=== PATIENT | female | born 1950 | race Caucasian/White ===

== ENCOUNTER → 2017-01-20 | Outpatient (CLI) | payer MEDICARE ==
--- NOTE | 2017-01-21 11:22 | ECHOF ---
Referral Reason:R06.02 SOB MEASUREMENTS -------- HEIGHT: 127.0 cm WEIGHT: 72.6 kg BP: IVSd: 1.3 cm (0.6 - 1.1) LVIDd: 4.4 cm (3.9 - 5.3) LVPWd: 1.0 cm (0.6 - 1.1) IVSs: 1.3 cm LVIDs: 3.0 cm LVPWs: 1.3 cm LA Diam: 4.0 cm (2.7 - 3.8) LAESV Index (A-L): 42.42 ml/m Ao Diam: 3.2 cm (2.0 - 3.7) AV Cusp: 1.9 cm (1.5 - 2.6) LA Diam: 4.8 cm (2.7 - 3.8) MV EXCURSION: 14.577 mm (> 18.000) MV EF SLOPE: 87 mm/s (70 - 150) EPSS: 0.6 cm MV E Kerwin: 0.89 m/s MV DecT: 269 ms MV A Kerwin: 1.05 m/s MV E/A Ratio: 0.85 RAP: 5.00 mmHg RVSP: 23.88 mmHg FINDINGS -------- Sinus rhythm. This was a technically adequate study. The left ventricular size is normal. There is mild concentric left ventricular hypertrophy. Overall left ventricular systolic function is normal with, an EF between 55 - 60 %. The right ventricle is normal in size. LA is severely dilated >40 ml/m2 The right atrial size is normal. There is mild aortic valve sclerosis. There is no evidence of aortic regurgitation. Mild mitral annular calcification present. Mild mitral regurgitation is present. Mild tricuspid regurgitation present. There is no evidence of pulmonary hypertension. The right ventricular systolic pressure, as measured by Doppler, is 23.88mmHg. There is no pulmonic regurgitation present. The aortic root size is normal. There is no pericardial effusion. CONCLUSIONS -------- 1. Sinus rhythm. 2. There is no evidence of pulmonary hypertension. 3. There is no pulmonic regurgitation present. 4. The aortic root size is normal. 5. There is no pericardial effusion. 6. This was a technically adequate study. 7. There is mild concentric left ventricular hypertrophy. 8. Overall left ventricular systolic function is normal with, an EF between 55 - 60 %. 9. LA is severely dilated >40 ml/m2 10. There is mild aortic valve sclerosis. 11. Mild mitral annular calcification present. 12. Mild mitral regurgitation is present. 13. Mild tricuspid regurgitation present. CAREER DEVELOPMENT COORDINATOR: Celine Cornejo RDCS
== END | disposition home or self-care (01) ==
LOC: RADECHMAIN 13:08
PROVIDERS: ATTEND Nurse Practitioner Family
DX: I08.3 Combined rheumatic disorders of mitral, aortic and tricuspid valves (principal); I10 Essential (primary) hypertension
CPT/HCPCS: 93306

== ENCOUNTER → 2017-04-10 | Outpatient (CLI) | payer MEDICARE ==
--- NOTE | 2017-04-10 18:20 | CT ---
EXAMINATION TYPE: CT sinus wo con DATE OF EXAM: 04/10/2017 COMPARISON: NONE HISTORY: Sinus infections and headaches x years. CT DLP: 592.00 mGycm. Automated Exposure Control for Dose Reduction was Utilized. TECHNIQUE: CT scan of the sinuses is performed without contrast, axial images are obtained, coronal r eformatted images are also reviewed. FINDINGS: Polypoid mucosal thickening versus true mucosal polyps are seen within the inferior maxilla ry sinuses measuring 0.7 cm along the right inferior medial wall and 0.5 cm along the lateral right w all as well as 0.8 cm along the inferior lateral left maxillary sinus wall. Remaining portions of the paranasal sinuses and mastoid air cells are well aerated. No fluid is seen within the middle ear cav ities. No mucoperiosteal thickening to suggest chronic sinusitis. No high densities to suggest hemorr jeremias or fungal disease. The ostiomeatal complexes and frontal recesses are patent bilaterally. No muc osal hypertrophy of the nasal terminates. No Colt cells or arnoldo bullosa are seen. Slight leftward nasal septal deviation with a small 3 mm nasal spur is identified. The nasal bone and maxillary spine are intact. Orbital de luna are also intact. Extraocular muscles xenia ear symmetric. Orbits are also intact and unremarkable. Exam is not optimized for evaluation of the i ntracranial structures. IMPRESSION: 1. Bilateral maxillary polypoid mucosal thickening versus mucosal polyps. Remaining paranasal sinuses and mastoid air cells are well aerated. 2. Ostiomeatal complexes and frontal recesses are patent bilaterally. 3. No Colt cells or arnoldo bullosa. No mucosal thickening of the nasal turbinates. 4. Mild leftward nasal septal deviation.
== END | disposition home or self-care (01) ==
LOC: RADCTMAIN 15:52
PROVIDERS: ATTEND Otolaryngology
DX: J34.2 Deviated nasal septum (principal)
CPT/HCPCS: 70486

== ENCOUNTER 2017-09-09 18:10 | Inpatient (IN) | payer MEDICARE ==
[2017-09-09] MEDS ORDERED: ACETAMINOPHEN TAB 325 MG TAB PO STA (19:10)
[2017-09-09] MEDS ORDERED: LORazepam 2 MG/ML INJ IV STA (19:12)
[2017-09-09 19:48] LABS: HCT 33.5 % (34.0-46.0); HGB 11.1 gm/dL (11.4-16.0); MCHC 33.2 g/dL (31.0-37.0); MCV 84.5 fL (80.0-100.0); Mean Platelet Volume 6.8; Platelet Count 294 k/uL (150-450); RBC 3.96 m/uL (3.80-5.40); RDW 13.6 % (11.5-15.5)
--- NOTE | 2017-09-09 19:48 | ED ---
General Adult HPI - General Chief complaint: Altered Mental Status Stated complaint: weakness Time Seen by Provider: 09/09/17 19:00 Source: patient, RN notes reviewed, old records reviewed Mode of arrival: wheelchair Limitations: altered mental status - History of Present Illness Initial comments: 67 yo female presenting with chief complaint of headache and dyspnea. Patient has history of fibromyalgia, shows was chronic history of migraine headache. She states that over the past 24 hours she has had gradual onset of worsening headache. She is also had some shortness of breath with mild cough. Cough is nonproductive. Patient complains of nausea without vomiting. No change in her bowels. No dysuria. No abdominal pain. Patient denies chest pain. She has had fever and chills as well. Not slept in the past 20 hours secondary to these symptoms. She is taking trazodone and Klonopin for sleep. - Related Data Home Medications Medication Instructions Recorded Confirmed Cetirizine HCl [Zyrtec] 10 mg PO DAILY 05/20/14 09/09/17 Cholecalciferol [Vitamin D3] 2,000 unit PO DAILY 05/20/14 09/09/17 Gabapentin [Gabapentin] 300 mg PO QAM 05/20/14 09/09/17 Hydrocodone/Acetaminophen 1 tab PO QID PRN 05/20/14 09/09/17 [Hydrocodone/Acetaminophen 10-325] Losartan Potassium [Losartan 100 mg PO QAM 05/20/14 09/09/17 Potassium] Ondansetron [Ondansetron Odt] 8 mg PO TID PRN 05/20/14 09/09/17 clonazePAM [Clonazepam] 0.5 mg PO BID PRN 05/20/14 09/09/17 clonazePAM [Clonazepam] 1 mg PO HS 05/20/14 09/09/17 metFORMIN HCL [Metformin HCl ER] 500 mg PO QAM 05/20/14 09/09/17 Morphine Sulfate ER [Ms Contin 15 mg PO Q8H 11/08/15 09/09/17 15Mg] Morphine Sulfate ER [Ms Contin 30 mg PO Q8H 11/08/15 09/09/17 30Mg] Albuterol Inhaler [Ventolin Hfa 2 puff INHALATION RT-Q4H PRN 11/14/15 09/09/17 Inhaler] Multivitamins, Thera [Multivitamin] 1 tab PO DAILY 11/14/15 09/09/17 Rizatriptan Benzoate [Maxalt] 10 mg PO BID PRN 07/04/16 09/09/17 Topiramate [Topamax] 50 mg PO QID 07/04/16 09/09/17 traZODone HCL 450 mg PO HS 07/04/16 09/09/17 Brimonidine Tartrate [Alphagan P 1 drops BOTH EYES TID 09/09/17 09/09/17 0.2% Ophth Soln] Dorzolamide 2% [Trusopt 2%] 1 drops BOTH EYES BID 09/09/17 09/09/17 Lansoprazole [Prevacid] 30 mg PO BID 09/09/17 09/09/17 Latanoprost [Xalatan 0.005%] 1 drop BOTH EYES HS 09/09/17 09/09/17 Mometasone/Formoterol [Dulera 200 2 puff INHALATION RT-BID 09/09/17 09/09/17 Mcg/5 Mcg Inhaler] Pioglitazone [Actos] 15 mg PO DAILY 09/09/17 09/09/17 Propylene Glycol/Peg 400/Pf 1 drop BOTH EYES DAILY PRN 09/09/17 09/09/17 [Systane 0.3-0.4% Eye Drops] Timolol 0.5% Ophth Soln [Timoptic 1 drop BOTH EYES BID 09/09/17 09/09/17 0.5% Ophth Soln] Allergies Allergy/AdvReac Type Severity Reaction Status Date / Time adhesive Allergy Severe Rash/Hives, Verified 09/09/17 19:48 BLISTERS levofloxacin [From Levaquin] Allergy Severe Anaphylaxis Verified 09/09/17 19:48 metoclopramide HCl Allergy Severe Anaphylaxis Verified 09/09/17 19:48 [From Reglan] Phenothiazines Allergy Severe Anaphylaxis Verified 09/09/17 19:48 thiethylperazine maleate Allergy Severe Anaphylaxis Verified 09/09/17 19:48 [From Torecan] venom-honey bee Allergy Severe Anaphylaxis Verified 09/09/17 19:48 [bee venom (honey bee)] iodine Allergy Intermediate Rash/Hives Verified 09/09/17 19:48 aspirin Allergy Mild TOLD TO Verified 09/09/17 19:48 AVOID D/T ALLERGIES, INDIGESTION cigarette smoke Allergy Cough Verified 09/09/17 19:48 duloxetine [From Cymbalta] Allergy Unknown Verified 09/09/17 19:48 egg Allergy Abdominal Verified 09/09/17 19:48 Pain fentanyl Allergy OVER Verified 09/09/17 19:48 SEDATED, WEAKNESS milk Allergy Abdominal Verified 09/09/17 19:48 Pain pregabalin [From Lyrica] Allergy Unknown Verified 09/09/17 19:48 Bkfwtig-Jib-Glk Reductase Allergy Unknown Verified 09/09/17 19:48 Inhibitor vortioxetine Allergy Unknown Verified 09/09/17 19:48 [From Brintellix] Review of Systems ROS Statement: Those systems with pertinent positive or pertinent negative responses have been documented in the HPI. ROS Other: All systems not noted in ROS Statement are negative. Past Medical History Past Medical History: Asthma, Diabetes Mellitus, Fibromyalgia, GERD/Reflux, Hyperlipidemia, Hypertension, Osteoarthritis (OA), Skin Disorder Additional Past Medical History / Comment(s): ROSACEA. DDD. HAS LAP BAND. HX VIRAL HEPATITIS 1977. History of Any Multi-Drug Resistant Organisms: None Reported Past Surgical History: Back Surgery, Bariatric Surgery, Bladder Surgery, Cholecystectomy, Hysterectomy, Orthopedic Surgery, Tonsillectomy, Tubal Ligation Additional Past Surgical History / Comment(s): spinal fusion, lap band 2009, 05/20/[address] GARIBAY., open reduction of right ankle fx 2009 Past Anesthesia/Blood Transfusion Reactions: No Reported Reaction Past Psychological History: Depression Smoking Status: Never smoker Past Alcohol Use History: Rare Past Drug Use History: None Reported - Past Family History Father Additional Family Medical History / Comment(s): FATHER AT AGE 91YRS. Mother Family Medical History: CVA/TIA Additional Family Medical History / Comment(s): MOTHER AT AGE 67 YRS OF CVA General Exam Limitations: altered mental status General appearance: alert, in no apparent distress Head exam: Present: atraumatic Eye exam: Present: normal appearance, PERRL, EOMI ENT exam: Present: normal exam, mucous membranes dry Neck exam: Present: normal inspection, full ROM. Absent: tenderness, meningismus Respiratory exam: Present: normal lung sounds bilaterally. Absent: respiratory distress, wheezes Cardiovascular Exam: Present: regular rate, normal rhythm GI/Abdominal exam: Present: soft. Absent: distended, tenderness Extremities exam: Present: normal inspection, normal capillary refill. Absent: pedal edema Back exam: Present: normal inspection Neurological exam: Present: alert, oriented X3, CN II-XII intact, other (No clonus). Absent: motor sensory deficit Psychiatric exam: Present: normal affect, normal mood Skin exam: Present: warm, dry, intact. Absent: cyanosis, diaphoretic Course Vital Signs 09/09/17 09/09/17 09/09/17 18:46 19:48 20:28 Temperature 101.1 F H Pulse Rate 85 78 82 Respiratory 20 18 18 Rate Blood Pressure 134/63 122/67 122/96 O2 Sat by Pulse 96 94 L 96 Oximetry 09/09/17 20:33 Temperature 101.1 F H Pulse Rate Respiratory Rate Blood Pressure O2 Sat by Pulse Oximetry EKG Findings - EKG Comments: EKG Findings:: Normal sinus rhythm, ventricular rate 80, TX interval 154, QRS duration 88, QTC 470, no signs of acute ischemia Medical Decision Making - Medical Decision Making 67 yo female presenting with fever, cough, and headache. Patient does have migraine history, headache typical of her normal migraines. Laboratory studies reveal significantly elevated white blood cell count at 20,000 which is predominantly neutrophils. Hemoglobin 11.1, mild hyponatremia 133, urinalysis is clear no signs of infection. Influenza is negative. Chest x-ray shows bilateral pneumonia worse in the right middle lobe. This is consistent with patient's cough and fever. She has not been hospitalized in the past 90 days. She will be started on antibiotics for community acquired [place] Paris[place] she will be admitted for further evaluation and treatment. - Lab Data Result diagrams: 09/09/17 19:35 09/09/17 19:35 Lab Results 09/09/17 09/09/17 09/09/17 Range/Units 19:35 19:35 19:35 WBC 28.8 H* (3.8-10.6) k/uL RBC 3.96 (3.80-5.40) m/uL Hgb 11.1 L (11.4-16.0) gm/dL Hct 33.5 L (34.0-46.0) % MCV 84.5 (80.0-100.0) fL MCH 28.0 (25.0-35.0) pg MCHC 33.2 (31.0-37.0) g/dL RDW 13.6 (11.5-15.5) % Plt Count 294 (150-450) k/uL Neutrophils % (Manual) 85 % Band Neutrophils % 1 % Lymphocytes % (Manual) 8 % Monocytes % (Manual) 6 % Neutrophils # (Manual) 24.70 H (1.3-7.7) k/uL Lymphocytes # (Manual) 2.30 (1.0-4.8) k/uL Monocytes # (Manual) 1.73 H (0-1.0) k/uL Nucleated RBCs 0 (0-0) /100 WBC Polychromasia Present PT (9.0-12.0) sec INR (<1.2) APTT (22.0-30.0) sec Sodium 133 L (137-145) mmol/L Potassium 4.0 (3.5-5.1) mmol/L Chloride 97 L (98-107) mmol/L Carbon Dioxide 25 (22-30) mmol/L Anion Gap 11 mmol/L BUN 18 H (7-17) mg/dL Creatinine 0.90 (0.52-1.04) mg/dL Est GFR (MDRD) Af Amer >60 (>60 ml/min/1.73 sqM) Est GFR (MDRD) Non-Af >60 (>60 ml/min/1.73 sqM) Glucose 161 H (74-99) mg/dL POC Glucose (mg/dL) (75-99) mg/dL POC Glu Travel Insurance Agent ID Plasma Lactic Acid [place] 1.6 (0.7-2.0) mmol/L Calcium 8.9 (8.4-10.2) mg/dL Total Bilirubin 0.7 (0.2-1.3) mg/dL AST 51 H (14-36) U/L ALT 42 (9-52) U/L Alkaline Phosphatase 91 (38-126) U/L Total Protein 7.2 (6.3-8.2) g/dL Albumin 4.0 (3.5-5.0) g/dL Urine Color Urine Appearance (Clear) Urine pH (5.0-8.0) Ur Specific Circle (1.001-1.035) Urine Protein (Negative) Urine Glucose (UA) (Negative) Urine Ketones (Negative) Urine Blood (Negative) Urine Nitrite (Negative) Urine Bilirubin (Negative) Urine Urobilinogen (<2.0) mg/dL Ur Leukocyte Esterase (Negative) Urine WBC (0-5) /hpf Ur Squamous Epith Cells (0-4) /hpf Urine Bacteria (None) /hpf Hyaline Casts (0-2) /lpf Urine Mucus (None) /hpf Influenza Type A RNA (Not Detectd) Influenza Type B (PCR) (Not Detectd) 09/09/17 09/09/17 09/09/17 Range/Units 19:35 19:35 19:41 WBC (3.8-10.6) k/uL RBC (3.80-5.40) m/uL Hgb (11.4-16.0) gm/dL Hct (34.0-46.0) % MCV (80.0-100.0) fL MCH (25.0-35.0) pg MCHC (31.0-37.0) g/dL RDW (11.5-15.5) % Plt Count (150-450) k/uL Neutrophils % (Manual) % Band Neutrophils % % Lymphocytes % (Manual) % Monocytes % (Manual) % Neutrophils # (Manual) (1.3-7.7) k/uL Lymphocytes # (Manual) (1.0-4.8) k/uL Monocytes # (Manual) (0-1.0) k/uL Nucleated RBCs (0-0) /100 WBC Polychromasia PT 10.3 (9.0-12.0) sec INR 1.1 (<1.2) APTT 26.8 (22.0-30.0) sec Sodium (137-145) mmol/L Potassium (3.5-5.1) mmol/L Chloride (98-107) mmol/L Carbon Dioxide (22-30) mmol/L Anion Gap mmol/L BUN (7-17) mg/dL Creatinine (0.52-1.04) mg/dL Est GFR (MDRD) Af Amer (>60 ml/min/1.73 sqM) Est GFR (MDRD) Non-Af (>60 ml/min/1.73 sqM) Glucose (74-99) mg/dL POC Glucose (mg/dL) (75-99) mg/dL POC Glu Travel Insurance Agent ID Plasma Lactic Acid [place] (0.7-2.0) mmol/L Calcium (8.4-10.2) mg/dL Total Bilirubin (0.2-1.3) mg/dL AST (14-36) U/L ALT (9-52) U/L Alkaline Phosphatase (38-126) U/L Total Protein (6.3-8.2) g/dL Albumin (3.5-5.0) g/dL Urine Color Yellow Urine Appearance Turbid H (Clear) Urine pH 5.5 (5.0-8.0) Ur Specific Circle 1.012 (1.001-1.035) Urine Protein Trace H (Negative) Urine Glucose (UA) Negative (Negative) Urine Ketones Negative (Negative) Urine Blood Negative (Negative) Urine Nitrite Negative (Negative) Urine Bilirubin Negative (Negative) Urine Urobilinogen <2.0 (<2.0) mg/dL Ur Leukocyte Esterase Trace H (Negative) Urine WBC 1 (0-5) /hpf Ur Squamous Epith Cells 3 (0-4) /hpf Urine Bacteria Rare H (None) /hpf Hyaline Casts 18 H (0-2) /lpf Urine Mucus Rare H (None) /hpf Influenza Type A RNA Not Detected (Not Detectd) Influenza Type B (PCR) Not Detected (Not Detectd) 09/09/17 Range/Units 19:52 WBC (3.8-10.6) k/uL RBC (3.80-5.40) m/uL Hgb (11.4-16.0) gm/dL Hct (34.0-46.0) % MCV (80.0-100.0) fL MCH (25.0-35.0) pg MCHC (31.0-37.0) g/dL RDW (11.5-15.5) % Plt Count (150-450) k/uL Neutrophils % (Manual) % Band Neutrophils % % Lymphocytes % (Manual) % Monocytes % (Manual) % Neutrophils # (Manual) (1.3-7.7) k/uL Lymphocytes # (Manual) (1.0-4.8) k/uL Monocytes # (Manual) (0-1.0) k/uL Nucleated RBCs (0-0) /100 WBC Polychromasia PT (9.0-12.0) sec INR (<1.2) APTT (22.0-30.0) sec Sodium (137-145) mmol/L Potassium (3.5-5.1) mmol/L Chloride (98-107) mmol/L Carbon Dioxide (22-30) mmol/L Anion Gap mmol/L BUN (7-17) mg/dL Creatinine (0.52-1.04) mg/dL Est GFR (MDRD) Af Amer (>60 ml/min/1.73 sqM) Est GFR (MDRD) Non-Af (>60 ml/min/1.73 sqM) Glucose (74-99) mg/dL POC Glucose (mg/dL) 181 H (75-99) mg/dL POC Glu Travel Insurance Agent ID [place] Bui Plasma Lactic Acid [place] (0.7-2.0) mmol/L Calcium (8.4-10.2) mg/dL Total Bilirubin (0.2-1.3) mg/dL AST (14-36) U/L ALT (9-52) U/L Alkaline Phosphatase (38-126) U/L Total Protein (6.3-8.2) g/dL Albumin (3.5-5.0) g/dL Urine Color Urine Appearance (Clear) Urine pH (5.0-8.0) Ur Specific Circle (1.001-1.035) Urine Protein (Negative) Urine Glucose (UA) (Negative) Urine Ketones (Negative) Urine Blood (Negative) Urine Nitrite (Negative) Urine Bilirubin (Negative) Urine Urobilinogen (<2.0) mg/dL Ur Leukocyte Esterase (Negative) Urine WBC (0-5) /hpf Ur Squamous Epith Cells (0-4) /hpf Urine Bacteria (None) /hpf Hyaline Casts (0-2) /lpf Urine Mucus (None) /hpf Influenza Type A RNA (Not Detectd) Influenza Type B (PCR) (Not Detectd) Disposition Clinical Impression: Community acquired pneumonia Disposition: ADMITTED IP TO THIS [facility] Condition: Stable Referrals: Radha Jovel III, MD [Primary Care Provider] - 1-2 days Decision to Admit Reason: Admit from EC Decision Date: 09/09/17 Decision Time: 21:04
[2017-09-09 19:50] LABS: WBC 28.8 k/uL (3.8-10.6)
[2017-09-09 19:54] LABS: Glucose,Whole Blood 181 mg/dL (75-99)
[2017-09-09 20:00] LABS: INR 1.1 (<1.2); Partial Thromboplastin Time 26.8 sec (22.0-30.0); Prothrombin Time 10.3 sec (9.0-12.0)
[2017-09-09 20:01] LABS: ALT 42 U/L (9-52); AST 51 U/L (14-36); Alkaline Phosphatase 91 U/L (38-126); Anion Gap 11 mmol/L; Blood Urea Nitrogen 18 mg/dL (7-17); Calcium 8.9 mg/dL (8.4-10.2); Carbon Dioxide 25 mmol/L (22-30); Chloride 97 mmol/L (98-107); Glucose 161 mg/dL (74-99); Sodium 133 mmol/L (137-145); Total Bilirubin 0.7 mg/dL (0.2-1.3); Total Protein 7.2 g/dL (6.3-8.2)
[2017-09-09 20:02] LABS: Band Neutrophils % 1 %; Monocytes # (M) 1.73 k/uL (0-1.0); Neutrophils % (M) 85 %; Nucleated Red Blood Cells 0 /100 WBC (0-0); Polychromasia Present; Total Cells Counted 100
[2017-09-09] MEDS ORDERED: MORPHINE SULFATE 4 MG/ML SYRINGE IVP STA (20:05)
[2017-09-09 20:09] LABS: Appearance,Urine Turbid (Clear); Bacteria,Urine Rare /hpf; Bilirubin,Urine Negative (Negative); Blood,Urine Negative (Negative); Color,Urine Yellow; Glucose,Urine (UA) Negative (Negative); Hyaline Casts,Urine 18 /lpf (0-2); Ketones,Urine Negative (Negative); Leukocyte Esterase,Urine Trace (Negative); Mucus,Urine Rare /hpf; PH, Urine 5.5 (5.0-8.0); Protein,Urine Trace (Negative); Specific Gravity,Urine 1.012 (1.001-1.035); Squamous Epithelial Cell,Urine 3 /hpf (0-4); Urobilinogen,Urine <2.0 mg/dL (<2.0); WBC,Urine 1 /hpf (0-5)
[2017-09-09] MEDS ORDERED: HYDROcodone/APAP 10-325MG 1 EACH TAB PO STA (20:14)
--- NOTE | 2017-09-09 20:28 | CT ---
EXAMINATION TYPE: CT brain wo con DATE OF EXAM: 09/09/2017 COMPARISON: 07/04/2016 HISTORY: Weakness. CT DLP: 831.1 mGycm Automated exposure control for dose reduction was used. FINDINGS: Ventricles have normal size. There is no mass effect nor midline shift. There is no sign of intracran ial hemorrhage. There is mucosal thickening in the right maxillary sinus. The calvarium is intact. IMPRESSION: NEGATIVE CT SCAN OF THE BRAIN. RIGHT MAXILLARY SINUSITIS COMPARED TO OLD EXAM.
--- NOTE | 2017-09-09 20:50 | XR ---
EXAMINATION TYPE: XR chest 2V DATE OF EXAM: 09/09/2017 COMPARISON: 07/04/2016 HISTORY: Fever TECHNIQUE: Frontal and lateral views of the chest are obtained. FINDINGS: There is a diffuse patchy airspace infiltrate in the right lung. Left lung is fairly clear . There is no heart failure. There is a small infiltrate behind the heart in the left lower lobe. The re are chest leads. There is no pleural effusion. There is thoracolumbar kyphotic deformity with ante rior wedging of T12 vertebra and 25% loss of height. There is vertebroplasty of T12. IMPRESSION: There is new bilateral pneumonia compared to old exam. This is much worse on the right s lorenzo. No heart failure.
[2017-09-09] MEDS ORDERED: AZITHROMYCIN 500 MG in SODIUM CHLORIDE 0.9% 250 ML IVPB STA (20:54)
[2017-09-09] MEDS ORDERED: cefTRIAXone IN SWFI 1,000 MG/10 ML SYRINGE IVP STA (20:54)
[2017-09-09] MEDS ORDERED: NALOXONE 0.4 MG/ML 1 ML VIAL IV PRN (21:05)
[2017-09-09] MEDS ORDERED: ACETAMINOPHEN TAB 325 MG TAB PO PRN (21:05)
[2017-09-09] MEDS ORDERED: MORPHINE SULFATE 4 MG/ML SYRINGE IVP PRN (21:05)
[2017-09-09] MEDS ORDERED: ALBUTEROL NEBULIZED 2.5 MG/3 ML INHALATION PRN (21:07)
[2017-09-09] MEDS: SODIUM CHLORIDE 0.9% 1,000 ML IV SCH (21:12)
[2017-09-09] MEDS ORDERED: ARTIFICIAL TEARS-HYPROMELLOSE DROPS 15 ML BTL BOTH EYES PRN (22:29)
[2017-09-09] MEDS ORDERED: SUMAtriptan SUCCINATE 50 MG TAB PO PRN (22:29)
[2017-09-09] MEDS: clonazePAM 1 MG TAB PO SCH (23:30)
[2017-09-09] MEDS: MORPHINE SULFATE ER 30 MG TABLET PO SCH (23:30)
[2017-09-09] MEDS: MORPHINE SULFATE ER 15 MG TABLET PO SCH (23:30)
--- NOTE | 2017-09-09 23:56 | HP ---
HISTORY AND PHYSICAL DATE OF SERVICE: 09/09/2017 CHIEF COMPLAINT: Weakness, headache, shortness of breath, cough, purulent sputum. HISTORY OF PRESENT ILLNESS: This 67-year-old woman with a past medical history of multiple medical problems, asthma, diabetes, fibromyalgia, GERD, hyperlipidemia, hypertension, DJD, history of back surgery, being followed by Dr. Jovel, has not been feeling well over the past several days. The patient also sees for pain management. The patient had recent evaluation for the right foot for a possible osteomyelitis. MRI has been done. Evaluation by Dr. Massey is pending at this time. Currently because of increasing cough, shortness of breath and headache, the patient came to [facility] and was admitted for further evaluation. Chest x-ray showed significant pneumonia bilateral, right more than left, and the patient was started on broad-spectrum IV antibiotics. There is no history of fever, rigors. Influenza negative. PAST MEDICAL: Asthma, diabetes, fibromyalgia, GERD, hypertension, hyperlipidemia, DJD, history of back surgery, bariatric surgery. HOME MEDICATIONS: 1. Trazodone 450 mg at bedtime. 2. Metformin 500 mg every a.m. 3. Clonazepam 1 mg at bedtime and 0.5 mg b.i.d. p.r.n. 4. Topamax 50 mg p.o. at bedtime. 5. Timoptic 0.5 drops both eyes b.i.d. 6. Maxalt 10 mg b.i.d. p.r.n. 7. Systane 1 drop both eyes daily p.r.n. 8. Actos 50 mg p.o. daily. 9. Ondansetron 8 mg t.i.d. 10.Multivitamins 1 p.o. daily. 11.MS Contin 30 mg every 8, and 15 mg every 8. 12.Dulera 2 puffs b.i.d. 13.Losartan 100 mg a.m. 14.Xalatan 1 drop both eyes at bedtime. 15.30 mg p.o. b.i.d. 16.Hydrocodone 1 tablet q.i.d. p.r.n. 17.Gabapentin 300 mg at bedtime. 18.Trusopt 2% 1 drop both eyes b.i.d. 19.Vitamin D3, 2000 daily. 20.Zyrtec 10 mg. 21.Alphagan 0.2 one drop both eyes t.i.d. 22.Ventolin HFA 2 puffs every 4 hours p.r.n. ALLERGIES: LEVAQUIN, METOCLOPRAMIDE, PHENOTHIAZINES, HONEY BEEN VENOM, IODINE, ASPIRIN, CIGARETTE SMOKING, DULOXETINE, EGGS, VENTOLIN, MILK, LYRICA, STATINS, BRINTELLIX. FAMILY HISTORY: History of CVA and TIA. SOCIAL HISTORY: No history of smoking. Occasional alcohol intake. REVIEW OF SYSTEMS: ENT: No diminished vision. CARDIOVASCULAR: No angina. GI: As mentioned. : None. NERVOUS SYSTEM: As mentioned. ALLERGY: None. MUSCULOSKELETAL: As mentioned. HEMATOLOGY: None. ENDOCRINE: As mentioned. CONSTITUTIONAL: None. DERMATOLOGIC: None. PSYCHIATRY: As mentioned earlier. PHYSICAL EXAMINATION: Alert, oriented x3. Pulse is 85, blood pressure 140/56, respiration 20, temperature 100.1, pulse ox 96% 2 L systems. HEENT: Conjunctivae normal. Oral mucosa moist. NECK: No jugular venous distention. No lymph node enlargement. CARDIOVASCULAR: S1 and S2. LUNGS: Breath sounds diminished at the bases. Few scattered rhonchi and crackles. No bronchial breath sounds. ABDOMEN: Soft, nontender. No mass palpable. No hepatosplenomegaly. LEGS: No edema. No cyanosis. NERVOUS SYSTEM: Higher functions as mentioned. Moves all 4 limbs. No focal motor or sensory deficits. SKIN: No rashes. LABS: WBC 28.8, hemoglobin 11.1, sodium 138, potassium 4. UA noted. The chest x-ray personally reviewed and shows some bilateral pneumonia, right greater than left. ASSESSMENT: 1. Bilateral pneumonia, right more than left, possible community-acquired, with possible sepsis. 2. Change in mental status possible acute metabolic acidosis secondary to sepsis. 3. Chronic pain syndrome from severe degenerative joint disease. 4. Possible right foot osteomyelitis, right small toe. 5. Increased WBC. 6. Anemia of chronic disease. 7. Hyponatremia. 8. History of asthma. 9. History of diabetes type 2. 10.History of fibromyalgia. 11.Gastroesophageal reflux disease. 12.History of hypertension. 13.History of hyperlipidemia. 14.History of degenerative joint disease. 15.History of back pain. 16.History of bariatric surgery. 17.History of hysterectomy. 18.History of spinal fusion. 19.History of lap band surgery. 20.History of lumbar laminectomy. 21.History of depression. 22.FULL CODE. RECOMMENDATIONS: This 67-year-old woman presented with multiple complex medical issues. We will monitor the patient closely, continue the current management and symptomatic treatment. We will initiate broad-spectrum IV antibiotics, Rocephin and Zithromax and bronchodilators. Resume the home medications. Monitor blood sugars closely. Otherwise I would also recommend a CT scan for further elucidation of the lesions, possibly culture and labs have been sought. Guarded prognosis because of multiple complex medical issues. Discussed with the patient. Further recommendations to follow. MMODL / IJN: [id number] / ANJANA
[2017-09-10] MEDS: HEPARIN SODIUM,PORCINE 5,000 UNIT/ML 1 ML VIAL SQ SCH ×3 (00:01→21:04)
[2017-09-10] MEDS: MORPHINE SULFATE ER 30 MG TABLET PO SCH ×3 (05:47→21:14)
[2017-09-10] MEDS: MORPHINE SULFATE ER 15 MG TABLET PO SCH ×3 (05:48→21:13)
[2017-09-10] MEDS: SODIUM CHLORIDE 0.9% 1,000 ML IV SCH ×2 (05:50→16:13)
[2017-09-10 07:50] LABS: Basophils # (A) 0.1 k/uL (0-0.2); Basophils % (A) 0 %; Eosinophils # (A) 0.1 k/uL (0-0.7); Eosinophils % (A) 1 %; HCT 32.6 % (34.0-46.0); HGB 10.6 gm/dL (11.4-16.0); Lymphocytes # (A) 1.5 k/uL (1.0-4.8); Lymphocytes % (A) 6 %; MCH 27.9 pg (25.0-35.0); MCHC 32.4 g/dL (31.0-37.0); MCV 86.1 fL (80.0-100.0); Mean Platelet Volume 7.1; Monocytes # (A) 0.5 k/uL (0-1.0); Monocytes % (A) 2 %; Neutrophils % (A) 90 %; Platelet Count 284 k/uL (150-450); RBC 3.79 m/uL (3.80-5.40); RDW 13.4 % (11.5-15.5); WBC 23.3 k/uL (3.8-10.6)
[2017-09-10] MEDS ORDERED: SYMBICORT 160-4.5 MCG INHALER INHALATION SCH (08:00)
[2017-09-10 08:18] LABS: ALT 42 U/L (9-52); AST 44 U/L (14-36); Albumin 3.5 g/dL (3.5-5.0); Alkaline Phosphatase 105 U/L (38-126); Anion Gap 10 mmol/L; Blood Urea Nitrogen 16 mg/dL (7-17); Calcium 8.6 mg/dL (8.4-10.2); Carbon Dioxide 26 mmol/L (22-30); Chloride 100 mmol/L (98-107); Glucose 145 mg/dL (74-99); Potassium 3.6 mmol/L (3.5-5.1); Sodium 136 mmol/L (137-145); Total Bilirubin 0.7 mg/dL (0.2-1.3); Total Protein 6.4 g/dL (6.3-8.2)
--- NOTE | 2017-09-10 08:42 | CT ---
EXAMINATION TYPE: CT chest wo con DATE OF EXAM: 09/10/2017 COMPARISON: Prior CT thorax HISTORY: Pneumonia CT DLP: 337.7 mGycm. Automated Exposure Control for Dose Reduction was Utilized. TECHNIQUE: CT scan of the thorax is performed without IV contrast. FINDINGS: LUNGS: New right multifocal alveolar opacities with surrounding groundglass opacities and more focal confluent consolidations within the right lower lobe with air bronchograms are seen. The left lung re soto clear. No pleural effusion or pneumothorax. Incidental note of an azygos lobe. MEDIASTINUM: Lack of IV contrast is noted to limit evaluation for mediastinal and especially hilar ad enopathy. There are no definitive greater than 1 cm hilar or mediastinal lymph nodes. No cardiomega ly or pericardial effusion is seen. Mild calcific atheromatous changes are seen at the coronary arter ies and thoracic aorta. OTHER: Gastric lap band is noted. Cholecystectomy clips are seen within the right upper quadrant. Mul tilevel moderate degenerative changes of the thoracic spine are seen with vertebroplasty of a lower t horacic vertebral body and surgical fixation is partially visualized of the lumbar spine. IMPRESSION: New multifocal right sided alveolar and interstitial opacities with more confluent consol idations in the right lower lobe containing air bronchograms all suspicious for multifocal pneumonia. Follow-up CT after treatment is recommended to ensure no underlying pulmonary nodule or mass.
[2017-09-10] MEDS: CHOLECALCIFEROL 1,000 UNIT TAB PO SCH (08:56)
[2017-09-10] MEDS: BRIMONIDINE TARTRATE 0.2% DROPS 5 ML BTL BOTH EYES SCH ×3 (08:56→21:05)
[2017-09-10] MEDS: GABAPENTIN 300 MG CAP PO SCH (08:58)
[2017-09-10] MEDS: metFORMIN 500 MG TAB PO SCH ×2 (08:58→21:02)
[2017-09-10] MEDS: LOSARTAN 50 MG TAB PO SCH (08:58)
[2017-09-10] MEDS: MULTIVITAMINS, THERA 1 EACH TAB PO SCH (08:59)
[2017-09-10] MEDS: PANTOPRAZOLE 40 MG TABLET PO SCH ×2 (08:59→21:03)
[2017-09-10] MEDS ORDERED: AZITHROMYCIN 500 MG in SODIUM CHLORIDE 0.9% 250 ML IVPB SCH (09:00)
[2017-09-10] MEDS: PIOGLITAZONE 15 MG TAB PO SCH (09:00)
[2017-09-10] MEDS: TIMOLOL 0.5% OPHTH DROPS 5 ML BTL BOTH EYES SCH ×2 (09:00→21:05)
[2017-09-10] MEDS: TOPIRAMATE 25 MG TAB PO SCH ×4 (09:01→21:03)
[2017-09-10] MEDS: cefTRIAXone IN SWFI 1,000 MG/10 ML SYRINGE IVP SCH (09:21)
[2017-09-10] MEDS: DORZOLAMIDE HCL 2% DROPS 10 ML BTL BOTH EYES SCH ×2 (09:22→21:06)
[2017-09-10] MEDS: HYDROcodone/APAP 10-325MG 1 EACH TAB PO PRN ×2 (09:22→20:07)
--- NOTE | 2017-09-10 09:38 | P.CNPUL ---
History of Present Illness Consult date: 09/10/17 Reason for consult: dyspnea, cough, pneumonia, abnormal CXR/CT Chief complaint: Cough and shortness of breath History of present illness: Consult dated 09/10/2017 67-year-old female who presented to the emergency department with a week's worth of complaints including headache shortness of breath and cough. The shortness of breath was progressive in nature. The patient's cough is mostly nonproductive. No fever but she did have chills. She felt cold. During the heat up in the house. The patient's cough is intermittent is nonproductive. Also having a headache. She thought it was related to migraine. She was seen in the emergency room and chest x-ray revealed a pretty extensive pneumonia in the right lung. She was admitted for that reason. Feeling a bit better today. Still feeling short of breath and still coughing. Nasal O2 in place. She was started on Rocephin and Zithromax for community acquired pneumonia. She does apparently have a history of asthma for which she takes a combination inhaled corticosteroid and long-acting beta agonist short acting beta agonist. Lifelong nonsmoker. Her medical history apparently includes asthma diabetes fibromyalgia GERD hyperlipidemia hypertension DJD rosacea degenerative disc disease previous lap band procedure for obesity and viral hepatitis. She's had a number of surgical procedures as can be seen in the ER [facility]. Review of Systems 12 point review of system is positive for headache nausea without vomiting shortness of breath and nonproductive cough. Also chills. Past Medical History Past Medical History: Asthma, Diabetes Mellitus, Fibromyalgia, GERD/Reflux, Hyperlipidemia, Hypertension, Osteoarthritis (OA), Skin Disorder Additional Past Medical History / Comment(s): ROSACEA. DDD. HAS LAP BAND. HX VIRAL HEPATITIS 1977. type 2 diabetes History of Any Multi-Drug Resistant Organisms: None Reported Past Surgical History: Back Surgery, Bariatric Surgery, Bladder Surgery, Cholecystectomy, Hysterectomy, Orthopedic Surgery, Tonsillectomy, Tubal Ligation Additional Past Surgical History / Comment(s): spinal fusion, lap band 2009, 05/20/[address] GARIBAY., open reduction of right ankle fx 2009 Past Anesthesia/Blood Transfusion Reactions: No Reported Reaction Past Psychological History: Depression Smoking Status: Never smoker Past Alcohol Use History: Rare Past Drug Use History: None Reported - Past Family History Father Additional Family Medical History / Comment(s): FATHER AT AGE 91YRS. Mother Family Medical History: CVA/TIA Additional Family Medical History / Comment(s): MOTHER AT AGE 67 YRS OF CVA Medications and Allergies Home Medications Medication Instructions Recorded Confirmed Type Cetirizine HCl [Zyrtec] 10 mg PO DAILY 05/20/14 09/09/17 History Cholecalciferol [Vitamin D3] 2,000 unit PO DAILY 05/20/14 09/09/17 History Gabapentin [Gabapentin] 300 mg PO QAM 05/20/14 09/09/17 History Hydrocodone/Acetaminophen 1 tab PO QID PRN 05/20/14 09/09/17 History [Hydrocodone/Acetaminophen 10-325] Losartan Potassium [Losartan 100 mg PO QAM 05/20/14 09/09/17 History Potassium] Ondansetron [Ondansetron Odt] 8 mg PO TID PRN 05/20/14 09/09/17 History clonazePAM [Clonazepam] 0.5 mg PO BID PRN 05/20/14 09/09/17 History clonazePAM [Clonazepam] 1 mg PO HS 05/20/14 09/09/17 History metFORMIN HCL [Metformin HCl ER] 500 mg PO QAM 05/20/14 09/09/17 History Morphine Sulfate ER [Ms Contin 15 mg PO Q8H 11/08/15 09/09/17 History 15Mg] Morphine Sulfate ER [Ms Contin 30 mg PO Q8H 11/08/15 09/09/17 History 30Mg] Albuterol Inhaler [Ventolin Hfa 2 puff INHALATION RT-Q4H PRN 11/14/15 09/09/17 History Inhaler] Multivitamins, Thera [Multivitamin] 1 tab PO DAILY 11/14/15 09/09/17 History Rizatriptan Benzoate [Maxalt] 10 mg PO BID PRN 07/04/16 09/09/17 History Topiramate [Topamax] 50 mg PO QID 07/04/16 09/09/17 History traZODone HCL 450 mg PO HS 07/04/16 09/09/17 History Brimonidine Tartrate [Alphagan P 1 drops BOTH EYES TID 09/09/17 09/09/17 History 0.2% Ophth Soln] Dorzolamide 2% [Trusopt 2%] 1 drops BOTH EYES BID 09/09/17 09/09/17 History Lansoprazole [Prevacid] 30 mg PO BID 09/09/17 09/09/17 History Latanoprost [Xalatan 0.005%] 1 drop BOTH EYES HS 09/09/17 09/09/17 History Mometasone/Formoterol [Dulera 200 2 puff INHALATION RT-BID 09/09/17 09/09/17 History Mcg/5 Mcg Inhaler] Pioglitazone [Actos] 15 mg PO DAILY 09/09/17 09/09/17 History Propylene Glycol/Peg 400/Pf 1 drop BOTH EYES DAILY PRN 09/09/17 09/09/17 History [Systane 0.3-0.4% Eye Drops] Timolol 0.5% Ophth Soln [Timoptic 1 drop BOTH EYES BID 09/09/17 09/09/17 History 0.5% Ophth Soln] Allergies Allergy/AdvReac Type Severity Reaction Status Date / Time adhesive Allergy Severe Rash/Hives, Verified 09/09/17 19:48 BLISTERS levofloxacin [From Levaquin] Allergy Severe Anaphylaxis Verified 09/09/17 19:48 metoclopramide HCl Allergy Severe Anaphylaxis Verified 09/09/17 19:48 [From Reglan] Phenothiazines Allergy Severe Anaphylaxis Verified 09/09/17 19:48 thiethylperazine maleate Allergy Severe Anaphylaxis Verified 09/09/17 19:48 [From Torecan] venom-honey bee Allergy Severe Anaphylaxis Verified 09/09/17 19:48 [bee venom (honey bee)] iodine Allergy Intermediate Rash/Hives Verified 09/09/17 19:48 aspirin Allergy Mild TOLD TO Verified 09/09/17 19:48 AVOID D/T ALLERGIES, INDIGESTION cigarette smoke Allergy Cough Verified 09/09/17 19:48 duloxetine [From Cymbalta] Allergy Unknown Verified 09/09/17 19:48 egg Allergy Abdominal Verified 09/09/17 19:48 Pain fentanyl Allergy OVER Verified 09/09/17 19:48 SEDATED, WEAKNESS milk Allergy Abdominal Verified 09/09/17 19:48 Pain pregabalin [From Lyrica] Allergy Unknown Verified 09/09/17 19:48 Bfqdnbj-Xyg-Prz Reductase Allergy Unknown Verified 09/09/17 19:48 Inhibitor vortioxetine Allergy Unknown Verified 09/09/17 19:48 [From Brintellix] Physical Exam Osteopathic Statement: *. No significant issues noted on an osteopathic structural exam other than those noted in the History and Physical/Consult. Vitals: Vital Signs Temp Pulse Pulse Resp BP BP BP 09/10/17 06:38 99.8 F H 105 H 16 133/68 09/09/17 23:19 99.3 F 90 20 136/76 09/09/17 21:28 100.7 F H 09/09/17 21:14 85 20 156/66 09/09/17 20:33 101.1 F H 09/09/17 20:28 82 18 122/96 09/09/17 19:48 78 18 122/67 09/09/17 19:20 20 09/09/17 18:46 101.1 F H 85 20 134/63 Pulse Ox 09/10/17 06:38 95 09/09/17 23:19 98 09/09/17 21:28 09/09/17 21:14 96 09/09/17 20:33 09/09/17 20:28 96 09/09/17 19:48 94 L 09/09/17 19:20 09/09/17 18:46 96 Intake and Output 09/09/17 09/10/17 09/10/17 22:59 06:59 14:59 Other: # Voids 4 Weight 74.843 kg No acute distress, oriented 3. Nasal O2 in place. HEENT examination is grossly unremarkable. Mucous membranes are moist. No oral lesions. Neck supple. Full range of motion. No adenopathy thyromegaly or neck vein distention. Cardiovascular examination reveals regular rhythm rate. S1-S2 normal. No S3 or S4. No discernible murmur noted. Lungs reveal diffuse coarse rhonchi. Breath sounds are equal. No wheezes. No crackles. Breath sounds are equal bilaterally. Abdomen soft bowel sounds are heard. No masses or tenderness. Extremities are intact. No cyanosis clubbing or edema. Skin is without rash or lesion. Neurologic examination is brief but nonfocal. Results - Laboratory Findings CBC and BMP: 09/10/17 07:26 09/10/17 07:26 PT/INR, D-dimer PT 10.3 sec (9.0-12.0) 09/09/17 19:35 INR 1.1 (<1.2) 09/09/17 19:35 Abnormal lab findings: Abnormal Labs 09/09/17 09/09/17 09/09/17 19:35 19:35 19:35 WBC 28.8 H* RBC Hgb 11.1 L Hct 33.5 L Neutrophils # Neutrophils # (Manual) 24.70 H Monocytes # (Manual) 1.73 H Sodium 133 L Chloride 97 L BUN 18 H Glucose 161 H POC Glucose (mg/dL) AST 51 H Urine Appearance Turbid H Urine Protein Trace H Ur Leukocyte Esterase Trace H Urine Bacteria Rare H Hyaline Casts 18 H Urine Mucus Rare H 09/09/17 09/10/17 09/10/17 19:52 07:26 07:26 WBC 23.3 H RBC 3.79 L Hgb 10.6 L Hct 32.6 L Neutrophils # 21.0 H Neutrophils # (Manual) Monocytes # (Manual) Sodium 136 L Chloride BUN Glucose 145 H POC Glucose (mg/dL) 181 H AST 44 H Urine Appearance Urine Protein Ur Leukocyte Esterase Urine Bacteria Hyaline Casts Urine Mucus - Diagnostic Findings Chest x-ray: image reviewed (Chest x-ray labs and CAT scans are reviewed.) CT scan - chest: image reviewed (CAT scans x-rays labs and medications were all reviewed.) Assessment and Plan Assessment: Assessment Community-acquired pneumonia, involving the right lung History of chronic bronchial asthma, not seemingly active at this time Multiple other medical problems and comorbidities as listed above Lifelong nonsmoker Plan: Plan dated 09/10/2017 The patient's currently on Rocephin and Zithromax. We'll make sure the patient' s on updraft treatments and Symbicort. Additional recommendations and suggestions are forthcoming. I don't believe steroids are necessary at this time. A Legionella urinary antigen should be checked. Blood cultures and sputum sample should be sent as well. Time with Patient: Greater than 30
[2017-09-10] MEDS ORDERED: IPRATROPIUM-ALBUTEROL 3 ML NEB INHALATION PRN (09:39)
[2017-09-10] MEDS: ONDANSETRON ODT 8 MG TAB.RAPDIS PO PRN ×2 (10:20→21:00)
--- NOTE | 2017-09-10 11:08 | P.CONS ---
History of Present Illness - Reason for Consult Consult date: 09/10/17 Community-acquired pneumonia - History of Present Illness This is a 67-year-old female gives history that she had headache along with cough was nonproductive and shortness of breath along with nausea without vomiting for the past 24 hours or more. Patient has been unable to sleep due to the cough. She still has a headache but it is improved. Patient came into [facility] emergency center for evaluation showed signs of sepsis with fever 101.1 and leukocytosis of 28.8. Influenza testing was negative. Creatinine was 0.9. Urinalysis was turbid, leukoesterase trace, bacteria rare. Patient denies any urinary symptoms. Urine cultures in progress. Blood culture is status received. Chest x-ray showed a new bilateral pneumonia worse on the right. CAT scan of the brain was negative for acute intracranial changes. Right maxillary sinusitis was present. Patient was started on azithromycin and Rocephin and admitted to the [facility] floor. CAT scan of the chest has been ordered as well as Legionella, Mycoplasma, sputum culture and C. diff. Patient denies any diarrhea. Patient has been seen by Dr. Zamora. Patient states that she has an appointment on in the office to be evaluated for osteomyelitis of the right fifth toe. She states she has had wound present for the past 6 months and was instructed to use alcohol to clean it and there is been no improvement. Patient has undergone x-[facility] and [facility]. Review of Systems All systems: negative Constitutional: Denies chills, Denies fever, Denies poor appetite, Denies sweats , Denies weight loss Eyes: denies blurred vision, denies pain Ears, nose, mouth and throat: Reports headache, Denies dental pain, Denies mouth pain, Denies sore throat Cardiovascular: Reports shortness of breath, Denies chest pain, Denies edema, Denies leg edema, Denies lightheadedness, Denies syncope Respiratory: Reports cough, Reports dyspnea, Denies cough with sputum, Denies excessive sputum, Denies hemoptysis, Denies home oxygen, Denies wheezing Gastrointestinal: Reports nausea, Denies abdominal pain, Denies diarrhea, Denies vomiting Genitourinary: Denies dysuria, Denies hematuria Musculoskeletal: Denies myalgias Integumentary: Reports wounds, Denies pruritus, Denies rash Neurological: Denies numbness, Denies weakness Psychiatric: Denies anxiety, Denies depression Endocrine: Denies fatigue, Denies weight change Past Medical History Past Medical History: Asthma, Diabetes Mellitus, Fibromyalgia, GERD/Reflux, Hyperlipidemia, Hypertension, Osteoarthritis (OA), Skin Disorder Additional Past Medical History / Comment(s): ROSACEA. DDD. HAS LAP BAND. HX VIRAL HEPATITIS 1977. type 2 diabetes History of Any Multi-Drug Resistant Organisms: None Reported Past Surgical History: Back Surgery, Bariatric Surgery, Bladder Surgery, Cholecystectomy, Hysterectomy, Orthopedic Surgery, Tonsillectomy, Tubal Ligation Additional Past Surgical History / Comment(s): spinal fusion, lap band 2009, 05/20/[address] GARIBAY., open reduction of right ankle fx 2009 Past Anesthesia/Blood Transfusion Reactions: No Reported Reaction Past Psychological History: Depression Smoking Status: Never smoker Past Alcohol Use History: Rare Additional Past Alcohol Use History / Comment(s): Patient is a lifelong nonsmoker. She denies any medical marijuana, marijuana, street drug or alcohol use. She lives at home with her . 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 Past Drug Use History: None Reported - Past Family History Father Additional Family Medical History / Comment(s): FATHER AT AGE 91YRS. Mother Family Medical History: CVA/TIA Additional Family Medical History / Comment(s): MOTHER AT AGE 67 YRS OF CVA Medications and Allergies Home Medications Medication Instructions Recorded Confirmed Type Cetirizine HCl [Zyrtec] 10 mg PO DAILY 05/20/14 09/09/17 History Cholecalciferol [Vitamin D3] 2,000 unit PO DAILY 05/20/14 09/09/17 History Gabapentin [Gabapentin] 300 mg PO QAM 05/20/14 09/09/17 History Hydrocodone/Acetaminophen 1 tab PO QID PRN 05/20/14 09/09/17 History [Hydrocodone/Acetaminophen 10-325] Losartan Potassium [Losartan 100 mg PO QAM 05/20/14 09/09/17 History Potassium] Ondansetron [Ondansetron Odt] 8 mg PO TID PRN 05/20/14 09/09/17 History clonazePAM [Clonazepam] 0.5 mg PO BID PRN 05/20/14 09/09/17 History clonazePAM [Clonazepam] 1 mg PO HS 05/20/14 09/09/17 History metFORMIN HCL [Metformin HCl ER] 500 mg PO QAM 05/20/14 09/09/17 History Morphine Sulfate ER [Ms Contin 15 mg PO Q8H 11/08/15 09/09/17 History 15Mg] Morphine Sulfate ER [Ms Contin 30 mg PO Q8H 11/08/15 09/09/17 History 30Mg] Albuterol Inhaler [Ventolin Hfa 2 puff INHALATION RT-Q4H PRN 11/14/15 09/09/17 History Inhaler] Multivitamins, Thera [Multivitamin] 1 tab PO DAILY 11/14/15 09/09/17 History Rizatriptan Benzoate [Maxalt] 10 mg PO BID PRN 07/04/16 09/09/17 History Topiramate [Topamax] 50 mg PO QID 07/04/16 09/09/17 History traZODone HCL 450 mg PO HS 07/04/16 09/09/17 History Brimonidine Tartrate [Alphagan P 1 drops BOTH EYES TID 09/09/17 09/09/17 History 0.2% Ophth Soln] Dorzolamide 2% [Trusopt 2%] 1 drops BOTH EYES BID 09/09/17 09/09/17 History Lansoprazole [Prevacid] 30 mg PO BID 09/09/17 09/09/17 History Latanoprost [Xalatan 0.005%] 1 drop BOTH EYES HS 09/09/17 09/09/17 History Mometasone/Formoterol [Dulera 200 2 puff INHALATION RT-BID 09/09/17 09/09/17 History Mcg/5 Mcg Inhaler] Pioglitazone [Actos] 15 mg PO DAILY 09/09/17 09/09/17 History Propylene Glycol/Peg 400/Pf 1 drop BOTH EYES DAILY PRN 09/09/17 09/09/17 History [Systane 0.3-0.4% Eye Drops] Timolol 0.5% Ophth Soln [Timoptic 1 drop BOTH EYES BID 09/09/17 09/09/17 History 0.5% Ophth Soln] Allergies Allergy/AdvReac Type Severity Reaction Status Date / Time adhesive Allergy Severe Rash/Hives, Verified 09/09/17 19:48 BLISTERS levofloxacin [From Levaquin] Allergy Severe Anaphylaxis Verified 09/09/17 19:48 metoclopramide HCl Allergy Severe Anaphylaxis Verified 09/09/17 19:48 [From Reglan] Phenothiazines Allergy Severe Anaphylaxis Verified 09/09/17 19:48 thiethylperazine maleate Allergy Severe Anaphylaxis Verified 09/09/17 19:48 [From Torecan] venom-honey bee Allergy Severe Anaphylaxis Verified 09/09/17 19:48 [bee venom (honey bee)] iodine Allergy Intermediate Rash/Hives Verified 09/09/17 19:48 aspirin Allergy Mild TOLD TO Verified 09/09/17 19:48 AVOID D/T ALLERGIES, INDIGESTION cigarette smoke Allergy Cough Verified 09/09/17 19:48 duloxetine [From Cymbalta] Allergy Unknown Verified 09/09/17 19:48 egg Allergy Abdominal Verified 09/09/17 19:48 Pain fentanyl Allergy OVER Verified 09/09/17 19:48 SEDATED, WEAKNESS milk Allergy Abdominal Verified 09/09/17 19:48 Pain pregabalin [From Lyrica] Allergy Unknown Verified 09/09/17 19:48 Hqprnsl-Azg-Dug Reductase Allergy Unknown Verified 09/09/17 19:48 Inhibitor vortioxetine Allergy Unknown Verified 09/09/17 19:48 [From Brintellix] Physical Exam Vitals: Vital Signs Temp Pulse Pulse Resp BP BP BP 09/10/17 06:38 99.8 F H 105 H 16 133/68 09/09/17 23:19 99.3 F 90 20 136/76 09/09/17 21:28 100.7 F H 09/09/17 21:14 85 20 156/66 09/09/17 20:33 101.1 F H 09/09/17 20:28 82 18 122/96 09/09/17 19:48 78 18 122/67 09/09/17 19:20 20 09/09/17 18:46 101.1 F H 85 20 134/63 Pulse Ox 09/10/17 06:38 95 09/09/17 23:19 98 09/09/17 21:28 09/09/17 21:14 96 09/09/17 20:33 09/09/17 20:28 96 09/09/17 19:48 94 L 09/09/17 19:20 09/09/17 18:46 96 Intake and Output 09/09/17 09/10/17 09/10/17 22:59 06:59 14:59 Other: # Voids 4 Weight 74.843 kg Gen: This is a 67-year-old female. She is sitting up in bed and appears to be in no acute distress. Patient was tearful at one point because she could not remember her 's phone number. Otherwise, no respiratory distress is noted and patient is able to speak in full sentences. HEENT: Head is atraumatic, normocephalic. Pupils equal, round. Sclerae is anicteric. Conjunctiva pink. Mucous members of the mouth are moist. No thrush noted. NECK: Supple. No JVD. No lymphadenopathy. No thyromegaly. LUNGS: Diffuse coarse rhonchi more so on the right. No wheezing. No intercostal retractions. HEART: Regular rate and rhythm. No murmur. ABDOMEN: Soft. Bowel sounds are present. No masses. No tenderness. EXTREMITIES: No pedal edema. No calf tenderness. Dorsalis pedis +2 bilaterally. Patient has a small wound at the base of the medial right fifth toe. Surrounding area is white. Minimal drainage. No foul odor noted. NEUROLOGICAL: Patient is awake, alert and oriented x3. Cranial nerves 2 through 12 are grossly intact. Results Results: Laboratory Results WBC 23.3 k/uL (3.8-10.6) H 09/10/17 07:26 RBC 3.79 m/uL (3.80-5.40) L 09/10/17 07:26 Hgb 10.6 gm/dL (11.4-16.0) L 09/10/17 07:26 Hct 32.6 % (34.0-46.0) L 09/10/17 07:26 MCV 86.1 fL (80.0-100.0) 09/10/17 07:26 MCH 27.9 pg (25.0-35.0) 09/10/17 07:26 MCHC 32.4 g/dL (31.0-37.0) 09/10/17 07:26 RDW 13.4 % (11.5-15.5) 09/10/17 07:26 Plt Count 284 k/uL (150-450) 09/10/17 07:26 Neutrophils % 90 % 09/10/17 07:26 Neutrophils % (Manual) 85 % 09/09/17 19:35 Band Neutrophils % 1 % 09/09/17 19:35 Lymphocytes % 6 % 09/10/17 07:26 Lymphocytes % (Manual) 8 % 09/09/17 19:35 Monocytes % 2 % 09/10/17 07:26 Monocytes % (Manual) 6 % 09/09/17 19:35 Eosinophils % 1 % 09/10/17 07:26 Basophils % 0 % 09/10/17 07:26 Neutrophils # 21.0 k/uL (1.3-7.7) H 09/10/17 07:26 Neutrophils # (Manual) 24.70 k/uL (1.3-7.7) H 09/09/17 19:35 Lymphocytes # 1.5 k/uL (1.0-4.8) 09/10/17 07:26 Lymphocytes # (Manual) 2.30 k/uL (1.0-4.8) 09/09/17 19:35 Monocytes # 0.5 k/uL (0-1.0) 09/10/17 07:26 Monocytes # (Manual) 1.73 k/uL (0-1.0) H 09/09/17 19:35 Eosinophils # 0.1 k/uL (0-0.7) 09/10/17 07:26 Basophils # 0.1 k/uL (0-0.2) 09/10/17 07:26 Nucleated RBCs 0 /100 WBC (0-0) 09/09/17 19:35 Polychromasia Present 09/09/17 19:35 PT 10.3 sec (9.0-12.0) 09/09/17 19:35 INR 1.1 (<1.2) 09/09/17 19:35 APTT 26.8 sec (22.0-30.0) 09/09/17 19:35 Sodium 136 mmol/L (137-145) L 09/10/17 07:26 Potassium 3.6 mmol/L (3.5-5.1) 09/10/17 07:26 Chloride 100 mmol/L (98-107) 09/10/17 07:26 Carbon Dioxide 26 mmol/L (22-30) 09/10/17 07:26 Anion Gap 10 mmol/L 09/10/17 07:26 BUN 16 mg/dL (7-17) 09/10/17 07:26 Creatinine 0.79 mg/dL (0.52-1.04) 09/10/17 07:26 Est GFR (MDRD) Af Amer >60 (>60 ml/min/1.73 sqM) 09/10/17 07:26 Est GFR (MDRD) Non-Af >60 (>60 ml/min/1.73 sqM) 09/10/17 07:26 Glucose 145 mg/dL (74-99) H 09/10/17 07:26 POC Glucose (mg/dL) 181 mg/dL (75-99) H 09/09/17 19:52 POC Glu [employer] Received ID Keyona Bui 09/09/17 19:52 Plasma Lactic Acid [place] 1.6 mmol/L (0.7-2.0) 09/09/17 19:35 Calcium 8.6 mg/dL (8.4-10.2) 09/10/17 07:26 Total Bilirubin 0.7 mg/dL (0.2-1.3) 09/10/17 07:26 AST 44 U/L (14-36) H 09/10/17 07:26 ALT 42 U/L (9-52) 09/10/17 07:26 Alkaline Phosphatase 105 U/L (38-126) 09/10/17 07:26 Total Protein 6.4 g/dL (6.3-8.2) 09/10/17 07:26 Albumin 3.5 g/dL (3.5-5.0) 09/10/17 07:26 Urine Color Yellow 09/09/17 19:35 Urine Appearance Turbid (Clear) H 09/09/17 19:35 Urine pH 5.5 (5.0-8.0) 09/09/17 19:35 Ur Specific [place]man 1.012 (1.001-1.035) 09/09/17 19:35 Urine Protein Trace (Negative) H 09/09/17 19:35 Urine Glucose (UA) Negative (Negative) 09/09/17 19:35 Urine Ketones Negative (Negative) 09/09/17 19:35 Urine Blood Negative (Negative) 09/09/17 19:35 Urine Nitrite Negative (Negative) 09/09/17 19:35 Urine Bilirubin Negative (Negative) 09/09/17 19:35 Urine Urobilinogen <2.0 mg/dL (<2.0) 09/09/17 19:35 Ur Leukocyte Esterase Trace (Negative) H 09/09/17 19:35 Urine WBC 1 /hpf (0-5) 09/09/17 19:35 Ur Squamous Epith Cells 3 /hpf (0-4) 09/09/17 19:35 Urine Bacteria Rare /hpf (None) H 09/09/17 19:35 Hyaline Casts 18 /lpf (0-2) H 09/09/17 19:35 Urine Mucus Rare /hpf (None) H 09/09/17 19:35 Influenza Type A RNA Not Detected (Not Detectd) 09/09/17 19:41 Influenza Type B (PCR) Not Detected (Not Detectd) 09/09/17 19:41 CBC & Chem 7: 09/10/17 07:26 09/10/17 07:26 Labs: Abnormal Lab Results - Last 24 Hours (Table) 09/09/17 09/09/17 09/09/17 Range/Units 19:35 19:35 19:35 WBC 28.8 H* (3.8-10.6) k/uL RBC (3.80-5.40) m/uL Hgb 11.1 L (11.4-16.0) gm/dL Hct 33.5 L (34.0-46.0) % Neutrophils # (1.3-7.7) k/uL Neutrophils # (Manual) 24.70 H (1.3-7.7) k/uL Monocytes # (Manual) 1.73 H (0-1.0) k/uL Sodium 133 L (137-145) mmol/L Chloride 97 L (98-107) mmol/L BUN 18 H (7-17) mg/dL Glucose 161 H (74-99) mg/dL POC Glucose (mg/dL) (75-99) mg/dL AST 51 H (14-36) U/L Urine Appearance Turbid H (Clear) Urine Protein Trace H (Negative) Ur Leukocyte Esterase Trace H (Negative) Urine Bacteria Rare H (None) /hpf Hyaline Casts 18 H (0-2) /lpf Urine Mucus Rare H (None) /hpf 09/09/17 09/10/17 09/10/17 Range/Units 19:52 07:26 07:26 WBC 23.3 H (3.8-10.6) k/uL RBC 3.79 L (3.80-5.40) m/uL Hgb 10.6 L (11.4-16.0) gm/dL Hct 32.6 L (34.0-46.0) % Neutrophils # 21.0 H (1.3-7.7) k/uL Neutrophils # (Manual) (1.3-7.7) k/uL Monocytes # (Manual) (0-1.0) k/uL Sodium 136 L (137-145) mmol/L Chloride (98-107) mmol/L BUN (7-17) mg/dL Glucose 145 H (74-99) mg/dL POC Glucose (mg/dL) 181 H (75-99) mg/dL AST 44 H (14-36) U/L Urine Appearance (Clear) Urine Protein (Negative) Ur Leukocyte Esterase (Negative) Urine Bacteria (None) /hpf Hyaline Casts (0-2) /lpf Urine Mucus (None) /hpf Microbiology - Last 24 Hours (Table) 09/09/17 19:35 Urine Culture - Preliminary Urine,Voided Assessment and Plan Plan: This is a 67-year-old female patient who has been admitted to the hospital due to pneumonia and is currently on azithromycin and Rocephin and followed by Dr. Zamora. Patient is also evaluated for osteomyelitis of the right fifth toe. Patient had MRI and x-rays done at [facility] and results will be requested. Wound culture will be obtained. Local wound care will be addressed. Further recommendations as patient progresses. The above dictated assessment and findings were discussed with Dr. Massey. The impression and plan of care have been directed as dictated. [place] José nurse practitioner acting as scribe for Dr. Massey.
[2017-09-10] MEDS: IPRATROPIUM-ALBUTEROL 3 ML NEB INHALATION SCH ×2 (13:32→19:12)
[2017-09-10] MEDS ORDERED: MD COMMUNICATION TO PHARMACY 1 EACH MISC PO PRN (13:33)
[2017-09-10] MEDS: DULERA PO SCH (19:16)
[2017-09-10] MEDS ORDERED: traZODone HCL 100 MG TAB PO SCH (21:00)
[2017-09-10] MEDS: traZODone HCL 100 MG TAB PO SCH ×2 (21:00)
[2017-09-10] MEDS: LATANOPROST 0.005% OPHTH DROPS 2.5 ML BTL BOTH EYES SCH (21:05)
[2017-09-10] MEDS: clonazePAM 1 MG TAB PO SCH (21:13)
[2017-09-10] MEDS: MAXALT MLT 10 MG PO PRN (21:31)
--- NOTE | 2017-09-10 23:16 | P.CON ---
Consult Note - . Consult date: 09/10/17 Assessment/Plan:: This is a 67-year-old female gives history that she had headache along with cough was nonproductive and shortness of breath along with nausea without vomiting for the past 24 hours or more. Patient has been unable to sleep due to the cough. She still has a headache but it is improved. Patient came into [facility] emergency center for evaluation showed signs of sepsis with fever 101.1 and leukocytosis of 28.8. Influenza testing was negative. Creatinine was 0.9. Urinalysis was turbid, leukoesterase trace, bacteria rare. Patient denies any urinary symptoms. Urine cultures in progress. Blood culture is status received. Chest x-ray showed a new bilateral pneumonia worse on the right. CAT scan of the brain was negative for acute intracranial changes. Right maxillary sinusitis was present. Patient was started on azithromycin and Rocephin and admitted to the [facility] floor. CAT scan of the chest has been ordered as well as Legionella, Mycoplasma, sputum culture and C. diff. Patient denies any diarrhea. Patient has been seen by Dr. Zamora. Patient states that she has an appointment on in the office to be evaluated for osteomyelitis of the right fifth toe. She states she has had wound present for the past 6 months and was instructed to use alcohol to clean it and there is been no improvement. Patient has undergone x-[facility] and [facility] Please see the consult note is dictated by nurse practitioner Mrs. Albania José. This pleasant 67-year-old woman has many medical troubles and is somewhat concerned about her upcoming cruise. Apparently she had her like to take cruises and a three-week trip is planned for later this month. She is not sure that she is up to it. She at this time has evidence of the ulceration at the interspace between the fourth and fifth toes on the right foot that has been present for some time. Imaging studies are to be reviewed for possibility of underlying osteomyelitis with this chronic ulceration. Antibiotic therapy for community acquired pneumonia is occurring and workup is in process for atypical pathogen such as Legionella. She's feeling somewhat better this evening. She is very anxious about her foot and how this would impact her life. If she does have underlying osteomyelitis will need some type of offloading should be difficult because of her exisitng difficulty with ambulation patient has many questions and they're answered to the best availability. At this time if she has approximately 19 days before she needs to be ready to go on her long cruise it is likely that she will not be ready for that much activity at that time. Could also be wary to the cable tester as far as from her pulmonary status. Continue supportive care elevation limb while she is at rest. We'll place a small piece of foam in the interspace between the fourth and fifth toes with a light dressing for now. I agree with evaluation, assessment and plan is dictated by nurse practitioner Mrs. Albania José.
[2017-09-11] MEDS: SODIUM CHLORIDE 0.9% 1,000 ML IV SCH (03:27)
[2017-09-11] MEDS: MORPHINE SULFATE ER 30 MG TABLET PO SCH ×3 (05:47→23:17)
[2017-09-11] MEDS: MORPHINE SULFATE ER 15 MG TABLET PO SCH ×3 (05:48→23:18)
[2017-09-11] MEDS: HYDROcodone/APAP 10-325MG 1 EACH TAB PO PRN ×3 (06:24→18:42)
[2017-09-11 08:04] LABS: Basophils % (A) 0 %; Eosinophils # (A) 0.1 k/uL (0-0.7); Eosinophils % (A) 0 %; HGB 9.3 gm/dL (11.4-16.0); Lymphocytes % (A) 5 %; MCH 27.5 pg (25.0-35.0); MCHC 32.2 g/dL (31.0-37.0); MCV 85.6 fL (80.0-100.0); Mean Platelet Volume 7.8; Monocytes # (A) 0.4 k/uL (0-1.0); Monocytes % (A) 2 %; Neutrophils # (A) 17.2 k/uL (1.3-7.7); Neutrophils % (A) 92 %; Platelet Count 259 k/uL (150-450); RBC 3.39 m/uL (3.80-5.40); RDW 13.8 % (11.5-15.5); WBC 18.7 k/uL (3.8-10.6)
[2017-09-11 08:33] LABS: Anion Gap 9 mmol/L; Blood Urea Nitrogen 12 mg/dL (7-17); Calcium 8.9 mg/dL (8.4-10.2); Carbon Dioxide 23 mmol/L (22-30); Chloride 107 mmol/L (98-107); Glucose 193 mg/dL (74-99); Potassium 3.8 mmol/L (3.5-5.1); Sodium 139 mmol/L (137-145)
[2017-09-11] MEDS: ONDANSETRON ODT 8 MG TAB.RAPDIS PO PRN ×2 (08:38→17:31)
[2017-09-11] MEDS: TOPIRAMATE 25 MG TAB PO SCH ×4 (08:39→20:04)
[2017-09-11] MEDS: metFORMIN 500 MG TAB PO SCH ×2 (08:39→20:08)
[2017-09-11] MEDS: GABAPENTIN 300 MG CAP PO SCH (08:39)
[2017-09-11] MEDS: LOSARTAN 50 MG TAB PO SCH (08:39)
[2017-09-11] MEDS: CHOLECALCIFEROL 1,000 UNIT TAB PO SCH (08:39)
[2017-09-11] MEDS: PIOGLITAZONE 15 MG TAB PO SCH (08:39)
[2017-09-11] MEDS: PANTOPRAZOLE 40 MG TABLET PO SCH ×2 (08:39→21:05)
[2017-09-11] MEDS: AZITHROMYCIN 500 MG TAB PO SCH (08:39)
[2017-09-11] MEDS: MULTIVITAMINS, THERA 1 EACH TAB PO SCH (08:40)
[2017-09-11] MEDS: cefTRIAXone IN SWFI 1,000 MG/10 ML SYRINGE IVP SCH (08:41)
[2017-09-11] MEDS: HEPARIN SODIUM,PORCINE 5,000 UNIT/ML 1 ML VIAL SQ SCH ×2 (08:41→20:22)
[2017-09-11] MEDS: TIMOLOL 0.5% OPHTH DROPS 5 ML BTL BOTH EYES SCH ×2 (08:41→20:03)
[2017-09-11] MEDS: DORZOLAMIDE HCL 2% DROPS 10 ML BTL BOTH EYES SCH ×2 (08:42→21:08)
[2017-09-11] MEDS: BRIMONIDINE TARTRATE 0.2% DROPS 5 ML BTL BOTH EYES SCH ×3 (08:42→21:08)
[2017-09-11] MEDS: IPRATROPIUM-ALBUTEROL 3 ML NEB INHALATION SCH ×3 (08:53→20:46)
--- NOTE | 2017-09-11 10:51 | P.PN ---
Subjective Progress Note Date: 09/11/17 Principal diagnosis: Community-acquired pneumonia, involving the right lung Consult dated 09/10/2017 67-year-old female who presented to the emergency department with a week's worth of complaints including headache shortness of breath and cough. The shortness of breath was progressive in nature. The patient's cough is mostly nonproductive. No fever but she did have chills. She felt cold. During the heat up in the house. The patient's cough is intermittent is nonproductive. Also having a headache. She thought it was related to migraine. She was seen in the emergency room and chest x-ray revealed a pretty extensive pneumonia in the right lung. She was admitted for that reason. Feeling a bit better today. Still feeling short of breath and still coughing. Nasal O2 in place. She was started on Rocephin and Zithromax for community acquired pneumonia. She does apparently have a history of asthma for which she takes a combination inhaled corticosteroid and long-acting beta agonist short acting beta agonist. Lifelong nonsmoker. Her medical history apparently includes asthma diabetes fibromyalgia GERD hyperlipidemia hypertension DJD rosacea degenerative disc disease previous lap band procedure for obesity and viral hepatitis. She's had a number of surgical procedures as can be seen in the ER [facility]. On 09/11/2017 patient seen in follow-up. Doing slightly better, but remains febrile, low-grade fevers, with T-max in the last 24 hours at 100.5F. Lung sounds are positive for coarse crackles over right lower lobe, patient still feels fatigued, and weak. Her cough is dry, nonproductive. Was not able to produce sputum specimen for culture. Continues on a combination of Rocephin and Zithromax, nebulized treatments, we will add Mucinex today. Objective - Vital Signs Vital signs: Vital Signs Temp 100.5 F H 09/11/17 07:00 Pulse 113 H 09/11/17 07:00 Resp 20 09/11/17 07:00 BP 150/82 09/11/17 07:00 Pulse Ox 94 L 09/11/17 07:00 Intake & Output 09/10/17 09/11/17 09/11/17 18:59 06:59 18:59 Intake Total 1150 Balance 1150 Intake: Oral 1150 Other: Voiding Method Bedside Commode Bedside Commode Bedside Commode # Voids 7 6 1 # Bowel Movements 0 0 1 - Exam No acute distress, oriented 3. Nasal O2 in place. HEENT examination is grossly unremarkable. Mucous membranes are moist. No oral lesions. Neck supple. Full range of motion. No adenopathy thyromegaly or neck vein distention. Cardiovascular examination reveals regular rhythm rate. S1-S2 normal. No S3 or S4. No discernible murmur noted. Lungs reveal coarse crackles over right lower lobe. Breath sounds are equal. No wheezes. No crackles. Abdomen soft bowel sounds are heard. No masses or tenderness. Extremities are intact. No cyanosis clubbing or edema. Skin is without rash or lesion. Neurologic examination is brief but nonfocal. - Labs CBC & Chem 7: 09/11/17 07:28 09/11/17 07:28 Labs: Abnormal Lab Results - Last 24 Hours (Table) 09/11/17 09/11/17 Range/Units 07:28 07:28 WBC 18.7 H (3.8-10.6) k/uL RBC 3.39 L (3.80-5.40) m/uL Hgb 9.3 L (11.4-16.0) gm/dL Hct 29.0 L (34.0-46.0) % Neutrophils # 17.2 H (1.3-7.7) k/uL Glucose 193 H (74-99) mg/dL Microbiology - Last 24 Hours (Table) 09/09/17 19:35 Urine Culture - Final Urine,Voided 09/09/17 19:35 Blood Culture - Preliminary Blood No Growth after 24 hours 09/10/17 10:49 Gram Stain - Preliminary Toe - Right Fifth Wound Culture - Preliminary 09/10/17 10:49 Anaerobic Culture - Preliminary Toe - Right Fifth Assessment and Plan Plan: Assessment: Community-acquired pneumonia, involving the right lung History of chronic bronchial asthma, not seemingly active at this time Multiple other medical problems and comorbidities as listed above Lifelong nonsmoker Plan: Plan dated 09/10/2017 The patient's currently on Rocephin and Zithromax. We'll make sure the patient' s on updraft treatments and Symbicort. Additional recommendations and suggestions are forthcoming. I don't believe steroids are necessary at this time. A Legionella urinary antigen should be checked. Blood cultures and sputum sample should be sent as well. Plan dated 09/11/2017 Patient remains fatigued, remains febrile with low-grade fevers. Continue current medical treatment, continue Rocephin and Zithromax, continue Symbicort, nebulized treatments. Her asthma is not active at this time, so no need for steroids. Legionella urinary antigen was sent, as well as mycoplasma antigen, the results are pending. Not ready for discharge today I performed a history & physical examination of the patient and discussed their management with my nurse practitioner, Hilda Stewart. I reviewed the nurse practitioner's note and agree with the documented findings and plan of care. Lung sounds are coarse crackles over right lower lobe. The findings and the impression was discussed with the patient. I attest to the documentation by the nurse practitioner. Time with Patient: Less than 30
[2017-09-11] MEDS: guaiFENesin 600 MG TABLET.ER PO SCH ×2 (11:33→20:08)
[2017-09-11] MEDS: LORazepam 2 MG/ML INJ IV PRN (11:38)
[2017-09-11] MEDS: DULERA PO SCH ×2 (12:40→20:17)
[2017-09-11] MEDS ORDERED: HYDROmorphone 2 MG TAB PO PRN (14:12)
[2017-09-11] MEDS: MAXALT MLT 10 MG PO PRN (14:24)
[2017-09-11 15:29] VITALS: RESP 16
[2017-09-11] MEDS: traZODone HCL 100 MG TAB PO SCH (20:06)
[2017-09-11] MEDS: clonazePAM 1 MG TAB PO SCH (20:28)
[2017-09-11] MEDS: SYMBICORT 160-4.5 MCG INHALER INHALATION SCH ×2 (20:46→21:00)
[2017-09-11] MEDS: LATANOPROST 0.005% OPHTH DROPS 2.5 ML BTL BOTH EYES SCH (21:07)
--- NOTE | 2017-09-11 23:53 | P.PN ---
Subjective Progress Note Date: 09/11/17 Principal diagnosis: pneumonia This is a 67-year-old female gives history that she had headache along with cough was nonproductive and shortness of breath along with nausea without vomiting for the past 24 hours or more. Patient has been unable to sleep due to the cough. She still has a headache but it is improved. Patient came into [facility] emergency center for evaluation showed signs of sepsis with fever 101.1 and leukocytosis of 28.8. Influenza testing was negative. Creatinine was 0.9. Urinalysis was turbid, leukoesterase trace, bacteria rare. Patient denies any urinary symptoms. Urine cultures in progress. Blood culture is status received. Chest x-ray showed a new bilateral pneumonia worse on the right. CAT scan of the brain was negative for acute intracranial changes. Right maxillary sinusitis was present. Patient was started on azithromycin and Rocephin and admitted to the [facility] floor. CAT scan of the chest has been ordered as well as Legionella, Mycoplasma, sputum culture and C. diff. Patient denies any diarrhea. Patient has been seen by Dr. Zamora. Patient states that she has an appointment on in the office to be evaluated for osteomyelitis of the right fifth toe. She states she has had wound present for the past 6 months and was instructed to use alcohol to clean it and there is been no improvement. Patient has undergone x-ray and MRI at [facility]. On 09/11/2017 patient feels better but had a terrible night. Objective - Vital Signs Vital signs: Vital Signs Temp 98.0 F 09/11/17 15:00 Pulse 78 09/11/17 20:58 Resp 16 09/11/17 15:00 BP 136/70 09/11/17 15:00 Pulse Ox 96 09/11/17 15:00 Intake & Output 09/11/17 09/11/17 09/12/17 06:59 18:59 06:59 Intake Total 1150 1200 Balance 1150 1200 Intake: Oral 1150 1200 Other: Voiding Method Bedside Commode Bedside Commode # Voids 6 3 3 # Bowel Movements 0 1 1 - Exam Gen: This is a 67-year-old female. She is sitting up in bed and appears to be in no acute distress. Patient was tearful at one point because she could not remember her 's phone number. Otherwise, no respiratory distress is noted and patient is able to speak in full sentences. HEENT: Head is atraumatic, normocephalic. Pupils equal, round. Sclerae is anicteric. Conjunctiva pink. Mucous members of the mouth are moist. No thrush noted. NECK: Supple. No JVD. No lymphadenopathy. No thyromegaly. LUNGS: Diffuse coarse rhonchi more so on the right. No wheezing. No intercostal retractions. HEART: Regular rate and rhythm. No murmur. ABDOMEN: Soft. Bowel sounds are present. No masses. No tenderness. EXTREMITIES: No pedal edema. No calf tenderness. Dorsalis pedis +2 bilaterally. Patient has a small wound at the base of the medial right fifth toe. Surrounding area is white. Minimal drainage. No foul odor noted. NEUROLOGICAL: Patient is awake, alert and oriented x3. Cranial nerves 2 through 12 are grossly intact. - Labs CBC & Chem 7: 09/11/17 07:28 09/11/17 07:28 Labs: Abnormal Lab Results - Last 24 Hours (Table) 09/11/17 09/11/17 Range/Units 07:28 07:28 WBC 18.7 H (3.8-10.6) k/uL RBC 3.39 L (3.80-5.40) m/uL Hgb 9.3 L (11.4-16.0) gm/dL Hct 29.0 L (34.0-46.0) % Neutrophils # 17.2 H (1.3-7.7) k/uL Glucose 193 H (74-99) mg/dL Microbiology - Last 24 Hours (Table) 09/09/17 19:35 Blood Culture - Preliminary Blood No Growth after 48 hours 09/09/17 19:35 Urine Culture - Final Urine,Voided 09/10/17 10:49 Gram Stain - Preliminary Toe - Right Fifth Wound Culture - Preliminary Laboratory Results WBC 18.7 k/uL (3.8-10.6) H 09/11/17 07:28 RBC 3.39 m/uL (3.80-5.40) L 09/11/17 07:28 Hgb 9.3 gm/dL (11.4-16.0) L 09/11/17 07:28 Hct 29.0 % (34.0-46.0) L 09/11/17 07:28 MCV 85.6 fL (80.0-100.0) 09/11/17 07:28 MCH 27.5 pg (25.0-35.0) 09/11/17 07:28 MCHC 32.2 g/dL (31.0-37.0) 09/11/17 07: RDW 13.8 % (11.5-15.5) 09/11/17 07:28 Plt Count 259 k/uL (150-450) 09/11/17 07:28 Neutrophils % 92 % 09/11/17 07: Neutrophils % (Manual) 85 % 09/09/17 19:35 Band Neutrophils % 1 % 09/09/17 19:35 Lymphocytes % 5 % 09/11/17 07: Lymphocytes % (Manual) 8 % 09/09/17 19:35 Monocytes % 2 % 09/11/17 07: Monocytes % (Manual) 6 % 09/09/17 19:35 Eosinophils % 0 % 09/11/17 07: Basophils % 0 % 09/11/17 07:28 Neutrophils # 17.2 k/uL (1.3-7.7) H 09/11/17 07:28 Neutrophils # (Manual) 24.70 k/uL (1.3-7.7) H 09/09/17 19:35 Lymphocytes # 1.0 k/uL (1.0-4.8) 09/11/17 07:28 Lymphocytes # (Manual) 2.30 k/uL (1.0-4.8) 09/09/17 19:35 Monocytes # 0.4 k/uL (0-1.0) 09/11/17 07:28 Monocytes # (Manual) 1.73 k/uL (0-1.0) H 09/09/17 19:35 Eosinophils # 0.1 k/uL (0-0.7) 09/11/17 07:28 Basophils # 0.0 k/uL (0-0.2) 09/11/17 07:28 Nucleated RBCs 0 /100 WBC (0-0) 09/09/17 19:35 Polychromasia Present 09/09/17 19:35 PT 10.3 sec (9.0-12.0) 09/09/17 19:35 INR 1.1 (<1.2) 09/09/17 19:35 APTT 26.8 sec (22.0-30.0) 09/09/17 19:35 Sodium 139 mmol/L (137-145) 09/11/17 07:28 Potassium 3.8 mmol/L (3.5-5.1) 09/11/17 07:28 Chloride 107 mmol/L (98-107) 09/11/17 07:28 Carbon Dioxide 23 mmol/L (22-30) 09/11/17 07:28 Anion Gap 9 mmol/L 09/11/17 07:28 BUN 12 mg/dL (7-17) 09/11/17 07:28 Creatinine 0.80 mg/dL (0.52-1.04) 09/11/17 07:28 Est GFR (MDRD) Af Amer >60 (>60 ml/min/1.73 sqM) 09/11/17 07:28 Est GFR (MDRD) Non-Af >60 (>60 ml/min/1.73 sqM) 09/11/17 07:28 Glucose 193 mg/dL (74-99) H 09/11/17 07:28 POC Glucose (mg/dL) 181 mg/dL (75-99) H 09/09/17 19:52 POC Glu Psychology Assistant ID Keyona Bui 09/09/17 19:52 Plasma Lactic Acid [place] 1.6 mmol/L (0.7-2.0) 09/09/17 19:35 Calcium 8.9 mg/dL (8.4-10.2) 09/11/17 07:28 Total Bilirubin 0.7 mg/dL (0.2-1.3) 09/10/17 07:26 AST 44 U/L (14-36) H 09/10/17 07:26 ALT 42 U/L (9-52) 09/10/17 07:26 Alkaline Phosphatase 105 U/L (38-126) 09/10/17 07:26 Total Protein 6.4 g/dL (6.3-8.2) 09/10/17 07:26 Albumin 3.5 g/dL (3.5-5.0) 09/10/17 07:26 Urine Color Yellow 09/09/17 19:35 Urine Appearance Turbid (Clear) H 09/09/17 19:35 Urine pH 5.5 (5.0-8.0) 09/09/17 19:35 Ur Specific [place] 1.012 (1.001-1.035) 09/09/17 19:35 Urine Protein Trace (Negative) H 09/09/17 19:35 Urine Glucose (UA) Negative (Negative) 09/09/17 19:35 Urine Ketones Negative (Negative) 09/09/17 19:35 Urine Blood Negative (Negative) 09/09/17 19:35 Urine Nitrite Negative (Negative) 09/09/17 19:35 Urine Bilirubin Negative (Negative) 09/09/17 19:35 Urine Urobilinogen <2.0 mg/dL (<2.0) 09/09/17 19:35 Ur Leukocyte Esterase Trace (Negative) H 09/09/17 19:35 Urine WBC 1 /hpf (0-5) 09/09/17 19:35 Ur Squamous Epith Cells 3 /hpf (0-4) 09/09/17 19:35 Urine Bacteria Rare /hpf (None) H 09/09/17 19:35 Hyaline Casts 18 /lpf (0-2) H 09/09/17 19:35 Urine Mucus Rare /hpf (None) H 09/09/17 19:35 Influenza Type A RNA Not Detected (Not Detectd) 09/09/17 19:41 Influenza Type B (PCR) Not Detected (Not Detectd) 09/09/17 19:41 Microbiology 09/09/17 19:35 Blood Blood Culture - Preliminary No Growth after 48 hours 09/09/17 19:35 Urine,Voided Urine Culture - Final 09/10/17 10:49 Toe - Right Fifth Gram Stain - Preliminary 09/10/17 10:49 Toe - Right Fifth Wound Culture - Preliminary 09/10/17 10:49 Toe - Right Fifth Anaerobic Culture - Preliminary Assessment and Plan (1) Obesity (BMI 30.0-34.9) Current Visit: No Status: Acute Code(s): E66.9 - OBESITY, UNSPECIFIED SNOMED Code(s): 007661690 (2) Community acquired pneumonia Current Visit: Yes Status: Acute Code(s): J18.9 - PNEUMONIA, UNSPECIFIED ORGANISM SNOMED Code(s): 269209697 (3) Ulcer of left foot Narrative/Plan: This pleasant 67-year-old woman has many medical troubles and is somewhat concerned about her upcoming cruise. Apparently she had her like to take cruises and a three-week trip is planned for later this month. She is not sure that she is up to it. She at this time has evidence of the ulceration at the interspace between the fourth and fifth toes on the right foot that has been present for some time. Imaging studies are to be reviewed for possibility of underlying osteomyelitis with this chronic ulceration. Antibiotic therapy for community acquired pneumonia is occurring and workup is in process for atypical pathogen such as Legionella. She's feeling somewhat better this evening. She is very anxious about her foot and how this would impact her life. If she does have underlying osteomyelitis will need some type of offloading should be difficult because of her exisitng difficulty with ambulation patient has many questions and they're answered to the best availability. At this time if she has approximately 19 days before she needs to be ready to go on her long cruise it is likely that she will not be ready for that much activity at that time. 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 Continue supportive care elevation limb while she is at rest. We'll place a small piece of foam in the interspace between the fourth and fifth toes with a light dressing for now. 09/11/2017 patient's pulmonary status is improving. Likely discharge home tomorrow to complete her course of azithromycin for community acquired pneumonia. Wound culture is still pending. She will follow up in the office in the near future for further evaluation about the ulceration to her foot. An outpatient MRI was performed this we further evaluated to ensure if there is underlying osteomyelitis. This will then help direct her course of antibiotic therapy in the outpatient setting. Current Visit: Yes Status: Acute Code(s): L97.529 - NON-PRESSURE CHRONIC ULCER OTH PRT LEFT FOOT W UNSP SEVERITY SNOMED Code(s): 12570656
[2017-09-12] MEDS: HYDROcodone/APAP 10-325MG 1 EACH TAB PO PRN ×3 (01:01→12:26)
[2017-09-12] MEDS: ONDANSETRON ODT 8 MG TAB.RAPDIS PO PRN ×2 (01:27→08:39)
[2017-09-12] MEDS: MAXALT MLT 10 MG PO PRN ×2 (01:29→08:40)
[2017-09-12] MEDS: LORazepam 2 MG/ML INJ IV PRN (01:57)
[2017-09-12] MEDS ORDERED: CALCIUM CARBONATE 500 MG CHEWABLE PO PRN (03:06)
[2017-09-12] MEDS: MORPHINE SULFATE ER 15 MG TABLET PO SCH (06:29)
[2017-09-12] MEDS: MORPHINE SULFATE ER 30 MG TABLET PO SCH (06:29)
[2017-09-12 07:36] VITALS: BP 168/79; TEMP 98.5
[2017-09-12] MEDS: TIMOLOL 0.5% OPHTH DROPS 5 ML BTL BOTH EYES SCH (08:37)
[2017-09-12] MEDS: BRIMONIDINE TARTRATE 0.2% DROPS 5 ML BTL BOTH EYES SCH (08:37)
[2017-09-12] MEDS: CHOLECALCIFEROL 1,000 UNIT TAB PO SCH (08:38)
[2017-09-12] MEDS: LOSARTAN 50 MG TAB PO SCH (08:38)
[2017-09-12] MEDS: PANTOPRAZOLE 40 MG TABLET PO SCH (08:38)
[2017-09-12] MEDS: metFORMIN 500 MG TAB PO SCH (08:38)
[2017-09-12] MEDS: MULTIVITAMINS, THERA 1 EACH TAB PO SCH (08:38)
[2017-09-12] MEDS: GABAPENTIN 300 MG CAP PO SCH (08:38)
[2017-09-12] MEDS: cefTRIAXone IN SWFI 1,000 MG/10 ML SYRINGE IVP SCH (08:38)
[2017-09-12] MEDS: DORZOLAMIDE HCL 2% DROPS 10 ML BTL BOTH EYES SCH (08:38)
[2017-09-12] MEDS: PIOGLITAZONE 15 MG TAB PO SCH (08:38)
[2017-09-12] MEDS: guaiFENesin 600 MG TABLET.ER PO SCH (08:39)
[2017-09-12] MEDS: TOPIRAMATE 25 MG TAB PO SCH ×2 (08:39→12:24)
[2017-09-12] MEDS: HEPARIN SODIUM,PORCINE 5,000 UNIT/ML 1 ML VIAL SQ SCH (08:39)
[2017-09-12] MEDS: AZITHROMYCIN 500 MG TAB PO SCH (08:39)
[2017-09-12 09:12] LABS: Basophils % (A) 0 %; Eosinophils # (A) 0.2 k/uL (0-0.7); Eosinophils % (A) 1 %; HCT 30.4 % (34.0-46.0); HGB 9.9 gm/dL (11.4-16.0); Lymphocytes # (A) 1.5 k/uL (1.0-4.8); Lymphocytes % (A) 10 %; MCHC 32.6 g/dL (31.0-37.0); MCV 85.8 fL (80.0-100.0); Monocytes # (A) 0.5 k/uL (0-1.0); Monocytes % (A) 3 %; Neutrophils # (A) 13.2 k/uL (1.3-7.7); Neutrophils % (A) 85 %; Platelet Count 310 k/uL (150-450); RBC 3.55 m/uL (3.80-5.40); RDW 13.7 % (11.5-15.5); WBC 15.5 k/uL (3.8-10.6)
--- NOTE | 2017-09-12 09:13 | XR ---
EXAMINATION TYPE: XR chest 2V DATE OF EXAM: 09/12/2017 COMPARISON: 09/09/2017 TECHNIQUE: PA and lateral views submitted. HISTORY: Cough, pneumonia FINDINGS: There is diffuse multifocal disease throughout the right lung. Findings are stable. Left lung clear. Heart is enlarged. Surgical change in the abdomen noted. Arthropathy of the shoulders. No pneumothora x. Density overlying the region of the GE junction is stable and appears be related to previous vertebro plasty with compression deformity on the lateral view. IMPRESSION: 1. Stable diffuse right-sided infiltrate. Differential include pneumonia. Pattern somewhat nodular fo llow-up to resolution to exclude underlying neoplasm.
[2017-09-12 09:27] LABS: Anion Gap 12 mmol/L; Blood Urea Nitrogen 7 mg/dL (7-17); Calcium 9.5 mg/dL (8.4-10.2); Carbon Dioxide 21 mmol/L (22-30); Chloride 107 mmol/L (98-107); Glucose 180 mg/dL (74-99); Potassium 3.9 mmol/L (3.5-5.1); Sodium 140 mmol/L (137-145)
[2017-09-12] MEDS: IPRATROPIUM-ALBUTEROL 3 ML NEB INHALATION SCH (09:52)
[2017-09-12] MEDS: SYMBICORT 160-4.5 MCG INHALER INHALATION SCH (09:57)
[2017-09-12] MEDS: DULERA PO SCH (09:57)
[2017-09-12 09:58] VITALS: PULSE 88
--- NOTE | 2017-09-12 11:52 | P.PN ---
Subjective Progress Note Date: 09/12/17 Principal diagnosis: Community-acquired pneumonia, involving the right lung Consult dated 09/10/2017 67-year-old female who presented to the emergency department with a week's worth of complaints including headache shortness of breath and cough. The shortness of breath was progressive in nature. The patient's cough is mostly nonproductive. No fever but she did have chills. She felt cold. During the heat up in the house. The patient's cough is intermittent is nonproductive. Also having a headache. She thought it was related to migraine. She was seen in the emergency room and chest x-ray revealed a pretty extensive pneumonia in the right lung. She was admitted for that reason. Feeling a bit better today. Still feeling short of breath and still coughing. Nasal O2 in place. She was started on Rocephin and Zithromax for community acquired pneumonia. She does apparently have a history of asthma for which she takes a combination inhaled corticosteroid and long-acting beta agonist short acting beta agonist. Lifelong nonsmoker. Her medical history apparently includes asthma diabetes fibromyalgia GERD hyperlipidemia hypertension DJD rosacea degenerative disc disease previous lap band procedure for obesity and viral hepatitis. She's had a number of surgical procedures as can be seen in the ER [facility]. On 09/11/2017 patient seen in follow-up. Doing slightly better, but remains febrile, low-grade fevers, with T-max in the last 24 hours at 100.5F. Lung sounds are positive for coarse crackles over right lower lobe, patient still feels fatigued, and weak. Her cough is dry, nonproductive. Was not able to produce sputum specimen for culture. Continues on a combination of Rocephin and Zithromax, nebulized treatments, we will add Mucinex today. On 09/12/2017 patient continues to improve. Lung sounds are clear to auscultation, no rhonchi, no wheezes or rales noted. Did have an episode of low -grade fever of 100.2F last night at 2300, afebrile this morning. Vital signs are stable, she is on room air. Respirations are even and nonlabored. Today's chest x-ray was reviewed, showed diffuse multifocal right-sided infiltrate, stable in appearance. The patient remains clinically stable, improving. From pulmonary standpoint she is cleared to go home today. Blood, urine cultures are negative, right toe wound culture is pending. Patient is currently on a combination of azithromycin and Rocephin. Objective - Vital Signs Vital signs: Vital Signs Temp 98.5 F 09/12/17 07:00 Pulse 88 09/12/17 10:11 Resp 16 09/12/17 07:00 BP 168/79 09/12/17 07:00 Pulse Ox 95 09/12/17 07:00 Intake & Output 09/11/17 09/12/17 09/12/17 18:59 06:59 18:59 Intake Total 1200 200 Balance 1200 200 Intake: Oral 1200 200 Other: Voiding Method Bedside Commode Bedside Commode # Voids 3 1 # Bowel Movements 1 1 - Exam No acute distress, oriented 3. Nasal O2 in place. HEENT examination is grossly unremarkable. Mucous membranes are moist. No oral lesions. Neck supple. Full range of motion. No adenopathy thyromegaly or neck vein distention. Cardiovascular examination reveals regular rhythm rate. S1-S2 normal. No S3 or S4. No discernible murmur noted. Breath sounds are equal. No wheezes. No crackles. Abdomen soft bowel sounds are heard. No masses or tenderness. Extremities are intact. No cyanosis clubbing or edema. Skin is without rash or lesion. Neurologic examination is brief but nonfocal. - Labs CBC & Chem 7: 09/12/17 08:10 09/12/17 08:10 Labs: Abnormal Lab Results - Last 24 Hours (Table) 09/12/17 09/12/17 Range/Units 08:10 08:10 WBC 15.5 H (3.8-10.6) k/uL RBC 3.55 L (3.80-5.40) m/uL Hgb 9.9 L (11.4-16.0) gm/dL Hct 30.4 L (34.0-46.0) % Neutrophils # 13.2 H (1.3-7.7) k/uL Carbon Dioxide 21 L (22-30) mmol/L Glucose 180 H (74-99) mg/dL Microbiology - Last 24 Hours (Table) 09/09/17 19:35 Blood Culture - Preliminary Blood No Growth after 48 hours Assessment and Plan Plan: Assessment: Community-acquired pneumonia, involving the right lung, clinically improving History of chronic bronchial asthma, not seemingly active at this time Multiple other medical problems and comorbidities as listed above Lifelong nonsmoker Plan: Plan dated 09/10/2017 The patient's currently on Rocephin and Zithromax. We'll make sure the patient' s on updraft treatments and Symbicort. Additional recommendations and suggestions are forthcoming. I don't believe steroids are necessary at this time. A Legionella urinary antigen should be checked. Blood cultures and sputum sample should be sent as well. Plan dated 09/11/2017 Patient remains fatigued, remains febrile with low-grade fevers. Continue current medical treatment, continue Rocephin and Zithromax, continue Symbicort, nebulized treatments. Her asthma is not active at this time, so no need for steroids. Legionella urinary antigen was sent, as well as mycoplasma antigen, the results are pending. Not ready for discharge today On 09/12/2017 patient is improving, last fever was last night at 2300, afebrile this morning. Blood and urine cultures are negative, patient was never able to produce a sputum specimen. Not much in the way of chest congestion or sputum production. Vital signs are stable, lung sounds are clear. From pulmonary standpoint she is stable for discharge home today, on antibiotics per ID service recommendation. Will need follow-up appointment with Dr. Zamora in the office in one week. I performed a history & physical examination of the patient and discussed their management with my nurse practitioner, Hilda Stewart. I reviewed the nurse practitioner's note and agree with the documented findings and plan of care. Lung sounds are clear. The findings and the impression was discussed with the patient. I attest to the documentation by the nurse practitioner. Time with Patient: Less than 30
--- NOTE | 2017-09-12 12:25 | P.PN ---
Subjective Progress Note Date: 09/10/17 Progress note being dictated for Dr. Wolfe Interval history: This is 67-year-old female admitted with bilateral pneumonia, change in mental status, chronic pain syndrome, possible right foot osteomyelitis-right small toe and multiple other medical issues. Maintained on IV antibiotics as per ID. Evaluated by pulmonary with recommendations noted. Maintained on nebulized bronchodilators, antibiotics with breathing slow to improve. CT reporting new multifocal right-sided alveolar and interstitial opacity's, greater consolidations right lower lobe,suspicious for multifocal pneumonia, possible underlying pulmonary nodule or mass. T-max 101.1. Denies chest pain, palpitations. Objective - Vital Signs Vital signs: Vital Signs Temp 100.6 F H 09/10/17 15:00 Pulse 94 09/10/17 15:00 Resp 20 09/10/17 15:00 BP 131/70 09/10/17 15:00 Pulse Ox 96 09/10/17 15:00 Intake & Output 09/09/17 09/10/17 09/10/17 18:59 06:59 18:59 Weight 74.843 kg Other: Voiding Method Bedside Commode # Voids 4 7 # Bowel Movements 0 - Exam PHYSICAL EXAM: VITAL SIGNS: [As above] GENERAL: Sitting up in bed, no acute distress HEENT: Conjunctivae normal. eyes normal. Oral mucosa moist NECK: No JVD. No thyroid enlargement. No LNs CARDIOVASCULAR: S1, S2 muffled. No murmur RESPIRATION: Breath sounds diminished in the bases. Scattered coarse rhonchi, no crackles, no wheezing. ABDOMEN: Soft, nontender . No guarding. no masses palpable. Bowel sounds heard. LEGS: No edema. no swelling PSYCHIATRY: Alert and oriented -3, mood and affect normal. NERVOUS SYSTEM: Cranial N 2-12 grossly normal. Moves all 4 limbs. Diffuse weakness No focal deficits. Skin: Small pinpoint wound at the base of the right fifth toe with minimal yellow drainage. Joints: No active swelling. No inflammation. Lymphatic system. No LN neck axilla or groin. Microbiology 09/10/17 10:49 Toe - Right Fifth Anaerobic Culture - Preliminary 09/10/17 10:49 Toe - Right Fifth Wound Culture - Preliminary 09/09/17 19:35 Urine,Voided Urine Culture - Preliminary - Labs CBC & Chem 7: 09/12/17 08:10 09/12/17 08:10 Labs: Abnormal Lab Results - Last 24 Hours (Table) 09/09/17 09/09/17 09/09/17 Range/Units 19:35 19:35 19:35 WBC 28.8 H* (3.8-10.6) k/uL RBC (3.80-5.40) m/uL Hgb 11.1 L (11.4-16.0) gm/dL Hct 33.5 L (34.0-46.0) % Neutrophils # (1.3-7.7) k/uL Neutrophils # (Manual) 24.70 H (1.3-7.7) k/uL Monocytes # (Manual) 1.73 H (0-1.0) k/uL Sodium 133 L (137-145) mmol/L Chloride 97 L (98-107) mmol/L BUN 18 H (7-17) mg/dL Glucose 161 H (74-99) mg/dL POC Glucose (mg/dL) (75-99) mg/dL AST 51 H (14-36) U/L Urine Appearance Turbid H (Clear) Urine Protein Trace H (Negative) Ur Leukocyte Esterase Trace H (Negative) Urine Bacteria Rare H (None) /hpf Hyaline Casts 18 H (0-2) /lpf Urine Mucus Rare H (None) /hpf 09/09/17 09/10/17 09/10/17 Range/Units 19:52 07:26 07:26 WBC 23.3 H (3.8-10.6) k/uL RBC 3.79 L (3.80-5.40) m/uL Hgb 10.6 L (11.4-16.0) gm/dL Hct 32.6 L (34.0-46.0) % Neutrophils # 21.0 H (1.3-7.7) k/uL Neutrophils # (Manual) (1.3-7.7) k/uL Monocytes # (Manual) (0-1.0) k/uL Sodium 136 L (137-145) mmol/L Chloride (98-107) mmol/L BUN (7-17) mg/dL Glucose 145 H (74-99) mg/dL POC Glucose (mg/dL) 181 H (75-99) mg/dL AST 44 H (14-36) U/L Urine Appearance (Clear) Urine Protein (Negative) Ur Leukocyte Esterase (Negative) Urine Bacteria (None) /hpf Hyaline Casts (0-2) /lpf Urine Mucus (None) /hpf Microbiology - Last 24 Hours (Table) 09/10/17 10:49 Anaerobic Culture - Preliminary Toe - Right Fifth 09/10/17 10:49 Wound Culture - Preliminary Toe - Right Fifth 09/09/17 19:35 Urine Culture - Preliminary Urine,Voided Assessment and Plan Assessment: 1. Bilateral pneumonia, right greater than left, possible community-acquired, possible sepsis 2. Change in mental status, acute metabolic encephalopathy secondary to possible sepsis 3. Possible right foot osteomyelitis, right small toe 4. Leukocytosis 5. Anemia of chronic disease 6. Hyponatremia 7. Diabetes mellitus type 2 8. Gastroesophageal reflux disease 9. Chronic asthma Plan: Continue on current medication regime ,monitoring and symptomatic treatment. Legionella urinary antigen, blood cultures, urine culture pending. ordered. Maintain nebulized bronchodilators antibiotics. Close monitoring of Accu-Cheks. Aggressive pulmonary toileting. Antibiotics/Wound Care as per infectious disease. Increase ambulation as tolerated. The impression and plan of care has been dictated as directed. : I performed a history and examination of this patient, discussed the same with the dictator. I agree with the dictator's note ,documented as a scribe. Any additional findings or plans will be noted.
--- NOTE | 2017-09-12 16:13 | P.PN ---
Subjective Progress Note Date: 09/12/17 Progress note being dictated for Dr. Wolfe Interval history: This is 67-year-old female admitted with bilateral pneumonia, change in mental status, chronic pain syndrome, possible right foot osteomyelitis-right small toe and multiple other medical issues. Maintained on IV antibiotics as per ID. Evaluated by pulmonary with recommendations noted. Maintained on nebulized bronchodilators, antibiotics with breathing slow to improve. CT reporting new multifocal right-sided alveolar and interstitial opacity's, greater consolidations right lower lobe,suspicious for multifocal pneumonia, possible underlying pulmonary nodule or mass. T-max 101.1. Denies chest pain, palpitations. 09/11/17 fevers persist, T-max 100.5. Breathing, wheezing improving, nonproductive cough. Maintained on nebulized bronchodilators, Rocephin, Zithromax. Urine Legionella not detected. Denies chest pain, palpitations. Objective - Vital Signs Vital signs: Vital Signs Temp 98.0 F 09/11/17 15:00 Pulse 78 09/11/17 20:58 Resp 16 09/11/17 15:00 BP 136/70 09/11/17 15:00 Pulse Ox 96 09/11/17 15:00 Intake & Output 09/11/17 09/11/17 09/12/17 06:59 18:59 06:59 Intake Total 1150 1200 Balance 1150 1200 Intake: Oral 1150 1200 Other: Voiding Method Bedside Commode Bedside Commode # Voids 6 3 3 # Bowel Movements 0 1 1 - Exam PHYSICAL EXAM: VITAL SIGNS: [As above] GENERAL: Sitting up in bed, no acute distress HEENT: Conjunctivae normal. eyes normal. Oral mucosa moist NECK: No JVD. No thyroid enlargement. No LNs CARDIOVASCULAR: S1, S2 muffled. No murmur RESPIRATION: Breath sounds diminished in the bases. Scattered coarse rhonchi, no crackles, no wheezing. ABDOMEN: Soft, nontender . No guarding. no masses palpable. Bowel sounds heard. LEGS: No edema. no swelling PSYCHIATRY: Alert and oriented -3, mood and affect normal. NERVOUS SYSTEM: Cranial N 2-12 grossly normal. Moves all 4 limbs. Diffuse weakness No focal deficits. Skin: Small pinpoint wound at the base of the right fifth toe with minimal drainage. Joints: No active swelling. No inflammation. Lymphatic system. No LN neck axilla or groin. Microbiology - Last 24 Hours (Table) 09/09/17 19:35 Urine Culture - Final Urine,Voided 09/09/17 19:35 Blood Culture - Preliminary Blood No Growth after 24 hours 09/10/17 10:49 Gram Stain - Preliminary Toe - Right Fifth Wound Culture - Preliminary 09/10/17 10:49 Anaerobic Culture - Preliminary Toe - Right Fifth - Labs CBC & Chem 7: 09/12/17 08:10 09/12/17 08:10 Labs: Abnormal Lab Results - Last 24 Hours (Table) 09/11/17 09/11/17 Range/Units 07:28 07:28 WBC 18.7 H (3.8-10.6) k/uL RBC 3.39 L (3.80-5.40) m/uL Hgb 9.3 L (11.4-16.0) gm/dL Hct 29.0 L (34.0-46.0) % Neutrophils # 17.2 H (1.3-7.7) k/uL Glucose 193 H (74-99) mg/dL Microbiology - Last 24 Hours (Table) 09/09/17 19:35 Blood Culture - Preliminary Blood No Growth after 48 hours 09/09/17 19:35 Urine Culture - Final Urine,Voided 09/10/17 10:49 Gram Stain - Preliminary Toe - Right Fifth Wound Culture - Preliminary Assessment and Plan Assessment: 1. Bilateral pneumonia, right greater than left, possible community-acquired, possible sepsis 2. Change in mental status, acute metabolic encephalopathy secondary to possible sepsis 3. Possible right foot osteomyelitis, right small toe 4. Leukocytosis 5. Anemia of chronic disease 6. Hyponatremia 7. Diabetes mellitus type 2 8. Gastroesophageal reflux disease 9. Chronic asthma Plan: Continue on current medication regime ,monitoring and symptomatic treatment. Legionella urinary antigen not detected. Maintain nebulized bronchodilators antibiotics. Aggressive pulmonary toileting. Close monitoring of Accu-Cheks. Follow cultures closely. Antibiotics/Wound Care as per infectious disease. Increase ambulation as tolerated. Discharge planning in progress for tomorrow. The impression and plan of care has been dictated as directed. : I performed a history and examination of this patient, discussed the same with the dictator. I agree with the dictator's note ,documented as a scribe. Any additional findings or plans will be noted.
--- NOTE | 2017-09-13 07:27 | DS ---
DISCHARGE SUMMARY FINAL DIAGNOSES: 1. Bilateral pneumonia right more than the left, possibly community-acquired with possible sepsis. 2. Change in mental status acute metabolic acidosis secondary to pneumonia and sepsis. 3. Possible right foot osteomyelitis of the right small toe. 4. Leukocytosis. 5. Anemia of chronic disease. 6. Hyponatremia. 7. Diabetes type 2. 8. Gastroesophageal reflux disease. 9. Chronic asthma. DISCHARGE DISPOSITION: The patient is being discharged in a stable condition with guarded prognosis. HISTORY OF PRESENT ILLNESS: This 67-year-old woman with past medical history of multiple medical problems admitted with features of pneumonia right more the left admitted for treatment in conjunction with Dr. Massey and also Dr. Zamora, antibiotics were given. A chest x-ray was also done. Chest CT scan was also done. The most recent chest x-ray showed stable infiltrates. The patient is being discharged with guarded prognosis. The urine Legionella was negative. Mycoplasma is pending and influenza is also not detected. DISCHARGE MEDICATION AND ADVICE: 1. Diet is cardiac. 2. Activity limited until follow up. 3. Follow up with Dr. Jovel in 2-3 days. 4. Follow up with Dr. Massey and Dr. Zamora as recommended. 5. Albuterol 2 puffs q.i.d. p.r.n. 6. Artificial tears. 7. [id number] mg p.o. daily for 3 days. 8. Alphagan 0.2 1 drop both eyes. 9. Zestoretic 10 mg p.o. daily. 10.Vitamin D3 2000 daily. 11.Clonazepam 0.5 mg p.o. t.i.d. and 1 mg q.h.s. 12.Trusopt 2% 1 drop both eyes b.i.d. 13.Gabapentin 300 mg q.a.m. 14.Hydrocodone 1 tab p.o. q.i.d. p.r.n. 15.Prevacid 30 mg p.o. b.i.d. 16.xalatan 0.05% 1 drop both eyes. 17.Losartan 100 mg p.o. q.a.m. 18.Metformin 500 mg q.a.m. 19.Dulera 1-2 puffs b.i.d. 20.MS Contin 15 mg q.8h. 21.MS Contin 30 mg q.8h. 22.Multivitamins 1 p.o. daily. 23.Ondansetron 8 mg t.i.d. p.r.n. 24.Actos 15 mg p.o. daily. 25. glycol 1 drop both eyes daily. 26.Maxalt 10 mg b.i.d. p.r.n. 27.Timolol 0.5% 1 drop both eyes. 28.Topamax 50 mg q.h.s. 29.Trazodone 50 mg q.h.s. Please send a copy Dr. Jovel, Dr. Massey and Dr. Zamora. Once again, the patient is being discharged in stable with guarded prognosis. MMODL / IJN: [id number] / MTDD
[2017-09-15 03:09] LABS: Mycoplasma IgM Antibody 0.97 INDEX (<=0.90)
== END 2017-09-12 13:28 | disposition home or self-care (01) | DRG 871 ==
LOC: EC 18:10 → 4MS4W 21:05
PROVIDERS: ADMIT Hospitalist; ATTEND Hospitalist
DX: A41.9 Sepsis, unspecified organism (principal); G93.41 Metabolic encephalopathy; E87.2 Acidosis; J18.9 Pneumonia, unspecified organism; M86.171 Other acute osteomyelitis, right ankle and foot; E87.1 Hypo-osmolality and hyponatremia; E11.621 Type 2 diabetes mellitus with foot ulcer; D63.8 Anemia in other chronic diseases classified elsewhere; E66.9 Obesity, unspecified; Z68.33 Body mass index [BMI] 33.0-33.9, adult; Z98.84 Bariatric surgery status; E78.5 Hyperlipidemia, unspecified; G43.909 Migraine, unspecified, not intractable, without status migrainosus; G89.4 Chronic pain syndrome; I10 Essential (primary) hypertension; J32.0 Chronic maxillary sinusitis; J45.909 Unspecified asthma, uncomplicated; K21.9 Gastro-esophageal reflux disease without esophagitis; L97.519 Non-pressure chronic ulcer of other part of right foot with unspecified severity; L97.529 Non-pressure chronic ulcer of other part of left foot with unspecified severity; M19.90 Unspecified osteoarthritis, unspecified site; M79.7 Fibromyalgia; Z79.51 Long term (current) use of inhaled steroids; Z79.84 Long term (current) use of oral hypoglycemic drugs; Z79.899 Other long term (current) drug therapy; Z82.3 Family history of stroke; Z98.1 Arthrodesis status; Z88.5 Allergy status to narcotic agent; Z88.8 Allergy status to other drugs, medicaments and biological substances; Z88.6 Allergy status to analgesic agent; Z88.1 Allergy status to other antibiotic agents; Z91.030 Bee allergy status; Z91.012 Allergy to eggs; Z86.19 Personal history of other infectious and parasitic diseases; R11.2 Nausea with vomiting, unspecified; F32.9 Major depressive disorder, single episode, unspecified; E11.69 Type 2 diabetes mellitus with other specified complication
CPT/HCPCS: 36415; 70450; 71046; 71250; 80048; 80053; 81001; 83605; 85025; 85610; 85730; 86738; 87040; 87070; 87075; 87077; 87086; 87186; 87205; 87449; 87502; 93005; 94640; 96365; 96375; 99285

== ENCOUNTER → 2017-10-21 | Outpatient (CLI) | payer MEDICARE ==
--- NOTE | 2017-10-21 16:22 | XR ---
EXAMINATION TYPE: XR chest 2V DATE OF EXAM: 10/21/2017 COMPARISON: Prior chest x-ray 09/12/2017 HISTORY: Pneumonia TECHNIQUE: Frontal and lateral views of the chest are obtained. FINDINGS: The airspace disease has improved in the interval. Prominent interstitium persists. Patien t is rotated, there is a kyphosis, postop changes are noted as on prior exam within the lower spine. Suspect there is vertebroplasty performed at the lower thoracic vertebral body. Patient is post lap b and. No evident pneumothorax or pleural effusion. Cardiac mediastinal silhouette shows a similar appe arance. Prominent pulmonary artery again noted, consider pulmonary artery hypertension. IMPRESSION: Interval improvement in aeration, additional findings above.
== END | disposition home or self-care (01) ==
LOC: RADXRMAIN 13:11
PROVIDERS: ATTEND Family Medicine
DX: J84.89 Other specified interstitial pulmonary diseases (principal)
CPT/HCPCS: 71046

== ENCOUNTER 2018-11-06 12:09 | Day surgery (SDC) | payer MEDICARE ==
[2018-11-03 13:58] VITALS: BMI 33.3
[~2018-11-06 12:09] MED LIST: DEXAMETHASONE SOD PHOSPHATE 10 MG/ML 1 ML VIAL IV ONE; HYDROmorphone 0.5 MG/0.5 ML SYRINGE IVP PRN; LACTATED RINGERS 1,000 ML IV SCH; MIDAZOLAM (PF) 2 MG/2 ML VIAL IV PRN; ONDANSETRON 4 MG/2 ML VIAL IVP ONE; Pre Op ABX Message 1 EACH MISC MISCELLANE ONE
[2018-11-06 12:52] VITALS: RESP 16; TEMP 97.7
[2018-11-06] MEDS ORDERED: LIDOCAINE 1% 20 ML VIAL (10MG/ML) FOR IV START SQ ONE (13:04)
[2018-11-06 13:10] LABS: Glucose,Whole Blood 136 mg/dL (75-99)
[2018-11-06] MEDS ORDERED: fentaNYL (PF) 50 MCG/ML 2 ML AMP ONE (14:00)
[2018-11-06] MEDS ORDERED: KETAMINE 10 MG/ML 20 ML VIAL ONE (14:00)
[2018-11-06] MEDS ORDERED: MIDAZOLAM 2 MG/2 ML VIAL ONE (14:00)
[2018-11-06] MEDS ORDERED: PROPOFOL 10 MG/ML 20 ML VIAL IV ONE (14:00)
[2018-11-06] MEDS ORDERED: LIDOCAINE 1%-EPI 1:100,000 30 ML VIAL SQ ONE (14:37)
[2018-11-06] MEDS ORDERED: BUPIVACAINE (PF) 0.5% 30 ML VIAL SQ ONE (14:37)
[2018-11-06 16:25] VITALS: BP 159/83; PULSE 81
--- NOTE | 2018-11-07 12:07 | P.OP ---
Date of Procedure: 11/06/18 Preoperative Diagnosis: Recurrent right carpal tunnel syndrome Postoperative Diagnosis: Recurrent right carpal tunnel syndrome Procedure(s) Performed: Revision right carpal tunnel release - endoscopic Anesthesia: MAC, local Surgeon: Shyam Vargas Estimated Blood Loss (ml): 2 Condition: stable Disposition: PACU Indications for Procedure: The patient is a 68 year-old female who was diagnosed with recurrent right carpal tunnel syndrome. She previously underwent a revision release of her left carpal tunnel and returns with persisting right-sided symptoms. Treatment options (and associated risks and benefits) were discussed in the office, including (but not limited to) tendon or neurovascular injury, persistent pain and incomplete relief of symptoms. The patient expressed understanding, acceptance of the risks and elected to have surgical release. In preop, the surgical risks were again reviewed: the patient expressed understanding, denied any additional questions or concerns and was in agreement to proceed with surgery. Consent forms were signed. The operative site was confirmed and marked. Description of Procedure: The patient was positioned supine with the right upper extremity on an arm board. A tourniquet was placed on the arm. Monitored anesthesia was administered uneventfully. A time-out was performed, confirming patient identifiers, the operative side, site and the procedure to be performed: all team members expressed agreement. Using aseptic technique, local anesthetic was injected into the subcutaneous tissues around the planned incision. The right upper extremity was then prepped and draped in standard, sterile fashion. The limb was exsanguinated with an Esmarch and the tourniquet was inflated. Loupe magnification was used throughout the case for optimum visualization. A 1.5 cm transverse incision was marked just proximal to the wrist flexion crease, in line with the radial border of the ring finger. The skin was sharply incised. The patient had been skin and minimal subcutaneous tissues. The volar carpal fascia was identified and sharply incised, just ulnar to the palmaris longus tendon. The median nerve was immediately identified below. Tethering of the nerve was noted when attempting to pass a synovial elevator into the tunnel. Thickened synovial and perineural tissue was identified overlying the nerve distal to the incision and this was carefully released. The synovial elevator was then reinserted and passed atraumatically into the carpal tunnel. The recurrent scar tissue (or residual transverse carpal ligament) was palpable and adhesions were released. A dilator was inserted to sound and enlarge the carpal tunnel. The hamate hook was palpable ulnarly. The smaller side-specific guide and camera were inserted. Thick, white scar tissue was visualized above. The distal edge was identified and palpated with a probe with perivascular adipose tissue visible distally. A rasp was inserted and used to clear overlying synovial tissue. Residual transverse fibers of the original transverse carpal ligament were identified beneath the distal scar tissue. The guide and camera were rotated and position of the nerve was confirmed. The endoscopic blade was inserted and the distal two-thirds of the ligament was sharply incised. The camera was removed and the proximal portion of the ligament/scar tissue was released with scissors under direct visualization. Wide release of ligament was visually confirmed. The recurrent motor branch was identified on the radial aspect and appeared uninjured. The volar carpal fascia proximal to the incision was released with scissors under direct visualization. The nerve was still compressed by thickened perineural adhesions at the level of the incision. The palmar cutaneous branch was identified within the scar tissue and was carefully dissected free. A limited, local neurolysis and mobilization of the nerve was performed. The tourniquet was released and excellent hemostasis was obtained with pressure. The wound was thoroughly irrigated with normal saline. The incision was closed with interrupted 5-0 Nylon sutures. Additional local anesthetic with epinephrine was injected for postoperative pain control and adjunctive hemostasis. A soft, sterile dressing was applied. All sponge, needle and instrument counts were correct at the end of the case. The patient tolerated the procedure well and was transferred to recovery in stable condition.
== END 2018-11-06 16:45 | disposition home or self-care (01) ==
LOC: OR 12:09
PROVIDERS: ATTEND Orthopaedic Surgery
DX: G56.01 Carpal tunnel syndrome, right upper limb (principal); M79.7 Fibromyalgia; L71.9 Rosacea, unspecified; F41.9 Anxiety disorder, unspecified; K21.9 Gastro-esophageal reflux disease without esophagitis; E78.5 Hyperlipidemia, unspecified; G43.909 Migraine, unspecified, not intractable, without status migrainosus; J45.909 Unspecified asthma, uncomplicated; I10 Essential (primary) hypertension; F32.9 Major depressive disorder, single episode, unspecified; E11.9 Type 2 diabetes mellitus without complications; H40.9 Unspecified glaucoma; Z79.84 Long term (current) use of oral hypoglycemic drugs; Z79.891 Long term (current) use of opiate analgesic; Z79.899 Other long term (current) drug therapy; Z88.6 Allergy status to analgesic agent; Z88.1 Allergy status to other antibiotic agents; Z91.012 Allergy to eggs; Z91.011 Allergy to milk products; Z88.8 Allergy status to other drugs, medicaments and biological substances; Z91.048 Other nonmedicinal substance allergy status; Z91.09 Other allergy status, other than to drugs and biological substances
CPT/HCPCS: 29848; J1100; J2405

== ENCOUNTER 2019-01-14 22:33 | Inpatient (IN) | payer MEDICARE ==
[2019-01-14] MEDS ORDERED: MORPHINE SULFATE 4 MG/ML SYRINGE IVP STA (22:56)
--- NOTE | 2019-01-14 23:00 | ED ---
General Adult HPI - General Chief complaint: Chest Pain Stated complaint: Chest Pain Time Seen by Provider: 01/14/19 22:50 Source: patient, family, RN notes reviewed, old records reviewed Mode of arrival: wheelchair Limitations: no limitations - History of Present Illness Initial comments: 68-year-old female presented for evaluation of left-sided chest pain. Patient describes the pain is heavy, radiating to her left neck and jaw. No known history of coronary artery disease. She does report dyspnea which is been present for the past several days. No cough. No fever or chills. She has gastric reflux treated with omeprazole which is unchanged from baseline. No pain or swelling in lower extremities. No history DVT or PE. She did report some radiation to the left neck and left arm. - Related Data Home Medications Medication Instructions Recorded Confirmed Gabapentin 300 mg PO DAILY 05/20/14 01/14/19 Hydrocodone/Acetaminophen 1 tab PO QID PRN 05/20/14 01/14/19 [Hydrocodone/Acetaminophen 10-325] Losartan Potassium 100 mg PO DAILY 05/20/14 01/14/19 Ondansetron [Ondansetron Odt] 8 mg PO TID PRN 05/20/14 01/14/19 clonazePAM [Clonazepam] 0.5 mg PO HS 05/20/14 01/14/19 metFORMIN HCL [Metformin HCl ER] 500 mg PO DAILY 05/20/14 01/14/19 Morphine Sulfate ER [Ms Contin] 15 mg PO Q8H 11/08/15 01/14/19 Morphine Sulfate ER [Ms Contin] 30 mg PO Q8H 11/08/15 01/14/19 Rizatriptan Benzoate [Maxalt] 10 mg PO BID PRN 07/04/16 01/14/19 Topiramate [Topamax] 50 mg PO TID 07/04/16 01/14/19 traZODone HCL 300 mg PO HS 07/04/16 01/14/19 Brimonidine Tartrate [Alphagan P 1 drops BOTH EYES TID 09/09/17 01/14/19 0.2% Ophth Soln] Dorzolamide 2% [Trusopt 2%] 1 drop BOTH EYES BID 09/09/17 01/14/19 Latanoprost [Xalatan 0.005%] 1 drop BOTH EYES HS 09/09/17 01/14/19 Timolol 0.5% Ophth Soln [Timoptic 1 drop BOTH EYES BID 09/09/17 01/14/19 0.5% Ophth Soln] Albuterol Inhaler [Ventolin Hfa 2 puff INHALATION RT-QID PRN 11/03/18 01/14/19 Inhaler] Erenumab-Aooe [Aimovig 70 mg SQ Q30D 11/03/18 01/14/19 Autoinjector] Propylene Glycol/Peg 400/Pf 1 drop BOTH EYES DAILY PRN 11/03/18 01/14/19 [Systane 0.3-0.4% Eye Drops] Cetirizine HCl [Zyrtec] 10 mg PO DAILY 01/14/19 01/14/19 Lansoprazole [Prevacid] 30 mg PO BID 01/14/19 01/14/19 Pioglitazone [Actos] 45 mg PO DAILY 01/14/19 01/14/19 Allergies Allergy/AdvReac Type Severity Reaction Status Date / Time adhesive Allergy Severe Rash/Hives, Verified 01/14/19 23:12 BLISTERS levofloxacin [From Levaquin] Allergy Severe Anaphylaxis Verified 01/14/19 23:12 metoclopramide HCl Allergy Severe Anaphylaxis Verified 01/14/19 23:12 [From Reglan] Phenothiazines Allergy Severe Anaphylaxis Verified 01/14/19 23:12 thiethylperazine maleate Allergy Severe Anaphylaxis Verified 01/14/19 23:12 [From Torecan] venom-honey bee Allergy Severe Anaphylaxis Verified 01/14/19 23:12 [bee venom (honey bee)] iodine Allergy Intermediate Rash/Hives Verified 01/14/19 23:12 aspirin Allergy Mild TOLD TO Verified 01/14/19 23:12 AVOID D/T ALLERGIES, INDIGESTION chlorhexidine Allergy red dye in Verified 01/14/19 23:12 [From Hibiclens] hibiclens causes Rash/Hives cigarette smoke Allergy Cough Verified 01/14/19 23:12 duloxetine [From Cymbalta] Allergy Unknown Verified 01/14/19 23:12 egg Allergy Abdominal Verified 01/14/19 23:12 Pain meloxicam [From Mobic] Allergy Unknown Verified 01/14/19 23:12 milk Allergy Abdominal Verified 01/14/19 23:12 Pain pregabalin [From Lyrica] Allergy oversedatio Verified 01/14/19 23:12 n Gnxrrgs-Tnb-Heq Reductase Allergy increased Verified 01/14/19 23:12 Inhibitor fibramyalgia symptoms fentanyl AdvReac OVER Verified 01/14/19 23:12 SEDATED, WEAKNESS Review of Systems ROS Statement: Those systems with pertinent positive or pertinent negative responses have been documented in the HPI. ROS Other: All systems not noted in ROS Statement are negative. Past Medical History Past Medical History: Asthma, Diabetes Mellitus, Fibromyalgia, GERD/Reflux, Hyperlipidemia, Hypertension, Osteoarthritis (OA), Skin Disorder Additional Past Medical History / Comment(s): carpel tunnel rt wrist, ROSACEA. DDD,Hx severe back injury,kyphosis,fermin ankle fx's History of Any Multi-Drug Resistant Organisms: None Reported Past Surgical History: Back Surgery, Bariatric Surgery, Bladder Surgery, Cholecystectomy, Hysterectomy, Orthopedic Surgery, Tonsillectomy, Tubal Ligation Additional Past Surgical History / Comment(s): hx lap band-empty, lap band 2009, 05/20/[address] GARIBAY,[place] and screw to lumbar back, open reduction of right ankle fx 2010,left carpel tunnel x2,left cubital tunnel,rt carpel tunnel Past Anesthesia/Blood Transfusion Reactions: No Reported Reaction Additional Past Anesthesia/Blood Transfusion Reaction / Comment(s): no problems with prior blood transfusion Past Psychological History: Depression Smoking Status: Never smoker - Past Family History Father Additional Family Medical History / Comment(s): FATHER AT AGE 91YRS. Mother Family Medical History: CVA/TIA Additional Family Medical History / Comment(s): MOTHER AT AGE 67 YRS OF CVA General Exam Limitations: no limitations General appearance: alert, in no apparent distress Head exam: Present: atraumatic, normocephalic Eye exam: Present: normal appearance, PERRL ENT exam: Present: normal exam Neck exam: Present: normal inspection. Absent: tenderness, meningismus Respiratory exam: Present: normal lung sounds bilaterally. Absent: wheezes, rales, rhonchi Cardiovascular Exam: Present: regular rate, normal rhythm GI/Abdominal exam: Present: soft. Absent: distended, tenderness, guarding Extremities exam: Present: normal inspection, normal capillary refill. Absent: pedal edema, joint swelling, calf tenderness Neurological exam: Present: alert, oriented X3, CN II-XII intact. Absent: motor sensory deficit Psychiatric exam: Present: normal affect, normal mood Skin exam: Present: warm, dry, intact. Absent: cyanosis, diaphoretic Course Vital Signs 01/14/19 01/14/19 01/15/19 22:38 23:39 00:10 Temperature 98.3 F Pulse Rate 90 75 87 Respiratory 18 22 20 Rate Blood Pressure 187/98 181/99 190/124 O2 Sat by Pulse 98 99 97 Oximetry 01/15/19 01/15/19 01/15/19 00:24 00:30 00:58 Temperature Pulse Rate 77 76 Respiratory 18 20 24 Rate Blood Pressure 137/105 144/89 O2 Sat by Pulse 98 97 95 Oximetry 01/15/19 00:59 Temperature Pulse Rate 82 Respiratory 21 Rate Blood Pressure 159/95 O2 Sat by Pulse 100 Oximetry EKG Findings - EKG Comments: EKG Findings:: EKG: Normal sinus rhythm, no ST segment elevation, rate of 72, FL interval 144, QRS duration 84, QTC 407 Medical Decision Making - Medical Decision Making EKG: Sinus rhythm with no ST segment elevation, chest x-ray negative for acute cardiac disease, normal CBC, normal CMP, elevated d-dimer, CT angiography is obtained which is negative for pulmonary embolism, no acute findings. Negative troponin in the emergency department. Patient will be placed in observation for serial cardiac enzymes, telemetry, cardiology consultation, and echo. - Lab Data Result diagrams: 01/14/19 22:51 01/14/19 22:51 Lab Results 01/14/19 01/14/19 01/14/19 Range/Units 22:51 22:51 22:51 WBC 7.3 (3.8-10.6) k/uL RBC 4.36 (3.80-5.40) m/uL Hgb 12.6 (11.4-16.0) gm/dL Hct 37.5 (34.0-46.0) % MCV 86.0 (80.0-100.0) fL MCH 28.9 (25.0-35.0) pg MCHC 33.6 (31.0-37.0) g/dL RDW 15.1 (11.5-15.5) % Plt Count 286 (150-450) k/uL Neutrophils % 52 % Lymphocytes % 34 % Monocytes % 4 % Eosinophils % 6 % Basophils % 1 % Neutrophils # 3.7 (1.3-7.7) k/uL Lymphocytes # 2.4 (1.0-4.8) k/uL Monocytes # 0.3 (0-1.0) k/uL Eosinophils # 0.5 (0-0.7) k/uL Basophils # 0.1 (0-0.2) k/uL PT 9.5 (9.0-12.0) sec INR 0.9 (<1.2) APTT 22.5 (22.0-30.0) sec D-Dimer 1.01 H (<0.60) mg/L FEU Sodium 138 (137-145) mmol/L Potassium 4.2 (3.5-5.1) mmol/L Chloride 102 (98-107) mmol/L Carbon Dioxide 23 (22-30) mmol/L Anion Gap 13 mmol/L BUN 13 (7-17) mg/dL Creatinine 0.88 (0.52-1.04) mg/dL Est GFR (CKD-EPI)AfAm 79 (>60 ml/min/1.73 sqM) Est GFR (CKD-EPI)NonAf 69 (>60 ml/min/1.73 sqM) Glucose 202 H (74-99) mg/dL Calcium 9.9 (8.4-10.2) mg/dL Magnesium 1.8 (1.6-2.3) mg/dL Total Bilirubin 0.3 (0.2-1.3) mg/dL AST 20 (14-36) U/L ALT 14 (9-52) U/L Alkaline Phosphatase 98 (38-126) U/L Troponin I (0.000-0.034) ng/mL NT-Pro-B Natriuret Pep pg/mL Total Protein 8.1 (6.3-8.2) g/dL Albumin 4.7 (3.5-5.0) g/dL Lipase 80 (23-300) U/L 01/14/19 01/14/19 Range/Units 22:51 22:51 WBC (3.8-10.6) k/uL RBC (3.80-5.40) m/uL Hgb (11.4-16.0) gm/dL Hct (34.0-46.0) % MCV (80.0-100.0) fL MCH (25.0-35.0) pg MCHC (31.0-37.0) g/dL RDW (11.5-15.5) % Plt Count (150-450) k/uL Neutrophils % % Lymphocytes % % Monocytes % % Eosinophils % % Basophils % % Neutrophils # (1.3-7.7) k/uL Lymphocytes # (1.0-4.8) k/uL Monocytes # (0-1.0) k/uL Eosinophils # (0-0.7) k/uL Basophils # (0-0.2) k/uL PT (9.0-12.0) sec INR (<1.2) APTT (22.0-30.0) sec D-Dimer (<0.60) mg/L FEU Sodium (137-145) mmol/L Potassium (3.5-5.1) mmol/L Chloride (98-107) mmol/L Carbon Dioxide (22-30) mmol/L Anion Gap mmol/L BUN (7-17) mg/dL Creatinine (0.52-1.04) mg/dL Est GFR (CKD-EPI)AfAm (>60 ml/min/1.73 sqM) Est GFR (CKD-EPI)NonAf (>60 ml/min/1.73 sqM) Glucose (74-99) mg/dL Calcium (8.4-10.2) mg/dL Magnesium (1.6-2.3) mg/dL Total Bilirubin (0.2-1.3) mg/dL AST (14-36) U/L ALT (9-52) U/L Alkaline Phosphatase (38-126) U/L Troponin I <0.012 (0.000-0.034) ng/mL NT-Pro-B Natriuret Pep 416 pg/mL Total Protein (6.3-8.2) g/dL Albumin (3.5-5.0) g/dL Lipase (23-300) U/L Disposition Clinical Impression: Chest pain Disposition: ADMITTED IP TO THIS HOSP Condition: Stable Is patient prescribed a controlled substance at d/c from ED?: No Referrals: Radha Jovel III, MD [Primary Care Provider] - 1-2 days Decision to Admit Reason: Admit from EC Decision Date: 01/15/19 Decision Time: 01:07
[2019-01-14 23:12] LABS: Basophils # (A) 0.1 k/uL (0-0.2); Basophils % (A) 1 %; Eosinophils # (A) 0.5 k/uL (0-0.7); Eosinophils % (A) 6 %; HCT 37.5 % (34.0-46.0); HGB 12.6 gm/dL (11.4-16.0); Lymphocytes # (A) 2.4 k/uL (1.0-4.8); Lymphocytes % (A) 34 %; MCH 28.9 pg (25.0-35.0); MCHC 33.6 g/dL (31.0-37.0); Mean Platelet Volume 7.7; Monocytes # (A) 0.3 k/uL (0-1.0); Monocytes % (A) 4 %; Neutrophils # (A) 3.7 k/uL (1.3-7.7); Neutrophils % (A) 52 %; Platelet Count 286 k/uL (150-450); RBC 4.36 m/uL (3.80-5.40); RDW 15.1 % (11.5-15.5); WBC 7.3 k/uL (3.8-10.6)
[2019-01-14 23:25] LABS: Albumin 4.7 g/dL (3.5-5.0); Calcium 9.9 mg/dL (8.4-10.2); Magnesium 1.8 mg/dL (1.6-2.3); Potassium 4.2 mmol/L (3.5-5.1); Total Bilirubin 0.3 mg/dL (0.2-1.3); Total Protein 8.1 g/dL (6.3-8.2)
[2019-01-14 23:26] LABS: INR 0.9 (<1.2); Partial Thromboplastin Time 22.5 sec (22.0-30.0); Prothrombin Time 9.5 sec (9.0-12.0)
[2019-01-14 23:30] LABS: D-Dimer 1.01 mg/L FEU (<0.60)
--- NOTE | 2019-01-14 23:40 | XR ---
EXAM: XR Chest, 2 Views CLINICAL HISTORY: ITS.REASON XR Reason: Chest Pain TECHNIQUE: Frontal and lateral views of the chest. COMPARISON: Chest radiographs 10/21/2017. FINDINGS: Lungs: Unremarkable. No consolidation. Pleural space: Unremarkable. No pneumothorax. Heart: Unremarkable. No cardiomegaly. Mediastinum: Unremarkable. Bones/joints: Similar appearance of lumbar spine hardware and sclerotic T12 versus L1 vertebral body. IMPRESSION: No acute cardiopulmonary abnormality.
--- NOTE | 2019-01-15 00:31 | CT ---
EXAM: CT Angiography Chest With Intravenous Contrast CLINICAL HISTORY: ITS.REASON CT Reason: Pain TECHNIQUE: Axial computed tomographic angiography images of the chest with intravenous contrast using pulmonary embolism protocol. CTDI is 8.6 mGy and DLP is 317.3 mGy-cm. This CT exam was performed using one or more of the following dose reduction techniques: automated exposure control, adjustment of the mA and/or kV according to patient size, and/or use of iterative reconstruction technique. MIP reconstructed images were created and reviewed. COMPARISON: Chest radiograph 01/14/2019. CT chest 09/10/2017. FINDINGS: Pulmonary arteries: Unremarkable. No pulmonary embolism. Aorta: No acute findings. No thoracic aortic aneurysm. Lungs: Azygos lobe. No mass. Pleural space: Unremarkable. No significant effusion. No pneumothorax. Heart: Unremarkable. No cardiomegaly. No significant pericardial effusion. No evidence of RV dysfunction. Bones/joints: Severe degenerative change of the right shoulder. Status post augmentation of the T12 vertebral body. Severe adjacent segment degenerative disc disease at L1-L2 with fusion of the lower lumbar spine starting at L2. No acute fracture. No dislocation. Soft tissues: Unremarkable. Lymph nodes: Unremarkable. No enlarged lymph nodes. Stomach and bowel: Gastric band is seen. IMPRESSION: No pulmonary embolism.
[2019-01-15] MEDS ORDERED: LORazepam 2 MG/ML INJ IV PRN (01:04)
[2019-01-15] MEDS ORDERED: NALOXONE 0.4 MG/ML 1 ML VIAL IV PRN (01:04)
[2019-01-15] MEDS ORDERED: ACETAMINOPHEN TAB 325 MG TAB PO PRN (01:04)
[2019-01-15] MEDS ORDERED: ASPIRIN 325 MG TAB PO STA (01:04)
[2019-01-15] MEDS ORDERED: LORazepam 2 MG/ML INJ IV STA (01:04)
[2019-01-15 02:04] VITALS: BMI 23.0
[2019-01-15] MEDS: HYDROmorphone 0.5 MG/0.5 ML SYRINGE IVP PRN ×3 (02:15→12:06)
[2019-01-15 06:41] LABS: Glucose,Whole Blood 123 mg/dL (75-99)
[2019-01-15 08:57] LABS: HDL Cholesterol 70 mg/dL (40-60); Triglycerides 459 mg/dL (<150)
[2019-01-15 09:06] LABS: Cholesterol 448 mg/dL (<200)
[2019-01-15] MEDS ORDERED: HEPARIN SODIUM,PORCINE 5,000 UNIT/ML 1 ML VIAL IV ONE (09:49)
[2019-01-15] MEDS ORDERED: HEPARIN SODIUM,PORCINE 5,000 UNIT/ML 1 ML VIAL IV PRN (09:49)
[2019-01-15] MEDS: HEPARIN SOD,PORK IN 0.45% NACL 25,000 UNIT in 0.45% NACL 1 250ML.BAG IV SCH (10:15)
[2019-01-15] MEDS: METOPROLOL TARTRATE 50 MG TAB PO SCH ×2 (10:15→20:45)
--- NOTE | 2019-01-15 10:40 | P.CRDCN ---
History of Present Illness History of present illness: This is Dr. Pino dictating a consult on this patient The patient was interviewed and examined by me IMPRESSION / ASSESSMENT: Patient presenting with inability to take a deep breath and chest discomfort that radiated to her jaw and left arm Second cardiac enzyme is borderline abnormal Possible non-Q-wave myocardial infarction No ECG abnormalities so far PLAN: Start heparin Beta blockers and SUE inhibitor 2-D echo and Doppler study Blood pressure management Start statins 3 serial cardiac enzymes and serial ECGs Further management thereafter HPI Patient has seen Dr. Hannah in the past 68-year-old female presenting with inability to take a deep breath for the last several weeks but does not appear to be short of breath Very anxious and states that she has a high anxiety level Yesterday she came in because she was experiencing chest discomfort that went up to the jaw and to the arms and lasted for over half an hour. It finally resolved in the emergency room So far her ECGs serially are normal, first cardiac enzyme is normal She is diabetic she has hypertension Blood pressure elevated 176/96 163/81 and 159/93 mmHg States she she can't take a deep breath in but she does not appear to be short of breath or any discomfort Looks very anxious since she is very anxious when she can't take a full deep breath Laboratory and shortness of breath this appears to be her inability to take a full deep breath, per her history ROS: No fever chills or rigors, no cough, phlegm or expectoration, no nausea, vomiting or diarrhea, no hematuria, dysuria, no musculoskeletal complaints, no strokes or seizures, no skin lesions. EXAMINATION: Blood pressure is elevated 163/81 mmHg on repeat measurements Pulse rate in the 70s and 80s Afebrile Breath sounds are reduced bilaterally without no rhonchi no crackles Heart sounds S1 and S2 are soft no murmurs or gallops no rub Kyphosis No lower extremity edema No JVD REVIEW OF LABS, ECG & MEDICAL DATA Past history of diabetes, fibromyalgia, hypertension, dyslipidemia, anxiety disorder White count 7.3, hemoglobin 12.6 D-dimer 1.0 Lites are normal First troponin is normal second troponin was 0.2 elevated triglycerides of 459 Past Medical History Past Medical History: Asthma, Diabetes Mellitus, Fibromyalgia, GERD/Reflux, Hyperlipidemia, Hypertension, Osteoarthritis (OA), Skin Disorder Additional Past Medical History / Comment(s): carpel tunnel rt wrist, ROSACEA. DDD,Hx severe back injury,kyphosis,fermin ankle fx's History of Any Multi-Drug Resistant Organisms: None Reported Past Surgical History: Back Surgery, Bariatric Surgery, Bladder Surgery, Cholecystectomy, Hysterectomy, Orthopedic Surgery, Tonsillectomy, Tubal Ligation Additional Past Surgical History / Comment(s): hx lap band-empty, lap band 2009, 05/20/[address] GARIBAY,[place] and screw to lumbar back, open reduction of right ankle fx 2010,left carpel tunnel x2,left cubital tunnel,rt carpel tunnel Past Anesthesia/Blood Transfusion Reactions: No Reported Reaction Additional Past Anesthesia/Blood Transfusion Reaction / Comment(s): no problems with prior blood transfusion Past Psychological History: Anxiety Smoking Status: Never smoker Past Alcohol Use History: None Reported Additional Past Alcohol Use History / Comment(s): Patient is a lifelong nonsmoker. She denies any medical marijuana, marijuana, street drug or alcohol use. She lives at home with her . 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 Past Drug Use History: None Reported - Past Family History Father Additional Family Medical History / Comment(s): FATHER AT AGE 91YRS. Mother Family Medical History: CVA/TIA Additional Family Medical History / Comment(s): MOTHER AT AGE 67 YRS OF CVA Medications and Allergies Home Medications Medication Instructions Recorded Confirmed Type Gabapentin 300 mg PO DAILY 05/20/14 01/14/19 History Hydrocodone/Acetaminophen 1 tab PO QID PRN 05/20/14 01/14/19 History [Hydrocodone/Acetaminophen 10-325] Losartan Potassium 100 mg PO DAILY 05/20/14 01/14/19 History Ondansetron [Ondansetron Odt] 8 mg PO TID PRN 05/20/14 01/14/19 History clonazePAM [Clonazepam] 0.5 mg PO HS 05/20/14 01/14/19 History metFORMIN HCL [Metformin HCl ER] 500 mg PO DAILY 05/20/14 01/14/19 History Morphine Sulfate ER [Ms Contin] 15 mg PO Q8H 11/08/15 01/14/19 History Morphine Sulfate ER [Ms Contin] 30 mg PO Q8H 11/08/15 01/14/19 History Rizatriptan Benzoate [Maxalt] 10 mg PO BID PRN 07/04/16 01/14/19 History Topiramate [Topamax] 50 mg PO TID 07/04/16 01/14/19 History traZODone HCL 300 mg PO HS 07/04/16 01/14/19 History Brimonidine Tartrate [Alphagan P 1 drops BOTH EYES TID 09/09/17 01/14/19 History 0.2% Ophth Soln] Dorzolamide 2% [Trusopt 2%] 1 drop BOTH EYES BID 09/09/17 01/14/19 History Latanoprost [Xalatan 0.005%] 1 drop BOTH EYES HS 09/09/17 01/14/19 History Timolol 0.5% Ophth Soln [Timoptic 1 drop BOTH EYES BID 09/09/17 01/14/19 History 0.5% Ophth Soln] Albuterol Inhaler [Ventolin Hfa 2 puff INHALATION RT-QID PRN 11/03/18 01/14/19 History Inhaler] Erenumab-Aooe [Aimovig 70 mg SQ Q30D 11/03/18 01/14/19 History Autoinjector] Propylene Glycol/Peg 400/Pf 1 drop BOTH EYES DAILY PRN 11/03/18 01/14/19 History [Systane 0.3-0.4% Eye Drops] Cetirizine HCl [Zyrtec] 10 mg PO DAILY 01/14/19 01/14/19 History Lansoprazole [Prevacid] 30 mg PO BID 01/14/19 01/14/19 History Pioglitazone [Actos] 45 mg PO DAILY 01/14/19 01/14/19 History Allergies Allergy/AdvReac Type Severity Reaction Status Date / Time adhesive Allergy Severe Rash/Hives, Verified 01/14/19 23:12 BLISTERS levofloxacin [From Levaquin] Allergy Severe Anaphylaxis Verified 01/14/19 23:12 metoclopramide HCl Allergy Severe Anaphylaxis Verified 01/14/19 23:12 [From Reglan] Phenothiazines Allergy Severe Anaphylaxis Verified 01/14/19 23:12 thiethylperazine maleate Allergy Severe Anaphylaxis Verified 01/14/19 23:12 [From Torecan] venom-honey bee Allergy Severe Anaphylaxis Verified 01/14/19 23:12 [bee venom (honey bee)] iodine Allergy Intermediate Rash/Hives Verified 01/14/19 23:12 aspirin Allergy Mild TOLD TO Verified 01/14/19 23:12 AVOID D/T ALLERGIES, INDIGESTION chlorhexidine Allergy red dye in Verified 01/14/19 23:12 [From Hibiclens] hibiclens causes Rash/Hives cigarette smoke Allergy Cough Verified 01/14/19 23:12 duloxetine [From Cymbalta] Allergy Unknown Verified 01/14/19 23:12 egg Allergy Abdominal Verified 01/14/19 23:12 Pain meloxicam [From Mobic] Allergy Unknown Verified 01/14/19 23:12 milk Allergy Abdominal Verified 01/14/19 23:12 Pain pregabalin [From Lyrica] Allergy oversedatio Verified 01/14/19 23:12 n Pfgvriy-Yym-Doq Reductase Allergy increased Verified 01/14/19 23:12 Inhibitor fibramyalgia symptoms fentanyl AdvReac OVER Verified 01/14/19 23:12 SEDATED, WEAKNESS Physical Exam Vitals: Vital Signs Temp Pulse Pulse Resp BP BP Pulse Ox 01/15/19 07:10 97.6 F 84 18 176/96 100 01/15/19 04:00 98.1 F 72 16 163/81 100 01/15/19 02:24 16 01/15/19 02:11 98.3 F 81 16 159/93 98 01/15/19 01:34 80 18 142/94 98 01/15/19 00:59 82 21 159/95 100 01/15/19 00:58 24 95 01/15/19 00:30 76 20 144/89 97 01/15/19 00:24 77 18 137/105 98 01/15/19 00:10 87 20 190/124 97 01/14/19 23:39 75 22 181/99 99 01/14/19 22:38 98.3 F 90 18 187/98 98 Intake and Output 01/14/19 01/15/19 01/15/19 22:59 06:59 14:59 Other: Voiding Method Toilet # Voids 1 Weight 74.843 kg Results 01/14/19 22:51 01/14/19 22:51 Cardiac Enzymes 01/14/19 01/14/19 Range/Units 22:51 22:51 AST 20 (14-36) U/L Troponin I <0.012 (0.000-0.034) ng/mL Coagulation 01/14/19 Range/Units 22:51 PT 9.5 (9.0-12.0) sec APTT 22.5 (22.0-30.0) sec CBC 01/14/19 Range/Units 22:51 WBC 7.3 (3.8-10.6) k/uL RBC 4.36 (3.80-5.40) m/uL Hgb 12.6 (11.4-16.0) gm/dL Hct 37.5 (34.0-46.0) % Plt Count 286 (150-450) k/uL Comprehensive Metabolic Panel 01/14/19 Range/Units 22:51 Sodium 138 (137-145) mmol/L Potassium 4.2 (3.5-5.1) mmol/L Chloride 102 (98-107) mmol/L Carbon Dioxide 23 (22-30) mmol/L BUN 13 (7-17) mg/dL Creatinine 0.88 (0.52-1.04) mg/dL Glucose 202 H (74-99) mg/dL Calcium 9.9 (8.4-10.2) mg/dL AST 20 (14-36) U/L ALT 14 (9-52) U/L Alkaline Phosphatase 98 (38-126) U/L Total Protein 8.1 (6.3-8.2) g/dL Albumin 4.7 (3.5-5.0) g/dL Current Medications Generic Name Dose Route Start Last Admin Trade Name Freq PRN Reason Stop Dose Admin Acetaminophen 650 mg 01/15/19 01:04 Tylenol Tab PO Q6HR PRN Mild Pain or Fever > 100.5 Hydromorphone HCl 0.5 mg 01/15/19 01:04 01/15/19 08:26 Dilaudid IVP 0.5 mg Q3HR PRN Administration Moderate Pain Lorazepam 0.5 mg 01/15/19 01:04 01/15/19 07:25 Ativan IV 0.5 mg Q6HR PRN Administration Anxiety Naloxone HCl 0.2 mg 01/15/19 01:04 Narcan IV Q2M PRN Opioid Reversal Intake and Output 01/14/19 01/15/19 01/15/19 22:59 06:59 14:59 Other: Voiding Method Toilet # Voids 1 Weight 74.843 kg 01/14/19 22:51 01/14/19 22:51
[2019-01-15] MEDS: LISINOPRIL 10 MG TAB PO SCH (10:55)
[2019-01-15 11:40] LABS: Glucose,Whole Blood 145 mg/dL (75-99)
--- NOTE | 2019-01-15 13:14 | ECHOF ---
Referral Reason:CP/Dyspnea MEASUREMENTS -------- HEIGHT: 154.9 cm WEIGHT: 74.8 kg BP: 163/81 IVSd: 1.2 cm (0.6 - 1.1) LVIDd: 4.4 cm (3.9 - 5.3) LVPWd: 1.1 cm (0.6 - 1.1) IVSs: 2.1 cm LVIDs: 2.7 cm LVPWs: 1.4 cm LAESV Index (A-L): 39.25 ml/m Ao Diam: 3.1 cm (2.0 - 3.7) LA Diam: 4.1 cm (2.7 - 3.8) AV Cusp: 1.9 cm (1.5 - 2.6) EPSS: 0.5 cm MV E Kerwin: 0.71 m/s MV DecT: 303 ms MV A Kerwin: 0.93 m/s MV E/A Ratio: 0.77 RAP: 5.00 mmHg RVSP: 11.68 mmHg MV EF SLOPE: 47.51 mm/s (70 - 150) MV EXCURSION: 12.84 mm (> 18.000) FINDINGS -------- Sinus rhythm. This was a technically adequate study. The left ventricular size is normal. Left ventricular wall thickness is normal. Overall left vent ricular systolic function is normal with, an EF between 55 - 60 %. Normal LAP Grade 1 Diastolic Dys function. The right ventricle is normal in size. LA is moderately dilated 34-39 ml/m2 The right atrial size is normal. Interatrial and interventricular septum intact. Aortic valve is trileaflet and is mildly thickened. The mitral valve is normal. The mitral valve leaflets are mildly thickened. Mild mitral annular c alcification present. Mild mitral regurgitation is present. Mild tricuspid regurgitation present. Right ventricular systolic pressure is normal at < 35 mmHg. Trace/mild (physiologic) pulmonic regurgitation. The aortic root size is normal. Normal inferior vena cava with normal inspiratory collapse consistent with estimated right atrial pre ssure of 5 mmHg. There is no pericardial effusion. CONCLUSIONS -------- 1. Sinus rhythm. 2. This was a technically adequate study. 3. The left ventricular size is normal. 4. Left ventricular wall thickness is normal. 5. Overall left ventricular systolic function is normal with, an EF between 55 - 60 %. 6. Normal LAP Grade 1 Diastolic Dysfunction. 7. The right ventricle is normal in size. 8. LA is moderately dilated 34-39 ml/m2 9. The right atrial size is normal. 10. Interatrial and interventricular septum intact. 11. Aortic valve is trileaflet and is mildly thickened. 12. The mitral valve is normal. 13. The mitral valve leaflets are mildly thickened. 14. Mild mitral annular calcification present. 15. Mild mitral regurgitation is present. 16. Mild tricuspid regurgitation present. 17. Right ventricular systolic pressure is normal at < 35 mmHg. 18. Trace/mild (physiologic) pulmonic regurgitation. 19. The aortic root size is normal. 20. Normal inferior vena cava with normal inspiratory collapse consistent with estimated right atrial pressure of 5 mmHg. 21. There is no pericardial effusion. ANIMAL CONTROL OFFICER: Margo Benavides RDCS
[2019-01-15] MEDS: LORazepam 0.5 MG TAB PO SCH ×3 (14:09→20:45)
[2019-01-15] MEDS ORDERED: MORPHINE SULFATE ER 30 MG TABLET PO SCH (14:30)
[2019-01-15] MEDS: MORPHINE SULFATE ER 15 MG TABLET PO SCH ×2 (14:33→23:33)
[2019-01-15] MEDS ORDERED: ONDANSETRON ODT 4 MG TAB PO PRN (15:58)
[2019-01-15] MEDS ORDERED: ARTIFICIAL TEARS-HYPROMELLOSE DROPS 15 ML BTL BOTH EYES PRN (15:58)
--- NOTE | 2019-01-15 16:11 | P.HPIM ---
History of Present Illness Chief Complaint: Shortness of breath This is a pleasant 68-year-old gentleman with a past medical history significant for CABG, comes in with above-mentioned complaint. The patient says that he's been having shortness of breath for the past few weeks. Yesterday he was doing some yard work when he started having more shortness of breath. He did not complain of any radiation of the pain, no nausea and vomiting, no diarrhea constipation, no tingling numbness of his extremities, and additional rash. He came into the [facility] ER to get himself evaluated. He had EKG done which was negative, tropes were negative. 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 DDD,Hx severe back injury,kyphosis,fermin ankle fx's History of Any Multi-Drug Resistant Organisms: None Reported Past Surgical History: Back Surgery, Bariatric Surgery, Bladder Surgery, Cholecystectomy, Hysterectomy, Orthopedic Surgery, Tonsillectomy, Tubal Ligation Additional Past Surgical History / Comment(s): hx lap band-empty, lap band 2009, 05/20/[address] GARIBAY,[place] and screw to lumbar back, open reduction of right ankle fx 2010,left carpel tunnel x2,left cubital tunnel,rt carpel tunnel Past Anesthesia/Blood Transfusion Reactions: No Reported Reaction Additional Past Anesthesia/Blood Transfusion Reaction / Comment(s): no problems with prior blood transfusion Past Psychological History: Anxiety Smoking Status: Never smoker Past Alcohol Use History: None Reported Additional Past Alcohol Use History / Comment(s): Patient is a lifelong n onsmoker. She denies any medical marijuana, marijuana, street drug or alcohol use. She lives at home with her . 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 Past Drug Use History: None Reported - Past Family History Father Additional Family Medical History / Comment(s): FATHER AT AGE 91YRS. Mother Family Medical History: CVA/TIA Additional Family Medical History / Comment(s): MOTHER AT AGE 67 YRS OF CVA Medications and Allergies Home Medications Medication Instructions Recorded Confirmed Type Gabapentin 300 mg PO DAILY 05/20/14 01/14/19 History Hydrocodone/Acetaminophen 1 tab PO QID PRN 05/20/14 01/14/19 History [Hydrocodone/Acetaminophen 10-325] Losartan Potassium 100 mg PO DAILY 05/20/14 01/14/19 History Ondansetron [Ondansetron Odt] 8 mg PO TID PRN 05/20/14 01/14/19 History clonazePAM [Clonazepam] 0.5 mg PO HS 05/20/14 01/14/19 History metFORMIN HCL [Metformin HCl ER] 500 mg PO DAILY 05/20/14 01/14/19 History Morphine Sulfate ER [Ms Contin] 15 mg PO Q8H 11/08/15 01/14/19 History Morphine Sulfate ER [Ms Contin] 30 mg PO Q8H 11/08/15 01/14/19 History Rizatriptan Benzoate [Maxalt] 10 mg PO BID PRN 07/04/16 01/14/19 History Topiramate [Topamax] 50 mg PO TID 07/04/16 01/14/19 History traZODone HCL 300 mg PO HS 07/04/16 01/14/19 History Brimonidine Tartrate [Alphagan P 1 drops BOTH EYES TID 09/09/17 01/14/19 History 0.2% Ophth Soln] Dorzolamide 2% [Trusopt 2%] 1 drop BOTH EYES BID 09/09/17 01/14/19 History Latanoprost [Xalatan 0.005%] 1 drop BOTH EYES HS 09/09/17 01/14/19 History Timolol 0.5% Ophth Soln [Timoptic 1 drop BOTH EYES BID 09/09/17 01/14/19 History 0.5% Ophth Soln] Albuterol Inhaler [Ventolin Hfa 2 puff INHALATION RT-QID PRN 11/03/18 01/14/19 History Inhaler] Erenumab-Aooe [Aimovig 70 mg SQ Q30D 11/03/18 01/14/19 History Autoinjector] Propylene Glycol/Peg 400/Pf 1 drop BOTH EYES DAILY PRN 11/03/18 01/14/19 History [Systane 0.3-0.4% Eye Drops] Cetirizine HCl [Zyrtec] 10 mg PO DAILY 01/14/19 01/14/19 History Lansoprazole [Prevacid] 30 mg PO BID 01/14/19 01/14/19 History Pioglitazone [Actos] 45 mg PO DAILY 01/14/19 01/14/19 History Allergies Allergy/AdvReac Type Severity Reaction Status Date / Time adhesive Allergy Severe Rash/Hives, Verified 01/14/19 23:12 BLISTERS levofloxacin [From Levaquin] Allergy Severe Anaphylaxis Verified 01/14/19 23:12 metoclopramide HCl Allergy Severe Anaphylaxis Verified 01/14/19 23:12 [From Reglan] Phenothiazines Allergy Severe Anaphylaxis Verified 01/14/19 23:12 thiethylperazine maleate Allergy Severe Anaphylaxis Verified 01/14/19 23:12 [From Torecan] venom-honey bee Allergy Severe Anaphylaxis Verified 01/14/19 23:12 [bee venom (honey bee)] iodine Allergy Intermediate Rash/Hives Verified 01/14/19 23:12 aspirin Allergy Mild TOLD TO Verified 01/14/19 23:12 AVOID D/T ALLERGIES, INDIGESTION chlorhexidine Allergy red dye in Verified 01/14/19 23:12 [From Hibiclens] hibiclens causes Rash/Hives cigarette smoke Allergy Cough Verified 01/14/19 23:12 duloxetine [From Cymbalta] Allergy Unknown Verified 01/14/19 23:12 egg Allergy Abdominal Verified 01/14/19 23:12 Pain meloxicam [From Mobic] Allergy Unknown Verified 01/14/19 23:12 milk Allergy Abdominal Verified 01/14/19 23:12 Pain pregabalin [From Lyrica] Allergy oversedatio Verified 01/14/19 23:12 n Lyzxoaw-Fkm-Ajj Reductase Allergy increased Verified 01/14/19 23:12 Inhibitor fibramyalgia symptoms fentanyl AdvReac OVER Verified 01/14/19 23:12 SEDATED, WEAKNESS Physical Exam Vitals: Vital Signs Temp Pulse Pulse Resp BP BP Pulse Ox 01/15/19 15:55 97.9 F 86 18 167/102 98 01/15/19 12:00 77 18 01/15/19 11:54 98.0 F 77 18 171/106 95 01/15/19 08:00 84 18 01/15/19 07:10 97.6 F 84 18 176/96 100 01/15/19 04:00 98.1 F 72 16 163/81 100 01/15/19 02:24 16 01/15/19 02:11 98.3 F 81 16 159/93 98 01/15/19 01:34 80 18 142/94 98 01/15/19 00:59 82 21 159/95 100 01/15/19 00:58 24 95 01/15/19 00:30 76 20 144/89 97 01/15/19 00:24 77 18 137/105 98 01/15/19 00:10 87 20 190/124 97 01/14/19 23:39 75 22 181/99 99 01/14/19 22:38 98.3 F 90 18 187/98 98 Intake and Output 01/15/19 01/15/19 01/15/19 06:59 14:59 22:59 Other: Voiding Method Toilet Toilet # Voids 1 6 On exam, alert and oriented x3. HEENT: Conjunctivae normal. eyes normal. NECK: No JVD. No thyroid enlargement. No LNs CARDIOVASCULAR: S1-S2 positive RESPIRATION: Breath sounds are equal both sides, rhonchi rales or wheezing ABDOMEN: Soft, nontender . No guarding. no masses palpable. No ascites, No hepatosplenomegaly.Bowel sounds heard. LEGS: No edema. no swelling NERVOUS SYSTEM: Cranial N 2-12 grossly normal. Moves all 4 limbs. No focal deficits. No sensory deficit. No signs of cerebellar dysfucntion. Skin: no ulcer no rash Results CBC & Chem 7: 01/14/19 22:51 01/14/19 22:51 Labs: Abnormal Lab Results - Last 24 Hours (Table) 01/14/19 01/14/19 01/15/19 Range/Units 22:51 22:51 06:38 D-Dimer 1.01 H (<0.60) mg/L FEU Glucose 202 H (74-99) mg/dL POC Glucose (mg/dL) 123 H (75-99) mg/dL Troponin I (0.000-0.034) ng/mL Triglycerides (<150) mg/dL Cholesterol (<200) mg/dL HDL Cholesterol (40-60) mg/dL 01/15/19 01/15/1919 Range/Units 08:14 08:14 11:39 D-Dimer (<0.60) mg/L FEU Glucose (74-99) mg/dL POC Glucose (mg/dL) 145 H (75-99) mg/dL Troponin I 0.205 H* (0.000-0.034) ng/mL Triglycerides 459 H (<150) mg/dL Cholesterol 448 H (<200) mg/dL HDL Cholesterol 70 H (40-60) mg/dL 01/15/19 Range/Units 14:56 D-Dimer (<0.60) mg/L FEU Glucose (74-99) mg/dL POC Glucose (mg/dL) (75-99) mg/dL Troponin I 0.176 H* (0.000-0.034) ng/mL Triglycerides (<150) mg/dL Cholesterol (<200) mg/dL HDL Cholesterol (40-60) mg/dL Thrombosis Risk Factor Assmnt - Choose All That Apply Each Risk Factor Represents 2 Points: Age 61-74 years Other congenital or acquired thrombophilia - If yes, enter type in comment: No Thrombosis Risk Factor Assessment Total Risk Factor Score: 2 Thrombosis Risk Factor Assessment Level: Low Risk Assessment and Plan Assessment: -Chest tightness and shortness of breath rule out angina - CHF with systolic dysfunction - History of CAD status post CABG - History of atrial flutter - Depression Plan - We'll admit the patient to observation with telemetry - We'll continue to monitor troponin levels - Patient started on IV Lasix as per cardiology - Cardiology following the patient. Appreciated the recommendations - We'll resume the patient's home medications - DVT and GI prophylaxis - We'll order for lab work in the morning - Patient is full code
--- NOTE | 2019-01-15 16:24 | P.HPIM ---
History of Present Illness Chief Complaint: Chest pain and shortness of breath This is a 8-year-old female was a history of anxiety and was really anxious about the time examination she said that she's been having shortness of breath for the past sometime but yesterday her shortness of breath was worse and was having chest tightness. That made her more anxious and she came into the ER for further admission and management. She said that her pain was radiating to the jaw and arms. She otherwise was not complaining of any diaphoresis, no nausea and vomiting, no abdominal pain, or diarrhea constipation, no tingling numbness of his extremities, and additional rash. Next ER course-EKG was done which was negative. The first set of troponin was normal but the second troponin came back high. Cardiology was called back and the patient started on IV heparin. Patient was thus admitted to the hospitalist service for further evaluation and management. Review of Systems All systems: negative Past Medical History Past Medical History: Asthma, Diabetes Mellitus, Fibromyalgia, GERD/Reflux, Hyperlipidemia, Hypertension, Osteoarthritis (OA), Skin Disorder Additional Past Medical History / Comment(s): carpel tunnel rt wrist, ROSACEA. DDD,Hx severe back injury,kyphosis,fermin ankle fx's History of Any Multi-Drug Resistant Organisms: None Reported Past Surgical History: Back Surgery, Bariatric Surgery, Bladder Surgery, Cholecystectomy, Hysterectomy, Orthopedic Surgery, Tonsillectomy, Tubal Ligation Additional Past Surgical History / Comment(s): hx lap band-empty, lap band 2009, 05/20/[address] GARIBAY,way[place] and screw to lumbar back, open r eduction of right ankle fx 2010,left carpel tunnel x2,left cubital tunnel,rt carpel tunnel Past Anesthesia/Blood Transfusion Reactions: No Reported Reaction Additional Past Anesthesia/Blood Transfusion Reaction / Comment(s): no problems with prior blood transfusion Past Psychological History: Anxiety Smoking Status: Never smoker Past Alcohol Use History: None Reported Additional Past Alcohol Use History / Comment(s): Patient is a lifelong nonsmok er. She denies any medical marijuana, marijuana, street drug or alcohol use. She lives at home with her . 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 Past Drug Use History: None Reported - Past Family History Father Additional Family Medical History / Comment(s): FATHER AT AGE 91YRS. Mother Family Medical History: CVA/TIA Additional Family Medical History / Comment(s): MOTHER AT AGE 67 YRS OF CVA Medications and Allergies Home Medications Medication Instructions Recorded Confirmed Type Gabapentin 300 mg PO DAILY 05/20/14 01/14/19 History Hydrocodone/Acetaminophen 1 tab PO QID PRN 05/20/14 01/14/19 History [Hydrocodone/Acetaminophen 10-325] Losartan Potassium 100 mg PO DAILY 05/20/14 01/14/19 History Ondansetron [Ondansetron Odt] 8 mg PO TID PRN 05/20/14 01/14/19 History clonazePAM [Clonazepam] 0.5 mg PO HS 05/20/14 01/14/19 History metFORMIN HCL [Metformin HCl ER] 500 mg PO DAILY 05/20/14 01/14/19 History Morphine Sulfate ER [Ms Contin] 15 mg PO Q8H 11/08/15 01/14/19 History Morphine Sulfate ER [Ms Contin] 30 mg PO Q8H 11/08/15 01/14/19 History Rizatriptan Benzoate [Maxalt] 10 mg PO BID PRN 07/04/16 01/14/19 History Topiramate [Topamax] 50 mg PO TID 07/04/16 01/14/19 History traZODone HCL 300 mg PO HS 07/04/16 01/14/19 History Brimonidine Tartrate [Alphagan P 1 drops BOTH EYES TID 09/09/17 01/14/19 History 0.2% Ophth Soln] Dorzolamide 2% [Trusopt 2%] 1 drop BOTH EYES BID 09/09/17 01/14/19 History Latanoprost [Xalatan 0.005%] 1 drop BOTH EYES HS 09/09/17 01/14/19 History Timolol 0.5% Ophth Soln [Timoptic 1 drop BOTH EYES BID 09/09/17 01/14/19 History 0.5% Ophth Soln] Albuterol Inhaler [Ventolin Hfa 2 puff INHALATION RT-QID PRN 11/03/18 01/14/19 History Inhaler] Erenumab-Aooe [Aimovig 70 mg SQ Q30D 11/03/18 01/14/19 History Autoinjector] Propylene Glycol/Peg 400/Pf 1 drop BOTH EYES DAILY PRN 11/03/18 01/14/19 History [Systane 0.3-0.4% Eye Drops] Cetirizine HCl [Zyrtec] 10 mg PO DAILY 01/14/19 01/14/19 History Lansoprazole [Prevacid] 30 mg PO BID 01/14/19 01/14/19 History Pioglitazone [Actos] 45 mg PO DAILY 01/14/19 01/14/19 History Allergies Allergy/AdvReac Type Severity Reaction Status Date / Time adhesive Allergy Severe Rash/Hives, Verified 01/14/19 23:12 BLISTERS levofloxacin [From Levaquin] Allergy Severe Anaphylaxis Verified 01/14/19 23:12 metoclopramide HCl Allergy Severe Anaphylaxis Verified 01/14/19 23:12 [From Reglan] Phenothiazines Allergy Severe Anaphylaxis Verified 01/14/19 23:12 thiethylperazine maleate Allergy Severe Anaphylaxis Verified 01/14/19 23:12 [From Torecan] venom-honey bee Allergy Severe Anaphylaxis Verified 01/14/19 23:12 [bee venom (honey bee)] iodine Allergy Intermediate Rash/Hives Verified 01/14/19 23:12 aspirin Allergy Mild TOLD TO Verified 01/14/19 23:12 AVOID D/T ALLERGIES, INDIGESTION chlorhexidine Allergy red dye in Verified 01/14/19 23:12 [From Hibiclens] hibiclens causes Rash/Hives cigarette smoke Allergy Cough Verified 01/14/19 23:12 duloxetine [From Cymbalta] Allergy Unknown Verified 01/14/19 23:12 egg Allergy Abdominal Verified 01/14/19 23:12 Pain meloxicam [From Mobic] Allergy Unknown Verified 01/14/19 23:12 milk Allergy Abdominal Verified 01/14/19 23:12 Pain pregabalin [From Lyrica] Allergy oversedatio Verified 01/14/19 23:12 n Iuyweks-Ewo-Obn Reductase Allergy increased Verified 01/14/19 23:12 Inhibitor fibramyalgia symptoms fentanyl AdvReac OVER Verified 01/14/19 23:12 SEDATED, WEAKNESS Physical Exam Vitals: Vital Signs Temp Pulse Pulse Resp BP BP Pulse Ox 01/15/19 16:00 86 18 01/15/19 15:55 97.9 F 86 18 167/102 98 01/15/19 12:00 77 18 01/15/19 11:54 98.0 F 77 18 171/106 95 01/15/19 08:00 84 18 01/15/19 07:10 97.6 F 84 18 176/96 100 01/15/19 04:00 98.1 F 72 16 163/81 100 01/15/19 02:24 16 01/15/19 02:11 98.3 F 81 16 159/93 98 01/15/19 01:34 80 18 142/94 98 01/15/19 00:59 82 21 159/95 100 01/15/19 00:58 24 95 01/15/19 00:30 76 20 144/89 97 01/15/19 00:24 77 18 137/105 98 01/15/19 00:10 87 20 190/124 97 01/14/19 23:39 75 22 181/99 99 01/14/19 22:38 98.3 F 90 18 187/98 98 Intake and Output 01/15/19 01/15/19 01/15/19 06:59 14:59 22:59 Other: Voiding Method Toilet Toilet Toilet # Voids 1 6 On exam, alert and oriented x3. Very anxious HEENT: Conjunctivae normal. eyes normal. NECK: No JVD. No thyroid enlargement. No LNs CARDIOVASCULAR: S1-S2 positive RESPIRATION: Breath sounds diminished in the bases. No rhonchi or crackles. No bronchial breathing. ABDOMEN: Soft, nontender . No guarding. no masses palpable. No ascites, No hepatosplenomegaly.Bowel sounds heard. LEGS: No edema. no swelling NERVOUS SYSTEM: Cranial N 2-12 grossly normal. Moves all 4 limbs. No focal deficits. No sensory deficit. No signs of cerebellar dysfucntion. Skin: no ulcer no rash Results CBC & Chem 7: 01/14/19 22:51 01/14/19 22:51 Labs: Abnormal Lab Results - Last 24 Hours (Table) 01/14/19 01/14/19 01/15/19 Range/Units 22:51 22:51 06:38 D-Dimer 1.01 H (<0.60) mg/L FEU Glucose 202 H (74-99) mg/dL POC Glucose (mg/dL) 123 H (75-99) mg/dL Troponin I (0.000-0.034) ng/mL Triglycerides (<150) mg/dL Cholesterol (<200) mg/dL HDL Cholesterol (40-60) mg/dL 01/15/19 01/15/19 01/15/19 Range/Units 08:14 08:14 11:39 D-Dimer (<0.60) mg/L FEU Glucose (74-99) mg/dL POC Glucose (mg/dL) 145 H (75-99) mg/dL Troponin I 0.205 H* (0.000-0.034) ng/mL Triglycerides 459 H (<150) mg/dL Cholesterol 448 H (<200) mg/dL HDL Cholesterol 70 H (40-60) mg/dL 01/15/19 Range/Units 14:56 D-Dimer (<0.60) mg/L FEU Glucose (74-99) mg/dL POC Glucose (mg/dL) (75-99) mg/dL Troponin I 0.176 H* (0.000-0.034) ng/mL Triglycerides (<150) mg/dL Cholesterol (<200) mg/dL HDL Cholesterol (40-60) mg/dL Thrombosis Risk Factor Assmnt - Choose All That Apply Each Risk Factor Represents 2 Points: Age 61-74 years Other congenital or acquired thrombophilia - If yes, enter type in comment: No Thrombosis Risk Factor Assessment Total Risk Factor Score: 2 Thrombosis Risk Factor Assessment Level: Low Risk Assessment and Plan Assessment: - Rule out non-STEMI - Hypertension - Hyperlipidemia - Diabetes - Fibromyalgia on multiple pain medications - Asthma - GERD - Osher arthritis Plan - We'll admit the patient to observation with telemetry - We'll continue to monitor troponin levels - Patient started on heparin as per cardiology - Cardiology following the patient. Appreciated the recommendations - We'll resume the patient's home medications - DVT and GI prophylaxis - We'll order for lab work in the morning - Patient is full code
[2019-01-15 16:29] LABS: Glucose,Whole Blood 169 mg/dL (75-99)
[2019-01-15] MEDS: BRIMONIDINE TARTRATE 0.2% DROPS 5 ML BTL BOTH EYES SCH ×2 (16:38→20:46)
[2019-01-15] MEDS: TOPIRAMATE 25 MG TAB PO SCH ×2 (16:38→20:45)
[2019-01-15] MEDS: PANTOPRAZOLE 40 MG TABLET PO SCH (16:39)
[2019-01-15 20:28] LABS: Glucose,Whole Blood 160 mg/dL (75-99)
[2019-01-15] MEDS: ALBUTEROL NEBULIZED 2.5 MG/3 ML INHALATION PRN (20:34)
[2019-01-15] MEDS: clonazePAM 0.5 MG TAB PO SCH (20:45)
[2019-01-15] MEDS: traZODone HCL 100 MG TAB PO SCH (20:45)
[2019-01-15] MEDS: TIMOLOL 0.5% OPHTH DROPS 5 ML BTL BOTH EYES SCH (20:46)
[2019-01-15] MEDS: DORZOLAMIDE HCL 2% DROPS 10 ML BTL BOTH EYES SCH (20:46)
[2019-01-15] MEDS: LATANOPROST 0.005% OPHTH DROPS 2.5 ML BTL BOTH EYES SCH (20:47)
[2019-01-15] MEDS: ATORVASTATIN 40 MG TAB PO SCH (20:51)
[2019-01-16] MEDS: LORazepam 0.5 MG TAB PO SCH ×2 (06:18→12:25)
[2019-01-16] MEDS: MORPHINE SULFATE ER 15 MG TABLET PO SCH ×2 (06:18→16:09)
[2019-01-16 06:23] LABS: HCT 36.9 % (34.0-46.0); HGB 11.8 gm/dL (11.4-16.0); MCH 28.3 pg (25.0-35.0); MCHC 31.9 g/dL (31.0-37.0); MCV 88.5 fL (80.0-100.0); Platelet Count 293 k/uL (150-450); RBC 4.16 m/uL (3.80-5.40); RDW 14.5 % (11.5-15.5); WBC 8.6 k/uL (3.8-10.6)
[2019-01-16 06:46] LABS: Calcium 9.7 mg/dL (8.4-10.2); Potassium 3.7 mmol/L (3.5-5.1)
[2019-01-16 07:11] LABS: Glucose,Whole Blood 159 mg/dL (75-99)
[2019-01-16] MEDS: ALBUTEROL NEBULIZED 2.5 MG/3 ML INHALATION PRN (07:55)
--- NOTE | 2019-01-16 08:46 | P.PN ---
Subjective Progress Note Date: 01/16/19 This is a 68-year-old female is admitted to the hospital with prolonged chest tightness radiated to the jaw and arms and also positive cardiac enzymes, suggestive of non-ST elevation myocardial infarction. Echocardiogram showed normal LV function. Patient is advised to have a cardiac catheterization for definitive diagnosis. She was explained the risks and benefits of the procedure including the possibility of myocardial infarction, stroke or even . Patient is very anxious. Patient wants to proceed with cardiac catheterization. Further recommendations depend upon the findings on the cath. Clinically patient is otherwise stable. Lungs appeared to be clear. Heart is regular Objective - Vital Signs Vital signs: Vital Signs Temp 98.3 F 01/16/19 04:00 Pulse 68 01/16/19 08:04 Resp 16 01/16/19 04:00 BP 115/69 01/16/19 04:00 Pulse Ox 96 01/16/19 04:00 Intake & Output 01/15/19 01/16/19 01/16/19 18:59 06:59 18:59 Intake Total 240 194.315 Balance 240 194.315 Intake: Intake, IV Titration 194.315 Amount Heparin Sod,Pork in 0.45% 194.315 NaCl 25,000 unit In 0.45 % NaCl 1 250ml.bag @ 12 UNITS/KG/HR 8.981 mls/hr IV .Q24H [facility] Rx#: [id number] Oral 240 Other: Voiding Method Toilet Toilet # Voids 6 2 - Exam GENERAL EXAM: Patient is alert and oriented and doesn't appear to be in any acute distress but appears fairly anxious HEENT: Normocephalic. Normal reaction of pupils, equal size, normal range of extraocular motion. No erythema or exudates in the throat. NECK: No masses, no nuchal rigidity. CHEST: No chest wall deformity. LUNGS: Equal air entry with no crackles or wheeze. HEART: S1 and S2 normal with no audible mumurs or gallops. Regular rhythm, femorals equal on both sides.. ABDOMEN: No hepatosplenomegaly, normal bowel sounds, no guarding or rigidity. SKIN: No rashes CENTRAL NERVOUS SYSTEM: No focal deficits. EXTREMITIES: No cyanosis, clubbing or edema. - Labs CBC & Chem 7: 01/16/19 05:48 01/16/19 05:48 Labs: Abnormal Lab Results - Last 24 Hours (Table) 01/15/19 01/15/19 01/15/19 Range/Units 08:14 08:14 11:39 APTT (22.0-30.0) sec Glucose (74-99) mg/dL POC Glucose (mg/dL) 145 H (75-99) mg/dL Troponin I 0.205 H* (0.000-0.034) ng/mL Triglycerides 459 H (<150) mg/dL Cholesterol 448 H (<200) mg/dL HDL Cholesterol 70 H (40-60) mg/dL 01/15/19 01/15/19 01/15/19 Range/Units 14:56 16:26 20:16 APTT (22.0-30.0) sec Glucose (74-99) mg/dL POC Glucose (mg/dL) 169 H 160 H (75-99) mg/dL Troponin I 0.176 H* (0.000-0.034) ng/mL Triglycerides (<150) mg/dL Cholesterol (<200) mg/dL HDL Cholesterol (40-60) mg/dL 01/15/19 01/16/19 01/16/19 Range/Units 22:19 05:48 05:48 APTT 42.2 H 92.3 H (22.0-30.0) sec Glucose 142 H (74-99) mg/dL POC Glucose (mg/dL) (75-99) mg/dL Troponin I (0.000-0.034) ng/mL Triglycerides (<150) mg/dL Cholesterol (<200) mg/dL HDL Cholesterol (40-60) mg/dL 01/16/19 Range/Units 07:03 APTT (22.0-30.0) sec Glucose (74-99) mg/dL POC Glucose (mg/dL) 159 H (75-99) mg/dL Troponin I (0.000-0.034) ng/mL Triglycerides (<150) mg/dL Cholesterol (<200) mg/dL HDL Cholesterol (40-60) mg/dL Assessment and Plan (1) Non Q wave myocardial infarction Current Visit: Yes Status: Acute Code(s): I21.4 - NON-ST ELEVATION (NSTEMI) MYOCARDIAL INFARCTION SNOMED Code(s): 032496217 (2) Degenerative disorder of sclera Current Visit: No Status: Acute Code(s): H15.89 - OTHER DISORDERS OF SCLERA SNOMED Code(s): 44796947 (3) Spinal stenosis Current Visit: No Status: Acute Code(s): M48.00 - SPINAL STENOSIS, SITE U NSPECIFIED SNOMED Code(s): 80077514 (4) Essential hypertension Current Visit: Yes Status: Acute Code(s): I10 - ESSENTIAL (PRIMARY) HYPERTENSION SNOMED Code(s): 67120525 (5) Hypercholesterolemia Current Visit: Yes Status: Acute Code(s): E78.00 - PURE HY PERCHOLESTEROLEMIA, UNSPECIFIED SNOMED Code(s): 76695121 Plan: We will proceed with cardiac catheterization. Further recommend she'll depend u price the clinical course. Patient fully understood the risks and benefits of the procedure. Patient is but has no children. Has 2 brothers who live out of town.
[2019-01-16] MEDS: GABAPENTIN 300 MG CAP PO SCH (08:47)
[2019-01-16] MEDS: PANTOPRAZOLE 40 MG TABLET PO SCH ×2 (08:47→16:09)
[2019-01-16] MEDS: LISINOPRIL 10 MG TAB PO SCH (08:48)
[2019-01-16] MEDS: TOPIRAMATE 25 MG TAB PO SCH ×3 (08:48→22:03)
[2019-01-16] MEDS: LOSARTAN 50 MG TAB PO SCH (08:48)
[2019-01-16] MEDS: METOPROLOL TARTRATE 50 MG TAB PO SCH ×2 (08:48→21:39)
[2019-01-16] MEDS: LORATADINE 10 MG TAB PO SCH (08:48)
[2019-01-16] MEDS ORDERED: ALPRAZolam 0.25 MG TAB PO PRN (09:04)
[2019-01-16] MEDS ORDERED: ATORVASTATIN 80 MG TAB PO STA (09:04)
[2019-01-16] MEDS ORDERED: NITROGLYCERIN SL TABS 0.4 MG TAB SUBLINGUAL PRN ×2 (09:04→11:27)
[2019-01-16] MEDS ORDERED: SODIUM CHLORIDE 0.9% 1,000 ML in EMPTY BAG 1 BAG IV ONE (09:04)
[2019-01-16] MEDS ORDERED: ALPRAZolam 0.5 MG TAB PO PRN (09:04)
[2019-01-16] MEDS ORDERED: ASPIRIN 325 MG TAB PO STA (09:04)
[2019-01-16] MEDS: PIOGLITAZONE 45 MG TAB PO SCH (09:09)
[2019-01-16] MEDS: ATORVASTATIN 40 MG TAB PO SCH (09:17)
[2019-01-16] MEDS ORDERED: HEPARIN SODIUM 1,000 UN/ML (10ML VL) ONE (09:27)
[2019-01-16] MEDS ORDERED: LIDOCAINE 1% INJ 10MG/ML (20 ML MDV) ONE (09:27)
[2019-01-16] MEDS ORDERED: VERAPAMIL 2.5 MG/ML 2 ML AMP ONE (09:27)
[2019-01-16] MEDS ORDERED: diphenhydrAMINE 50 MG/ML 1 ML VIAL ONE (09:56)
[2019-01-16] MEDS ORDERED: ASPIRIN 325 MG TAB ONE (10:01)
[2019-01-16] MEDS ORDERED: ASPIRIN 325 MG TAB PO ONE (10:02)
[2019-01-16] MEDS: MIDAZOLAM (PF) 2 MG/2 ML VIAL IV ONE ×2 (10:02→10:28)
[2019-01-16] MEDS ORDERED: diphenhydrAMINE 50 MG/ML 1 ML VIAL IVP ONE (10:03)
[2019-01-16] MEDS ORDERED: IV FLUID CONTINUATION 1,000 ML IV ONE (10:03)
[2019-01-16] MEDS: TIMOLOL 0.5% OPHTH DROPS 5 ML BTL BOTH EYES SCH ×2 (10:05→21:39)
[2019-01-16] MEDS: BRIMONIDINE TARTRATE 0.2% DROPS 5 ML BTL BOTH EYES SCH ×3 (10:05→22:03)
[2019-01-16] MEDS: DORZOLAMIDE HCL 2% DROPS 10 ML BTL BOTH EYES SCH ×2 (10:05→21:39)
[2019-01-16] MEDS ORDERED: LIDOCAINE 1% INJ 10MG/ML (20 ML MDV) SQ ONE (10:06)
[2019-01-16] MEDS ORDERED: VERAPAMIL SYRINGE (5 MG/10 ML) INTRAARTER ONE (10:10)
[2019-01-16] MEDS ORDERED: hydrALAZINE HCL 20 MG/ML 1 ML VIAL ONE (10:14)
[2019-01-16] MEDS ORDERED: hydrALAZINE HCL 20 MG/ML 1 ML VIAL IV ONE (10:15)
[2019-01-16] MEDS ORDERED: NITROGLYCERIN SL TABS 0.4 MG TAB SUBLINGUAL ONE ×2 (10:16→10:17)
[2019-01-16] MEDS ORDERED: TICAGRELOR 90 MG TAB ONE (10:26)
[2019-01-16] MEDS ORDERED: TICAGRELOR 90 MG TAB PO ONE (10:28)
[2019-01-16] MEDS ORDERED: BIVALIRUDIN BOLUS 250 MG/50 ML IV ONE (10:28)
[2019-01-16] MEDS ORDERED: BIVALIRUDIN 250 MG in SODIUM CHLORIDE 0.9% 50 ML IV ONE (10:29)
[2019-01-16] MEDS ORDERED: HYDROmorphone 1 MG/ML 1 ML SYRINGE ONE (10:33)
[2019-01-16] MEDS: HYDROmorphone 2 MG/ML 1 ML SYRINGE IV ONE ×2 (10:35→11:07)
--- NOTE | 2019-01-16 10:41 | P.CARDCATH ---
Date of Procedure: 01/16/19 Preoperative Diagnosis: Non-STEMI Postoperative Diagnosis: 2 vessel critical disease Description of Procedure: HISTORY: This is a 68-year-old female with history of hypertension and hypercholesterolemia and also with significant back issues with spinal stenosis was admitted to the hospital with increasing shortness of breath and chest tightness and also positive troponin suggestive of non-ST elevated myocardial infarction. Patient is advised to have a cardiac catheterization CONSENT:I have discussed the risks, benefits and alternative therapies for the above-mentioned procedure and for both sedation/analgesia as well as necessary blood product administration, if indicated, as they pertain to this patient. The patient has indicated understanding and acceptance of the risks and procedures discussed. PROCEDURE: Patient was brought to the lab in a fasting state. Patient was given some IV sedation. The right wrist is infiltrated with lidocaine and right radial artery was entered using Seldinger technique. A 6-Hungarian catheter was left in place and selective coronary arteriography was performed. Patient tolerated the procedure well. Patient went on to have stent placement of the circumflex and also left anterior descending by Dr. Cooney . No immediate complications were noted and patient was transferred to [facility] in a stable condition Conscious Sedation: Versed 1mg Fentanyl 0 g Duration 17minutes HEMODYNAMICS: The aortic pressure is 170/80. Left ventricle end-diastolic pressure is about 8-10. There was no gradient across the aortic valve SELECTIVE CORONARY ARTERIOGRAPHY: LEFT MAIN: Long and free of any occlusive disease THE LEFT ANTERIOR DESCENDING CORONARY ARTERY: This is a moderate caliber vessel giving rise good-sized diagonal branch. The diagonal branch has ostial lesion with about 70-80% stenosis. The mid to distal LAD has a long stenosis with a focal area of about 95% stenosis THE LEFT CIRCUMFLEX AND IS CORONARY ARTERY:. This is a good caliber vessel with about 95% stenosis in the midportion THE RIGHT CORONARY ARTERY:. This is a dominant vessel and seemed to be free of any significant occlusive disease. Good-sized good- sized PDA and PLV branches LEFT VENTRICULOGRAPHY:. Not performed FINAL IMPRESSION:, Critical lesion involving the mid circumflex and also mid to distal LAD. The first diagonal branch also has a significant lesion at origin PLAN: Stent placement of the circumflex coronary LAD. Stent placement of the diagonal also could be constricted PROGNOSIS: Fair with successful therapy
[2019-01-16] MEDS ORDERED: IOPAMIDOL-370 100ML BTL INJ ONE ×3 (10:50→11:22)
[2019-01-16] MEDS ORDERED: NITROGLYCERIN 1000MCG/10ML SYRINGE INTRACORON ONE (10:57)
[2019-01-16] MEDS ORDERED: MAG HYDROX/AL HYDROX/SIMETH 30 ML CUP PO PRN (11:27)
[2019-01-16] MEDS ORDERED: ATROPINE SULFATE 0.1 MG/ML 10ML SYRINGE IV PRN (11:27)
[2019-01-16] MEDS ORDERED: RX INFO: IV CONTRAST WAS GIVEN 1 EACH MISC MISCELLANE PRN (11:27)
[2019-01-16] MEDS ORDERED: ZOLPIDEM 5 MG TAB PO PRN (11:27)
[2019-01-16] MEDS ORDERED: SODIUM CHLORIDE 0.9% 1,000 ML IV SCH (11:30)
--- NOTE | 2019-01-16 12:50 | PTCA ---
PERCUTANEOUSTRANS CORORONARY ANGIOGRAPHY Mrs. Alston is a 68-year-old female with no prior documented history of coronary artery disease who presented with symptoms of chest discomfort and had enzymatic changes consistent with oyy-RV-gjesugh-elevation myocardial infarction. She underwent cardiac catheterization by Dr. Gonzales and was found to have critical stenosis involving the mid LAD and the proximal left circumflex. In view of that, recommendation was made regarding angioplasty and stenting. The procedure, its risks and complications were discussed with the patient, who was in full understanding and agreement. PROCEDURE DESCRIPTION: A 6-Estonian FL3.5 guiding catheter was introduced into the system. After cannulating the left main, a 0.014 balanced medium-weight J-wire was advanced into the obtuse marginal branch and positioned distally. Then a 2.5 x 12 mm Trek balloon was advanced, and one inflation at 8 atmospheres was done. Following that, the balloon was removed and a 3.0 x 15 mm Xience Ana Laura stent was deployed, post-dilated at 16 atmospheres. After the last inflation, after appropriate wait, the balloon and the guidewire were withdrawn back into the guiding catheter. Images were obtained and repeated. Those images revealed stable successful stenting. At that point, the wire was withdrawn and advanced into the LAD and positioned in the distal LAD. A 2.5 x 12 mm Trek balloon was advanced. Three inflations, maximum of 8 atmospheres, were done. Following that, the balloon was removed and a 2.5 x 33 mm Xience Naa Laura stent was deployed and post-dilated at 16 atmospheres. After the last inflation, after appropriate wait, the balloon and the guidewire were withdrawn back into the guiding catheter. Images were obtained and repeated. Those images revealed stable successful stenting. At that point, the guiding catheter, the balloon and the guidewire were removed. The sheath was removed. Hemostasis was obtained with deployment of a TR band. There was no immediate complication. The patient was returned to her room in stable condition. Of note, the patient received Angiomax per protocol as well as oral loading dose of Brilinta. She had chest discomfort and EKG changes with the inflations that resolved at the end of the procedure. RESULTS: 1. Successful stenting of the proximal left circumflex, with reduction of stenosis from 99% to 0%. 2. Successful stenting of the mid LAD, with reduction of stenosis from 99% to 0%. RECOMMENDATIONS: Patient will be continued on aspirin, Brilinta, beta martin, SUE inhibitor, statin. The importance of dual antiplatelet treatment was discussed with the patient and her family, and they are in full understanding and agreement. Duration of procedure: 34 minutes. JAYESH / DEBORAH: [id number] /
[2019-01-16] MEDS ORDERED: hydrALAZINE HCL 20 MG/ML 1 ML VIAL IVP PRN (13:44)
--- NOTE | 2019-01-16 13:55 | P.PN ---
Subjective Patient had a cardiac cath today and had 2 stents placed, 1 in LAD and one in circumflex Status post procedure the patient was sent to ICU Patient is still very anxious and fidgety constantly moving She does not complain of any chest pain, no racing heart. She still complains of shortness of breath Objective - Vital Signs Vital signs: Vital Signs Temp 98.2 F 01/16/19 12:00 Pulse 89 01/16/19 13:20 Resp 24 01/16/19 13:20 BP 168/102 01/16/19 13:20 Pulse Ox 99 01/16/19 13:20 Intake & Output 01/15/19 01/16/19 01/16/19 18:59 06:59 18:59 Intake Total 240 194.315 391.75 Output Total 500 Balance 240 194.315 -108.25 Weight 74.843 kg Intake: IV 391.75 Intake, IV Titration 194.315 Amount Heparin Sod,Pork in 0.45% 194.315 NaCl 25,000 unit In 0.45 % NaCl 1 250ml.bag @ 12 UNITS/KG/HR 8.981 mls/hr IV .Q24H [facility] Rx#: [id number] Oral 240 Output: Urine 500 Other: Voiding Method Toilet Toilet Toilet # Voids 6 2 - Exam On exam, alert and oriented x3. HEENT: Conjunctivae normal. eyes normal. NECK: No JVD. No thyroid enlargement. No LNs CARDIOVASCULAR: Positive RESPIRATION: Breath sounds diminished in the bases. No rhonchi or crackles. No bronchial breathing. ABDOMEN: Soft, nontender . No guarding. no masses palpable. No ascites, No hepatosplenomegaly.Bowel sounds heard. LEGS: No edema. no swelling . Right wrist is wrapped in dressing and compression status post cath NERVOUS SYSTEM: Cranial N 2-12 grossly normal. Moves all 4 limbs. No focal deficits. No sensory deficit. No signs of cerebellar dysfucntion. Skin: no ulcer no rash - Labs CBC & Chem 7: 01/16/19 05:48 01/16/19 05:48 Labs: Abnormal Lab Results - Last 24 Hours (Table) 01/15/19 01/15/19 01/15/19 Range/Units 14:56 16:26 20:16 APTT (22.0-30.0) sec Glucose (74-99) mg/dL POC Glucose (mg/dL) 169 H 160 H (75-99) mg/dL Troponin I 0.176 H* (0.000-0.034) ng/mL 01/15/19 01/16/19 01/16/19 Range/Units 22:19 05:48 05:48 APTT 42.2 H 92.3 H (22.0-30.0) sec Glucose 142 H (74-99) mg/dL POC Glucose (mg/dL) (75-99) mg/dL Troponin I (0.000-0.034) ng/mL 01/16/19 Range/Units 07:03 APTT (22.0-30.0) sec Glucose (74-99) mg/dL POC Glucose (mg/dL) 159 H (75-99) mg/dL Troponin I (0.000-0.034) ng/mL Assessment and Plan Assessment: - Rule out non-STEMI - Hypertension - Hyperlipidemia - Diabetes - Fibromyalgia on multiple pain medications - Asthma - GERD - Osher arthritis Plan - We'll admit the patient to observation with telemetry - We'll continue to monitor troponin levels - Patient started on heparin as per cardiology - Cardiology following the patient. Appreciated the recommendations - We'll resume the patient's home medications - DVT and GI prophylaxis - We'll order for lab work in the morning - Patient is full code 01/16/2019 - Monitor in ICU status post cath - Continue medications. - Patient is very anxious and pulling at lines. Her blood pressure as also high because of anxiety. - Patient will be given Ativan when necessary to control her anxiety - Also she'll be put on hydralazine 10 mg when necessary for blood pressure - We'll continue to follow her up and make recommendations accordingly
[2019-01-16] MEDS: LORazepam 2 MG/ML INJ IV PRN ×2 (14:11→21:38)
[2019-01-16] MEDS: LORazepam 1 MG TAB PO SCH ×2 (18:23→22:03)
[2019-01-16] MEDS: SUMAtriptan SUCCINATE 50 MG TAB PO PRN (18:47)
[2019-01-16] MEDS ORDERED: METOPROLOL TARTRATE 25 MG TAB PO SCH (21:00)
[2019-01-16] MEDS: ATORVASTATIN 80 MG TAB PO SCH (21:39)
[2019-01-16] MEDS: LATANOPROST 0.005% OPHTH DROPS 2.5 ML BTL BOTH EYES SCH (21:39)
[2019-01-16] MEDS: clonazePAM 0.5 MG TAB PO SCH (21:39)
[2019-01-16] MEDS: TICAGRELOR 90 MG TAB PO SCH (21:39)
[2019-01-16] MEDS: traZODone HCL 100 MG TAB PO SCH (22:19)
[2019-01-17] MEDS: MORPHINE SULFATE ER 15 MG TABLET PO SCH ×4 (01:22→23:18)
[2019-01-17] MEDS: HEPARIN SOD,PORK IN 0.45% NACL 25,000 UNIT in 0.45% NACL 1 250ML.BAG IV SCH (01:53)
[2019-01-17] MEDS: LORazepam 2 MG/ML INJ IV PRN ×3 (02:14→13:18)
[2019-01-17 06:37] LABS: African American GFR (CKD) >90 (>60 ml/min/1.73 sqM); Anion Gap 10 mmol/L; Blood Urea Nitrogen 11 mg/dL (7-17); Calcium 9.6 mg/dL (8.4-10.2); Carbon Dioxide 22 mmol/L (22-30); Chloride 107 mmol/L (98-107); Glucose 151 mg/dL (74-99); Potassium 3.4 mmol/L (3.5-5.1); Sodium 139 mmol/L (137-145)
[2019-01-17] MEDS: PANTOPRAZOLE 40 MG TABLET PO SCH ×2 (06:39→17:50)
--- NOTE | 2019-01-17 08:36 | PN ---
PROGRESS NOTE Mrs. Alston is a 68-year-old female who presented with symptoms of chest discomfort and evidence consistent with unstable angina, underwent cardiac catheterization by Dr. Gonzales and was found to have significant obstructive disease involving the LAD and the left circumflex. She underwent stenting of both vessels. She is doing well this morning. She is denying any chest pain. Her breathing has been stable. She denies any dizziness or palpitation. She denies any nausea. She continues to be on aspirin once a day, Lipitor 80 mg daily, metoprolol tartrate 50 mg twice a day, losartan 100 mg daily. PHYSICAL EXAMINATION: Blood pressure 118/60 with a heart rate in the 90s. LUNGS: Clear. HEART: Regular rate and rhythm S1, S2. No S3 with a systolic ejection murmur. No diastolic murmur. No rub. ABDOMEN: Soft, nontender. EXTREMITIES: No edema. Right radial pulse intact. LAB DATA: Lab data revealed BUN and creatinine 11 and 0.77, potassium 3.4. IMPRESSION: 1. Non ST-segment elevation myocardial infarction, status post stenting of the LAD and the left circumflex. 2. Hypertension. 3. Diabetes. 4. Hyperlipidemia. RECOMMENDATIONS: We will continue on the present therapy. Increase her level of activity. If she remains stable, I would expect she should be able to be discharged home tomorrow. JAYESH / DEBORAH: [id number] /
[2019-01-17] MEDS: LORATADINE 10 MG TAB PO SCH (08:43)
[2019-01-17] MEDS: GABAPENTIN 300 MG CAP PO SCH (08:43)
[2019-01-17] MEDS: METOPROLOL TARTRATE 50 MG TAB PO SCH ×2 (08:43→20:42)
[2019-01-17] MEDS: PIOGLITAZONE 45 MG TAB PO SCH (08:43)
[2019-01-17] MEDS: TOPIRAMATE 25 MG TAB PO SCH ×3 (08:43→22:07)
[2019-01-17] MEDS: ASPIRIN 81 MG PO SCH (08:43)
[2019-01-17] MEDS: LORazepam 1 MG TAB PO SCH ×4 (08:44→22:07)
[2019-01-17] MEDS: TICAGRELOR 90 MG TAB PO SCH ×2 (08:44→20:42)
[2019-01-17] MEDS: LOSARTAN 50 MG TAB PO SCH (08:44)
[2019-01-17] MEDS: TIMOLOL 0.5% OPHTH DROPS 5 ML BTL BOTH EYES SCH ×2 (08:47→20:44)
[2019-01-17] MEDS: BRIMONIDINE TARTRATE 0.2% DROPS 5 ML BTL BOTH EYES SCH ×3 (08:47→20:44)
[2019-01-17] MEDS: DORZOLAMIDE HCL 2% DROPS 10 ML BTL BOTH EYES SCH ×2 (08:48→20:43)
[2019-01-17] MEDS: SUMAtriptan SUCCINATE 50 MG TAB PO PRN (13:17)
[2019-01-17] MEDS: ATORVASTATIN 80 MG TAB PO SCH (20:42)
[2019-01-17] MEDS: clonazePAM 0.5 MG TAB PO SCH (20:42)
[2019-01-17] MEDS: LATANOPROST 0.005% OPHTH DROPS 2.5 ML BTL BOTH EYES SCH (20:43)
--- NOTE | 2019-01-17 21:43 | P.PN ---
Subjective 01/16/2019 Patient had a cardiac cath today and had 2 stents placed, 1 in LAD and one in circumflex Status post procedure the patient was sent to ICU Patient is still very anxious and fidgety constantly moving She does not complain of any chest pain, no racing heart. She still complains of shortness of breath 01/17/2019 Pt still anxious today still c/o sob on exertion no chest pian, no racing heart Objective - Vital Signs Vital signs: Vital Signs Temp 97.1 F L 01/17/19 16:00 Pulse 62 01/17/19 16:00 Resp 18 01/17/19 16:00 BP 135/81 01/17/19 16:00 Pulse Ox 97 01/17/19 16:00 Intake & Output 01/17/19 01/17/19 01/18/19 06:59 18:59 06:59 Intake Total 200 600 Output Total 400 Balance -200 600 Weight 75.9 kg Intake: IV 200 Sodium Chloride 0.9% 1, 200 000 ml @ 100 mls/hr IV . Q10H [facility] Rx#:[id number] Oral 600 Output: Urine 400 Other: Voiding Method Toilet Toilet # Voids 2 # Bowel Movements 1 - Exam On exam, alert and oriented x3. HEENT: Conjunctivae normal. eyes normal. NECK: No JVD. No thyroid enlargement. No LNs CARDIOVASCULAR: Positive RESPIRATION: Breath sounds diminished in the bases. No rhonchi or crackles. No bronchial breathing. ABDOMEN: Soft, nontender . No guarding. no masses palpable. No ascites, No hepatosplenomegaly.Bowel sounds heard. LEGS: No edema. no swelling . Right wrist is wrapped in dressing and compression status post cath NERVOUS SYSTEM: Cranial N 2-12 grossly normal. Moves all 4 limbs. No focal deficits. No sensory deficit. No signs of cerebellar dysfucntion. Skin: no ulcer no rash - Labs CBC & Chem 7: 01/16/19 05:48 01/17/19 06:04 Labs: Abnormal Lab Results - Last 24 Hours (Table) 01/17/19 Range/Units 06:04 Potassium 3.4 L (3.5-5.1) mmol/L Glucose 151 H (74-99) mg/dL Assessment and Plan Assessment: - Rule out non-STEMI - Hypertension - Hyperlipidemia - Diabetes - Fibromyalgia on multiple pain medications - Asthma - GERD - Os[place] arthritis Plan - We'll admit the patient to observation with telemetry - We'll continue to monitor troponin levels - Patient started on heparin as per cardiology - Cardiology following the patient. Appreciated the recommendations - We'll resume the patient's home medications - DVT and GI prophylaxis - We'll order for lab work in the morning - Patient is full code 01/16/2019 - Monitor in ICU status post cath - Continue medications. - Patient is very anxious and pulling at lines. Her blood pressure as also high because of anxiety. - Patient will be given Ativan when necessary to control her anxiety - Also she'll be put on hydralazine 10 mg when necessary for blood pressure - We'll continue to follow her up and make recommendations accordingly 01/17/2019 - Continue current treatment plan - Continue asa and brilanta - Continue the rest of the meds - Very high anxiety levels. pt c/o sob at rest, but she does not look sob and was looking very stable - Will wait for further recs from cardio regarding this.
[2019-01-17] MEDS: traZODone HCL 100 MG TAB PO SCH (22:07)
[2019-01-18] MEDS: LORazepam 2 MG/ML INJ IV PRN ×2 (01:53→09:32)
[2019-01-18] MEDS: PANTOPRAZOLE 40 MG TABLET PO SCH (06:47)
[2019-01-18 07:30] LABS: African American GFR (CKD) >90 (>60 ml/min/1.73 sqM); Anion Gap 6 mmol/L; Blood Urea Nitrogen 11 mg/dL (7-17); Carbon Dioxide 24 mmol/L (22-30); Chloride 108 mmol/L (98-107); Glucose 136 mg/dL (74-99); Potassium 3.3 mmol/L (3.5-5.1); Sodium 138 mmol/L (137-145)
[2019-01-18 08:07] VITALS: RESP 18; TEMP 97.6
[2019-01-18] MEDS: BRIMONIDINE TARTRATE 0.2% DROPS 5 ML BTL BOTH EYES SCH (08:08)
[2019-01-18] MEDS: GABAPENTIN 300 MG CAP PO SCH (08:08)
[2019-01-18] MEDS: TOPIRAMATE 25 MG TAB PO SCH (08:08)
[2019-01-18] MEDS: METOPROLOL TARTRATE 50 MG TAB PO SCH (08:08)
[2019-01-18] MEDS: TIMOLOL 0.5% OPHTH DROPS 5 ML BTL BOTH EYES SCH (08:08)
[2019-01-18] MEDS: PIOGLITAZONE 45 MG TAB PO SCH (08:08)
[2019-01-18] MEDS: TICAGRELOR 90 MG TAB PO SCH (08:09)
[2019-01-18] MEDS: LORATADINE 10 MG TAB PO SCH (08:09)
[2019-01-18] MEDS: LOSARTAN 50 MG TAB PO SCH (08:10)
[2019-01-18] MEDS: LORazepam 1 MG TAB PO SCH (08:10)
[2019-01-18] MEDS: ASPIRIN 81 MG PO SCH (08:10)
[2019-01-18] MEDS: MORPHINE SULFATE ER 15 MG TABLET PO SCH (08:10)
[2019-01-18] MEDS: DORZOLAMIDE HCL 2% DROPS 10 ML BTL BOTH EYES SCH (08:14)
[2019-01-18] MEDS ORDERED: POTASSIUM CHLORIDE ER 20 MEQ TAB.ER PO STA (10:06)
[2019-01-18 11:16] VITALS: BP 121/61; PULSE 58
--- NOTE | 2019-01-19 08:04 | DS ---
DISCHARGE SUMMARY DATE OF SERVICE: 01/18/2019 FINAL DIAGNOSES: 1. Acute non-ST elevation myocardial infarction possibly, status post cardiac catheterization and stenting of the proximal left circumflex with reduction of stenosis 99% to 0% and stenting of the mid LAD from stenosis 99% to 0%. 2. Hypertension. 3. Hyperlipidemia. 4. Diabetes mellitus type 2. 5. Fibromyalgia. 6. Asthma. 7. Gastroesophageal reflux disease. 8. Degenerative joint disease. DISCHARGE DISPOSITION: The patient will be discharged in stable condition with guarded prognosis. HISTORY OF PRESENT ILLNESS: This 68-year-old woman with a past medical history of multiple medical problems admitted with chest pain, had a cardiac catheterization and 2 stents were placed in the circumflex and as well as LAD. Patient improved significantly. Cardiology saw the patient, recommended the patient for discharge. The patient is followed by Dr. Jovel in the outpatient setting. On exam, vitals are stable. CARDIOVASCULAR: S1, S2 muffled. ABDOMEN: Soft. NERVOUS SYSTEM: No focal deficits. DISCHARGE ADVICE: 1. Diet is cardiac. 2. Activity limited until followup. MEDICATIONS MENTIONED EARLIER: 1. Actos 45 mg p.o. daily. 2. Aimovig autoinjector 70 mg subcutaneously 30 days. 3. Alphagan 1 drop both eyes t.i.d. 4. Clonazepam 0.5 mg q.h.s. 5. Gabapentin 300 mg p.o. daily. 6. [place] 10 mg p.o. q.i.d. p.r.n. 7. Losartan 100 mg p.o. daily. 8. Maxalt 10 mg p.o. b.i.d. p.r.n. 9. Metformin 500 mg p.o. daily. 10.MS Contin 15 mg q.8. and 30 mg q.8. 11.Ondansetron 8 mg t.i.d. p.r.n. 12.Prevacid 30 mg p.o. b.i.d. 13.Propylene glycol daily p.r.n. 14.Timolol 1 drop b.i.d. 15.Topamax 50 mg p.o. t.i.d. 16.Trazodone 300 mg q.h.s. 17.Trusopt 1 drop both eyes b.i.d. 18.Ventolin 2 puffs q.i.d. p.r.n. 19.Xalatan 0.005% 1 drop both eyes q.h.s. 20.Zyrtec 10 mg p.o. daily. 21.Aspirin 81 mg p.o. daily. 22.Brilinta 90 mg p.o. b.i.d. 23.Lipitor 80 mg q.h.s. 24.Lopressor 50 mg p.o. b.i.d. 25.Nitrostat 0.4 sublingual p.r.n. Once again, the patient will be discharged in a stable condition with guarded prognosis. MMODL / IJN: [id number] /
== END 2019-01-18 12:20 | disposition home or self-care (01) | DRG 247 ==
LOC: EC 22:33 → 1SOBS 01-15 01:05 → OBSVTOIN 01-15 13:48 → 2SICU 01-16 11:22 → 3SCARD 01-17 02:07
PROVIDERS: ADMIT Hospitalist; ATTEND Hospitalist
PROC: 027135Z Dilation of Coronary Artery, Two Arteries with Two Drug-eluting Intraluminal Devices, Percutaneous Approach (ICD-10-PCS; principal; 2019-01-16 09:18)
PROC: 4A023N7 Measurement of Cardiac Sampling and Pressure, Left Heart, Percutaneous Approach (ICD-10-PCS; 2019-01-16 09:18)
PROC: B2111ZZ Fluoroscopy of Multiple Coronary Arteries using Low Osmolar Contrast (ICD-10-PCS; 2019-01-16 09:18)
DX: I21.4 Non-ST elevation (NSTEMI) myocardial infarction (principal); I25.110 Atherosclerotic heart disease of native coronary artery with unstable angina pectoris; E11.9 Type 2 diabetes mellitus without complications; E78.00 Pure hypercholesterolemia, unspecified; E78.5 Hyperlipidemia, unspecified; F32.9 Major depressive disorder, single episode, unspecified; F41.9 Anxiety disorder, unspecified; H15.89 Other disorders of sclera; I10 Essential (primary) hypertension; J45.909 Unspecified asthma, uncomplicated; K21.9 Gastro-esophageal reflux disease without esophagitis; M19.90 Unspecified osteoarthritis, unspecified site; M40.209 Unspecified kyphosis, site unspecified; M48.00 Spinal stenosis, site unspecified; M79.7 Fibromyalgia; L71.9 Rosacea, unspecified; Z79.84 Long term (current) use of oral hypoglycemic drugs; Z79.899 Other long term (current) drug therapy; Z87.81 Personal history of (healed) traumatic fracture; Z98.84 Bariatric surgery status; Z90.710 Acquired absence of both cervix and uterus; Z90.49 Acquired absence of other specified parts of digestive tract; Z88.5 Allergy status to narcotic agent; Z88.8 Allergy status to other drugs, medicaments and biological substances; Z88.6 Allergy status to analgesic agent; Z88.1 Allergy status to other antibiotic agents; Z91.030 Bee allergy status; Z91.041 Radiographic dye allergy status; Z91.011 Allergy to milk products; Z82.3 Family history of stroke
CPT/HCPCS: 36415; 71046; 71275; 80048; 80053; 80061; 83690; 83735; 83880; 84484; 85025; 85027; 85379; 85610; 85730; 93005; 93306; 93458; 94640; 96374; 96375; 99285; C1874

== ENCOUNTER 2019-01-29 23:25 | Emergency (ER) | payer MEDICARE ==
[2019-01-29 23:46] VITALS: TEMP 98.8
[2019-01-30 00:13] LABS: Basophils # (A) 0.1 k/uL (0-0.2); Basophils % (A) 1 %; Eosinophils # (A) 0.4 k/uL (0-0.7); Eosinophils % (A) 5 %; HCT 33.4 % (34.0-46.0); HGB 11.6 gm/dL (11.4-16.0); Lymphocytes # (A) 1.7 k/uL (1.0-4.8); Lymphocytes % (A) 23 %; MCH 29.6 pg (25.0-35.0); MCHC 34.8 g/dL (31.0-37.0); Mean Platelet Volume 7.5; Monocytes # (A) 0.3 k/uL (0-1.0); Monocytes % (A) 4 %; Neutrophils # (A) 4.8 k/uL (1.3-7.7); Neutrophils % (A) 66 %; Platelet Count 312 k/uL (150-450); RBC 3.93 m/uL (3.80-5.40); WBC 7.3 k/uL (3.8-10.6)
[2019-01-30 00:17] LABS: MCV 84.9 fL (80.0-100.0)
[2019-01-30 00:23] LABS: ALT 27 U/L (9-52); AST 29 U/L (14-36); African American GFR (CKD) >90 (>60 ml/min/1.73 sqM); Albumin 4.2 g/dL (3.5-5.0); Alkaline Phosphatase 91 U/L (38-126); Anion Gap 10 mmol/L; Blood Urea Nitrogen 12 mg/dL (7-17); Calcium 9.7 mg/dL (8.4-10.2); Carbon Dioxide 22 mmol/L (22-30); Chloride 107 mmol/L (98-107); Glucose 128 mg/dL (74-99); Non-African American GFR(CKD) 82 (>60 ml/min/1.73 sqM); Potassium 3.8 mmol/L (3.5-5.1); Sodium 139 mmol/L (137-145); Total Bilirubin 0.3 mg/dL (0.2-1.3); Total Protein 7.2 g/dL (6.3-8.2)
[2019-01-30 00:25] LABS: Partial Thromboplastin Time 26.1 sec (22.0-30.0); Prothrombin Time 10.3 sec (9.0-12.0)
[2019-01-30 00:47] LABS: Appearance,Urine Clear (Clear); Bilirubin,Urine Negative (Negative); Blood,Urine Moderate (Negative); Color,Urine Yellow; Glucose,Urine (UA) Negative (Negative); Ketones,Urine Negative (Negative); Leukocyte Esterase,Urine Small (Negative); Mucus,Urine Rare /hpf; Nitrite,Urine Negative (Negative); PH, Urine 6.5 (5.0-8.0); Protein,Urine Negative (Negative); RBC,Urine 46 /hpf (0-5); Squamous Epithelial Cell,Urine 3 /hpf (0-4); Urobilinogen,Urine <2.0 mg/dL (<2.0); WBC,Urine 1 /hpf (0-5)
[2019-01-30 00:53] LABS: Amphetamine Screen,Urine Not Detected (NotDetected); Barbiturate Screen,Urine Not Detected (NotDetected); Benzodiazepines Screen,Urine Detected (NotDetected); Cocaine Screen,Urine Not Detected (NotDetected); Methadone Screen, Urine Not Detected (NotDetected); Opiate Screen,Urine Detected (NotDetected); Oxycodone Screen, Urine Not Detected (NotDetected); Phencyclidine Screen,Urine Detected (NotDetected); Tricyclic Antidepressant,Urine Not Detected (NotDetected); Urn Cannabinoid Scrn Not Detected (NotDetected)
--- NOTE | 2019-01-30 00:56 | XR ---
EXAM: XR Chest, 1 View CLINICAL HISTORY: ITS.REASON XR Reason: altered mental status TECHNIQUE: Frontal view of the chest. COMPARISON: 01/14/2019 chest x-ray and chest CT FINDINGS: Lungs: Linear scarring or atelectasis in the right lung base. No focal consolidation. Pleural space: Unremarkable. No pneumothorax. Heart: Stable cardiomediastinal silhouette. Mediastinum: See above. Bones/joints: Degenerative changes of the right shoulder. T12 vertebroplasty, better seen on the prior CT. IMPRESSION: No acute findings.
--- NOTE | 2019-01-30 03:08 | ED ---
Chest Pain HPI - General Chief Complaint: Chest Pain Stated Complaint: chest pain Time Seen by Provider: 01/29/19 23:38 Source: EMS Mode of arrival: EMS Limitations: no limitations - History of Present Illness MD Complaint: chest pain -: hour(s) Onset: during rest Pain Location: substernal Pain Radiation: none Severity: moderate Quality: aching Consistency: constant Improves With: nitroglycerin Treatments Prior to Arrival: nitroglycerin - Related Data Home Medications Medication Instructions Recorded Confirmed Gabapentin 300 mg PO DAILY 05/20/14 02/05/19 Hydrocodone/Acetaminophen 1 tab PO QID PRN 05/20/14 02/05/19 [Hydrocodone/Acetaminophen 10-325] Losartan Potassium 100 mg PO DAILY 05/20/14 02/05/19 Ondansetron [Ondansetron Odt] 8 mg PO TID PRN 05/20/14 02/05/19 metFORMIN HCL [Metformin HCl ER] 500 mg PO DAILY 05/20/14 02/05/19 Morphine Sulfate ER [Ms Contin] 15 mg PO Q8H 11/08/15 02/05/19 Morphine Sulfate ER [Ms Contin] 30 mg PO Q8H 11/08/15 02/05/19 Rizatriptan Benzoate [Maxalt] 10 mg PO BID PRN 07/04/16 02/05/19 Topiramate [Topamax] 50 mg PO TID 07/04/16 02/05/19 traZODone HCL 300 mg PO HS 07/04/16 02/05/19 Brimonidine Tartrate [Alphagan P 1 drops BOTH EYES TID 09/09/17 02/05/19 0.2% Ophth Soln] Dorzolamide 2% [Trusopt 2%] 1 drop BOTH EYES BID 09/09/17 02/05/19 Latanoprost [Xalatan 0.005%] 1 drop BOTH EYES HS 09/09/17 02/05/19 Timolol 0.5% Ophth Soln [Timoptic 1 drop BOTH EYES BID 09/09/17 02/05/19 0.5% Ophth Soln] Albuterol Inhaler [Ventolin Hfa 2 puff INHALATION RT-QID PRN 11/03/18 02/05/19 Inhaler] Erenumab-Aooe [Aimovig 70 mg SQ Q30D 11/03/18 02/05/19 Autoinjector] Propylene Glycol/Peg 400/Pf 1 drop BOTH EYES DAILY PRN 11/03/18 02/05/19 [Systane 0.3-0.4% Eye Drop] Pioglitazone [Actos] 45 mg PO DAILY 01/14/19 02/05/19 Loratadine [Claritin] 10 mg PO DAILY 01/29/19 02/05/19 Mometasone/Formoterol [Dulera 200 2 puff INHALATION RT-BID 01/29/19 02/05/19 Mcg/5 Mcg Inhaler] Omeprazole 20 mg PO BID 01/29/19 02/05/19 Venlafaxine HCl ER [Effexor XR] 150 mg PO DAILY 01/29/19 02/05/19 Aspirin EC [Ecotrin Low Dose] 81 mg PO DAILY 02/05/19 02/05/19 Fenofibrate [Lofibra] 54 mg PO DAILY 02/05/19 02/05/19 Metoprolol Succinate [Toprol XL] 50 mg PO Q12H 02/05/19 02/05/19 clonazePAM [KlonoPIN] 0.5 mg PO TID PRN 02/05/19 02/05/19 Previous Rx's Medication Instructions Recorded Atorvastatin [Lipitor] 80 mg PO HS #30 tab 01/18/19 Nitroglycerin Sl Tabs [Nitrostat] 0.4 mg SUBLINGUAL Q5M PRN #20 tab 01/18/19 Ticagrelor [Brilinta] 90 mg PO BID #60 tab 01/18/19 Allergies Allergy/AdvReac Type Severity Reaction Status Date / Time adhesive Allergy Severe Rash/Hives, Verified 02/05/19 21:45 BLISTERS levofloxacin [From Levaquin] Allergy Severe Anaphylaxis Verified 02/05/19 21:45 metoclopramide HCl Allergy Severe Anaphylaxis Verified 02/05/19 21:45 [From Reglan] Phenothiazines Allergy Severe Anaphylaxis Verified 02/05/19 21:45 thiethylperazine maleate Allergy Severe Anaphylaxis Verified 02/05/19 21:45 [From Torecan] venom-honey bee Allergy Severe Anaphylaxis Verified 02/05/19 21:45 [bee venom (honey bee)] iodine Allergy Intermediate Rash/Hives Verified 02/05/19 21:45 aspirin Allergy Mild TOLD TO Verified 02/05/19 21:45 AVOID D/T ALLERGIES, INDIGESTION chlorhexidine Allergy red dye in Verified 02/05/19 21:45 [From Hibiclens] hibiclens causes Rash/Hives cigarette smoke Allergy Cough Verified 02/05/19 21:45 duloxetine [From Cymbalta] Allergy Unknown Verified 02/05/19 21:45 meloxicam [From Mobic] Allergy Unknown Verified 02/05/19 21:45 pregabalin [From Lyrica] Allergy oversedatio Verified 02/05/19 21:45 n Jpqeafs-Wbs-Lxm Reductase Allergy increased Verified 02/05/19 21:45 Inhibitor fibramyalgia symptoms fentanyl AdvReac OVER Verified 02/05/19 21:45 SEDATED, WEAKNESS Review of Systems ROS Statement: Those systems with pertinent positive or pertinent negative responses have been documented in the HPI. ROS Other: All systems not noted in ROS Statement are negative. Constitutional: Denies: fever, chills Respiratory: Denies: cough, dyspnea Cardiovascular: Reports: as per HPI, chest pain. Denies: palpitations Gastrointestinal: Denies: abdominal pain, nausea, vomiting Genitourinary: Denies: dysuria Musculoskeletal: Denies: back pain Skin: Denies: rash Neurological: Denies: headache, weakness, numbness EKG Findings - EKG Results: EKG: interpreted by MARY JANE, sinus rhythm (Rate 70 bpm), normal axis, normal QRS, normal ST/T, no acute changes Past Medical History Past Medical History: Asthma, Diabetes Mellitus, Fibromyalgia, GERD/Reflux, Hyperlipidemia, Hypertension, Osteoarthritis (OA), Skin Disorder Additional Past Medical History / Comment(s): carpel tunnel rt wrist, ROSACEA. DDD,Hx severe back injury,kyphosis,fermin ankle fx's History of Any Multi-Drug Resistant Organisms: None Reported Past Surgical History: Back Surgery, Bariatric Surgery, Bladder Surgery, Cholecystectomy, Hysterectomy, Orthopedic Surgery, Tonsillectomy, Tubal Ligation Additional Past Surgical History / Comment(s): hx lap band-empty, lap band 2009, 05/20/[address] GARIBAY,[place] and screw to lumbar back, open reduction of right ankle fx 2009,left carpel tunnel x2,left cubital tunnel,rt carpel tunnel Past Anesthesia/Blood Transfusion Reactions: No Reported Reaction Additional Past Anesthesia/Blood Transfusion Reaction / Comment(s): no problems with prior blood transfusion Past Psychological History: Anxiety Smoking Status: Never smoker Past Alcohol Use History: None Reported Additional Past Alcohol Use History / Comment(s): Patient is a lifelong nonsmoker. She denies any medical marijuana, marijuana, street drug or alcohol use. She lives at home with her . 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 Past Drug Use History: None Reported - Past Family History Father Additional Family Medical History / Comment(s): FATHER AT AGE 91YRS. Mother Family Medical History: CVA/TIA Additional Family Medical History / Comment(s): MOTHER AT AGE 67 YRS OF CVA General Exam Limitations: no limitations General appearance: alert, other (Patient is somnolent but arouses to voice) Head exam: Present: atraumatic, normocephalic Eye exam: Present: normal appearance. Absent: scleral icterus, conjunctival injection ENT exam: Present: normal oropharynx Neck exam: Present: normal inspection Respiratory exam: Present: normal lung sounds bilaterally. Absent: respiratory distress, wheezes, rales, rhonchi, stridor Cardiovascular Exam: Present: regular rate, normal rhythm, normal heart sounds. Absent: systolic murmur, diastolic murmur, rubs, gallop GI/Abdominal exam: Present: soft. Absent: distended, tenderness, guarding, r ebound, rigid, mass Extremities exam: Present: normal inspection, normal capillary refill. Absent: pedal edema, calf tenderness Back exam: Present: normal inspection. Absent: CVA tenderness (R), CVA tenderness (L) Neurological exam: Present: alert Skin exam: Present: warm, dry, intact, normal color. Absent: rash Course Vital Signs 01/29/19 01/29/19 01/29/19 23:33 23:35 23:40 Temperature 98.8 F Pulse Rate 73 68 71 Respiratory 10 L 16 13 Rate Blood Pressure 134/112 133/82 O2 Sat by Pulse 97 98 Oximetry 01/29/19 01/30/19 01/30/19 23:50 00:00 00:10 Temperature Pulse Rate 77 72 73 Respiratory 19 12 9 L Rate Blood Pressure 133/82 133/82 124/97 O2 Sat by Pulse Oximetry 01/30/19 01/30/19 01/30/19 00:20 00:30 00:40 Temperature Pulse Rate 77 75 84 Respiratory 13 11 L 20 Rate Blood Pressure 124/97 124/97 124/97 O2 Sat by Pulse Oximetry 01/30/19 01/30/19 01/30/19 00:50 01:00 01:10 Temperature Pulse Rate 78 73 69 Respiratory 17 13 5 L Rate Blood Pressure 124/97 124/97 O2 Sat by Pulse 97 94 L 98 Oximetry 01/30/19 01/30/19 01/30/19 01:20 01:30 01:40 Temperature Pulse Rate 78 70 74 Respiratory 17 24 12 Rate Blood Pressure 135/105 O2 Sat by Pulse Oximetry 01/30/19 01/30/19 01/30/19 01:50 02:00 02:10 Temperature Pulse Rate 90 79 85 Respiratory 18 11 L 29 H Rate Blood Pressure 135/105 184/99 158/96 O2 Sat by Pulse Oximetry 01/30/19 01/30/19 01/30/19 02:20 02:30 02:40 Temperature Pulse Rate 80 78 79 Respiratory 7 L 11 L 17 Rate Blood Pressure 158/96 158/96 127/100 O2 Sat by Pulse Oximetry 01/30/19 01/30/19 01/30/19 02:50 03:00 03:10 Temperature Pulse Rate 88 89 75 Respiratory 12 16 15 Rate Blood Pressure 127/100 127/100 158/87 O2 Sat by Pulse 97 95 Oximetry Disposition Clinical Impression: Chest pain Disposition: HOME SELF-CARE Condition: Good Instructions (If sedation given, give patient instructions): Chest Pain (ED) Is patient prescribed a controlled substance at d/c from ED?: No Referrals: Radha Jovel III, MD [Primary Care Provider] - 1-2 days
[2019-01-30 03:15] VITALS: BP 158/87; PULSE 75; RESP 15
== END 2019-01-30 03:41 | disposition home or self-care (01) ==
LOC: EC 23:25
DX: R07.2 Precordial pain (principal); J45.909 Unspecified asthma, uncomplicated; E11.9 Type 2 diabetes mellitus without complications; M79.7 Fibromyalgia; K21.9 Gastro-esophageal reflux disease without esophagitis; E78.5 Hyperlipidemia, unspecified; I10 Essential (primary) hypertension; M19.90 Unspecified osteoarthritis, unspecified site; F41.9 Anxiety disorder, unspecified; Z79.84 Long term (current) use of oral hypoglycemic drugs; Z79.891 Long term (current) use of opiate analgesic; Z79.51 Long term (current) use of inhaled steroids; Z79.82 Long term (current) use of aspirin; Z79.899 Other long term (current) drug therapy; Z91.048 Other nonmedicinal substance allergy status; Z88.1 Allergy status to other antibiotic agents; Z91.030 Bee allergy status; Z88.6 Allergy status to analgesic agent; Z88.8 Allergy status to other drugs, medicaments and biological substances; Z88.5 Allergy status to narcotic agent
CPT/HCPCS: 36415; 71045; 80053; 80306; 81001; 83605; 83880; 84484; 85025; 85610; 85730; 93005; 99285

== ENCOUNTER 2019-02-05 17:32 | Observation (INO) | payer MEDICARE ==
--- NOTE | 2019-02-05 18:19 | ED ---
General Adult HPI - General Stated complaint: SOB Time Seen by Provider: 02/05/19 17:43 Source: patient, RN notes reviewed Mode of arrival: ambulatory Limitations: no limitations - History of Present Illness Initial comments: Patient is a pleasant 68-year-old female presenting to the emergency Department with complaints of dyspnea. Onset of symptoms was around a month ago. Symptoms have been persistent since that time. Patient states she feels like she just can't take a deep breath. Patient did have heart attack on January 14 and had stents placed the day afterwards. Symptoms had started prior to that. Patient did have computed tomography scan on January 14 which is negative for pulmonary embolism. Patient states symptoms have not necessarily worsened. Symptoms did start prior to January 14. Patient is not having any chest discomfort associated. No leg pain or leg swelling. Rare cough. No fevers. - Related Data Home Medications Medication Instructions Recorded Confirmed Gabapentin 300 mg PO DAILY 05/20/14 02/05/19 Hydrocodone/Acetaminophen 1 tab PO QID PRN 05/20/14 02/05/19 [Hydrocodone/Acetaminophen 10-325] Losartan Potassium 100 mg PO DAILY 05/20/14 02/05/19 Ondansetron [Ondansetron Odt] 8 mg PO TID PRN 05/20/14 02/05/19 metFORMIN HCL [Metformin HCl ER] 500 mg PO DAILY 05/20/14 02/05/19 Morphine Sulfate ER [Ms Contin] 15 mg PO Q8H 11/08/15 02/05/19 Morphine Sulfate ER [Ms Contin] 30 mg PO Q8H 11/08/15 02/05/19 Rizatriptan Benzoate [Maxalt] 10 mg PO BID PRN 07/04/16 02/05/19 Topiramate [Topamax] 50 mg PO TID 07/04/16 02/05/19 traZODone HCL 300 mg PO HS 07/04/16 02/05/19 Brimonidine Tartrate [Alphagan P 1 drops BOTH EYES TID 09/09/17 02/05/19 0.2% Ophth Soln] Dorzolamide 2% [Trusopt 2%] 1 drop BOTH EYES BID 09/09/17 02/05/19 Latanoprost [Xalatan 0.005%] 1 drop BOTH EYES HS 09/09/17 02/05/19 Timolol 0.5% Ophth Soln [Timoptic 1 drop BOTH EYES BID 09/09/17 02/05/19 0.5% Ophth Soln] Albuterol Inhaler [Ventolin Hfa 2 puff INHALATION RT-QID PRN 11/03/18 02/05/19 Inhaler] Erenumab-Aooe [Aimovig 70 mg SQ Q30D 11/03/18 02/05/19 Autoinjector] Propylene Glycol/Peg 400/Pf 1 drop BOTH EYES DAILY PRN 11/03/18 02/05/19 [Systane 0.3-0.4% Eye Drop] Pioglitazone [Actos] 45 mg PO DAILY 01/14/19 02/05/19 Loratadine [Claritin] 10 mg PO DAILY 01/29/19 02/05/19 Mometasone/Formoterol [Dulera 200 2 puff INHALATION RT-BID 01/29/19 02/05/19 Mcg/5 Mcg Inhaler] Omeprazole 20 mg PO BID 01/29/19 02/05/19 Venlafaxine HCl ER [Effexor XR] 150 mg PO DAILY 01/29/19 02/05/19 Aspirin EC [Ecotrin Low Dose] 81 mg PO DAILY 02/05/19 02/05/19 Fenofibrate [Lofibra] 54 mg PO DAILY 02/05/19 02/05/19 Metoprolol Succinate [Toprol XL] 50 mg PO Q12H 02/05/19 02/05/19 clonazePAM [KlonoPIN] 0.5 mg PO TID PRN 02/05/19 02/05/19 Previous Rx's Medication Instructions Recorded Atorvastatin [Lipitor] 80 mg PO HS #30 tab 01/18/19 Nitroglycerin Sl Tabs [Nitrostat] 0.4 mg SUBLINGUAL Q5M PRN #20 tab 01/18/19 Ticagrelor [Brilinta] 90 mg PO BID #60 tab 01/18/19 Allergies Allergy/AdvReac Type Severity Reaction Status Date / Time adhesive Allergy Severe Rash/Hives, Verified 02/05/19 19:08 BLISTERS levofloxacin [From Levaquin] Allergy Severe Anaphylaxis Verified 02/05/19 19:08 metoclopramide HCl Allergy Severe Anaphylaxis Verified 02/05/19 19:08 [From Reglan] Phenothiazines Allergy Severe Anaphylaxis Verified 02/05/19 19:08 thiethylperazine maleate Allergy Severe Anaphylaxis Verified 02/05/19 19:08 [From Torecan] venom-honey bee Allergy Severe Anaphylaxis Verified 02/05/19 19:08 [bee venom (honey bee)] iodine Allergy Intermediate Rash/Hives Verified 02/05/19 19:08 aspirin Allergy Mild TOLD TO Verified 02/05/19 19:08 AVOID D/T ALLERGIES, INDIGESTION chlorhexidine Allergy red dye in Verified 02/05/19 19:08 [From Hibiclens] hibiclens causes Rash/Hives cigarette smoke Allergy Cough Verified 02/05/19 19:08 duloxetine [From Cymbalta] Allergy Unknown Verified 02/05/19 19:08 meloxicam [From Mobic] Allergy Unknown Verified 02/05/19 19:08 pregabalin [From Lyrica] Allergy oversedatio Verified 02/05/19 19:08 n Nppsqai-Mjj-Pca Reductase Allergy increased Verified 02/05/19 19:08 Inhibitor fibramyalgia symptoms fentanyl AdvReac OVER Verified 02/05/19 19:08 SEDATED, WEAKNESS Review of Systems ROS Statement: Those systems with pertinent positive or pertinent negative responses have been documented in the HPI. ROS Other: All systems not noted in ROS Statement are negative. Constitutional: Denies: fever Eyes: Denies: eye pain ENT: Denies: ear pain Respiratory: Reports: dyspnea Cardiovascular: Denies: chest pain Endocrine: Denies: fatigue Gastrointestinal: Denies: abdominal pain Genitourinary: Denies: dysuria Musculoskeletal: Denies: back pain Skin: Denies: rash Neurological: Denies: headache, weakness Past Medical History Past Medical History: Asthma, Diabetes Mellitus, Fibromyalgia, GERD/Reflux, Hyperlipidemia, Hypertension, Myocardial Infarction (DC), Osteoarthritis (OA), Skin Disorder Additional Past Medical History / Comment(s): carpel tunnel rt wrist, ROSACEA. DDD,Hx severe back injury,kyphosis,fermin ankle fx's History of Any Multi-Drug Resistant Organisms: None Reported Past Surgical History: Back Surgery, Bariatric Surgery, Bladder Surgery, Cholecystectomy, Heart Catheterization With Stent, Hysterectomy, Orthopedic Surgery, Tonsillectomy, Tubal Ligation Additional Past Surgical History / Comment(s): hx lap band-empty, lap band 2009, 05/20/[address] GARIBAY,[place] and screw to lumbar back, open reduction of right ankle fx 2010,left carpel tunnel x2,left cubital tunnel,rt carpel tunnel Past Anesthesia/Blood Transfusion Reactions: No Reported Reaction Additional Past Anesthesia/Blood Transfusion Reaction / Comment(s): no problems with prior blood transfusion Past Psychological History: Anxiety Smoking Status: Never smoker Past Alcohol Use History: None Reported Past Drug Use History: None Reported - Past Family History Father Additional Family Medical History / Comment(s): FATHER AT AGE 91YRS. Mother Family Medical History: CVA/TIA Additional Family Medical History / Comment(s): MOTHER AT AGE 67 YRS OF CVA General Exam Limitations: no limitations General appearance: alert, in no apparent distress Head exam: Present: atraumatic Eye exam: Present: normal appearance, PERRL ENT exam: Present: normal oropharynx Neck exam: Present: normal inspection Respiratory exam: Present: normal lung sounds bilaterally. Absent: chest wall tenderness Cardiovascular Exam: Present: regular rate, normal rhythm GI/Abdominal exam: Present: soft. Absent: tenderness Extremities exam: Present: normal inspection. Absent: pedal edema, calf tenderness Neurological exam: Present: alert Psychiatric exam: Present: normal affect, normal mood Skin exam: Present: normal color Course Vital Signs 02/05/19 02/05/19 02/05/19 17:40 18:05 19:20 Temperature 97.9 F 98.1 F Pulse Rate 77 76 75 Respiratory 18 16 18 Rate Blood Pressure 131/80 147/85 145/97 O2 Sat by Pulse 100 100 100 Oximetry 02/05/19 20:40 Temperature 98.3 F Pulse Rate 75 Respiratory 19 Rate Blood Pressure 145/87 O2 Sat by Pulse 96 Oximetry - Reevaluation(s) Reevaluation #1: 02/05/19 19:54 Case was discussed with Dr. Wolfe, covering for Dr. Jovel who will admit. He doesn't come evaluate patient and recommended adding d-dimer and computed tomography scan if needed. Patient refuses premedication for computed tomography scan. Patient states she is only ALLERGIC to topical call iodine and has no problems with previous CAT scans with contrast. EKG Findings - EKG Comments: EKG Findings:: Normal sinus rhythm 71. SD 154. QRS 82. QT 402. QTC 436. Normal axis. Normal QRS. No acute ST change. Medical Decision Making - Medical Decision Making Patient reevaluated and resting comfortably in bed. Patient states she did have an episode of mild chest discomfort earlier in the emergency department. Patient updated on results and plan. - Lab Data Result diagrams: 02/05/19 18:01 02/05/19 18:01 Lab Results 02/05/19 02/05/19 02/05/19 Range/Units 18:01 18:01 18:01 WBC 8.5 (3.8-10.6) k/uL RBC 4.06 (3.80-5.40) m/uL Hgb 11.9 (11.4-16.0) gm/dL Hct 35.1 (34.0-46.0) % MCV 86.5 (80.0-100.0) fL MCH 29.3 (25.0-35.0) pg MCHC 33.9 (31.0-37.0) g/dL RDW 15.5 (11.5-15.5) % Plt Count 296 (150-450) k/uL Neutrophils % 73 % Lymphocytes % 18 % Monocytes % 3 % Eosinophils % 4 % Basophils % 1 % Neutrophils # 6.2 (1.3-7.7) k/uL Lymphocytes # 1.5 (1.0-4.8) k/uL Monocytes # 0.3 (0-1.0) k/uL Eosinophils # 0.3 (0-0.7) k/uL Basophils # 0.1 (0-0.2) k/uL PT 9.7 (9.0-12.0) sec INR 0.9 (<1.2) APTT 24.8 (22.0-30.0) sec D-Dimer (<0.60) mg/L FEU Sodium 138 (137-145) mmol/L Potassium 4.2 (3.5-5.1) mmol/L Chloride 103 (98-107) mmol/L Carbon Dioxide 24 (22-30) mmol/L Anion Gap 11 mmol/L BUN 14 (7-17) mg/dL Creatinine 0.88 (0.52-1.04) mg/dL Est GFR (CKD-EPI)AfAm 79 (>60 ml/min/1.73 sqM) Est GFR (CKD-EPI)NonAf 69 (>60 ml/min/1.73 sqM) Glucose 157 H (74-99) mg/dL Calcium 9.8 (8.4-10.2) mg/dL Total Bilirubin 0.4 (0.2-1.3) mg/dL AST 38 H (14-36) U/L ALT 36 (9-52) U/L Alkaline Phosphatase 127 H (38-126) U/L Troponin I (0.000-0.034) ng/mL NT-Pro-B Natriuret Pep pg/mL Total Protein 7.8 (6.3-8.2) g/dL Albumin 4.6 (3.5-5.0) g/dL 02/05/19 02/05/19 02/05/19 Range/Units 18:01 18:01 19:20 WBC (3.8-10.6) k/uL RBC (3.80-5.40) m/uL Hgb (11.4-16.0) gm/dL Hct (34.0-46.0) % MCV (80.0-100.0) fL MCH (25.0-35.0) pg MCHC (31.0-37.0) g/dL RDW (11.5-15.5) % Plt Count (150-450) k/uL Neutrophils % % Lymphocytes % % Monocytes % % Eosinophils % % Basophils % % Neutrophils # (1.3-7.7) k/uL Lymphocytes # (1.0-4.8) k/uL Monocytes # (0-1.0) k/uL Eosinophils # (0-0.7) k/uL Basophils # (0-0.2) k/uL PT (9.0-12.0) sec INR (<1.2) APTT (22.0-30.0) sec D-Dimer 0.94 H (<0.60) mg/L FEU Sodium (137-145) mmol/L Potassium (3.5-5.1) mmol/L Chloride (98-107) mmol/L Carbon Dioxide (22-30) mmol/L Anion Gap mmol/L BUN (7-17) mg/dL Creatinine (0.52-1.04) mg/dL Est GFR (CKD-EPI)AfAm (>60 ml/min/1.73 sqM) Est GFR (CKD-EPI)NonAf (>60 ml/min/1.73 sqM) Glucose (74-99) mg/dL Calcium (8.4-10.2) mg/dL Total Bilirubin (0.2-1.3) mg/dL AST (14-36) U/L ALT (9-52) U/L Alkaline Phosphatase (38-126) U/L Troponin I <0.012 (0.000-0.034) ng/mL NT-Pro-B Natriuret Pep 426 pg/mL Total Protein (6.3-8.2) g/dL Albumin (3.5-5.0) g/dL Disposition Clinical Impression: Dyspnea Disposition: ADMITTED IP TO THIS HOSP Is patient prescribed a controlled substance at d/c from ED?: No Referrals: Radha Jovel III, MD [Primary Care Provider] - 1-2 days Decision Time: 20:43
[2019-02-05 18:42] LABS: Albumin 4.6 g/dL (3.5-5.0); Calcium 9.8 mg/dL (8.4-10.2); Potassium 4.2 mmol/L (3.5-5.1); Total Bilirubin 0.4 mg/dL (0.2-1.3); Total Protein 7.8 g/dL (6.3-8.2)
[2019-02-05 18:51] LABS: INR 0.9 (<1.2); Partial Thromboplastin Time 24.8 sec (22.0-30.0); Prothrombin Time 9.7 sec (9.0-12.0)
[2019-02-05 18:52] LABS: Basophils # (A) 0.1 k/uL (0-0.2); Basophils % (A) 1 %; Eosinophils # (A) 0.3 k/uL (0-0.7); Eosinophils % (A) 4 %; HCT 35.1 % (34.0-46.0); HGB 11.9 gm/dL (11.4-16.0); Lymphocytes # (A) 1.5 k/uL (1.0-4.8); Lymphocytes % (A) 18 %; MCH 29.3 pg (25.0-35.0); MCHC 33.9 g/dL (31.0-37.0); MCV 86.5 fL (80.0-100.0); Mean Platelet Volume 7.4; Monocytes # (A) 0.3 k/uL (0-1.0); Monocytes % (A) 3 %; Neutrophils # (A) 6.2 k/uL (1.3-7.7); Neutrophils % (A) 73 %; Platelet Count 296 k/uL (150-450); RBC 4.06 m/uL (3.80-5.40); RDW 15.5 % (11.5-15.5); WBC 8.5 k/uL (3.8-10.6)
--- NOTE | 2019-02-05 19:06 | XR ---
EXAMINATION: XR chest 2V DATE AND TIME: 02/05/2019 6:47 PM CLINICAL INDICATION: PHH; difficulty breathing TECHNIQUE: Departmental protocol COMPARISON: 01/30/2019 FINDINGS: The lungs are clear. The pleural spaces are negative. The cardiac silhouette is mildly enlarged, unchanged. The skeletal structures and soft tissues are negative for acute findings. IMPRESSION: No acute radiographic process.
[2019-02-05] MEDS ORDERED: methylPREDNISolone SOD SUCCI 125 MG/2 ML VIAL IV STA (19:47)
[2019-02-05] MEDS ORDERED: diphenhydrAMINE 50 MG/ML 1 ML VIAL IVP STA (19:47)
[2019-02-05] MEDS ORDERED: FAMOTIDINE 20 MG/2 ML VIAL IV STA (19:47)
[2019-02-05] MEDS ORDERED: clonazePAM 0.5 MG TAB PO STA (19:49)
[2019-02-05] MEDS ORDERED: NITROGLYCERIN SL TABS 0.4 MG TAB SUBLINGUAL PRN (20:43)
[2019-02-05] MEDS ORDERED: HYDROcodone/APAP 10-325MG 1 EACH TAB PO PRN (20:45)
[2019-02-05] MEDS ORDERED: ONDANSETRON ODT 8 MG TAB.RAPDIS PO PRN (20:45)
[2019-02-05] MEDS ORDERED: clonazePAM 0.5 MG TAB PO PRN (20:45)
[2019-02-05] MEDS ORDERED: ARTIFICIAL TEARS-HYPROMELLOSE DROPS 15 ML BTL BOTH EYES PRN (20:45)
[2019-02-05] MEDS ORDERED: ATORVASTATIN 80 MG TAB PO SCH (21:00)
[2019-02-05] MEDS ORDERED: traZODone HCL 100 MG TAB PO SCH (21:00)
[2019-02-05] MEDS ORDERED: LATANOPROST 0.005% OPHTH DROPS 2.5 ML BTL BOTH EYES SCH (21:00)
[2019-02-05] MEDS ORDERED: TEMAZEPAM 15 MG CAP PO PRN (21:14)
[2019-02-05] MEDS ORDERED: IPRATROPIUM-ALBUTEROL 3 ML NEB INHALATION PRN (21:14)
--- NOTE | 2019-02-05 21:17 | CT ---
EXAMINATION TYPE: CT angio chest contrast and with 3-D reconstruction renderings DATE OF EXAM: 02/05/2019 8:31 PM COMPARISON: 01/14/2019 HISTORY: elevated d-dimer CT DLP: 316.4 mGycm Automated exposure control for dose reduction was used. CONTRAST: CTA scan of the thorax is performed with IV Contrast, patient injected with 73cc mL of Isov ue 370, pulmonary embolism protocol. 3-D reconstructions. FINDINGS: LUNGS: The lungs are grossly clear, there is no concerning parenchymal mass or nodule identified. T here is no pleural effusion or pneumothorax seen. The tracheobronchial tree is patent. MEDIASTINUM: There is satisfactory enhancement of the pulmonary artery and its branches, there is no CT evidence for pulmonary embolism. There are no greater than 1 cm hilar or mediastinal lymph nodes. No acute aortic finding. 2There is mild cardiomegaly, no pericardial effusion. Coronary calcificatio ns/coronary stents noted. OTHER: No additional significant abnormality is seen. IMPRESSION: NO ACUTE PROCESS.
[2019-02-05] MEDS: DORZOLAMIDE HCL 2% DROPS 10 ML BTL BOTH EYES SCH (22:00)
[2019-02-05] MEDS: BRIMONIDINE TARTRATE 0.2% DROPS 5 ML BTL BOTH EYES SCH (22:00)
[2019-02-05] MEDS: TIMOLOL 0.5% OPHTH DROPS 5 ML BTL BOTH EYES SCH (22:01)
[2019-02-05] MEDS: METOPROLOL SUCCINATE (ER) 50 MG TAB.ER.24H PO SCH (22:01)
[2019-02-05] MEDS: TOPIRAMATE 25 MG TAB PO SCH (22:02)
[2019-02-05] MEDS: TICAGRELOR 90 MG TAB PO SCH (22:02)
[2019-02-05] MEDS: MORPHINE SULFATE ER 15 MG TABLET PO SCH (22:05)
[2019-02-05] MEDS: MORPHINE SULFATE ER 30 MG TABLET PO SCH (22:06)
[2019-02-05] MEDS: NITROGLYCERIN OINT 1 INCH/GM PACKET TOPICAL SCH ×2 (22:07→22:09)
[2019-02-05] MEDS: PANTOPRAZOLE 40 MG TABLET PO SCH (22:10)
[2019-02-05] MEDS: ALPRAZolam 0.25 MG TAB PO PRN (22:52)
[2019-02-05] MEDS ORDERED: VENLAFAXINE HCL ER 150 MG CAP PO SCH (23:00)
[2019-02-05] MEDS ORDERED: SUMAtriptan SUCCINATE 50 MG TAB PO PRN (23:00)
--- NOTE | 2019-02-05 23:09 | HP ---
HISTORY AND PHYSICAL DATE OF SERVICE: 02/05/2019. CHIEF COMPLAINT: Shortness of breath. HISTORY OF PRESENT ILLNESS: This 68-year-old woman with a past medical history of asthma, history of diabetes, fibromyalgia, GERD, hypertension, hyperlipidemia, history of myocardial infarction, history of carpal tunnel syndrome, history of back surgery, history of CAD/stent, history of anxiety being followed by Dr. Jovel in the outpatient setting complaining of shortness of breath. The symptoms started a month ago. The rather persistent, according to her, patient is unable to take a deep breath. The patient apparently had a heart attack on January 14 and the patient has had a stent placement in the LAD and circumflex. The patient admitted for further evaluation and treatment. Patient also had a CT angio during that time that did not show any evidence of any pulmonary embolism. There is no history of fever, rigors or chills. No history of palpitations at this time. PAST MEDICAL HISTORY: History of recent CAD stenting, history of asthma, diabetes type 2, GERD, fibromyalgia, hypertension, hyperlipidemia, history of back surgery, CAD stent. MEDICATIONS: Home medications are: 1. Klonopin 0.5 mg t.i.d. p.r.n. 2. Toprol-XL 50 mg b.i.d. 3. Trazodone 300 mg q.h.s. 4. Metformin 500 mcg p.o. daily. 5. Effexor XR 150 mg p.o. daily. 6. Topamax 50 mg p.o. t.i.d. 7. Timoptic 1 drop both eyes b.i.d. 8. Brilinta 90 mg p.o. b.i.d. 9. Maxalt 10 mg b.i.d. p.r.n. 10.Systane 1 drop both eyes daily p.r.n. 11.Actos 45 mg p.o. daily. 12.Ondansetron 8 mg t.i.d. p.r.n. 13.Omeprazole 20 mg p.o. b.i.d. 14.Nitrostat 0.4 mg p.r.n. 15.MS Contin 30 mg p.o. q.8. 16.MS Contin 50 mg p.o. q.8h. 17.Dulera 2 puffs b.i.d. 18.Losartan 100 mg p.o. daily. 19.Claritin 10 mg p.o. daily. 20.Xalatan 0.05% 1 drop both eyes q.h.s. 21.Hydrocodone acetaminophen 1 tablet p.o. q.i.d. p.r.n. 22.Gabapentin 300 mg p.o. daily. 23.Lofibra 54 mg p.o. daily. 24.Amovig auto injected 70 mg days. 25.Trusopt 2% 1 drop both eyes b.i.d. 26.Alphagan 0.2 puffs p.o. t.i.d. 27.Lipitor 80 mg q.h.s. 28.Ecotrin 81 mg. 29.Ventolin 2 puffs q.6h q.i.d. p.r.n. ALLERGIES: ADHESIVES, LEVAQUIN, REGLAN, PHENOTHIAZINES, TORIC, HONEY BEE, IODINE, ASPIRIN, HIBICLENS, CIGARETTE SMOKING, CYMBALTA MOBIC, LYRICA, STATINS, FAMILY HISTORY: History of CVA/TIA. SOCIAL HISTORY: No history of smoking. Occasional alcohol intake. REVIEW OF SYSTEMS: ENT: Diminished vision. Diminished hearing. CARDIOVASCULAR system as mentioned earlier. Respiratory: As mentioned earlier. GI no nausea or vomiting. no dysuria or hematuria. Nervous system: No numbness or weakness. ALLERGY/IMMUNOLOGY: No asthma or hayfever. MUSCULOSKELETAL as mentioned earlier. HEMATOLOGY/ONCOLOGY: No history of anemia. ENDOCRINE: Diabetes. CONSTITUTIONAL: As mentioned earlier. DERMATOLOGY: Negative. RHEUMATOLOGY: Negative. PSYCHIATRY as mentioned earlier. PHYSICAL EXAM: Alert and oriented times three. Pulse 75. Blood pressure 140/87, respiration 18, temperature 98.2, pulse ox 98% on 2 L. HEENT: Conjunctivae normal. Oral mucosa moist. NECK is no jugular venous distention. No carotid bruit. No lymph node enlargement. Cardiovascular systems: S1, S2 muffled. RESPIRATION: Breath sounds diminished in the bases. A few scattered rhonchi. No crackles. ABDOMEN: Soft, nontender. No mass palpable. LEGS: No edema. No swelling. NERVOUS SYSTEM higher functions as mentioned earlier. Moves all 4 limbs. No focal motor or sensory deficits. LYMPHATICS: No lymph nodes palpable in the neck, axillae or groin. SKIN: No ulcers. No rashes. No bleeding. JOINTS: No active deforming arthropathy. LABS: At this time shows CBC within normal limits. D-dimer is 0.94 and NT proBNP is 426. The chest x-ray reviewed. EKG showed nonspecific ST-T changes. ASSESSMENT: 1. Shortness of breath for evaluation, rule out anginal equivalent. 2. History of recent non-ST elevation myocardial infarction and cardiac catheterization and stenting of the LAD and circumflex. 3. Asthma history. 4. Diabetes mellitus type 2. 5. Fibromyalgia. 6. Gastroesophageal reflux disease. 7. Hypertension. 8. Hyperlipidemia. 9. History of degenerative joint disease. 10.Carpal tunnel syndrome. 11.History of bariatric surgery. 12.History of coronary artery disease/ stenting. 13.History of anxiety. 14.History of lap band surgery. RECOMMENDATIONS AND DISCUSSION: In this 68-year-old woman who presented with multiple complex medical issues, we will monitor the patient closely, continue the current medications, management and symptomatic treatment. Otherwise, at this time, I would recommend cardiology consultation. Rule out myocardial infarction. Continue to monitor. The prognosis is guarded because of multiple complex medical issues. Resume the home medications. Monitor blood sugars closely. Copy of this dictation being forwarded to Dr. Jovel who is the primary physician. MMODL / IJN: [id number] / MTDRicky
[2019-02-06] MEDS: MORPHINE SULFATE ER 30 MG TABLET PO SCH (05:40)
[2019-02-06] MEDS: MORPHINE SULFATE ER 15 MG TABLET PO SCH (05:41)
[2019-02-06 07:03] LABS: Glucose,Whole Blood 127 mg/dL (75-99)
[2019-02-06 07:58] LABS: Basophils % (A) 1 %; Eosinophils # (A) 0.3 k/uL (0-0.7); Eosinophils % (A) 5 %; HCT 33.2 % (34.0-46.0); HGB 10.9 gm/dL (11.4-16.0); Lymphocytes # (A) 1.7 k/uL (1.0-4.8); Lymphocytes % (A) 28 %; MCH 29.1 pg (25.0-35.0); MCV 88.3 fL (80.0-100.0); Mean Platelet Volume 6.9; Monocytes # (A) 0.3 k/uL (0-1.0); Monocytes % (A) 4 %; Neutrophils # (A) 3.7 k/uL (1.3-7.7); Neutrophils % (A) 60 %; Platelet Count 259 k/uL (150-450); RBC 3.76 m/uL (3.80-5.40); RDW 14.7 % (11.5-15.5); WBC 6.3 k/uL (3.8-10.6)
[2019-02-06] MEDS ORDERED: SYMBICORT 160-4.5 MCG INHALER INHALATION SCH (08:00)
[2019-02-06 08:09] LABS: African American GFR (CKD) >90 (>60 ml/min/1.73 sqM); Anion Gap 9 mmol/L; Blood Urea Nitrogen 12 mg/dL (7-17); Calcium 9.1 mg/dL (8.4-10.2); Carbon Dioxide 25 mmol/L (22-30); Chloride 107 mmol/L (98-107); Cholesterol 126 mg/dL (<200); Glucose 123 mg/dL (74-99); HDL Cholesterol 46 mg/dL (40-60); LDL Cholesterol,Calculated 41 mg/dL (0-99); Potassium 3.6 mmol/L (3.5-5.1); Sodium 141 mmol/L (137-145); Triglycerides 195 mg/dL (<150)
[2019-02-06] MEDS ORDERED: HEPARIN SODIUM,PORCINE 5,000 UNIT/ML 1 ML VIAL SQ SCH (09:00)
[2019-02-06] MEDS ORDERED: LOSARTAN 50 MG TAB PO SCH (09:00)
[2019-02-06] MEDS ORDERED: LORATADINE 10 MG TAB PO SCH (09:00)
[2019-02-06] MEDS ORDERED: metFORMIN 500 MG TAB PO SCH (09:00)
[2019-02-06] MEDS ORDERED: ASPIRIN 81 MG PO SCH (09:00)
[2019-02-06] MEDS ORDERED: VENLAFAXINE HCL ER 150 MG CAP PO SCH ×2 (09:00→21:00)
[2019-02-06] MEDS ORDERED: PIOGLITAZONE 45 MG TAB PO SCH (09:00)
[2019-02-06] MEDS ORDERED: FENOFIBRATE 54 MG TAB PO SCH (09:00)
[2019-02-06] MEDS ORDERED: GABAPENTIN 300 MG CAP PO SCH (09:00)
[2019-02-06] MEDS: TIMOLOL 0.5% OPHTH DROPS 5 ML BTL BOTH EYES SCH (09:26)
[2019-02-06] MEDS: BRIMONIDINE TARTRATE 0.2% DROPS 5 ML BTL BOTH EYES SCH (09:27)
[2019-02-06] MEDS: TICAGRELOR 90 MG TAB PO SCH (09:27)
[2019-02-06] MEDS: METOPROLOL SUCCINATE (ER) 50 MG TAB.ER.24H PO SCH (09:28)
[2019-02-06] MEDS: TOPIRAMATE 25 MG TAB PO SCH (09:28)
[2019-02-06] MEDS: PANTOPRAZOLE 40 MG TABLET PO SCH (09:29)
[2019-02-06] MEDS: DORZOLAMIDE HCL 2% DROPS 10 ML BTL BOTH EYES SCH (09:31)
[2019-02-06] MEDS: IPRATROPIUM-ALBUTEROL 3 ML NEB INHALATION SCH ×2 (09:59→11:15)
--- NOTE | 2019-02-06 10:04 | CONS ---
CONSULTATION Angelique is a 68-year-old lady who was admitted to hospital with shortness of breath. She has known coronary artery disease and had cardiac catheterization in January of 2019 that showed critical lesion involving mid circumflex coronary artery, mid to distal LAD and the first diagonal branch. She underwent stent placement by Dr. Cooney, wherein he stented both the circumflex and the LAD. She was not able to take deep breaths; that was her main symptom in the outpatient setting. She tried to see Dr. Pino and called him on Friday, who in turn told her to come to the emergency room here at [facility], where I am seeing her. She denies any chest pain. There is no history of palpitations, dizziness, syncope or focal neurological deficits. CT scan of the lungs is negative for pulmonary embolism. EKG does not reveal ischemic changes. Three sets of cardiac enzymes are negative. At the time of my evaluation this morning, she appears comfortable at rest and is free of symptoms. The plan at this stage is to ambulate her, and if she is feeling well discharge her home and arrange outpatient followup. The exact etiology for her inability to take deep breaths is unclear. It does not seem related to her underlying CAD. PAST MEDICAL HISTORY: Past medical history is significant for: 1. COPD. 2. Sql-xkokwyh-gfcwsirxf diabetes. 3. Dyslipidemia. MEDICATIONS: Current medications include: 1. DuoNeb. 2. Xanax. 3. Aspirin. 4. Lipitor. 5. Klonopin. 6. Lofibra. 7. Neurontin. 8. Cozaar. 9. Toprol. 10.Zoloft. 11.Actos. 12.Protonix. 13.Imitrex. 14.Brilinta. 15.Topamax. 16.Desyrel. ALLERGIES: She has MULTIPLE DRUG ALLERGIES as charted and noted. FAMILY HISTORY: Negative for premature coronary artery disease. SOCIAL HISTORY: She denies any smoking, ETOH abuse or drug abuse. REVIEW OF SYSTEMS: HEENT is unremarkable. CARDIAC: As described above. RESPIRATORY: As described above. GI: Negative. GENITOURINARY: Negative. ALLERGY/IMMUNOLOGIC: Negative. MUSCULOSKELETAL: Significant for arthritis. PSYCHOSOCIAL: Negative. ENDOCRINE: Negative. DERMATOLOGICAL: Negative. CONSTITUTIONAL: Negative. ONCOLOGICAL: Negative. MUSCULOSKELETAL: Significant for arthritis Rest of the system review is not relevant. PHYSICAL EXAMINATION: Comfortable at rest. Vital signs are stable. Chest exam reveals good air entry bilaterally. Heart exam reveals first and second heart sounds. No gallop. Has a systolic murmur at the left lower sternal border. Abdomen is soft. Examination of extremities did not reveal any edema. Peripheral pulses are felt. LABS: Labs show a hemoglobin of 10.9, platelet count 259. Potassium is 3.6. Creatinine is 0.79. ASSESSMENT: 1. Shortness of breath. 2. Coronary artery disease, status post multivessel angioplasty. PLAN: Patient is doing well this morning. Myocardial infarction is ruled out. Ambulate her, and if she is feeling well discharge her home. MMODL / IJN: [id number] /
[2019-02-06] MEDS: ALPRAZolam 0.25 MG TAB PO PRN (10:17)
[2019-02-06 11:42] LABS: Glucose,Whole Blood 201 mg/dL (75-99)
[2019-02-06] MEDS: NITROGLYCERIN OINT 1 INCH/GM PACKET TOPICAL SCH (11:48)
[2019-02-06 11:53] VITALS: BP 129/67; PULSE 63; RESP 16; TEMP 98.6
--- NOTE | 2019-02-06 22:25 | DS ---
DISCHARGE SUMMARY DATE OF SERVICE: 02/06/2019. FINAL DIAGNOSES: 1. Shortness of breath possibly angina equivalent, possible anxiety state. 2. History of recent non ST-segment elevation myocardial infarction status post cardiac arrest and stenting of the left anterior descending coronary artery and circumflex. 3. History of asthma. 4. Diabetes type 2. 5. Fibromyalgia. 6. Gastroesophageal reflux disease. 7. Hypertension. 8. Hyperlipidemia. 9. History of degenerative joint disease. 10.History of carpal tunnel syndrome. 11.History of bariatric surgery. 12.History of coronary artery disease/ stenting. 13.History of anxiety. 14.History of lap band surgery. DISCHARGE DISPOSITION: The patient is being discharged in stable condition with guarded prognosis. HISTORY OF PRESENT ILLNESS: This 68-year-old woman with past medical history of multiple medical problems was admitted with shortness of breath. Evaluation returned negative. Myocardial infarction ruled out. Cardiology saw the patient. Recommended outpatient followup. Troponins are negative. On exam, vitals are stable. Cardiovascular: S1, S2. Abdomen soft. Nervous System: No focal deficits. Chest CTA was also negative for pulmonary embolism. The patient also has some anxiety. Counseling is recommended. DISCHARGE ADVICE AND MEDICATIONS: 1. Discharge diet is cardiac diet. 2. Activity limited until followup. 3. Follow up with Dr. Jovel in 2-3 days. 4. Follow with Cardiology and Dr. Zamora as recommended. MEDICATIONS: As follows: 1. Actos 45 mg p.o. daily. 2. Aimovig 70 mg subcu 30 days. 3. Alphagan eye drops. 4. Claritin 10 mg daily. 5. Dulera 2 puffs b.i.d. 6. Ecotrin 81 mg p.o. daily. 7. Effexor XR 150 mg p.o. daily. 8. Gabapentin 300 mg p.o. daily. 9. Hydrocodone 1 tab q.i.d. p.r.n. 10.Klonopin 0.5 mg t.i.d. p.r.n. 11.Lofibra 54 mg p.o. daily. 12.Losartan 100 mg p.o. daily. 13.Maxalt 10 mg p.o. b.i.d. p.r.n. 14.Metformin 500 mg p.o. daily. 15.MS Contin 15 mg p.o. q.8 p.r.n. and 30 mg q.8 p.r.n. that will be 45 mg q.8 p.r.n. 16.Omeprazole 20 mg p.o. b.i.d. 17.Zofran 8 mg p.o. t.i.d. p.r.n. 18.Systane eye drops as before. 19.Timolol eye drops b.i.d. 20.Topamax 50 mg p.o. t.i.d. 21.Toprol-XL 50 mg b.i.d. 22.Trazodone 300 mg q.h.s. 23.Trusopt eyedrops 1 drop both eyes b.i.d. 24.Ventolin HFA 2 puffs q.i.d. p.r.n. 25.Xalatan eyedrops 1 drop q.h.s. 26.Brilinta 90 mg p.o. b.i.d. 27.Lipitor 80 mg q.h.s. 28.Nitroglycerin 0.4 sublingual p.r.n. Once again, the patient is being discharged in stable condition. Guarded prognosis. MMODL / IJN: [id number] /
== END 2019-02-06 12:47 | disposition home or self-care (01) ==
LOC: EC 17:32 → 1SOBS 20:43
PROVIDERS: ADMIT Hospitalist; ATTEND Hospitalist
DX: R06.02 Shortness of breath (principal); J45.909 Unspecified asthma, uncomplicated; E11.9 Type 2 diabetes mellitus without complications; M79.7 Fibromyalgia; I25.10 Atherosclerotic heart disease of native coronary artery without angina pectoris; F41.9 Anxiety disorder, unspecified; I21.4 Non-ST elevation (NSTEMI) myocardial infarction; K21.9 Gastro-esophageal reflux disease without esophagitis; I10 Essential (primary) hypertension; E78.5 Hyperlipidemia, unspecified; M40.209 Unspecified kyphosis, site unspecified; L71.9 Rosacea, unspecified; J44.9 Chronic obstructive pulmonary disease, unspecified; Z95.5 Presence of coronary angioplasty implant and graft; Z98.84 Bariatric surgery status; I25.2 Old myocardial infarction; Z79.02 Long term (current) use of antithrombotics/antiplatelets; Z79.51 Long term (current) use of inhaled steroids; Z79.82 Long term (current) use of aspirin; Z79.84 Long term (current) use of oral hypoglycemic drugs; Z79.899 Other long term (current) drug therapy; Z82.3 Family history of stroke; Z86.74 Personal history of sudden cardiac arrest; Z87.81 Personal history of (healed) traumatic fracture; Z90.710 Acquired absence of both cervix and uterus
CPT/HCPCS: 96372; 99285; 36415; 94640; 93005; 85379; 83880; 80061; 80053; 80048; 84484 ×2; 85025 ×2; 85610; 85730; 71046; 71275; G0378 ×2; J1644; Q9967

== ENCOUNTER → 2019-03-25 | Outpatient (CLI) | payer MEDICARE ==
[2019-03-25 16:38] LABS: Chol/HDL Ratio 2.96; LDL Cholesterol,Calculated 46.2 mg/dL (0.0-131.0); VLDL Calculation 43.8 mg/dL (5.00-40.00)
== END | disposition home or self-care (01) ==
LOC: LABWHC1 09:35
PROVIDERS: ATTEND Physician Assistant
DX: E78.5 Hyperlipidemia, unspecified (principal); E78.1 Pure hyperglyceridemia
CPT/HCPCS: 36415; 80061; 83721

== ENCOUNTER → 2019-08-31 | Outpatient (CLI) | payer MEDICARE ==
[2019-08-31 17:26] LABS: Basophils % (A) 1 %; Eosinophils # (A) 0.2 k/uL (0-0.7); Eosinophils % (A) 4 %; HCT 34.5 % (34.0-46.0); HGB 10.9 gm/dL (11.4-16.0); Hypochromasia Slight; Lymphocytes # (A) 1.7 k/uL (1.0-4.8); Lymphocytes % (A) 28 %; MCH 29.2 pg (25.0-35.0); MCHC 31.6 g/dL (31.0-37.0); MCV 92.5 fL (80.0-100.0); Mean Platelet Volume 7.9; Monocytes # (A) 0.2 k/uL (0-1.0); Monocytes % (A) 4 %; Neutrophils # (A) 3.6 k/uL (1.3-7.7); Neutrophils % (A) 61 %; Platelet Count 277 k/uL (150-450); RBC 3.73 m/uL (3.80-5.40); WBC 5.9 k/uL (3.8-10.6)
[2019-08-31 18:34] LABS: Erythrocyte Sedimentation Rate 9 mm/hr (0-20)
== END | disposition home or self-care (01) ==
LOC: LABWHC1 16:21
PROVIDERS: ATTEND Physical Medicine & Rehabilitation
DX: M54.5 Low back pain (principal); G89.29 Other chronic pain; M51.36 Other intervertebral disc degeneration, lumbar region; M70.61 Trochanteric bursitis, right hip; M70.62 Trochanteric bursitis, left hip; G43.719 Chronic migraine without aura, intractable, without status migrainosus; M79.7 Fibromyalgia; M51.17 Intervertebral disc disorders with radiculopathy, lumbosacral region; M25.511 Pain in right shoulder; M75.41 Impingement syndrome of right shoulder; M79.642 Pain in left hand; M79.671 Pain in right foot; G56.03 Carpal tunnel syndrome, bilateral upper limbs; G56.22 Lesion of ulnar nerve, left upper limb; M75.42 Impingement syndrome of left shoulder; M75.02 Adhesive capsulitis of left shoulder; M25.512 Pain in left shoulder; M25.812 Other specified joint disorders, left shoulder; E11.9 Type 2 diabetes mellitus without complications; M47.27 Other spondylosis with radiculopathy, lumbosacral region; Q76.426 Congenital lordosis, lumbar region; Z98.1 Arthrodesis status; M54.2 Cervicalgia; M47.812 Spondylosis without myelopathy or radiculopathy, cervical region
CPT/HCPCS: 36415; 85025; 85652; 86140

== ENCOUNTER → 2019-11-18 | Outpatient (CLI) | payer MEDICARE ==
[2019-11-18 11:16] LABS: HCT 35.9 % (34.0-46.0); HGB 11.3 gm/dL (11.4-16.0); Hypochromasia Slight; MCH 28.3 pg (25.0-35.0); MCHC 31.4 g/dL (31.0-37.0); MCV 90.1 fL (80.0-100.0); Mean Platelet Volume 8.2; Platelet Count 205 k/uL (150-450); RBC 3.99 m/uL (3.80-5.40); RDW 14.1 % (11.5-15.5); WBC 7.2 k/uL (3.8-10.6)
[2019-11-18 17:14] LABS: African American GFR (CKD) 87.8 (60.0-200.0); Anion Gap 6.6 mmol/L (4.00-12.00); BUN/Creat Ratio 18.75 Ratio (12.00-20.00); Calcium 9.1 mg/dL (8.7-10.3); Carbon Dioxide 29.4 mmol/L (21.6-31.8); Chol/HDL Ratio 2.33; LDL Cholesterol,Calculated 52.4 mg/dL (0.0-131.0); Non-African American GFR(CKD) 75.8 (60.0-200.0); Potassium 3.9 mmol/L (3.5-5.5); VLDL Calculation 23.6 mg/dL (5.00-40.00)
== END | disposition home or self-care (01) ==
LOC: LABWHC1 09:33
PROVIDERS: ATTEND Physician Assistant
DX: I10 Essential (primary) hypertension (principal); R53.83 Other fatigue; I25.10 Atherosclerotic heart disease of native coronary artery without angina pectoris
CPT/HCPCS: 36415; 80048; 80061; 84443; 85027

== ENCOUNTER → 2020-02-08 | Outpatient (CLI) | payer MEDICARE ==
--- NOTE | 2020-02-08 16:55 | CT ---
EXAMINATION TYPE: CT abdomen w con DATE OF EXAM: 02/08/2020 COMPARISON: CT 07/08/2016 HISTORY: left sided abdominal swelling CT DLP: 600.2 mGycm Automated exposure control for dose reduction was used. TECHNIQUE: Helical acquisition of images was performed from the lung bases through the top of iliac crest to include entire abdomen. CONTRAST: Performed with Oral Contrast and with IV Contrast, patient injected with 100 mL of Isovue 300. FINDINGS: Patient is post lap band surgery. Metallic density seen at the level of the mitral valve. LUNG BASES: No significant abnormality is appreciated. LIVER/GB: Postcholecystectomy change, there is mild dilation of the intra and extrahepatic biliary du cts, no evident liver mass.. PANCREAS: No significant abnormality is seen. SPLEEN: No significant abnormality is seen. ADRENALS: No significant abnormality is seen. KIDNEYS: No significant abnormality is seen. BOWEL: No significant abnormality is seen. LYMPH NODES: No significant abnormality is appreciated. OSSEOUS STRUCTURES: Postop changes are noted to the lumbar spine, vertebral plasty change noted to T 12. FREE AIR: No Free Air visible ASCITES: None visible. RETROPERITONEAL ADENOPATHY: No Retroperitoneal Adenopathy visible. OTHER: IMPRESSION: POSTOP CHANGES.
== END | disposition home or self-care (01) ==
LOC: RADCTMAIN 14:55
PROVIDERS: ATTEND Nurse Practitioner Family
DX: Z98.890 Other specified postprocedural states (principal)
CPT/HCPCS: 74160; Q9967

== ENCOUNTER → 2020-04-20 | Outpatient (CLI) | payer MEDICARE ==
[2020-04-20 13:45] LABS: HCT 33.3 % (34.0-46.0); HGB 10.8 gm/dL (11.4-16.0); MCH 28.4 pg (25.0-35.0); MCHC 32.5 g/dL (31.0-37.0); MCV 87.4 fL (80.0-100.0); Mean Platelet Volume 7.5; Platelet Count 250 k/uL (150-450); RBC 3.81 m/uL (3.80-5.40); RDW 14.1 % (11.5-15.5)
[2020-04-20 13:55] LABS: African American GFR (CKD) >90 (>60 ml/min/1.73 sqM); Anion Gap 5 mmol/L; Blood Urea Nitrogen 12 mg/dL (7-17); Carbon Dioxide 26 mmol/L (22-30); Chloride 105 mmol/L (98-107); Non-African American GFR(CKD) 81 (>60 ml/min/1.73 sqM); Potassium 3.9 mmol/L (3.5-5.1); Sodium 136 mmol/L (137-145)
== END | disposition home or self-care (01) ==
LOC: LABPAT 12:58
PROVIDERS: ATTEND Internal Medicine Interventional Cardiology
DX: Z01.818 Encounter for other preprocedural examination (principal); I25.10 Atherosclerotic heart disease of native coronary artery without angina pectoris
CPT/HCPCS: 36415; 80051; 82565; 84520; 85027

== ENCOUNTER 2020-04-24 07:56 | Day surgery (SDC) | payer MEDICARE ==
[2020-04-20 14:52] VITALS: BMI 28.4
[~2020-04-24 07:56] MED LIST changes: +ALPRAZolam 0.25 MG TAB PO PRN; +ALPRAZolam 0.5 MG TAB PO PRN; +ASPIRIN 325 MG TAB PO STA; -DEXAMETHASONE SOD PHOSPHATE 10 MG/ML 1 ML VIAL IV ONE; -HYDROmorphone 0.5 MG/0.5 ML SYRINGE IVP PRN; -LACTATED RINGERS 1,000 ML IV SCH; -MIDAZOLAM (PF) 2 MG/2 ML VIAL IV PRN; +NITROGLYCERIN SL TABS 0.4 MG TAB SUBLINGUAL PRN; -ONDANSETRON 4 MG/2 ML VIAL IVP ONE; -Pre Op ABX Message 1 EACH MISC MISCELLANE ONE; +SODIUM CHLORIDE 0.9% 1,000 ML in EMPTY BAG 1 BAG IV ONE
[2020-04-24] MEDS ORDERED: LIDOCAINE 1% INJ 10MG/ML (20 ML MDV) ONE (08:30)
[2020-04-24] MEDS ORDERED: VERAPAMIL 2.5 MG/ML 2 ML AMP ONE (08:30)
[2020-04-24 08:38] LABS: Glucose,Whole Blood 143 mg/dL (75-99)
[2020-04-24] MEDS ORDERED: SODIUM CHLORIDE 0.9% 1,000 ML IV ONE (08:44)
[2020-04-24 08:59] VITALS: RESP 16; TEMP 99
[2020-04-24] MEDS ORDERED: MIDAZOLAM 2 MG/2 ML VIAL IV ONE (09:20)
[2020-04-24] MEDS ORDERED: LIDOCAINE 1% INJ 10MG/ML (20 ML MDV) SQ ONE (09:23)
[2020-04-24] MEDS ORDERED: ALBUTEROL HFA INHALER INHALATION PRN (09:24)
[2020-04-24] MEDS ORDERED: VERAPAMIL SYRINGE (5 MG/10 ML) INTRAARTER ONE (09:25)
[2020-04-24] MEDS ORDERED: HEPARIN SODIUM 1,000 UN/ML (10ML VL) ONE (09:31)
[2020-04-24] MEDS ORDERED: NITROGLYCERIN 1000MCG/10ML SYRINGE INTRACORON ONE (09:39)
[2020-04-24] MEDS ORDERED: IOPAMIDOL-370 125ML BTL INJ ONE (09:48)
[2020-04-24] MEDS ORDERED: RX INFO: IV CONTRAST WAS GIVEN 1 EACH MISC MISCELLANE PRN (10:00)
[2020-04-24] MEDS ORDERED: SODIUM CHLORIDE 0.9% 1,000 ML IV SCH (10:00)
[2020-04-24] MEDS ORDERED: clonazePAM 0.5 MG TAB PO STA (10:11)
[2020-04-24] MEDS ORDERED: NON FORMULARY DRUG (Galcanezumab-Gnlm [Emgality Pen] 120 MG/ML Pen.Injctr) SQ SCH (10:15)
[2020-04-24] MEDS ORDERED: HYDROcodone/APAP 10-325MG 1 EACH TAB PO ONE (12:05)
--- NOTE | 2020-04-24 12:39 | CC ---
CARDIAC CATHETERIZATION REPORT Mrs. Alston is a 70-year-old female with known history of hypertension, hyperlipidemia, diabetes mellitus, and history of coronary artery disease who had a stenting of the LAD and left circumflex in 2019. She has been complaining of occasional episode of chest discomfort, was evaluated by Dr. Pino, had a stress test that showed evidence of inducible ischemia. In view of that, recommendation made regarding cardiac catheterization. The procedures, risks, and complications were discussed with the patient who is in full understanding and agreement. PROCEDURE: Patient was brought to labor mediator in a fasting state after receiving fentanyl and Benadryl and achieving moderate conscious sedated state. Using Xylocaine anesthesia and Seldinger technique, a 6-[place] sheath was introduced in the right radial artery. Selective right and left coronary angiography performed using 5-[place], 4 bend right and left Jyoti catheter, multiple views of the coronary artery including hemiaxial views were obtained. Following that, a 5-[place] tight pigtail catheter was used to cross the aortic valve and the left ventricular diastolic pressure was calculated. Following that, catheter and sheath were removed. Hemostasis was obtained with deployment of a TR band. There was no immediate complication. Patient was returned to his room in stable condition. Of note, the patient received 3500 units of intravenous heparin as well as intra-arterial verapamil. FINDINGS: LEFT MAIN: This is a large-sized vessel, bifurcating into left circumflex, left anterior descending artery. Left main coronary artery has no evidence of high-grade stenosis. LEFT ANTERIOR DESCENDING ARTERY: This is a large-sized vessel, tapers down in distal third, giving rise to 2 diagonal branches. The first one is very proximal, has a 30% to 40% plaque proximally. The proximal LAD has 20% plaque prior to the takeoff of the first septal licensed dispensing optician. The stented segment is patent. There is mild intimal in- stent restenosis in the distal segment of the stent of 20%. The second diagonal branch has a 60%-70% stenosis at the ostium. The rest of the vessel has no high-grade stenosis. LEFT CIRCUMFLEX: This is a large, nondominant vessel giving rise to two obtuse marginal branches. The stented segment in the left circumflex is patent. There is no evidence of in-stent restenosis. RIGHT CORONARY ARTERY: This is a large dominant vessel, bifurcating distally into PDA and posterolateral segment and branches. The right coronary artery as well as branches have no evidence of obstructive disease. LEFT VENTRICULOGRAM: Left ventriculogram was not performed. HEMODYNAMICS: There was no gradient across the aortic valve. The left ventricular end- diastolic pressure was 14 to 16 mmHg. CONCLUSION: 1. No evidence of significant restenosis in the stent of the LAD and to the left circumflex. 2. Mild disease in the LAD and moderate significant disease in the ostium of the second diagonal branch that is a jailed branch. RECOMMENDATION: There is no evidence of progression of disease in the diagonal branch. I would recommend continue medical therapy with aggressive coronary risk modifications being initiated. Those findings and recommendation were discussed with the patient and she is in full understanding and agreement. MMODL / IJN: [id number] /
[2020-04-24 13:12] VITALS: PULSE 65
[2020-04-24 14:00] VITALS: BP 156/68
[2020-04-24] MEDS ORDERED: NON FORMULARY DRUG (Topiramate [Topamax] 50 MG Tablet) PO SCH (16:00)
[2020-04-24] MEDS ORDERED: VALSARTAN 160 MG TAB PO SCH (21:00)
[2020-04-24] MEDS ORDERED: NON FORMULARY DRUG (Trazodone Hcl [Trazodone Hcl] 150 MG Tablet) PO SCH (21:00)
[2020-04-25] MEDS ORDERED: GABAPENTIN 300 MG CAP PO SCH (09:00)
[2020-04-25] MEDS ORDERED: ATORVASTATIN 40 MG TAB PO SCH (09:00)
[2020-04-25] MEDS ORDERED: ASPIRIN 81 MG PO SCH (09:00)
[2020-04-25] MEDS ORDERED: METOPROLOL SUCCINATE (ER) 50 MG TAB.ER.24H PO SCH (09:00)
== END 2020-04-24 14:50 | disposition home or self-care (01) ==
LOC: CATHCVL 07:56
PROVIDERS: ATTEND Internal Medicine Interventional Cardiology
DX: I25.10 Atherosclerotic heart disease of native coronary artery without angina pectoris (principal); T82.855A Stenosis of coronary artery stent, initial encounter; R07.89 Other chest pain; R94.39 Abnormal result of other cardiovascular function study; I10 Essential (primary) hypertension; E78.00 Pure hypercholesterolemia, unspecified; E78.5 Hyperlipidemia, unspecified; J45.909 Unspecified asthma, uncomplicated; E11.9 Type 2 diabetes mellitus without complications; G43.909 Migraine, unspecified, not intractable, without status migrainosus; K21.9 Gastro-esophageal reflux disease without esophagitis; Z95.5 Presence of coronary angioplasty implant and graft; Z87.01 Personal history of pneumonia (recurrent); Z98.84 Bariatric surgery status; Z79.84 Long term (current) use of oral hypoglycemic drugs; Z79.899 Other long term (current) drug therapy; Z79.891 Long term (current) use of opiate analgesic; Z79.82 Long term (current) use of aspirin; Z79.02 Long term (current) use of antithrombotics/antiplatelets; Z91.09 Other allergy status, other than to drugs and biological substances; Z88.6 Allergy status to analgesic agent; Z91.012 Allergy to eggs; Z91.048 Other nonmedicinal substance allergy status; Z88.1 Allergy status to other antibiotic agents; Z91.011 Allergy to milk products; Z88.8 Allergy status to other drugs, medicaments and biological substances; Z88.3 Allergy status to other anti-infective agents
CPT/HCPCS: 93458; C1769 ×2; C1894; J2250; J2001; J1644; Q9967

== ENCOUNTER → 2020-06-07 | Outpatient (CLI) | payer MEDICARE ==
[2020-06-07 16:22] LABS: HCT 36.1 % (34.0-46.0); HGB 11.6 gm/dL (11.4-16.0); MCH 28.5 pg (25.0-35.0); Mean Platelet Volume 7.2; Platelet Count 280 k/uL (150-450); RBC 4.06 m/uL (3.80-5.40); RDW 14.1 % (11.5-15.5); WBC 5.5 k/uL (3.8-10.6)
[2020-06-08 00:24] LABS: African American GFR (CKD) 75.6 (60.0-200.0); Albumin 4.1 g/dL (3.80-4.90); Albumin/Globulin Ratio 1.86 (1.60-3.17); Anion Gap 5.3 mmol/L (4.00-12.00); BUN/Creat Ratio 14.44 Ratio (12.00-20.00); Calcium 9.2 mg/dL (8.7-10.3); Carbon Dioxide 28.7 mmol/L (21.6-31.8); Globulin 2.2 g/dL (1.6-3.3); Non-African American GFR(CKD) 65.2 (60.0-200.0); Potassium 4.3 mmol/L (3.5-5.5); Total Bilirubin 0.2 mg/dL (0.3-1.2); Total Protein 6.3 g/dL (6.2-8.2)
[2020-06-08 00:40] LABS: Folate, Serum 15.8 ng/mL; T4, Free (Free Thyroxine) 0.9 ng/dL (0.80-1.80)
== END | disposition home or self-care (01) ==
LOC: LABWHC1 15:23
PROVIDERS: ATTEND Nurse Practitioner Family
DX: R41.3 Other amnesia (principal); E55.9 Vitamin D deficiency, unspecified; E63.9 Nutritional deficiency, unspecified
CPT/HCPCS: 36415; 80053; 82306; 82607; 82746; 83090; 84439; 84443; 84481; 85027

== ENCOUNTER → 2020-09-04 | Outpatient (CLI) | payer MEDICARE | END | disposition home or self-care (01) | LOC: LABWHC1 14:16 | PROVIDERS: ATTEND Nurse Practitioner Family | DX: E55.9 Vitamin D deficiency, unspecified (principal) | CPT/HCPCS: 36415; 82306 ==

== ENCOUNTER 2022-05-25 09:14 | Emergency (ER) | payer MEDICARE ==
[2022-05-25 09:36] VITALS: TEMP 98.5
--- NOTE | 2022-05-25 10:38 | ED ---
Extremity Problem HPI - General Chief complaint: Extremity Problem,Nontraumatic Stated complaint: Cellulitis L. Elbow Time Seen by Provider: 05/25/22 09:50 Source: patient, RN notes reviewed Mode of arrival: ambulatory Limitations: no limitations - History of Present Illness Initial comments: This is a 72-year-old female who presents to the emergency department for left elbow pain and swelling. One month ago, she was treated for an infection in the left elbow with a 10 day course of Keflex. Symptoms seemed to get better, however over the last couple of days, she has noticed an increase in pain and swelling. Pain is worse when she presses on the elbow or rests it on a counter. Denies any fevers or chills. She did go to [facility] urgent care yesterday, and the provider there was worried about a possible bursitis. She told her to come to the emergency department to see if it could be drained. Denies any fevers, chills, sore throat, cough, dyspnea, chest pain, palpitations, abdominal pain, nausea, vomiting, diarrhea, back pain, or headaches. MD Complaint: extremity pain, extremity swelling Onset/Timin -: days(s) Location: left, elbow Associated Symptoms: denies other symptoms - Related Data Home Medications Medication Instructions Recorded Confirmed Gabapentin 300 mg PO DAILY 05/20/14 04/24/20 Ondansetron [Ondansetron Odt] 8 mg PO TID PRN 05/20/14 04/20/20 metFORMIN HCL [Metformin HCl ER] 500 mg PO 1800 05/20/14 04/24/20 Morphine Sulfate ER [Ms Contin] 45 mg PO Q8H 11/08/15 04/24/20 Rizatriptan Benzoate [Maxalt] 10 mg PO BID PRN 07/04/16 04/20/20 Topiramate [Topamax] 50 mg PO TID 07/04/16 04/24/20 traZODone HCL 400 mg PO HS 07/04/16 04/24/20 Brimonidine Tartrate [Alphagan P 1 drops BOTH EYES TID 09/09/17 04/24/20 0.2% Ophth Soln] Dorzolamide 2% [Trusopt 2%] 1 drop BOTH EYES BID 09/09/17 04/24/20 Timolol 0.5% Ophth Soln [Timoptic 1 drop BOTH EYES BID 09/09/17 04/24/20 0.5% Ophth Soln] Albuterol Inhaler [Ventolin Hfa 2 puff INHALATION RT-QID PRN 11/03/18 04/24/20 Inhaler] Propylene Glycol/Peg 400/Pf 1 drop BOTH EYES DAILY PRN 11/03/18 04/24/20 [Systane 0.3-0.4% Eye Drop] Aspirin EC [Ecotrin Low Dose] 81 mg PO DAILY 02/05/19 04/24/20 Metoprolol Succinate [Toprol XL] 25 mg PO QAM 02/05/19 04/24/20 clonazePAM [KlonoPIN] 0.5 mg PO BID PRN 02/05/19 04/24/20 Galcanezumab-Gnlm [Emgality] 120 mg SQ Q30D 04/12/20 04/24/20 Netarsudil Mesylat/Latanoprost 1 drop BOTH EYES HS 04/12/20 04/24/20 [Rocklatan 0.02%-0.005% Eye Drp] Valsartan 160 mg PO BID 04/12/20 04/24/20 Atorvastatin [Lipitor] 40 mg PO Q48H 04/20/20 04/24/20 Cetirizine HCl 10 mg PO DAILY 04/20/20 04/24/20 HYDROcodone/APAP 10-325MG [[place] 1 tab PO Q6H PRN 04/20/20 04/24/20 10-325] Previous Rx's Medication Instructions Recorded Nitroglycerin Sl Tabs [Nitrostat] 0.4 mg SUBLINGUAL Q5M PRN #20 tab 01/18/19 Cephalexin [Keflex] 500 mg PO Q8HR 10 Days #30 cap 05/25/22 Allergies Allergy/AdvReac Type Severity Reaction Status Date / Time adhesive Allergy Severe Rash/Hives, Verified 05/25/22 09:35 BLISTERS levofloxacin [From Levaquin] Allergy Severe Anaphylaxis Verified 05/25/22 09:35 metoclopramide HCl Allergy Severe Anaphylaxis Verified 05/25/22 09:35 [From Reglan] Phenothiazines Allergy Severe Anaphylaxis Verified 05/25/22 09:35 thiethylperazine maleate Allergy Severe Anaphylaxis Verified 05/25/22 09:35 [From Torecan] venom-honey bee Allergy Severe Anaphylaxis Verified 05/25/22 09:35 [bee venom (honey bee)] iodine Allergy Intermediate Rash/Hives Verified 05/25/22 09:35 chlorhexidine Allergy red dye in Verified 05/25/22 09:35 [From Hibiclens] hibiclens causes Rash/Hives cigarette smoke Allergy Cough Verified 05/25/22 09:35 duloxetine [From Cymbalta] Allergy Unknown Verified 05/25/22 09:35 meloxicam [From Mobic] Allergy Unknown Verified 05/25/22 09:35 pregabalin [From Lyrica] Allergy oversedatio Verified 05/25/22 09:35 n fentanyl AdvReac OVER Verified 05/25/22 09:35 SEDATED, WEAKNESS Hhesoio-NCC-RvS Reductase AdvReac increased Verified 05/25/22 09:35 Inhibitor fibramyalgia [Xojsrer-Bev-Hfl Reductase symptoms Inhibitor] Review of Systems ROS Statement: Those systems with pertinent positive or pertinent negative responses have been documented in the HPI. ROS Other: All systems not noted in ROS Statement are negative. Past Medical History Past Medical History: Asthma, Diabetes Mellitus, Fibromyalgia, GERD/Reflux, Hyperlipidemia, Hypertension, Myocardial Infarction ([place]), Osteoarthritis (OA), Skin Disorder Additional Past Medical History / Comment(s): carpel tunnel rt wrist, ROSACEA. DDD,Hx severe back injury,kyphosis,fermin ankle fx's; stress test 2019 Last Myocardial Infarction Date:: 01/2019 History of Any Multi-Drug Resistant Organisms: None Reported Past Surgical History: Back Surgery, Bariatric Surgery, Bladder Surgery, Cholecystectomy, Heart Catheterization With Stent, Hysterectomy, Orthopedic Surgery, Tonsillectomy, Tubal Ligation Additional Past Surgical History / Comment(s): hx lap band-empty, lap band 2009, 05/20/[address] GARIBAY,[place] and screw to lumbar back, open reduction of right ankle fx 2009,left carpel tunnel x2,left cubital tunnel,rt carpel tunnel; stent x2 january 2019 Past Anesthesia/Blood Transfusion Reactions: No Reported Reaction Additional Past Anesthesia/Blood Transfusion Reaction / Comment(s): no problems with prior blood transfusion Date of Last Stent Placement:: 01/2019 Past Psychological History: Anxiety Smoking Status: Never smoker Past Alcohol Use History: None Reported Past Drug Use History: None Reported - Past Family History Father Additional Family Medical History / Comment(s): FATHER AT AGE 91YRS. Mother Family Medical History: CVA/TIA Additional Family Medical History / Comment(s): MOTHER AT AGE 67 YRS OF CVA General Exam Limitations: no limitations General appearance: alert, in no apparent distress Head exam: Present: atraumatic, normocephalic, normal inspection Respiratory exam: Present: normal lung sounds bilaterally. Absent: respiratory distress, wheezes, rales, rhonchi, stridor Cardiovascular Exam: Present: regular rate, normal rhythm, normal heart sounds. Absent: systolic murmur, diastolic murmur, rubs, gallop, clicks Extremities exam: Present: other (Swelling over the left olecranon bursa with very minor overlying erythema and tenderness to palpation.) Neurological exam: Present: alert, oriented X3, CN II-XII intact Psychiatric exam: Present: normal affect, normal mood Skin exam: Present: warm, dry, intact, normal color. Absent: rash Course Vital Signs 05/25/22 05/25/22 09:33 12:27 Temperature 98.5 F Pulse Rate 93 72 Respiratory 20 18 Rate Blood Pressure 136/79 116/82 O2 Sat by Pulse 99 97 Oximetry Medical Decision Making - Medical Decision Making This is a 72-year-old female who presents to the emergency department for left elbow pain and swelling. X-ray of the left elbow obtained and interpreted by myself, revealing swelling over the left of olecranon. Discussed with the patient that this is not something we drained in the emergency department due to the risk of introducing infection into the joint. Because she was treated for an infection in the same spot recently and there is some mild overlying erythema, will put the patient on a course of Keflex, which was sent to her pharmacy. Instructed her to stop putting pressure on this elbow, such as setting it down on countertops. Also advised she try to wrap it with an christina bandage or something similar. Information for orthopedic follow-up was provided to discuss drainage or other management if symptoms do not improve. Return precautions reviewed in depth, the patient is instructed to return to the emergency department with any new, worsening, or concerning symptoms. Patient verbalized understanding. This case was discussed in detail with the attending ED physician. Presentation, findings, and treatment plan discussed in detail as well. - Radiology Data Radiology results: report reviewed, image reviewed Disposition Clinical Impression: Swelling of left elbow Disposition: HOME SELF-CARE Instructions (If sedation given, give patient instructions): Cellulitis (ED), Elbow Bursitis (ED) Additional Instructions: Return to the emergency department with any new, worsening, or concerning symptoms. Take the antibiotic as prescribed for 10 days. Avoid resting your elbow on hard surfaces. Contact Dr. Lisa, orthopedics, as listed below for a follow-up appointment. Follow up with your primary care provider in 1-2 days. Prescriptions: Cephalexin [Keflex] 500 mg PO Q8HR 10 Days #30 cap Is patient prescribed a controlled substance at d/c from ED?: No Referrals: Radha Jovel III, MD [Primary Care Provider] - 1-2 days Chasidy Lisa DO [Doctor of Osteopathic Medicine] - 1-2 days
--- NOTE | 2022-05-25 11:08 | XR ---
EXAMINATION TYPE: XR elbow complete LT DATE OF EXAM: 05/25/2022 CLINICAL HISTORY: pain TECHNIQUE: Frontal, lateral and oblique images of the left elbow are obtained. COMPARISON: None. FINDINGS: There is no acute fracture/dislocation evident of the elbow. No abnormal fat pad signs ar e seen. Olecranon soft tissue swelling noted. IMPRESSION: There is no acute fracture or dislocation of the elbow. ICD 10 NO FRACTURE, INITIAL EVALUATION
[2022-05-25 12:28] VITALS: BP 116/82; PULSE 72; RESP 18
== END 2022-05-25 12:42 | disposition home or self-care (01) ==
LOC: EC 09:14
DX: M79.89 Other specified soft tissue disorders (principal); I10 Essential (primary) hypertension; J45.909 Unspecified asthma, uncomplicated; E11.9 Type 2 diabetes mellitus without complications; K21.9 Gastro-esophageal reflux disease without esophagitis; I25.2 Old myocardial infarction; M19.90 Unspecified osteoarthritis, unspecified site; E78.5 Hyperlipidemia, unspecified; F41.9 Anxiety disorder, unspecified; Z79.899 Other long term (current) drug therapy; Z79.84 Long term (current) use of oral hypoglycemic drugs; Z79.51 Long term (current) use of inhaled steroids; Z88.1 Allergy status to other antibiotic agents; Z88.5 Allergy status to narcotic agent; Z88.8 Allergy status to other drugs, medicaments and biological substances
CPT/HCPCS: 99283

== ENCOUNTER → 2022-10-07 | Outpatient (CLI) | payer MEDICARE ==
[2022-10-07 23:07] LABS: C Reactive Protein <0.30 mg/dL (0.00-0.80); Rheumatoid Factor, Qnt <10 IU/mL (0-15)
[2022-10-07 23:50] LABS: Anti-Smith Ab Interp NEGATIVE (NEGATIVE); DNA Double-Stranded NEGATIVE (NEGATIVE)
== END | disposition home or self-care (01) ==
LOC: LABWHC1 14:40
PROVIDERS: ATTEND Internal Medicine Critical Care Medicine
DX: M35.00 Sjogren syndrome, unspecified (principal)
CPT/HCPCS: 36415; 85652; 86038; 86140; 86225; 86235; 86431

== ENCOUNTER → 2022-11-06 | Day surgery (SDC) | payer MEDICARE ==
[2022-11-04 12:14] VITALS: BMI 27.8
[~2022-11-06] MED LIST changes: -ALPRAZolam 0.25 MG TAB PO PRN; -ALPRAZolam 0.5 MG TAB PO PRN; -ASPIRIN 325 MG TAB PO STA; +KETAMINE 10 MG/ML 20 ML VIAL ONE; +LACTATED RINGERS 1,000 ML IV SCH; +LIDOCAINE 1% (10MG/ML) FOR IV START INTRADERMA PRN; +LIDOCAINE 2% INJ 20 MG/ML (2 ML VIAL) ONE; +LIDOCAINE 2% INJ 20 MG/ML INTRATRACH ONE; -NITROGLYCERIN SL TABS 0.4 MG TAB SUBLINGUAL PRN; +ONDANSETRON 4 MG/2 ML VIAL IVP PRN; +PROPOFOL 10 MG/ML 20 ML VIAL IV ONE; -SODIUM CHLORIDE 0.9% 1,000 ML in EMPTY BAG 1 BAG IV ONE; +fentaNYL (PF) 50 MCG/ML 2 ML AMP ONE
[2022-11-06] MEDS: ATROPINE SULFATE 0.4 MG/ML 1 ML VIAL IM ONE ×2 (12:10→12:18)
[2022-11-06 12:17] VITALS: RESP 16; TEMP 97.6
[2022-11-06 12:20] LABS: Glucose,Whole Blood 222 mg/dL (70-110)
[2022-11-06 13:17] VITALS: BP 128/69; PULSE 71
--- NOTE | 2022-11-06 19:57 | PCN ---
PROCEDURE NOTE PULMONARY/CRITICAL CARE PROCEDURE NOTE: PROCEDURES PERFORMED: Bronchoscopy, airway examination, therapeutic lavage, BAL, right middle lobe. PREOPERATIVE DIAGNOSES: Retained secretions, chronic bronchitis, asthma. POSTOPERATIVE DIAGNOSES: Retained secretions, chronic bronchitis, asthma. There was informed consent and universal timeout. DESCRIPTION OF PROCEDURE: Anesthesia provided general anesthesia. The patient's procedure was done in room #1 [facility]. After the patient was adequately sedated and being fully monitored, the bronchoscope was inserted through the right nostril. It passed through the right nasopharynx into the oropharynx. The hypopharynx was identified and topicalized. The structures of the hypopharynx including anterior commissure, true cords, false cords, arytenoids, piriform sinuses, right and left, vallecula, all appeared normal. The glottic opening was topicalized. The bronchoscope was pushed through the glottic opening into the trachea. The trachea appeared normal. There were some thick secretions noted in the trachea. They were suctioned. Tracheal donya was sharp. Right and left mainstem were topicalized. The right upper lobe and its 3 segments, right middle lobe and its 2 segments, right lower lobe and its 5 segments, left upper lobe proper and its 2 segments, lingula and its 2 segments, the left lower lobe and its 4 segments all had similar findings of diffuse airway erythema and hyperemia. There were thick secretions noted throughout. There was no dominant mass or tumor. The secretions were suctioned. The bronchoscope was then wedged into the right middle lobe. We did a formal BAL. The patient tolerated the procedure well. The fluid will be sent for analysis. There was no immediate complication. The patient tolerated the procedure well without complication. She will be recovered. MMODL / IJN: [id number] /
[2022-11-07 00:04] LABS: Appearance,BF Hazy
== END ==
LOC: ORWHC2ENDO 11:13
PROVIDERS: ATTEND Internal Medicine Critical Care Medicine
DX: J44.9 Chronic obstructive pulmonary disease, unspecified (principal); I25.2 Old myocardial infarction; I25.10 Atherosclerotic heart disease of native coronary artery without angina pectoris; I10 Essential (primary) hypertension; E78.5 Hyperlipidemia, unspecified; E11.9 Type 2 diabetes mellitus without complications; M19.90 Unspecified osteoarthritis, unspecified site; M79.7 Fibromyalgia; K21.9 Gastro-esophageal reflux disease without esophagitis; Z79.51 Long term (current) use of inhaled steroids; Z79.4 Long term (current) use of insulin; Z79.84 Long term (current) use of oral hypoglycemic drugs; Z79.899 Other long term (current) drug therapy; Z88.1 Allergy status to other antibiotic agents; Z88.6 Allergy status to analgesic agent; Z91.012 Allergy to eggs; Z91.048 Other nonmedicinal substance allergy status
CPT/HCPCS: 31624; 88108; 88305; 89050; 87252; 87070; 87205; 87116; 87102; 87206; J2001 ×2; J0461; J2405; J3010; J2704

== ENCOUNTER 2022-11-27 17:44 | Observation (INO) | payer MEDICARE ==
--- NOTE | 2022-11-27 18:45 | ED ---
General Adult HPI - General Chief complaint: Chest Pain Stated complaint: chest pain Time Seen by Provider: 11/27/22 17:59 Source: EMS Mode of arrival: EMS Limitations: no limitations - History of Present Illness Initial comments: Dictation was produced using [employer] dictation software. please excuse any grammatical, word or spelling errors. Chief Complaint: 72-year-old female multiple comorbidities presents to the ER for dizziness and palpitations History of Present Illness: 72-year-old female she has multiple comorbidities presents to emergency department with dizziness and palpitations. Patient states that she felt fine upon waking this morning she went to the neurology office for occipital nerve blocks. She felt great one home started to feel dyspneic and palpitations. She did have a brief episode of sharp chest pain to the left lower chest. Patient states the chest pain resolved. She does have some nonproductive coughing. She does have a history of asthma and she does have home O2 available to her. Denies any fever, chills or night sweats. The ROS documented in this emergency department record has been reviewed and confirmed by me. Those systems with pertinent positive or negative responses have been documented in the HPI. All other systems are other negative and/or noncontributory. - Related Data Home Medications Medication Instructions Recorded Confirmed Ondansetron [Ondansetron Odt] 8 mg PO TID PRN 05/20/14 11/06/22 Morphine Sulfate ER [Ms Contin] 45 mg PO Q8H 11/08/15 11/06/22 Rizatriptan Benzoate [Maxalt] 10 mg PO BID PRN 07/04/16 11/06/22 Topiramate [Topamax] 50 mg PO TID 07/04/16 11/06/22 traZODone HCL 400 mg PO HS 07/04/16 11/06/22 Brimonidine Tartrate [Alphagan P 1 drops RIGHT EYE TID 09/09/17 11/06/22 0.2% Ophth Soln] Albuterol Inhaler [Ventolin Hfa 1 - 2 puff INHALATION QID 11/03/18 11/06/22 Inhaler] Propylene Glycol/Peg 400/Pf 1 drop LEFT EYE Q1H 11/03/18 11/06/22 [Systane 0.3-0.4% Ophth Dropperette] Aspirin EC [Ecotrin Low Dose] 81 mg PO DAILY 02/05/19 11/06/22 clonazePAM [KlonoPIN] 0.5 - 1 tab PO Q8H PRN 02/05/19 11/06/22 Netarsudil Mesylat/Latanoprost 1 drop RIGHT EYE HS 04/12/20 11/06/22 [Rocklatan 0.02%-0.005% Eye Drp] Valsartan 160 mg PO HS 04/12/20 11/06/22 Atorvastatin [Lipitor] 40 mg PO Q48H 04/20/20 11/06/22 Cetirizine HCl 10 mg PO DAILY 04/20/20 11/06/22 HYDROcodone/APAP 10-325MG [Leigh 1 tab PO TID PRN 04/20/20 11/06/22 10-325] Erenumab-Aooe [Aimovig 140 mg SQ Q30D 11/04/22 11/06/22 Autoinjector] Eszopiclone [Lunesta] 2 mg PO HS 11/04/22 11/06/22 Guanfacine (Unknown Dose) 1 tab PO DIRECTED PRN 11/04/22 11/06/22 Melatonin [Melatonin ER] 10 mg PO HS 11/04/22 11/06/22 Montelukast Sodium [Singulair] 10 mg PO BID 11/04/22 11/06/22 Pantoprazole [Protonix] 40 mg PO BID 11/04/22 11/06/22 Pioglitazone [Actos] 30 mg PO QAM 11/04/22 11/06/22 Refresh Gel Drops 1 drop LEFT EYE HS 11/04/22 11/06/22 Venlafaxine HCl [Effexor] 37.5 mg PO QAM 11/04/22 11/06/22 Venlafaxine HCl [Effexor] 75 mg PO HS 11/04/22 11/06/22 Voltaren Gel (Unknown Dose) 1 applic TOPICAL DIRECTED PRN 11/04/22 11/06/22 amLODIPine BESYLATE 2.5 mg PO HS 11/04/22 11/06/22 polyethylene glycoL 3350 [Miralax] 17 gm PO DAILY PRN 11/04/22 11/06/22 sitaGLIPtin [Januvia] 100 mg PO HS 11/04/22 11/06/22 Allergies Allergy/AdvReac Type Severity Reaction Status Date / Time adhesive Allergy Severe Rash/Hives, Verified 11/27/22 20:15 BLISTERS levofloxacin [From Levaquin] Allergy Severe Anaphylaxis Verified 11/27/22 20:15 metoclopramide HCl Allergy Severe Anaphylaxis Verified 11/27/22 20:15 [From Reglan] Phenothiazines Allergy Severe Anaphylaxis Verified 11/27/22 20:15 thiethylperazine maleate Allergy Severe Anaphylaxis Verified 11/27/22 20:15 [From Torecan] venom-honey bee Allergy Severe Anaphylaxis Verified 11/27/22 20:15 [bee venom (honey bee)] iodine Allergy Intermediate Rash/Hives Verified 11/27/22 20:15 chlorhexidine Allergy red dye in Verified 11/27/22 20:15 [From Hibiclens] hibiclens causes Rash/Hives cigarette smoke Allergy Cough Verified 11/27/22 20:15 duloxetine [From Cymbalta] Allergy Unknown Verified 11/27/22 20:15 meloxicam [From Mobic] Allergy Unknown Verified 11/27/22 20:15 pregabalin [From Lyrica] Allergy oversedatio Verified 11/27/22 20:15 n fentanyl AdvReac OVER Verified 11/27/22 20:15 SEDATED, WEAKNESS Fycfcti-PKW-YoG Reductase AdvReac increased Verified 11/27/22 20:15 Inhibitor fibramyalgia [Emimgiq-Erj-Anj Reductase symptoms Inhibitor] Review of Systems ROS Statement: Those systems with pertinent positive or pertinent negative responses have been documented in the HPI. ROS Other: All systems not noted in ROS Statement are negative. Past Medical History Past Medical History: Asthma, Diabetes Mellitus, Eye Disorder, Fibromyalgia, GERD/Reflux, Hyperlipidemia, Hypertension, Myocardial Infarction (ND), Musculoskeletal Disorder, Osteoarthritis (OA), Skin Disorder Additional Past Medical History / Comment(s): Rosacea, dry skin. Degenerative Disc Disease, hx severe back injury from work, kyphosis. Hx bilateral ankle fractures. Glaucoma, blind in right eye, increased left eye pressure and gel stent in left eye. Migraines. Insomnia. Frequent night time urination. Chronic nausea. Last Myocardial Infarction Date:: 01/2019 History of Any Multi-Drug Resistant Organisms: None Reported Past Surgical History: Back Surgery, Bariatric Surgery, Bladder Surgery, Leanne cystectomy, Heart Catheterization With Stent, Hysterectomy, Orthopedic Surgery, Tonsillectomy, Tubal Ligation Additional Past Surgical History / Comment(s): Lap band 2009, lumbar laminectomy, wyane and screw to lumbar back, open reduction of right ankle fracture, bilateral carpal tunnel surgery X2 each side, left cubital tunnel surgery, cardiac stent X2 - January 2019, left eye gel stent. Past Anesthesia/Blood Transfusion Reactions: No Reported Reaction Additional Past Anesthesia/Blood Transfusion Reaction / Comment(s): No problems with prior blood transfusion at age 19 after bleed with tonsillectomy. Date of Last Stent Placement:: 01/2019 Past Psychological History: Anxiety, Panic Disorder Smoking Status: Never smoker Past Alcohol Use History: None Reported Past Drug Use History: None Reported - Past Family History Father Family Medical History: Cancer Additional Family Medical History / Comment(s): FATHER AT AGE 91YRS. Skin cancer. Mother Family Medical History: CVA/TIA Additional Family Medical History / Comment(s): MOTHER AT AGE 67 YRS OF CVA. General Exam - General Exam Comments Initial Comments: PHYSICAL EXAM: General Impression: Alert and oriented x3, not in acute distress, talkative HEENT: Normocephalic atraumatic, extra-ocular movements intact, pupils equal and reactive to light bilaterally, mucous membranes moist. Cardiovascular: Heart regular rate and rhythm Chest: Able to complete full sentences, no retractions, no tachypnea, clear to auscultation bilaterally Abdomen: abdomen soft, non-tender, non-distended, no organomegaly Musculoskeletal: Pulses present and equal in all extremities, no peripheral edema Motor: no focal deficits noted Neurological: CN II-XII grossly intact, no focal motor or sensory deficits noted Skin: Intact with no visualized rashes Psych: Normal affect and mood Limitations: no limitations Course Vital Signs 11/27/22 11/27/22 17:49 20:16 Temperature 98.2 F Pulse Rate 116 H 116 H Respiratory 16 18 Rate Blood Pressure 191/99 162/103 O2 Sat by Pulse 97 99 Oximetry EKG Findings - EKG Comments: EKG Findings:: My EKG interpretation: Ventricular rate 116, sinus tachycardia,. 170, QRS 85, QTc 502. No ND prolongation, no QTC prolongation, no ST or T-wave changes noted. Overall, this EKG is unremarkable Medical Decision Making - Medical Decision Making Was pt. sent in by a medical professional or institution (KAYLA Barger, CUSTOMER ORDERS CLERK, urgent care, hospital, or snf...) When possible be specific @ -No Did you speak to anyone other than the patient for history (EMS, parent, family, police, friend...)? What history was obtained from this source @ -No Did you review nursing and triage notes (agree or disagree)? Why? @ -I reviewed and agree with nursing and triage notes Were old charts reviewed (outside hosp., previous admission, EMS record, old EKG, old radiological studies, urgent care reports/EKG's, snf records)? Report findings @ -No old charts were reviewed Differential Diagnosis (chest pain, altered mental status, abdominal pain women, abdominal pain men, vaginal bleeding, musculoskeletal, weakness, fever, dyspnea, syncope, headache, dizziness, GI bleed, back pain, seizure, CVA, palpatations, mental health)? @ -DDifferential Dyspnea: Coronary syndrome, arrhythmia, tamponade, asthma, COPD, pulmonary embolism, pneumonia, pneumothorax, pulmonary effusion, anaphylaxis, diabetic ketoacidosis, flailed chest, pulmonary contusion, diaphragmatic rupture, anemia, neuromuscular, this is not meant to be an all-inclusive list. EKG interpreted by me (3pts min.). @ -See above X-rays interpreted by me (1pt min.). @ -No acute processes CT interpreted by me (1pt min.). @ -None done U/S interpreted by me (1pt. min.). @ -None done What testing was considered but not performed or refused? (CT, X-rays, U/S, labs)? Why? @ -None What meds were considered but not given or refused? Why? @ -None Did you discuss the management of the patient with other professionals (professionals i.e. KAYLA Barger, CUSTOMER ORDERS CLERK, lab, RT, psych nurse, director social service, infusion nurse, t eacher, commercial account officer, ed case manager)? Give summary @ -Labs and imaging EKG discussed with Dr. Wolfe for admission. Was smoking cessation discussed for >3mins.? @ -No Was critical care preformed (if so, how long)? @ -No Were there social determinants of health that impacted care today? How? (Homelessness, low income, unemployed, alcoholism, drug addiction, transportation, low edu. Level, literacy, decrease access to med. care, senior care, rehab)? @ -No Was there de-escalation of care discussed even if they declined (Discuss DNR or withdrawal of care, Hospice)? DNR status @ -No What co-morbidities impacted this encounter? (DM, HTN, Smoking, COPD, CAD, Cancer, CVA, ARF, Chemo, Hep., AIDS, mental health diagnosis, sleep apnea, morbid obesity)? @ -None Was patient admitted / discharged? Hospital course, mention meds given and route, prescriptions, significant lab abnormalities, going to OR and other pertinent info. @ -72 Year-old female presents with chest pain and dyspnea. Vital signs upon arrival shows tachycardia with hypertension. There is some component of anxiety. EKG is unremarkable. CBC, metabolic panel is unremarkable. She does have elevated lactic acid level II.8. D-dimer 0.69 which is negative according to age adjustment. Troponin is negative. Patient still persistently tachycardic. Patient be admitted for medical monitoring. Undiagnosed new problem with uncertain prognosis? @ -No Drug Therapy requiring intensive monitoring for toxicity (Heparin, Nitro, Insulin, Cardizem)? @ -No Were any procedures done? @ -No Diagnosis/symptom? Acute, or Chronic, or Acute on Chronic? Uncomplicated (without systemic symptoms) or Complicated (systemic symptoms)? @ -1. Chest pain Side effects of treatment? @ -No Exacerbation, Progression, or Severe Exacerbation? @ -No Poses a threat to life or bodily function? How? (Chest pain, USA, ND, pneumonia, PE, COPD, DKA, ARF, appy, cholecystitis, CVA, Diverticulitis, Homicidal, Suicidal, threat to staff... and all critical care pts) @ -yes - Lab Data Result diagrams: 11/27/22 18:44 11/27/22 18:44 Lab Results 11/27/22 11/27/22 11/27/22 Range/Units 18:44 18:44 18:44 WBC 11.9 H (3.8-10.6) k/uL RBC 4.26 (3.80-5.40) m/uL Hgb 12.2 (11.4-16.0) gm/dL Hct 37.4 (34.0-46.0) % MCV 87.8 (80.0-100.0) fL MCH 28.7 (25.0-35.0) pg MCHC 32.7 (31.0-37.0) g/dL RDW 14.1 (11.5-15.5) % Plt Count 265 (150-450) k/uL MPV 7.8 Neutrophils % 93 % Lymphocytes % 5 % Monocytes % 1 % Eosinophils % 0 % Basophils % 0 % Neutrophils # 11.1 H (1.3-7.7) k/uL Lymphocytes # 0.6 L (1.0-4.8) k/uL Monocytes # 0.1 (0-1.0) k/uL Eosinophils # 0.0 (0-0.7) k/uL Basophils # 0.0 (0-0.2) k/uL PT 10.3 (9.0-12.0) sec INR 1.0 (<1.2) APTT 24.0 (22.0-30.0) sec D-Dimer 0.69 H (<0.60) mg/L FEU Sodium 138 (137-145) mmol/L Potassium 3.2 L (3.5-5.1) mmol/L Chloride 101 (98-107) mmol/L Carbon Dioxide 25 (22-30) mmol/L Anion Gap 12 mmol/L BUN 9 (7-17) mg/dL Creatinine 0.86 (0.52-1.04) mg/dL Est GFR (CKD-EPI)AfAm 79 (>60 ml/min/1.73 sqM) Est GFR (CKD-EPI)NonAf 69 (>60 ml/min/1.73 sqM) Glucose 139 H (74-99) mg/dL Plasma Lactic Acid Everton (0.7-2.0) mmol/L Calcium 9.6 (8.4-10.2) mg/dL Magnesium 1.7 (1.6-2.3) mg/dL Total Bilirubin 0.3 (0.2-1.3) mg/dL AST 24 (14-36) U/L ALT 21 (4-34) U/L Alkaline Phosphatase 94 (38-126) U/L Troponin I (0.000-0.034) ng/mL Total Protein 7.8 (6.3-8.2) g/dL Albumin 4.6 (3.5-5.0) g/dL 11/27/22 11/27/22 Range/Units 18:44 18:44 WBC (3.8-10.6) k/uL RBC (3.80-5.40) m/uL Hgb (11.4-16.0) gm/dL Hct (34.0-46.0) % MCV (80.0-100.0) fL MCH (25.0-35.0) pg MCHC (31.0-37.0) g/dL RDW (11.5-15.5) % Plt Count (150-450) k/uL MPV Neutrophils % % Lymphocytes % % Monocytes % % Eosinophils % % Basophils % % Neutrophils # (1.3-7.7) k/uL Lymphocytes # (1.0-4.8) k/uL Monocytes # (0-1.0) k/uL Eosinophils # (0-0.7) k/uL Basophils # (0-0.2) k/uL PT (9.0-12.0) sec INR (<1.2) APTT (22.0-30.0) sec D-Dimer (<0.60) mg/L FEU Sodium (137-145) mmol/L Potassium (3.5-5.1) mmol/L Chloride (98-107) mmol/L Carbon Dioxide (22-30) mmol/L Anion Gap mmol/L BUN (7-17) mg/dL Creatinine (0.52-1.04) mg/dL Est GFR (CKD-EPI)AfAm (>60 ml/min/1.73 sqM) Est GFR (CKD-EPI)NonAf (>60 ml/min/1.73 sqM) Glucose (74-99) mg/dL Plasma Lactic Acid Everton 2.8 H* (0.7-2.0) mmol/L Calcium (8.4-10.2) mg/dL Magnesium (1.6-2.3) mg/dL Total Bilirubin (0.2-1.3) mg/dL AST (14-36) U/L ALT (4-34) U/L Alkaline Phosphatase (38-126) U/L Troponin I <0.012 (0.000-0.034) ng/mL Total Protein (6.3-8.2) g/dL Albumin (3.5-5.0) g/dL Disposition Clinical Impression: Chest pain Disposition: ADMITTED IP TO THIS HOSP Condition: Fair Referrals: Radha Jovel III, MD [Primary Care Provider] - 1-2 days Decision Time: 20:27
[2022-11-27 19:04] LABS: Basophils % (A) 0 %; Eosinophils % (A) 0 %; HCT 37.4 % (34.0-46.0); HGB 12.2 gm/dL (11.4-16.0); Lymphocytes # (A) 0.6 k/uL (1.0-4.8); Lymphocytes % (A) 5 %; MCH 28.7 pg (25.0-35.0); MCHC 32.7 g/dL (31.0-37.0); MCV 87.8 fL (80.0-100.0); Mean Platelet Volume 7.8; Monocytes # (A) 0.1 k/uL (0-1.0); Monocytes % (A) 1 %; Neutrophils # (A) 11.1 k/uL (1.3-7.7); Neutrophils % (A) 93 %; Platelet Count 265 k/uL (150-450); RBC 4.26 m/uL (3.80-5.40); RDW 14.1 % (11.5-15.5); WBC 11.9 k/uL (3.8-10.6)
--- NOTE | 2022-11-27 19:27 | XR ---
EXAMINATION TYPE: XR chest 2V DATE OF EXAM: 11/27/2022 COMPARISON: Chest x-ray and CT chest February 05, 2019 HISTORY: Dyspnea. TECHNIQUE: Frontal and lateral views of the chest are obtained. FINDINGS: An azygos lobe/fissure is redemonstrated which is normal variant. There is no suspicious f ocal air space opacity, pleural effusion, or pneumothorax seen. The cardiac silhouette size is withi n normal limits. High positioned right humeral head suggesting chronic rotator cuff tear is present. There is partial visualization of surgical change in the lumbar spine and vertebroplasty in the lower thoracic spine. IMPRESSION: Chronic changes without acute process.
[2022-11-27 19:28] LABS: Albumin 4.6 g/dL (3.5-5.0); Calcium 9.6 mg/dL (8.4-10.2); Magnesium 1.7 mg/dL (1.6-2.3); Potassium 3.2 mmol/L (3.5-5.1); Total Bilirubin 0.3 mg/dL (0.2-1.3); Total Protein 7.8 g/dL (6.3-8.2)
[2022-11-27 19:37] LABS: Prothrombin Time 10.3 sec (9.0-12.0)
[2022-11-27] MEDS ORDERED: LORazepam 2 MG/ML INJ IV STA (20:06)
[2022-11-27] MEDS ORDERED: ALPRAZolam 0.25 MG TAB PO PRN (20:22)
[2022-11-27] MEDS ORDERED: ASPIRIN 81 MG PO STA (20:22)
[2022-11-27] MEDS ORDERED: SUMAtriptan succinate 50 MG TAB PO PRN (22:37)
[2022-11-27] MEDS ORDERED: ALBUTEROL NEBULIZED 2.5 MG/3 ML INHALATION PRN (22:37)
[2022-11-27] MEDS ORDERED: DICLOFENAC SODIUM GEL 100 GM TUBE TOPICAL PRN (22:37)
[2022-11-27] MEDS ORDERED: guaiFENesin 600 MG TABLET.ER PO PRN (22:37)
[2022-11-27] MEDS ORDERED: HYDROcodone/APAP 10-325MG 1 EACH TAB PO PRN (22:37)
[2022-11-27] MEDS ORDERED: clonazePAM 0.5 MG TAB PO PRN (22:37)
[2022-11-27] MEDS ORDERED: MONTELUKAST 10 MG TAB PO SCH (22:40)
[2022-11-27] MEDS ORDERED: VALSARTAN 160 MG TAB PO SCH (22:42)
[2022-11-27] MEDS ORDERED: amLODIPine 2.5 MG TAB PO SCH (22:43)
[2022-11-27] MEDS ORDERED: MELATONIN 5 MG TABLET PO SCH (22:45)
[2022-11-27] MEDS ORDERED: NON FORMULARY DRUG (Netarsudil Mesylat/Latanoprost [Rocklatan 0.02%-0.005% Eye Drp] 2.5 ML RIGHT EYE SCH (22:45)
[2022-11-27] MEDS ORDERED: traZODone HCL 100 MG TAB PO SCH (22:45)
[2022-11-27] MEDS ORDERED: LORATADINE 10 MG TAB PO SCH (23:00)
[2022-11-27] MEDS: ATORVASTATIN 40 MG TAB PO SCH ×2 (23:56→23:57)
[2022-11-27] MEDS: MORPHINE SULFATE ER 30 MG TABLET PO SCH (23:56)
[2022-11-27] MEDS: ARTIFICIAL TEARS-HYPROMELLOSE DROPS 15 ML BTL LEFT EYE SCH (23:58)
[2022-11-28] MEDS: ARTIFICIAL TEARS-HYPROMELLOSE DROPS 15 ML BTL LEFT EYE SCH ×12 (00:10→15:49)
[2022-11-28] MEDS ORDERED: HEPARIN SODIUM 1,000 UN/ML (10ML VL) IV ONE ×2 (03:09→10:59)
[2022-11-28] MEDS ORDERED: HEPARIN SODIUM 1,000 UN/ML (10ML VL) IV PRN (03:09)
[2022-11-28] MEDS ORDERED: HEPARIN SOD,PORK IN 0.45% NACL 25,000 UNIT in 0.45% NACL 1 250ML.BAG IV SCH (03:15)
[2022-11-28] MEDS ORDERED: PANTOPRAZOLE 40 MG TABLET PO SCH (07:30)
[2022-11-28] MEDS ORDERED: NITROGLYCERIN SL TABS 0.4 MG TAB SUBLINGUAL PRN (07:31)
[2022-11-28] MEDS ORDERED: ATORVASTATIN 80 MG TAB PO STA (07:31)
[2022-11-28] MEDS ORDERED: ALPRAZolam 0.5 MG TAB PO PRN (07:31)
[2022-11-28] MEDS ORDERED: ASPIRIN 325 MG TAB PO STA (07:31)
[2022-11-28] MEDS ORDERED: ALPRAZolam 0.25 MG TAB PO PRN (07:31)
[2022-11-28] MEDS: MORPHINE SULFATE ER 30 MG TABLET PO SCH ×2 (07:48→14:14)
[2022-11-28] MEDS ORDERED: METOPROLOL TARTRATE 12.5 MG TAB PO STA (08:51)
[2022-11-28 08:55] VITALS: RESP 16
[2022-11-28] MEDS ORDERED: ASPIRIN 81 MG PO SCH (09:00)
[2022-11-28] MEDS ORDERED: TOPIRAMATE 25 MG TAB PO SCH (09:00)
[2022-11-28] MEDS ORDERED: METOPROLOL TARTRATE 12.5 MG TAB PO SCH (09:00)
[2022-11-28] MEDS ORDERED: BRIMONIDINE TARTRATE 0.2% DROPS 5 ML BTL RIGHT EYE SCH (09:00)
[2022-11-28] MEDS ORDERED: PIOGLITAZONE 30 MG TAB PO SCH (09:00)
[2022-11-28] MEDS ORDERED: cycloSPORINE 0.05% OPHTH 0.4 ML DROPERETTE BOTH EYES SCH (09:00)
[2022-11-28] MEDS ORDERED: VENLAFAXINE HCL ER 37.5 MG CAP PO SCH ×2 (09:00→21:00)
[2022-11-28 09:27] LABS: Chol/HDL Ratio 2.18 Ratio; LDL Cholesterol,Calculated 75.7 mg/dL (0.0-131.0); VLDL Calculation 16.22 mg/dL (5.00-40.00)
--- NOTE | 2022-11-28 09:55 | P.CRDCN ---
History of Present Illness Consult date: 11/28/22 Consult reason: chest pain History of present illness: History of present illness: This is a 72-year-old female patient of Dr. Pino with past medical history of hypertension hyperlipidemia, coronary artery disease status post stenting, asthm a, diabetes, chronic fatigue. We have been asked to evaluate the patient for chest pain. Patient gives history that she underwent occipital nerve block with Dr. Nick yesterday. She arrived home around 4:00 about 15 minutes later she started feeling dizzy with sweats and tachycardic. She checked her pulse ox and her pulse ox was 98% and it registered her pulse at 140. She tried to wait for about 20 minutes and was not feeling any better. She developed a twinge feeling in the left side of the lateral chest area and decided to come in the hospital for further evaluation. Patient was started on heparin drip in the emergency center. EKG sinus rhythm with sinus tachycardia 116 bpm Chest x-ray: Chronic changes without acute process. WBC 11.9, hemoglobin 12.2, platelet count 265. D-dimer 0.69. Potassium 3.2. BUN 9 and creatinine 0.86. Blood sugar 139. Lactic acid initially 2.8 followed by 1.3. Liver function tests normal. Troponins 0.012, 0.032, 0.046. ProBNP 178. Triglycerides 81, cholesterol 170, LDL 75, HDL 78 Home cardiac medications: Amlodipine 2.5 mg daily, aspirin 81 mg daily, atorvastatin 40 mg every 48 hours, valsartan 160 mg daily. Cardiac catheterization 04/[address] Cooney revealed no significant restenosis in the stent of the LAD and to the left circumflex. Mild disease in the LAD and moderate significant disease in the ostium of the second diagonal branch that is jailed branch. PCI of the proximal left circumflex and mid LAD in 01/2019 Echocardiogram 11/2021 EF 55-60%, grade 1 diastolic dysfunction, moderate LVH, moderate LAE, mild to moderate TR, RVSP 38 mmHg Holter monitor July 2022: Sinus rhythm heart rate 56-107 with average of 80 bpm Review Of Systems: At the time of my evaluation: Constitutional: No fever, no chills. No weakness, fatigue or lethargy. EENT: No headache. No dizziness. Lungs: No shortness of breath, cough, no sputum production. No wheezing. Cardiovascular: Reported chest pain, no lower extremity edema. No palpitations. No paroxysmal nocturnal dyspnea. No orthopnea. Reported lightheadedness or di zziness. No syncopal episodes. Abdominal: No abdominal pain. No nausea, vomiting. No diarrhea. No constipation. No bloody or tarry stools. Musculoskeletal: No myalgias. No muscle weakness Integumentary: No wounds. Neurologic: No aphasia. No facial droop. No change in mentation. No head injury. No headache. Physical examination: Gen: This is a 72-year-old female. She is sitting on the edge of the bed appears quite anxious. VS: reviewed HEENT: Head is atraumatic, normocephalic. Pupils equal, round. Sclerae is anicteric. NECK: Supple. No JVD. . LUNGS: Clear to auscultation. No wheezes or rhonchi. No intercostal retractions. HEART: Regular rate and rhythm. No murmur. ABDOMEN: Soft No tenderness. EXTREMITIES: No pedal edema. No calf tenderness. NEUROLOGICAL: Patient is awake, alert and oriented x3. Assessment: Non-ST elevated myocardial infarction Palpitations History of coronary artery disease with previous stenting Hypertension Dyslipidemia Asthma Diabetes Plan: Resume patient's home cardiac medications Start patient on metoprolol tartrate 12.5 mg 3 times daily Continue heparin drip Schedule patient for cardiac catheterization today with Dr. Cooney Obtain 2-D echocardiogram and Doppler study to assess cardiac structure and function Further recommendations to follow based upon clinical course Thank you kindly for this consultation. Nurse practitioner note has been reviewed, I agree with documented findings and plan of care. Patient was seen and examined. Past Medical History Past Medical History: Asthma, Diabetes Mellitus, Eye Disorder, Fibromyalgia, GERD/Reflux, Hyperlipidemia, Hypertension, Myocardial Infarction ([place]), Musculoskeletal Disorder, Osteoarthritis (OA), Skin Disorder Additional Past Medical History / Comment(s): Rosacea, dry skin. Degenerative Disc Disease, hx severe back injury from work, kyphosis. Hx bilateral ankle fractures. Glaucoma, blind in right eye, increased left eye pressure and gel stent in left eye. Migraines. Insomnia. Frequent night time urination. Chronic nausea. Last Myocardial Infarction Date:: 01/2019 History of Any Multi-Drug Resistant Organisms: None Reported Past Surgical History: Back Surgery, Bariatric Surgery, Bladder Surgery, Cholecystectomy, Heart Catheterization With Stent, Hysterectomy, Orthopedic Surgery, Tonsillectomy, Tubal Ligation Additional Past Surgical History / Comment(s): Lap band 2009, lumbar laminectomy, wayne and screw to lumbar back, open reduction of right ankle fracture, bilateral carpal tunnel surgery X2 each side, left cubital tunnel surgery, cardiac stent X2 - January 2019, left eye gel stent. Past Anesthesia/Blood Transfusion Reactions: No Reported Reaction Additional Past Anesthesia/Blood Transfusion Reaction / Comment(s): No problems with prior blood transfusion at age 19 after bleed with tonsillectomy. Date of Last Stent Placement:: 01/2019 Past Psychological History: Anxiety, Panic Disorder Additional Psychological History / Comment(s): Panic attacks. Smoking Status: Never smoker Past Alcohol Use History: None Reported Additional Past Alcohol Use History / Comment(s): Patient is a lifelong nonsmoker. She denies any medical marijuana, marijuana, street drug or alcohol use. She lives at home with her . 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 Past Drug Use History: None Reported - Past Family History Father Family Medical History: Cancer Additional Family Medical History / Comment(s): FATHER AT AGE 91YRS. Skin cancer. Mother Family Medical History: CVA/TIA Additional Family Medical History / Comment(s): MOTHER AT AGE 67 YRS OF CVA. Medications and Allergies Home Medications Medication Instructions Recorded Confirmed Type Morphine Sulfate ER [Ms Contin] 30 mg PO Q8H 11/08/15 11/27/22 History Rizatriptan Benzoate [Maxalt] 10 mg PO BID PRN 07/04/16 11/27/22 History Topiramate [Topamax] 50 mg PO TID 07/04/16 11/27/22 History Brimonidine Tartrate [Alphagan P 1 drops RIGHT EYE TID 09/09/17 11/27/22 History 0.2% Ophth Soln] Albuterol Inhaler [Ventolin Hfa 2 puff INHALATION RT-Q4H PRN 11/03/18 11/27/22 H istory Inhaler] Propylene Glycol/Peg 400/Pf 1 drop LEFT EYE Q1H 11/03/18 11/27/22 History [Systane 0.3-0.4% Ophth Dropperette] Aspirin EC [Ecotrin Low Dose] 81 mg PO DAILY 02/05/19 11/27/22 History clonazePAM [KlonoPIN] 0.25 - 0.5 tab PO Q8H PRN 02/05/19 11/27/22 History Netarsudil Mesylat/Latanoprost 1 drop RIGHT EYE HS 04/12/20 11/27/22 History [Rocklatan 0.02%-0.005% Eye Drp] Valsartan 160 mg PO DAILY@1800 04/12/20 11/27/22 History Atorvastatin [Lipitor] 40 mg PO Q48H 04/20/20 11/27/22 History Cetirizine HCl 10 mg PO DAILY@1800 04/20/20 11/27/22 History HYDROcodone/APAP 10-325MG [Rogers 1 tab PO TID PRN 04/20/20 11/27/22 History 10-325] Erenumab-Aooe [Aimovig 140 mg SQ Q30D 11/04/22 11/27/22 History Autoinjector] Eszopiclone [Lunesta] 2 mg PO HS 11/04/22 11/27/22 History Melatonin [Melatonin ER] 10 mg PO HS 11/04/22 11/27/22 History Montelukast Sodium [Singulair] 10 mg PO DAILY@1800 11/04/22 11/27/22 History Pantoprazole [Protonix] 40 mg PO BID@0900,1800 11/04/22 11/27/22 History Pioglitazone [Actos] 30 mg PO DAILY 11/04/22 11/27/22 History amLODIPine BESYLATE 2.5 mg PO DAILY@1800 11/04/22 11/27/22 History polyethylene glycoL 3350 [Miralax] 17 gm PO DAILY PRN 11/04/22 11/27/22 History Diclofenac Sodium Gel [Voltaren 1 applic TOPICAL QID PRN 11/27/22 11/27/22 History Gel] Ondansetron Odt [Zofran Odt] 8 mg PO Q8HR PRN 11/27/22 11/27/22 History Semaglutide [Ozempic] 0.25 mg SQ SA 11/27/22 11/27/22 History Venlafaxine HCl ER [Effexor Xr] 37.5 mg PO DAILY 11/27/22 11/27/22 History Venlafaxine HCl ER [Effexor Xr] 75 mg PO DAILY@1800 11/27/22 11/27/22 History cycloSPORINE 0.05% OPHTH SOLN 1 applicator BOTH EYES BID 11/27/22 11/27/22 History [Restasis] guaiFENesin [Mucinex] 600 mg PO BID PRN 11/27/22 11/27/22 History traZODone HCL [Desyrel] 400 mg PO HS 11/27/22 11/27/22 History Allergies Allergy/AdvReac Type Severity Reaction Status Date / Time adhesive Allergy Severe Rash/Hives, Verified 11/27/22 20:15 BLISTERS levofloxacin [From Levaquin] Allergy Severe Anaphylaxis Verified 11/27/22 20:15 metoclopramide HCl Allergy Severe Anaphylaxis Verified 11/27/22 20:15 [From Reglan] Phenothiazines Allergy Severe Anaphylaxis Verified 11/27/22 20:15 thiethylperazine maleate Allergy Severe Anaphylaxis Verified 11/27/22 20:15 [From Torecan] venom-honey bee Allergy Severe Anaphylaxis Verified 11/27/22 20:15 [bee venom (honey bee)] iodine Allergy Intermediate Rash/Hives Verified 11/27/22 20:15 chlorhexidine Allergy red dye in Verified 11/27/22 20:15 [From Hibiclens] hibiclens causes Rash/Hives cigarette smoke Allergy Cough Verified 11/27/22 20:15 duloxetine [From Cymbalta] Allergy Unknown Verified 11/27/22 20:15 meloxicam [From Mobic] Allergy Unknown Verified 11/27/22 20:15 pregabalin [From Lyrica] Allergy oversedatio Verified 11/27/22 20:15 n fentanyl AdvReac OVER Verified 11/27/22 20:15 SEDATED, WEAKNESS [id number] Reductase AdvReac increased Verified 11/27/22 20:15 Inhibitor fibramyalgia [[id number] Reductase symptoms Inhibitor] Physical Exam Vitals: Vital Signs Temp Pulse Pulse Resp BP BP Pulse Ox 11/27/22 23:39 99.1 F 107 H 17 166/86 95 11/27/22 23:00 105 H 16 151/99 96 11/27/22 22:14 108 H 11/27/22 22:07 112 H 18 160/101 95 11/27/22 20:16 116 H 18 162/103 99 11/27/22 17:49 98.2 F 116 H 16 191/99 97 Intake and Output 11/27/22 11/28/22 11/28/22 22:59 06:59 14:59 Other: # Voids 2 Weight 60.781 kg 60.781 kg Results 11/27/22 18:44 11/27/22 18:44 Cardiac Enzymes 11/27/22 11/27/22 11/27/22 Range/Units 18:44 18:44 22:37 AST 24 (14-36) U/L Troponin I <0.012 0.032 (0.000-0.034) ng/mL 11/28/22 Range/Units 01:17 AST (14-36) U/L Troponin I 0.046 H* (0.000-0.034) ng/mL Coagulation 11/27/22 Range/Units 18:44 PT 10.3 (9.0-12.0) sec APTT 24.0 (22.0-30.0) sec CBC 11/27/22 Range/Units 18:44 WBC 11.9 H (3.8-10.6) k/uL RBC 4.26 (3.80-5.40) m/uL Hgb 12.2 (11.4-16.0) gm/dL Hct 37.4 (34.0-46.0) % Plt Count 265 (150-450) k/uL Comprehensive Metabolic Panel 11/27/22 Range/Units 18:44 Sodium 138 (137-145) mmol/L Potassium 3.2 L (3.5-5.1) mmol/L Chloride 101 (98-107) mmol/L Carbon Dioxide 25 (22-30) mmol/L BUN 9 (7-17) mg/dL Creatinine 0.86 (0.52-1.04) mg/dL Glucose 139 H (74-99) mg/dL Calcium 9.6 (8.4-10.2) mg/dL AST 24 (14-36) U/L ALT 21 (4-34) U/L Alkaline Phosphatase 94 (38-126) U/L Total Protein 7.8 (6.3-8.2) g/dL Albumin 4.6 (3.5-5.0) g/dL Current Medications Generic Name Dose Route Start Last Admin Trade Name Freq PRN Reason Stop Dose Admin Hydrocodone Bitart/Acetaminophen 1 each 11/27/22 22:37 Hydrocodone/Apap 10-325mg 1 Each Tab PO TID PRN Pain Albuterol Sulfate 2.5 mg 11/27/22 22:37 Albuterol Nebulized 2.5 Mg/3 Ml INHALATION RT-Q4H PRN Shortness Of Breath Alprazolam 0.25 mg 11/28/22 07:31 Alprazolam 0.25 Mg Tab PO Q6HR PRN Mild Anxiety Alprazolam 0.5 mg 11/28/22 07:31 Alprazolam 0.5 Mg Tab PO Q6HR PRN Moderate Anxiety Amlodipine Besylate 2.5 mg 11/27/22 22:43 11/27/22 23:58 Amlodipine 2.5 Mg Tab PO 2.5 mg HS SHAUN Administration Artificial Tears 1 drops 11/27/22 22:45 11/28/22 05:44 Artificial Tears-Hypromellose Drops 15 Ml Btl LEFT EYE Not Given Q1H SHAUN Aspirin 81 mg 11/28/22 09:00 Aspirin 81 Mg PO DAILY SHAUN Atorvastatin Calcium 40 mg 11/27/22 22:45 11/27/22 23:56 Atorvastatin 40 Mg Tab PO Not Given Q48H SHAUN Brimonidine Tartrate 1 drops 11/28/22 09:00 Brimonidine Tartrate 0.2% Drops 5 Ml Btl RIGHT EYE TID SHAUN Clonazepam 0.25 mg 11/27/22 22:37 Clonazepam 0.5 Mg Tab PO Q8H PRN Anxiety Cyclosporine 1 drops 11/28/22 09:00 Cyclosporine 0.05% Ophth 0.4 Ml Droperette BOTH EYES BID [facility] Diclofenac Sodium 4 gm 11/27/22 22:37 Diclofenac Sodium Gel 100 Gm Tube TOPICAL QID PRN Pain Protocol Guaifenesin 600 mg 11/27/22 22:37 Guaifenesin 600 Mg Tablet.Er PO BID PRN Cold Symptoms Heparin Sodium (Porcine) 0 unit 11/28/22 03:09 Heparin Sodium 1,000 Un/Ml (10ml Vl) IV PER PROTOCOL PRN Low PTT Protocol Heparin Sodium/Sodium Chloride 250 mls @ 7.294 mls/hr 11/28/22 03:15 11/28/22 03:56 25,000 unit/ Sodium Chloride IV 12 units/kg/hr .Q24H SHAUN 7.294 mls/hr Administration Protocol 12 UNITS/KG/HR Heparin Sodium (Porcine) 10, 1,001 mls @ 999 mls/hr 11/29/22 07:00 000 unit/ Sodium Chloride IRRIGATION 11/29/22 23:00 ONCE PRN INTRA-OP Heparin Sodium (Porcine) 2,500 250.5 mls @ 250 mls/hr 11/29/22 07:00 unit/ Sodium Chloride IRRIGATION 11/29/22 23:00 ONCE PRN INTRA-OP Loratadine 10 mg 11/27/22 23:00 11/27/22 23:57 Loratadine 10 Mg Tab PO 10 mg HS [facility] Administration Melatonin 10 mg 11/27/22 22:45 11/27/22 23:57 Melatonin 5 Mg Tablet PO 10 mg HS [facility] Administration Metoprolol Tartrate 12.5 mg 11/28/22 09:00 Metoprolol Tartrate 12.5 Mg Tab PO TID [facility] Montelukast Sodium 10 mg 11/27/22 22:40 11/27/22 23:58 Montelukast 10 Mg Tab PO 10 mg HS [facility] Administration Morphine Sulfate 30 mg 11/27/22 22:45 11/27/22 23:56 Morphine Sulfate Er 30 Mg Tablet PO Not Given Q8H [facility] Protocol Nitroglycerin 0.4 mg 11/28/22 07:31 Nitroglycerin Sl Tabs 0.4 Mg Tab SUBLINGUAL Q5M PRN Chest Pain Non-Formulary Medication 1 drop 11/27/22 22:45 11/27/22 23:25 Netarsudil Mesylat/Latanoprost [Rocklatan 0.02%-0.005% Eye Drp] RIGHT EYE Not Given HS [facility] Pantoprazole Sodium 40 mg 11/28/22 07:30 Pantoprazole 40 Mg Tablet PO AC-BID [facility] Pioglitazone HCl 30 mg 11/28/22 09:00 Pioglitazone 30 Mg Tab PO DAILY [facility] Sumatriptan Succinate 100 mg 11/27/22 22:37 Sumatriptan Succinate 50 Mg Tab PO BID PRN Migraine Headache Temazepam 15 mg 11/28/22 21:00 Temazepam 15 Mg Cap PO HS [facility] Topiramate 50 mg 11/28/22 09:00 Topiramate 25 Mg Tab PO TID [facility] Trazodone HCl 400 mg 11/27/22 22:45 11/27/22 23:58 Trazodone Hcl 100 Mg Tab PO 400 mg HS SHAUN Administration Valsartan 160 mg 11/27/22 22:42 11/27/22 23:57 Valsartan 160 Mg Tab PO 160 mg HS SHAUN Administration Venlafaxine HCl 37.5 mg 11/28/22 09:00 Venlafaxine Hcl Er 37.5 Mg Cap PO DAILY SHAUN Venlafaxine HCl 75 mg 11/28/22 21:00 Venlafaxine Hcl Er 37.5 Mg Cap PO HS SHAUN Intake and Output 11/27/22 11/28/22 11/28/22 22:59 06:59 14:59 Other: # Voids 2 Weight 60.781 kg 60.781 kg 11/27/22 18:44 11/27/22 18:44
[2022-11-28] MEDS ORDERED: IV FLUID CONTINUATION 500 ML IV ONE (10:37)
[2022-11-28] MEDS ORDERED: fentaNYL (PF) 50 MCG/ML 2 ML AMP ONE (10:51)
[2022-11-28] MEDS ORDERED: fentaNYL (PF) 50 MCG/1 ML VIAL IV ONE ×2 (10:52)
[2022-11-28] MEDS ORDERED: LIDOCAINE 1% INJ 10MG/ML (5 ML VIAL-PF) SQ ONE (10:53)
[2022-11-28] MEDS ORDERED: diphenhydrAMINE 25 MG CAP PO ONE (10:54)
[2022-11-28] MEDS ORDERED: VERAPAMIL SYRINGE (5 MG/10 ML) INTRAARTER ONE (10:55)
[2022-11-28] MEDS ORDERED: HEPARIN SODIUM 1,000 UN/ML (10ML VL) ONE (10:57)
[2022-11-28] MEDS ORDERED: IOPAMIDOL-370 100ML BTL INJ ONE (11:05)
[2022-11-28] MEDS ORDERED: RX INFO: IV CONTRAST WAS GIVEN 1 EACH MISC MISCELLANE PRN (11:13)
[2022-11-28] MEDS ORDERED: SODIUM CHLORIDE 0.9% 1,000 ML IV SCH (11:15)
--- NOTE | 2022-11-28 11:19 | P.CARDCATH ---
Preoperative Diagnosis: Cardiac Catheterization: The patient is a 72-year-old female with known history of COPD, history of hypertension, hyperlipidemia and diabetes who presented with symptoms of palpitations, chest discomfort and mild troponin elevation. She was evaluated by Dr. Bunch. Recommendations were made regarding cardiac catheterization, the risks and the complications were discussed with the patient who is in full understanding and agreement. Procedure Description: Patient was brought to laboratory chief in fasting semi-sedated state after receiving Fentanyl and Benadryl achieiving moderate conscious sedated state. Using Xylocaine Anesthesia and Seldinger technique, a 6-Tuvaluan sheath was introduced in the right radial artery . Subsequently, selective coronary angiography was performed using a 5-Tuvaluan 3.5 bend Jyoti catheter. Multiple views of the coronary artery including hemiaxial views were obtained. The right Jyoti catheter was used to cross the aortic valve and LVEDP was calculated. Following that, catheter and sheath were removed. Hemostasis was obtained with deployment of TR band . There was no immediate complication. Patient was returned to room in stable condition. Of note, the patient received a total of 3000 units of intravenous heparin as well as intra-arterial verapamil. Findings: Left main: This is a large size vessel, bifurcating into LAD and left circumflex home left main has no high-grade stenosis LAD: This is a large size vessel, reaching to the apex, the mid LAD stented segment is patent with minimal in-stent restenosis. There is a moderately-sized diagonal branch originating in the stent segment that has a 50% to 60% stenosis at the ostium. There is no progression compared to 2020. Left circumflex: This is a nondominant vessel, giving rise to 2 obtuse marginal branch, the first obtuse marginal branch is very proximal and has about a 50% proximal lesion. The second obtuse marginal branch stented segment is patent with no evidence of in-stent restenosis. RCA: This is a large dominant vessel, bifurcating into PDA and PLV. The right coronary artery has no evidence of obstructive CAD Left Ventriculogram: Not performed Hemodynamics: There was no gradient across the aortic valve, LVEDP was 12-14 mmHg Conclusion: 1. Patent stent in the LAD and left circumflex 2. No progression of disease compared to 2020 with moderate disease in the first OM. 3. Right dominance 4. Normal LVEDP Recommendations: I have recommended to continue medical therapy, I see no progression of disease. The findings and the recommendations were discussed with the patient and she was in full understanding and agreement. Duration of sedation is 13 minutes.
--- NOTE | 2022-11-28 12:41 | CA ---
Transthoracic Echo Report Name: Angelique Alston Age: 72 Gender: F : 1950 Exam Date: 11/28/2022 11:31 Exam Location: [facility] Ht (in): 58 Wt (lb): 134 Ordering Physician: [place] José Attending/Referring Phys: [id number], Estefanía Video Camera Operator Geovanna Aponte RDCS Procedure CPT: Indications: LVF Cardiac Hx: Technical Quality: Good Contrast 1: Total Dose (mL): Contrast 2: Total Dose (mL): MEASUREMENTS (Male / Female) Normal Values 2D ECHO LV Diastolic Diameter PLAX 3.9 cm 4.2 - 5.9 / 3.9 - 5.3 cm LV Systolic Diameter PLAX 2.6 cm IVS Diastolic Thickness 1.2 cm 0.6 - 1.0 / 0.6 - 0.9 cm LVPW Diastolic Thickness 1.1 cm 0.6 - 1.0 / 0.6 - 0.9 cm LV Relative Wall Thickness 0.6 RV Internal Dim ED PLAX 3.0 cm LA Systolic Diameter LX 4.1 cm 3.0 - 4.0 / 2.7 - 3.8 cm LV Diastolic Volume MOD 4C 84.1 cm??? LV Systolic Volume MOD 4C 38.6 cm??? LV Ejection Fraction MOD 4C 54.1 % LV Diastolic Length 4C 7.5 cm LV Systolic Length 4C 6.1 cm LV Diastolic Volume MOD 2C 63.5 cm??? LV Systolic Volume MOD 2C 24.7 cm??? LV Ejection Fraction MOD 2C 61.2 % LV Diastolic Length 2C 7.5 cm LV Systolic Length 2C 6.0 cm LA Volume 53.5 cm??? 18 - 58 / 22 - 52 cm??? M-MODE Aortic Root Diameter MM 3.4 cm MV E Point Septal Separation 0.6 cm AV Cusp Separation MM 1.8 cm DOPPLER AV Peak Velocity 147.2 cm/s AV Peak Gradient 8.7 mmHg MV Area PHT 3.3 cm??? Mitral E Point Velocity 106.8 cm/s Mitral A Point Velocity 121.9 cm/s Mitral E to A Ratio 0.9 MV Deceleration Time 233.2 ms MV E' Velocity 4.5 cm/s Mitral E to MV E' Ratio 23.5 TR Peak Velocity 217.3 cm/s TR Peak Gradient 18.9 mmHg Right Ventricular Systolic Press 23.9 mmHg FINDINGS Left Ventricle Left ventricular ejection fraction is estimated at 55-60 %. Left ventricular cavity size normal. Mildly increased septal wall thickness. Mildly increased posterior wall thickness. No obvious regional wall motion abnormalities. Right Ventricle Normal right ventricular size and function. Right ventricular systolic pressure within normal limits. Right Atrium Normal right atrial size. Left Atrium Mildly increased left atrial diameter. Mildly increased left atrial volume. Mitral Valve Mitral valve thickened. Mitral annular calcification. No mitral stenosis, regurgitation or prolapse. Aortic Valve Trileaflet aortic valve. Aortic valve sclerosis. Trace to mild aortic regurgitation. Tricuspid Valve Structurally normal tricuspid valve. Mild tricuspid regurgitation. Pulmonic Valve Structurally normal pulmonic valve. Mild pulmonic regurgitation. Pericardium Normal pericardium. No pericardial effusion. Aorta Normal size aortic root and proximal ascending aorta. CONCLUSIONS Normal LV size and systolic function. There is mild concentric LVH. No wall motion abnormalities. There is mild mitral and tricuspid regurgitation. No pulmonary hypertension no pericardial effusion. There is mitral annular calcification and nonspecific thickening of posterior mitral leaflet Previewed by: Dr. Noah Bunch MD (Electronically Signed) Final Date: 28 Nov 2022 12:40
[2022-11-28] MEDS ORDERED: ONDANSETRON 4 MG TAB PO STA (13:53)
--- NOTE | 2022-11-28 14:53 | P.HPIM ---
History of Present Illness H&P Date: 11/28/22 This is a 72-year-old female who presented to the emergency department with chest pain. Patient reports she was at the neurologist office Dr. Nick to receive nerve blocks and went home and felt fine although started feeling dizziness with sweats and increased heart rate and came to the ER for further evaluation. Patient follows with Dr. Jovel in the outpatient setting with a past medical history of asthma, diabetes mellitus, anxiety disorder, fibromyalgia, GERD, hyperlipidemia, hypertension, previous myocardial infarction, degenerative disc disease, osteoarthritis, glaucoma and blind in the right eye with rosacea. Patient does follow with cardiology outpatient and patient was admitted for cardiology evaluation. Patient was initiated on a heparin drip and cardiology evaluating the patient this morning recommend cardiac catheterization. 2-D echo was ordered and pending as well. Chest x-ray showed chronic changes without any acute process with no pleural effusion or pneumothorax noted. EKG showed sinus tachycardia and labs reviewed showing a WBC of 11.9, hemoglobin 12.2, sodium 138, potassium 3.2, BUN 9 creatinine 0.86 with a lactic acid of 2.8 although repeat is 1.3 and normal, troponin initially was negative although slightly elevated at 0.032 and third troponin was 0.046, BNP was 178 and lipid panel other than HDL was within normal limits. Patient was placed on telemetry monitoring and IV heparin initiated. Cardiology plans for cardiac catheterization this morning. Review Of Systems: Constitutional: No fever, no chills, no night sweats. No weight change. No weakness, fatigue or lethargy. No daytime sleepiness. EENT: No headache. No blurred vision or double vision, no loss of vision. No loss of Hearing, no ringing in the ears, no dizziness. No nasal drainage or congestion. No epistaxis. No sore throat. Lungs: No shortness of breath, cough, no sputum production. No wheezing. Cardiovascular: Reported chest pain that has since resolved, no lower extremity edema. No palpitations. No paroxysmal nocturnal dyspnea. No orthopnea. Patient reported lightheadedness and dizziness at the time of chest pain. No syncopal episodes. Abdominal: No abdominal pain. No nausea, vomiting. No diarrhea. No constipation. No bloody or tarry stools.. No loss of appetite. Genitourinary: No dysuria, increased frequency, urgency. No urinary retention. Musculoskeletal: No myalgias. No muscle weakness, no gait dysfunction, no frequent falls. No back pain. No neck pain. Integumentary: No wounds, no lesions. No rash or pruritus. No unusual bruising. No change in hair or nails. Neurologic: No aphasia. No facial droop. No change in mentation. No head injury. No headache. No paralysis. No paresthesia. Psychiatric: No depression. No anxiety. No mood swings. Endocrine: No abnormal blood sugars. No weight change. No excessive sweating or thirst. No cold intolerance. PHYSICAL EXAMINATION: GENERAL: The patient is alert and oriented x4, Well developed, well nourished. Elderly-appearing HEENT: Pupils are round and equally reacting to light. EOMI. no scleral icterus. No conjunctival pallor. Normocephalic, atraumatic. No pharyngeal erythema. No thyromegaly. CARDIOVASCULAR: S1 and S2 muffled PULMONARY: diminished breath sounds bilaterally with no wheezing or rhonchi noted. ABDOMEN: soft. Nontender on exam. non-distended, normoactive bowel sounds. No palpable organomegaly. MUSCULOSKELETAL: No joint swelling or deformity. EXTREMITIES: No cyanosis, clubbing, or pedal edema. NEUROLOGICAL: Gross neurological examination did not reveal any focal deficits. SKIN: No rashes. Assessment: Chest pain, NSTEMI, with elevated troponins, status post cardiac catheterization which was clear requiring no intervention at this time Palpitations, sinus tachycardia on EKG History of asthma, not in exacerbation Diabetes mellitus history Fibromyalgia history GERD Hyperlipidemia Hypertension Previous myocardial infarction in 2019 with history of coronary artery disease and stenting History of osteoarthritis Anxiety with panic disorder history GI prophylaxis DVT prophylaxis Full code Plan: Recommend to continue with current medications and management with cardiology placed on consult. Patient was initiated on IV heparin in the ER as patient did have a bump in troponins after the first initial one was negative Cardiology evaluated the patient recommending cardiac catheterization which shows no progression of disease and cardiac catheterization was clean and cleared by cardiology Metoprolol adjusted and increased and recommend close outpatient follow-up with Dr. Cooney in the outpatient setting. Patient will continue cardiac catheterization protocol and be discharged later this afternoon. The impression and plan of care has been dictated by Zohra Hua, nurse practitioner as directed. Dr. Nilesh MD I have performed a history and examination and MDM of this patient, discussed the same with the dictator, and agree with the dictator's assessment and plan as written ,documented as a scribe. Based on total visit time, I have performed more than 50% of the visit. Any additional findings or plans will be noted. Past Medical History Past Medical History: Asthma, Diabetes Mellitus, Eye Disorder, Fibromyalgia, GERD/Reflux, Hyperlipidemia, Hypertension, Myocardial Infarction (ND), Musculoskeletal Disorder, Osteoarthritis (OA), Skin Disorder Additional Past Medical History / Comment(s): Rosacea, dry skin. Degenerative Disc Disease, hx severe back injury from work, kyphosis. Hx bilateral ankle fractures. Glaucoma, blind in right eye, increased left eye pressure and gel stent in left eye. Migraines. Insomnia. Frequent night time urination. Chronic nausea. Last Myocardial Infarction Date:: 01/2019 History of Any Multi-Drug Resistant Organisms: None Reported Past Surgical History: Back Surgery, Bariatric Surgery, Bladder Surgery, Chol ecystectomy, Heart Catheterization With Stent, Hysterectomy, Orthopedic Surgery, Tonsillectomy, Tubal Ligation Additional Past Surgical History / Comment(s): Lap band 2009, lumbar laminectomy, wayne and screw to lumbar back, open reduction of right ankle fracture, bilateral carpal tunnel surgery X2 each side, left cubital tunnel surgery, cardiac stent X2 - January 2019, left eye gel stent. Past Anesthesia/Blood Transfusion Reactions: No Reported Reaction Additional Past Anesthesia/Blood Transfusion Reaction / Comment(s): No problems with prior blood transfusion at age 19 after bleed with tonsillectomy. Date of Last Stent Placement:: 01/2019 Past Psychological History: Anxiety, Panic Disorder Additional Psychological History / Comment(s): Panic attacks. Smoking Status: Never smoker Past Alcohol Use History: None Reported Additional Past Alcohol Use History / Comment(s): Patient is a lifelong nonsmoker. She denies any medical marijuana, marijuana, street drug or alcohol use. She lives at home with her . 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 Past Drug Use History: None Reported - Past Family History Father Family Medical History: Cancer Additional Family Medical History / Comment(s): FATHER AT AGE 91YRS. Skin cancer. Mother Family Medical History: CVA/TIA Additional Family Medical History / Comment(s): MOTHER AT AGE 67 YRS OF CVA. Medications and Allergies Home Medications Medication Instructions Recorded Confirmed Type Morphine Sulfate ER [Ms Contin] 30 mg PO Q8H 11/08/15 11/27/22 History Rizatriptan Benzoate [Maxalt] 10 mg PO BID PRN 07/04/16 11/27/22 History Topiramate [Topamax] 50 mg PO TID 07/04/16 11/27/22 History Brimonidine Tartrate [Alphagan P 1 drops RIGHT EYE TID 09/09/17 11/27/22 History 0.2% Ophth Soln] Albuterol Inhaler [Ventolin Hfa 2 puff INHALATION RT-Q4H PRN 11/03/18 11/27/22 History Inhaler] Propylene Glycol/Peg 400/Pf 1 drop LEFT EYE Q1H 11/03/18 11/27/22 History [Systane 0.3-0.4% Ophth Dropperette] Aspirin EC [Ecotrin Low Dose] 81 mg PO DAILY 02/05/19 11/27/22 History clonazePAM [KlonoPIN] 0.25 - 0.5 tab PO Q8H PRN 02/05/19 11/27/22 History Netarsudil Mesylat/Latanoprost 1 drop RIGHT EYE HS 04/12/20 11/27/22 History [Rocklatan 0.02%-0.005% Eye Drp] Valsartan 160 mg PO DAILY@1800 04/12/20 11/27/22 History Atorvastatin [Lipitor] 40 mg PO Q48H 04/20/20 11/27/22 History Cetirizine HCl 10 mg PO DAILY@1800 04/20/20 11/27/22 History HYDROcodone/APAP 10-325MG [Irrigon 1 tab PO TID PRN 04/20/20 11/27/22 History 10-325] Erenumab-Aooe [Aimovig 140 mg SQ Q30D 11/04/22 11/27/22 History Autoinjector] Eszopiclone [Lunesta] 2 mg PO HS 11/04/22 11/27/22 History Melatonin [Melatonin ER] 10 mg PO HS 11/04/22 11/27/22 History Montelukast Sodium [Singulair] 10 mg PO DAILY@1800 11/04/22 11/27/22 History Pantoprazole [Protonix] 40 mg PO BID@0900,1800 11/04/22 11/27/22 History Pioglitazone [Actos] 30 mg PO DAILY 11/04/22 11/27/22 History amLODIPine BESYLATE 2.5 mg PO DAILY@1800 11/04/22 11/27/22 History polyethylene glycoL 3350 [Miralax] 17 gm PO DAILY PRN 11/04/22 11/27/22 History Diclofenac Sodium Gel [Voltaren 1 applic TOPICAL QID PRN 11/27/22 11/27/22 History Gel] Ondansetron Odt [Zofran ODT] 8 mg PO Q8HR PRN 11/27/22 11/27/22 History Semaglutide [Ozempic] 0.25 mg SQ SA 11/27/22 11/27/22 History Venlafaxine HCl ER [Effexor XR] 37.5 mg PO DAILY 11/27/22 11/27/22 History Venlafaxine HCl ER [Effexor XR] 75 mg PO DAILY@1800 11/27/22 11/27/22 History cycloSPORINE 0.05% OPHTH SOLN 1 applicator BOTH EYES BID 11/27/22 11/27/22 History [Restasis] guaiFENesin [Mucinex] 600 mg PO BID PRN 11/27/22 11/27/22 History traZODone HCL [Desyrel] 400 mg PO HS 11/27/22 11/27/22 History Metoprolol Tartrate [Lopressor] 12.5 mg PO TID #90 tab 11/28/22 Rx Nitroglycerin Sl Tabs [Nitrostat] 0.4 mg SUBLINGUAL Q5M PRN #20 tab 11/28/22 Rx Allergies Allergy/AdvReac Type Severity Reaction Status Date / Time adhesive Allergy Severe Rash/Hives, Verified 11/27/22 20:15 BLISTERS levofloxacin [From Levaquin] Allergy Severe Anaphylaxis Verified 11/27/22 20:15 metoclopramide HCl Allergy Severe Anaphylaxis Verified 11/27/22 20:15 [From Reglan] Phenothiazines Allergy Severe Anaphylaxis Verified 11/27/22 20:15 thiethylperazine maleate Allergy Severe Anaphylaxis Verified 11/27/22 20:15 [From Torecan] venom-honey bee Allergy Severe Anaphylaxis Verified 11/27/22 20:15 [bee venom (honey bee)] iodine Allergy Intermediate Rash/Hives Verified 11/27/22 20:15 chlorhexidine Allergy red dye in Verified 11/27/22 20:15 [From Hibiclens] hibiclens causes Rash/Hives cigarette smoke Allergy Cough Verified 11/27/22 20:15 duloxetine [From Cymbalta] Allergy Unknown Verified 11/27/22 20:15 meloxicam [From Mobic] Allergy Unknown Verified 11/27/22 20:15 pregabalin [From Lyrica] Allergy oversedatio Verified 11/27/22 20:15 n fentanyl AdvReac OVER Verified 11/27/22 20:15 SEDATED, WEAKNESS [id number] Reductase AdvReac increased Verified 11/27/22 20:15 Inhibitor fibramyalgia [[id number] Reductase symptoms Inhibitor] Physical Exam Vitals: Vital Signs Temp Pulse Pulse Resp BP BP Pulse Ox 11/28/22 07:00 98.3 F 114 H 16 163/85 98 11/27/22 23:39 99.1 F 107 H 17 166/86 95 11/27/22 23:00 105 H 16 151/99 96 11/27/22 22:14 108 H 11/27/22 22:07 112 H 18 160/101 95 11/27/22 20:16 116 H 18 162/103 99 11/27/22 17:49 98.2 F 116 H 16 191/99 97 Intake and Output 11/27/22 11/28/22 11/28/22 22:59 06:59 14:59 Other: # Voids 2 1 Weight 60.781 kg 60.781 kg Results CBC & Chem 7: 11/27/22 18:44 11/27/22 18:44 Labs: Abnormal Lab Results - Last 24 Hours (Table) 11/27/22 11/27/22 11/27/22 Range/Units 18:44 18:44 18:44 WBC 11.9 H (3.8-10.6) k/uL Neutrophils # 11.1 H (1.3-7.7) k/uL Lymphocytes # 0.6 L (1.0-4.8) k/uL APTT (22.0-30.0) sec D-Dimer 0.69 H (<0.60) mg/L FEU Potassium 3.2 L (3.5-5.1) mmol/L Glucose 139 H (74-99) mg/dL Plasma Lactic Acid Everton (0.7-2.0) mmol/L Troponin I (0.000-0.034) ng/mL HDL Cholesterol (40.00-60.00) mg/dL 11/27/22 11/27/22 11/28/22 Range/Units 18:44 18:44 01:17 WBC (3.8-10.6) k/uL Neutrophils # (1.3-7.7) k/uL Lymphocytes # (1.0-4.8) k/uL APTT (22.0-30.0) sec D-Dimer (<0.60) mg/L FEU Potassium (3.5-5.1) mmol/L Glucose (74-99) mg/dL Plasma Lactic Acid Ever[place] 2.8 H* (0.7-2.0) mmol/L Troponin I 0.046 H* (0.000-0.034) ng/mL HDL Cholesterol 78.10 H (40.00-60.00) mg/dL 11/28/22 Range/Units 09:04 WBC (3.8-10.6) k/uL Neutrophils # (1.3-7.7) k/uL Lymphocytes # (1.0-4.8) k/uL APTT 57.0 H (22.0-30.0) sec D-Dimer (<0.60) mg/L FEU Potassium (3.5-5.1) mmol/L Glucose (74-99) mg/dL Plasma Lactic Acid Ever[place] (0.7-2.0) mmol/L Troponin I (0.000-0.034) ng/mL HDL Cholesterol (40.00-60.00) mg/dL Thrombosis Risk Factor Assmnt - DVT/VTE Prophylaxis DVT/VTE Prophylaxis: Mechanical Prophylaxis ordered Assessment and Plan Time with Patient: Greater than 30
--- NOTE | 2022-11-28 14:55 | P.DS ---
Providers Date of admission: 11/27/22 20:23 Expected date of discharge: 11/28/22 Attending physician: Angle Wolfe Consults: 11/27/22 20:22 Consult Physician Urgent Consulting Provider: Wade Galicia Consult Reason/Comments: chest pain Do you want consulting provider notified?: Yes Primary care physician: Radha Jovel [facility] Course: Final diagnosis Chest pain, NSTEMI, with elevated troponins, status post cardiac catheterization which was clear requiring no intervention at this time Palpitations, sinus tachycardia on EKG History of asthma, not in exacerbation Diabetes mellitus history Fibromyalgia history GERD Hyperlipidemia Hypertension Previous myocardial infarction in 2019 with history of coronary artery disease and stenting History of osteoarthritis Anxiety with panic disorder history GI prophylaxis DVT prophylaxis Full code Discharge disposition Patient is being discharged in a stable condition with guarded prognosis to home. Patient will follow-up with Dr. Jovel in the outpatient setting upon discharge. Patient is to follow-up with cardiology as scheduled. Total time taken is greater than 35 minutes. Hospital course This is a 72-year-old female who was recently admitted with chest pain with sweats and dizziness and palpitations and being closely monitored. Patient initial troponin was negative although slightly increased and was started on IV heparin with cardiology for evaluation. Cardiology recommending cardiac catheterization which was done with no intervention needed with no progression in disease recommending increase the metoprolol and close outpatient follow-up with cardiology this week. Patient has been cleared by cardiology. Please refer to cardiology note for further HPI. Currently no reports of chest pain, shortness of breath, or palpitations. Patient is afebrile. No reports of nausea or vomiting and patient is tolerating diet. Patient will be discharged home later today. Physical exam: Gen: This is a 72-year-old female who is awake, alert and oriented 3, well- developed, well-nourished HEENT: Head is atraumatic, normocephalic. Pupils equal, round. Sclerae is anicteric. NECK: Supple. No JVD. No lymphadenopathy. No thyromegaly. LUNGS: Clear to auscultation. No wheezes or rhonchi. No intercostal retractions. HEART: Regular rate and rhythm. No murmur. Tachycardic ABDOMEN: Soft. Bowel sounds are present. No masses. No tenderness. EXTREMITIES: No pedal edema. No calf tenderness. NEUROLOGICAL: Patient is awake, alert and oriented x3. Cranial nerves 2 through 12 are grossly intact. Please refer to medication reconciliation sheet for a list of medications. The impression and plan of care has been dictated by Zohra Hua, Nurse Practitioner as directed. Dr. Nilesh MD I have performed a history and examination and MDM of this patient, discussed the same with the dictator, and agree with the dictator's assessment and plan as written ,documented as a scribe. Based on total visit time, I have performed more than 50% of the visit. Patient Condition at Discharge: Fair Plan - Discharge Summary New Discharge Prescriptions: New Metoprolol Tartrate [Lopressor] 12.5 mg PO TID #90 tab Nitroglycerin Sl Tabs [Nitrostat] 0.4 mg SUBLINGUAL Q5M PRN #20 tab PRN Reason: Chest Pain Continue Morphine Sulfate ER [Ms Contin] 30 mg PO Q8H Topiramate [Topamax] 50 mg PO TID Rizatriptan Benzoate [Maxalt] 10 mg PO BID PRN PRN Reason: Migraine Headache Brimonidine Tartrate [Alphagan P 0.2% Ophth Soln] 1 drops RIGHT EYE TID Propylene Glycol/Peg 400/Pf [Systane 0.3-0.4% Ophth Dropperette] 1 drop LEFT EYE Q1H Albuterol Inhaler [Ventolin Hfa Inhaler] 2 puff INHALATION RT-Q4H PRN PRN Reason: Shortness Of Breath Aspirin EC [Ecotrin Low Dose] 81 mg PO DAILY clonazePAM [KlonoPIN] 0.25 - 0.5 tab PO Q8H PRN PRN Reason: Anxiety Valsartan 160 mg PO DAILY@1800 Netarsudil Mesylat/Latanoprost [Rocklatan 0.02%-0.005% Eye Drp] 1 drop RIGHT EYE HS HYDROcodone/APAP 10-325MG [Knickerbocker 10-325] 1 tab PO TID PRN PRN Reason: Pain Atorvastatin [Lipitor] 40 mg PO Q48H Cetirizine HCl 10 mg PO DAILY@1800 Pantoprazole [Protonix] 40 mg PO BID@0900,1800 amLODIPine BESYLATE 2.5 mg PO DAILY@1800 Erenumab-Aooe [Aimovig Autoinjector] 140 mg SQ Q30D cycloSPORINE 0.05% OPHTH SOLN [Restasis] 1 applicator BOTH EYES BID Ondansetron Odt [Zofran ODT] 8 mg PO Q8HR PRN PRN Reason: Nausea And Vomiting Venlafaxine HCl ER [Effexor XR] 37.5 mg PO DAILY Venlafaxine HCl ER [Effexor XR] 75 mg PO DAILY@1800 Semaglutide [Ozempic] 0.25 mg SQ SA polyethylene glycoL 3350 [Miralax] 17 gm PO DAILY PRN PRN Reason: Constipation Pioglitazone [Actos] 30 mg PO DAILY Montelukast Sodium [Singulair] 10 mg PO DAILY@1800 Eszopiclone [Lunesta] 2 mg PO HS Melatonin [Melatonin ER] 10 mg PO HS guaiFENesin [Mucinex] 600 mg PO BID PRN PRN Reason: Cold Symptoms Diclofenac Sodium Gel [Voltaren Gel] 1 applic TOPICAL QID PRN PRN Reason: Pain traZODone HCL [Desyrel] 400 mg PO HS Discharge Medication List Morphine Sulfate ER [Ms Contin] 30 mg PO Q8H 11/08/15 [History] Rizatriptan Benzoate [Maxalt] 10 mg PO BID PRN 07/04/16 [History] Topiramate [Topamax] 50 mg PO TID 07/04/16 [History] Brimonidine Tartrate [Alphagan P 0.2% Ophth Soln] 1 drops RIGHT EYE TID 09/09/17 [History] Albuterol Inhaler [Ventolin Hfa Inhaler] 2 puff INHALATION RT-Q4H PRN 11/03/18 [History] Propylene Glycol/Peg 400/Pf [Systane 0.3-0.4% Ophth Dropperette] 1 drop LEFT EYE Q1H 11/03/18 [History] Aspirin EC [Ecotrin Low Dose] 81 mg PO DAILY 02/05/19 [History] clonazePAM [KlonoPIN] 0.25 - 0.5 tab PO Q8H PRN 02/05/19 [History] Netarsudil Mesylat/Latanoprost [Rocklatan 0.02%-0.005% Eye Drp] 1 drop RIGHT EYE HS 04/12/20 [History] Valsartan 160 mg PO DAILY@1800 04/12/20 [History] Atorvastatin [Lipitor] 40 mg PO Q48H 04/20/20 [History] Cetirizine HCl 10 mg PO DAILY@1800 04/20/20 [History] HYDROcodone/APAP 10-325MG [Knickerbocker 10-325] 1 tab PO TID PRN 04/20/20 [History] Erenumab-Aooe [Aimovig Autoinjector] 140 mg SQ Q30D 11/04/22 [History] Eszopiclone [Lunesta] 2 mg PO HS 11/04/22 [History] Melatonin [Melatonin ER] 10 mg PO HS 11/04/22 [History] Montelukast Sodium [Singulair] 10 mg PO DAILY@1800 11/04/22 [History] Pantoprazole [Protonix] 40 mg PO BID@0900,1800 11/04/22 [History] Pioglitazone [Actos] 30 mg PO DAILY 11/04/22 [History] amLODIPine BESYLATE 2.5 mg PO DAILY@1800 11/04/22 [History] polyethylene glycoL 3350 [Miralax] 17 gm PO DAILY PRN 11/04/22 [History] Diclofenac Sodium Gel [Voltaren Gel] 1 applic TOPICAL QID PRN 11/27/22 [History] Ondansetron Odt [Zofran ODT] 8 mg PO Q8HR PRN 11/27/22 [History] Semaglutide [Ozempic] 0.25 mg SQ SA 11/27/22 [History] Venlafaxine HCl ER [Effexor XR] 37.5 mg PO DAILY 11/27/22 [History] Venlafaxine HCl ER [Effexor XR] 75 mg PO DAILY@1800 11/27/22 [History] cycloSPORINE 0.05% OPHTH SOLN [Restasis] 1 applicator BOTH EYES BID 11/27/22 [History] guaiFENesin [Mucinex] 600 mg PO BID PRN 11/27/22 [History] traZODone HCL [Desyrel] 400 mg PO HS 11/27/22 [History] Metoprolol Tartrate [Lopressor] 12.5 mg PO TID #90 tab 11/28/22 [Rx] Nitroglycerin Sl Tabs [Nitrostat] 0.4 mg SUBLINGUAL Q5M PRN #20 tab 11/28/22 [Rx] Follow up Appointment(s)/Referral(s): Clayton Pino MD [STAFF PHYSICIAN] - 12/06/22 9:15 am Radha Jovel III, MD [Primary Care Provider] - 1-2 days Activity/Diet/Wound Care/Special Instructions: Activity Limited until follow-up Follow-up with primary care provider and discharged Follow-up with cardiology outpatient continue taking medications as prescribed Continue heart healthy diet Discharge Disposition: HOME SELF-CARE
[2022-11-28 17:22] VITALS: TEMP 97.9
[2022-11-28 17:25] VITALS: PULSE 74
[2022-11-28 17:27] VITALS: BP 133/62
[2022-11-28] MEDS ORDERED: LATANOPROST 0.005% OPHTH DROPS 2.5 ML BTL RIGHT EYE SCH (21:00)
[2022-11-28] MEDS ORDERED: TEMAZEPAM 15 MG CAP PO SCH (21:00)
[2022-11-29] MEDS ORDERED: HEPARIN SODIUM,PORCINE 10,000 UNIT in SODIUM CHLORIDE 0.9% 1,000 ML IRRIGATION PRN (07:00)
[2022-11-29] MEDS ORDERED: HEPARIN SODIUM,PORCINE 2,500 UNIT in SODIUM CHLORIDE 0.9% 250 ML IRRIGATION PRN (07:00)
== END 2022-11-28 17:53 | disposition home or self-care (01) ==
LOC: EC 17:44 → 6NMEDSUR 20:23
PROVIDERS: ADMIT Hospitalist; ATTEND Hospitalist
DX: R07.89 Other chest pain (principal); M79.7 Fibromyalgia; K21.9 Gastro-esophageal reflux disease without esophagitis; H54.61 Unqualified visual loss, right eye, normal vision left eye; I10 Essential (primary) hypertension; G47.00 Insomnia, unspecified; E78.5 Hyperlipidemia, unspecified; I25.10 Atherosclerotic heart disease of native coronary artery without angina pectoris; I25.2 Old myocardial infarction; I08.2 Rheumatic disorders of both aortic and tricuspid valves; I37.1 Nonrheumatic pulmonary valve insufficiency; L71.9 Rosacea, unspecified; R00.0 Tachycardia, unspecified; F41.0 Panic disorder [episodic paroxysmal anxiety]; E11.39 Type 2 diabetes mellitus with other diabetic ophthalmic complication; H42 Glaucoma in diseases classified elsewhere; J44.9 Chronic obstructive pulmonary disease, unspecified; Z79.899 Other long term (current) drug therapy; Z79.82 Long term (current) use of aspirin; Z79.84 Long term (current) use of oral hypoglycemic drugs; Z88.8 Allergy status to other drugs, medicaments and biological substances; Z98.84 Bariatric surgery status; Z90.49 Acquired absence of other specified parts of digestive tract; Z90.710 Acquired absence of both cervix and uterus; Z98.51 Tubal ligation status; Z63.4 Disappearance and death of family member; Z82.3 Family history of stroke; Z80.8 Family history of malignant neoplasm of other organs or systems; Z95.5 Presence of coronary angioplasty implant and graft
CPT/HCPCS: 36415; 71046; 80053; 80061; 83605; 83735; 83880; 84443; 84484; 85025; 85379; 85610; 85730; 93005; 93306; 93458; 96374; 96375; 99285

== ENCOUNTER 2023-04-22 15:26 | Emergency (ER) | payer MEDICARE ==
[2023-04-22] MEDS ORDERED: SODIUM CHLORIDE 0.9% 1,000 ML IV STA (16:00)
[2023-04-22] MEDS ORDERED: LORazepam 2 MG/ML INJ IV STA ×2 (16:01→20:30)
[2023-04-22] MEDS ORDERED: FAMOTIDINE 20 MG/2 ML VIAL IV STA (16:01)
--- NOTE | 2023-04-22 16:03 | ED ---
General Adult HPI - General Chief complaint: Weakness Stated complaint: HTN Time Seen by Provider: 04/22/23 15:28 Source: patient, RN notes reviewed Mode of arrival: EMS Limitations: no limitations - History of Present Illness Initial comments: Patient is a pleasant 73-year-old female presenting from the office with concern for high blood pressure. Patient states she has not been feeling well for weeks. Patient states she did have: 19 Patient done a couple weeks ago and has not been feeling well since that time. Patient has been more anxious than normal. Patient is having problems with her anxiety medication. Patient is not sleeping well. Decreased appetite. - Related Data Home Medications Medication Instructions Recorded Confirmed Morphine Sulfate ER [Ms Contin] 30 mg PO Q8H 11/08/15 11/27/22 Rizatriptan Benzoate [Maxalt] 10 mg PO BID PRN 07/04/16 11/27/22 Topiramate [Topamax] 50 mg PO TID 07/04/16 11/27/22 Brimonidine Tartrate [Alphagan P 1 drops RIGHT EYE TID 09/09/17 11/27/22 0.2% Ophth Soln] Albuterol Inhaler [Ventolin Hfa 2 puff INHALATION RT-Q4H PRN 11/03/18 11/27/22 Inhaler] Propylene Glycol/Peg 400/Pf 1 drop LEFT EYE Q1H 11/03/18 11/27/22 [Systane 0.3-0.4% Ophth Dropperette] Aspirin EC [Ecotrin Low Dose] 81 mg PO DAILY 02/05/19 11/27/22 clonazePAM [KlonoPIN] 0.25 - 0.5 tab PO Q8H PRN 02/05/19 11/27/22 Netarsudil Mesylat/Latanoprost 1 drop RIGHT EYE HS 04/12/20 11/27/22 [Rocklatan 0.02%-0.005% Eye Drp] Valsartan 160 mg PO DAILY@1800 04/12/20 11/27/22 Atorvastatin [Lipitor] 40 mg PO Q48H 04/20/20 11/27/22 Cetirizine HCl 10 mg PO DAILY@1800 04/20/20 11/27/22 HYDROcodone/APAP 10-325MG [[place] 1 tab PO TID PRN 04/20/20 11/27/22 10-325] Erenumab-Aooe [Aimovig 140 mg SQ Q30D 11/04/22 11/27/22 Autoinjector] Eszopiclone [Lunesta] 2 mg PO HS 11/04/22 11/27/22 Melatonin [Melatonin ER] 10 mg PO HS 11/04/22 11/27/22 Montelukast Sodium [Singulair] 10 mg PO DAILY@1800 11/04/22 11/27/22 Pantoprazole [Protonix] 40 mg PO BID@0900,1800 11/04/22 11/27/22 Pioglitazone [Actos] 30 mg PO DAILY 11/04/22 11/27/22 amLODIPine BESYLATE 2.5 mg PO DAILY@1800 11/04/22 11/27/22 polyethylene glycoL 3350 [Miralax] 17 gm PO DAILY PRN 11/04/22 11/27/22 Diclofenac Sodium Gel [Voltaren 1% 1 applic TOPICAL QID PRN 11/27/22 11/27/22 Gel] Ondansetron Odt [Zofran ODT] 8 mg PO Q8HR PRN 11/27/22 11/27/22 Semaglutide [Ozempic] 0.25 mg SQ SA 11/27/22 11/27/22 Venlafaxine HCl ER [Effexor XR] 37.5 mg PO DAILY 11/27/22 11/27/22 Venlafaxine HCl ER [Effexor XR] 75 mg PO DAILY@1800 11/27/22 11/27/22 cycloSPORINE 0.05% OPHTH SOLN 1 applicator BOTH EYES BID 11/27/22 11/27/22 [Restasis] guaiFENesin [Mucinex] 600 mg PO BID PRN 11/27/22 11/27/22 traZODone HCL [Desyrel] 400 mg PO HS 11/27/22 11/27/22 Previous Rx's Medication Instructions Recorded Metoprolol Tartrate [Lopressor] 12.5 mg PO TID #90 tab 11/28/22 Nitroglycerin Sl Tabs [Nitrostat] 0.4 mg SUBLINGUAL Q5M PRN #20 tab 11/28/22 Allergies Allergy/AdvReac Type Severity Reaction Status Date / Time adhesive Allergy Severe Rash/Hives, Verified 11/27/22 20:15 BLISTERS levofloxacin [From Levaquin] Allergy Severe Anaphylaxis Verified 11/27/22 20:15 metoclopramide HCl Allergy Severe Anaphylaxis Verified 11/27/22 20:15 [From Reglan] Phenothiazines Allergy Severe Anaphylaxis Verified 11/27/22 20:15 thiethylperazine maleate Allergy Severe Anaphylaxis Verified 11/27/22 20:15 [From Torecan] venom-honey bee Allergy Severe Anaphylaxis Verified 11/27/22 20:15 [bee venom (honey bee)] iodine Allergy Intermediate Rash/Hives Verified 11/27/22 20:15 chlorhexidine Allergy red dye in Verified 11/27/22 20:15 [From Hibiclens] hibiclens causes Rash/Hives cigarette smoke Allergy Cough Verified 11/27/22 20:15 duloxetine [From Cymbalta] Allergy Unknown Verified 11/27/22 20:15 meloxicam [From Mobic] Allergy Unknown Verified 11/27/22 20:15 pregabalin [From Lyrica] Allergy oversedatio Verified 11/27/22 20:15 n fentanyl AdvReac OVER Verified 11/27/22 20:15 SEDATED, WEAKNESS [id number] Reductase AdvReac increased Verified 11/27/22 20:15 Inhibitor fibramyalgia [Eahxxdr-Xil-Ovt Reductase symptoms Inhibitor] Review of Systems ROS Statement: Those systems with pertinent positive or pertinent negative responses have been documented in the HPI. ROS Other: All systems not noted in ROS Statement are negative. Constitutional: Denies: fever Eyes: Denies: eye pain ENT: Denies: ear pain Respiratory: Denies: cough, dyspnea Cardiovascular: Denies: chest pain Endocrine: Reports: fatigue Gastrointestinal: Reports: nausea. Denies: abdominal pain Musculoskeletal: Denies: back pain Psychiatric: Reports: anxiety Past Medical History Past Medical History: Asthma, Diabetes Mellitus, Eye Disorder, Fibromyalgia, GERD/Reflux, Hyperlipidemia, Hypertension, Myocardial Infarction ([place]), Musculoskeletal Disorder, Osteoarthritis (OA), Skin Disorder Additional Past Medical History / Comment(s): Rosacea, dry skin. Degenerative Disc Disease, hx severe back injury from work, kyphosis. Hx bilateral ankle fractures. Glaucoma, blind in right eye, increased left eye pressure and gel stent in left eye. Migraines. Insomnia. Frequent night time urination. Chronic nausea. Last Myocardial Infarction Date:: 01/2019 History of Any Multi-Drug Resistant Organisms: None Reported Past Surgical History: Back Surgery, Bariatric Surgery, Bladder Surgery, Cholecystectomy, Heart Catheterization With Stent, Hysterectomy, Orthopedic Surgery, Tonsillectomy, Tubal Ligation Additional Past Surgical History / Comment(s): Lap band 2009, lumbar laminectomy, wayne and screw to lumbar back, open reduction of right ankle fracture, bilateral carpal tunnel surgery X2 each side, left cubital tunnel surgery, cardiac stent X2 - January 2019, left eye gel stent. Past Anesthesia/Blood Transfusion Reactions: No Reported Reaction Additional Past Anesthesia/Blood Transfusion Reaction / Comment(s): No problems with prior blood transfusion at age 19 after bleed with tonsillectomy. Date of Last Stent Placement:: 01/2019 Past Psychological History: Anxiety, Panic Disorder Smoking Status: Never smoker Past Alcohol Use History: None Reported Past Drug Use History: None Reported - Past Family History Father Family Medical History: Cancer Additional Family Medical History / Comment(s): FATHER AT AGE 91YRS. Skin cancer. Mother Family Medical History: CVA/TIA Additional Family Medical History / Comment(s): MOTHER AT AGE 67 YRS OF CVA. General Exam Limitations: no limitations General appearance: alert, in no apparent distress Head exam: Present: normocephalic Eye exam: Present: normal appearance ENT exam: Present: mucous membranes dry Neck exam: Present: normal inspection Respiratory exam: Present: normal lung sounds bilaterally Cardiovascular Exam: Present: regular rate, normal rhythm GI/Abdominal exam: Present: soft. Absent: tenderness Extremities exam: Present: normal inspection. Absent: pedal edema, calf tenderness Neurological exam: Present: alert, oriented X3, CN II-XII intact. Absent: motor sensory deficit Expanded Motor strength exam: RUE: 5, LUE: 5, RLE: 5, LLE: 5 Eye Response: (4) open spontaneously Motor Response: (6) obeys commands Verbal Response: (5) oriented Psychiatric exam: Present: anxious Skin exam: Present: normal color Course Vital Signs 04/22/23 04/22/23 04/22/23 15:35 15:51 16:39 Pulse Rate 95 97 85 Respiratory 18 20 20 Rate Blood Pressure 189/99 194/110 150/110 O2 Sat by Pulse 98 99 97 Oximetry 04/22/23 04/22/23 04/22/23 17:00 18:00 19:00 Pulse Rate 85 90 90 Respiratory 20 20 20 Rate Blood Pressure 150/110 187/111 190/110 O2 Sat by Pulse 98 98 98 Oximetry 04/22/23 04/22/23 19:56 20:55 Pulse Rate Respiratory Rate Blood Pressure 156/103 176/90 O2 Sat by Pulse Oximetry EKG Findings - EKG Results: EKG: interpreted by ERMD, sinus rhythm, normal axis, normal QRS, normal ST/T Medical Decision Making - Medical Decision Making Was pt. sent in by a medical professional or institution (, PA, DRY KILN OPERATOR, urgent care, hospital, or detention...) When possible be specific @ -No Did you speak to anyone other than the patient for history (EMS, parent, family, police, friend...)? What history was obtained from this source @ -No Did you review nursing and triage notes (agree or disagree)? Why? @ -I reviewed and agree with nursing and triage notes Were old charts reviewed (outside hosp., previous admission, EMS record, old EKG, old radiological studies, urgent care reports/EKG's, detention records)? Report findings @ -No old charts were reviewed Differential Diagnosis (chest pain, altered mental status, abdominal pain women, abdominal pain men, vaginal bleeding, weakness, fever, dyspnea, syncope, headache, dizziness, GI bleed, back pain, seizure, CVA, palpatations, mental health, musculoskeletal)? @ -Differential Palpitations Ventricular arrhythmias, atrial arrhythmias, myocardial infarction, anemia, thyrotoxicosis, electrolyte imbalance, hypokalemia, pulmonary embolism, pulmonary disease, drugs, alcohol, anxiety, stress.... This is not meant to be an all-inclusive list. EKG interpreted by me (3pts min.). @ -As above X-rays interpreted by me (1pt min.). @ -Chest x-ray does not reveal acute process CT interpreted by me (1pt min.). @ -None done U/S interpreted by me (1pt. min.). @ -None done What testing was considered but not performed or refused? (CT, X-rays, U/S, labs)? Why? @ -None What meds were considered but not given or refused? Why? @ -None Did you discuss the management of the patient with other professionals (professionals i.e. , PA, DRY KILN OPERATOR, lab, RT, psych nurse, director social, almond roaster, teacher, chief sales officer, case management director)? Give summary @ -No Was smoking cessation discussed for >3mins.? @ -No Was critical care preformed (if so, how long)? @ -No Were there social determinants of health that impacted care today? How? (Homelessness, low income, unemployed, alcoholism, drug addiction, transportation, low edu. Level, literacy, decrease access to med. care, long term, rehab)? @ -No Was there de-escalation of care discussed even if they declined (Discuss DNR or withdrawal of care, Hospice)? DNR status @ -No What co-morbidities impacted this encounter? (DM, HTN, Smoking, COPD, CAD, Cancer, CVA, ARF, Chemo, Hep., AIDS, mental health diagnosis, sleep apnea, m orbid obesity)? @ -None Was patient admitted / discharged? Hospital course, mention meds given and route, prescriptions, significant lab abnormalities, going to OR and other pertinent info. @ -Patient presents with anxiety and hypertension. Patient did improve with medications. Patient also was missing her pain medication and did need dose of pain medication. Several extensive conversation had with patient regarding her anxiety. Blood pressure has significantly improved. She'll be discharged to follow-up with her primary care physician. Undiagnosed new problem with uncertain prognosis? @ -No Drug Therapy requiring intensive monitoring for toxicity (Heparin, Nitro, Insulin, Cardizem)? @ -No Were any procedures done? @ -No Diagnosis/symptom? @ -Hypertension, anxiety Acute, or Chronic, or Acute on Chronic? @ -Acute, acute Uncomplicated (without systemic symptoms) or Complicated (systemic symptoms)? @ -default Side effects of treatment? @ -No Exacerbation, Progression, or Severe Exacerbation? @ -No Poses a threat to life or bodily function? How? (Chest pain, [place], [place], pneumonia, PE, COPD, DKA, ARF, appy, cholecystitis, CVA, Diverticulitis, Homicidal, Suicidal, threat to staff... and all critical care pts) @ -No - Lab Data Result diagrams: 04/22/23 16:00 04/22/23 16:00 Lab Results 04/22/23 04/22/23 04/22/23 Range/Units 16:00 16:00 16:00 WBC 7.2 (3.8-10.6) k/uL RBC 4.24 (3.80-5.40) m/uL Hgb 12.4 (11.4-16.0) gm/dL Hct 37.0 (34.0-46.0) % MCV 87.3 (80.0-100.0) fL MCH 29.3 (25.0-35.0) pg MCHC 33.6 (31.0-37.0) g/dL RDW 13.8 (11.5-15.5) % Plt Count 395 (150-450) k/uL MPV 7.9 Neutrophils % 64 % Lymphocytes % 27 % Monocytes % 4 % Eosinophils % 3 % Basophils % 1 % Neutrophils # 4.6 (1.3-7.7) k/uL Lymphocytes # 1.9 (1.0-4.8) k/uL Monocytes # 0.3 (0-1.0) k/uL Eosinophils # 0.2 (0-0.7) k/uL Basophils # 0.0 (0-0.2) k/uL Sodium 135 L (137-145) mmol/L Potassium 3.8 (3.5-5.1) mmol/L Chloride 99 (98-107) mmol/L Carbon Dioxide 25 (22-30) mmol/L Anion Gap 11 mmol/L BUN 8 (7-17) mg/dL Creatinine 0.75 (0.52-1.04) mg/dL Est GFR (CKD-EPI)AfAm >90 (>60 ml/min/1.73 sqM) Est GFR (CKD-EPI)NonAf 80 (>60 ml/min/1.73 sqM) Glucose 202 H (74-99) mg/dL Plasma Lactic Acid [place] (0.7-2.0) mmol/L Calcium 10.1 (8.4-10.2) mg/dL Magnesium 1.8 (1.6-2.3) mg/dL Total Bilirubin 0.5 (0.2-1.3) mg/dL AST 27 (14-36) U/L ALT 25 (4-34) U/L Alkaline Phosphatase 119 (38-126) U/L Total Protein 7.9 (6.3-8.2) g/dL Albumin 4.7 (3.5-5.0) g/dL Urine Color Colorless Urine Appearance Clear (Clear) Urine pH 7.0 (5.0-8.0) Ur Specific [place] 1.004 (1.001-1.035) Urine Protein Negative (Negative) Urine Glucose (UA) Negative (Negative) Urine Ketones Negative (Negative) Urine Blood Negative (Negative) Urine Nitrite Negative (Negative) Urine Bilirubin Negative (Negative) Urine Urobilinogen <2.0 (<2.0) mg/dL Ur Leukocyte Esterase Negative (Negative) 04/22/23 Range/Units 16:00 WBC (3.8-10.6) k/uL RBC (3.80-5.40) m/uL Hgb (11.4-16.0) gm/dL Hct (34.0-46.0) % MCV (80.0-100.0) fL MCH (25.0-35.0) pg MCHC (31.0-37.0) g/dL RDW (11.5-15.5) % Plt Count (150-450) k/uL MPV Neutrophils % % Lymphocytes % % Monocytes % % Eosinophils % % Basophils % % Neutrophils # (1.3-7.7) k/uL Lymphocytes # (1.0-4.8) k/uL Monocytes # (0-1.0) k/uL Eosinophils # (0-0.7) k/uL Basophils # (0-0.2) k/uL Sodium (137-145) mmol/L Potassium (3.5-5.1) mmol/L Chloride (98-107) mmol/L Carbon Dioxide (22-30) mmol/L Anion Gap mmol/L BUN (7-17) mg/dL Creatinine (0.52-1.04) mg/dL Est GFR (CKD-EPI)AfAm (>60 ml/min/1.73 sqM) Est GFR (CKD-EPI)NonAf (>60 ml/min/1.73 sqM) Glucose (74-99) mg/dL Plasma Lactic Acid [place] 1.5 (0.7-2.0) mmol/L Calcium (8.4-10.2) mg/dL Magnesium (1.6-2.3) mg/dL Total Bilirubin (0.2-1.3) mg/dL AST (14-36) U/L ALT (4-34) U/L Alkaline Phosphatase (38-126) U/L Total Protein (6.3-8.2) g/dL Albumin (3.5-5.0) g/dL Urine Color Urine Appearance (Clear) Urine pH (5.0-8.0) Ur Specific [place] (1.001-1.035) Urine Protein (Negative) Urine Glucose (UA) (Negative) Urine Ketones (Negative) Urine Blood (Negative) Urine Nitrite (Negative) Urine Bilirubin (Negative) Urine Urobilinogen (<2.0) mg/dL Ur Leukocyte Esterase (Negative) Disposition Clinical Impression: Hypertension, Anxiety Disposition: HOME SELF-CARE Condition: Stable Instructions (If sedation given, give patient instructions): Hypertension (ED), Anxiety (ED) Additional Instructions: Please do follow-up with primary care physician in the next day or 2 for recheck. Return for uncontrolled blood pressure, worsening or changing symptoms or any other concerns. Is patient prescribed a controlled substance at d/c from ED?: No Referrals: Austin Rocha MD [Primary Care Provider] - 1-2 days Forms: Community Resources, Outpatient Counseling, [facility] Area PCPs Time of Disposition: 21:54
[2023-04-22 16:41] LABS: Basophils % (A) 1 %; Eosinophils # (A) 0.2 k/uL (0-0.7); Eosinophils % (A) 3 %; HGB 12.4 gm/dL (11.4-16.0); Lymphocytes # (A) 1.9 k/uL (1.0-4.8); Lymphocytes % (A) 27 %; MCH 29.3 pg (25.0-35.0); MCHC 33.6 g/dL (31.0-37.0); MCV 87.3 fL (80.0-100.0); Mean Platelet Volume 7.9; Monocytes # (A) 0.3 k/uL (0-1.0); Monocytes % (A) 4 %; Neutrophils # (A) 4.6 k/uL (1.3-7.7); Neutrophils % (A) 64 %; Platelet Count 395 k/uL (150-450); RBC 4.24 m/uL (3.80-5.40); RDW 13.8 % (11.5-15.5); WBC 7.2 k/uL (3.8-10.6)
[2023-04-22 16:43] LABS: Appearance,Urine Clear (Clear); Bilirubin,Urine Negative (Negative); Color,Urine Colorless; Glucose,Urine (UA) Negative (Negative); Ketones,Urine Negative (Negative); Protein,Urine Negative (Negative); Specific Gravity,Urine 1.004 (1.001-1.035)
[2023-04-22 16:44] LABS: Blood,Urine Negative (Negative); Leukocyte Esterase,Urine Negative (Negative); Nitrite,Urine Negative (Negative); Urobilinogen,Urine <2.0 mg/dL (<2.0)
[2023-04-22 16:53] LABS: ALT 25 U/L (4-34); AST 27 U/L (14-36); African American GFR (CKD) >90 (>60 ml/min/1.73 sqM); Albumin 4.7 g/dL (3.5-5.0); Alkaline Phosphatase 119 U/L (38-126); Anion Gap 11 mmol/L; Blood Urea Nitrogen 8 mg/dL (7-17); Calcium 10.1 mg/dL (8.4-10.2); Carbon Dioxide 25 mmol/L (22-30); Chloride 99 mmol/L (98-107); Glucose 202 mg/dL (74-99); Magnesium 1.8 mg/dL (1.6-2.3); Non-African American GFR(CKD) 80 (>60 ml/min/1.73 sqM); Potassium 3.8 mmol/L (3.5-5.1); Sodium 135 mmol/L (137-145); Total Bilirubin 0.5 mg/dL (0.2-1.3); Total Protein 7.9 g/dL (6.3-8.2)
[2023-04-22] MEDS ORDERED: LABETALOL 5 MG/ML VIAL MDV IVP STA ×2 (17:50→18:59)
--- NOTE | 2023-04-22 18:10 | XR ---
EXAMINATION TYPE: XR chest 2V DATE OF EXAM: 04/22/2023 COMPARISON: 11/27/2022 INDICATION: Weakness TECHNIQUE: Frontal and lateral views of the chest are obtained. FINDINGS: The heart size is normal. The pulmonary vasculature is normal. Some minimal streak atelectasis may be adjacent to the left heart border. Lungs otherwise appear quang r. Postsurgical changes are within the lumbar spine. Wedge deformity of the thoracolumbar junction i s evident. Prior vertebral plasty is in the lower thoracic spine. IMPRESSION: 1. Minimal streak atelectasis left lower lung field
[2023-04-22] MEDS ORDERED: HYDROmorphone 1 MG/ML 1 ML SYRINGE IVP STA (18:15)
[2023-04-22] MEDS ORDERED: ENALAPRILAT 1.25 MG/ML 1 ML VIAL IVP STA (20:06)
[2023-04-22 20:57] VITALS: BP 176/90
[2023-04-22 22:21] VITALS: PULSE 95; RESP 16
== END 2023-04-22 22:25 | disposition home or self-care (01) ==
LOC: EC 15:26
DX: I10 Essential (primary) hypertension (principal); F41.9 Anxiety disorder, unspecified; J45.909 Unspecified asthma, uncomplicated; E11.9 Type 2 diabetes mellitus without complications; K21.9 Gastro-esophageal reflux disease without esophagitis; E78.5 Hyperlipidemia, unspecified; I25.2 Old myocardial infarction; M19.90 Unspecified osteoarthritis, unspecified site; Z79.01 Long term (current) use of anticoagulants; Z79.84 Long term (current) use of oral hypoglycemic drugs; Z79.899 Other long term (current) drug therapy; Z79.1 Long term (current) use of non-steroidal anti-inflammatories (NSAID); Z79.82 Long term (current) use of aspirin; Z91.09 Other allergy status, other than to drugs and biological substances; Z88.6 Allergy status to analgesic agent; Z88.8 Allergy status to other drugs, medicaments and biological substances; Z91.030 Bee allergy status; Z88.1 Allergy status to other antibiotic agents; Z88.5 Allergy status to narcotic agent; Z90.49 Acquired absence of other specified parts of digestive tract; Z95.5 Presence of coronary angioplasty implant and graft
CPT/HCPCS: 36415; 93005; 80053; 83605; 83735; 85025; 81003; 71046; 99285; 96374; 96375 ×4; 96376 ×2; 96361; J2060; J3490; J1170; J1920

== ENCOUNTER 2023-05-27 22:03 | Observation (INO) | payer MEDICARE ==
[2023-05-27 22:59] LABS: Basophils % (A) 0 %; Eosinophils # (A) 0.2 k/uL (0-0.7); Eosinophils % (A) 3 %; HCT 36.9 % (34.0-46.0); HGB 12.5 gm/dL (11.4-16.0); Lymphocytes # (A) 1.4 k/uL (1.0-4.8); Lymphocytes % (A) 22 %; MCH 29.4 pg (25.0-35.0); MCHC 33.7 g/dL (31.0-37.0); MCV 87.2 fL (80.0-100.0); Mean Platelet Volume 7.6; Monocytes # (A) 0.2 k/uL (0-1.0); Monocytes % (A) 3 %; Neutrophils # (A) 4.2 k/uL (1.3-7.7); Neutrophils % (A) 69 %; Platelet Count 247 k/uL (150-450); RBC 4.23 m/uL (3.80-5.40); RDW 13.6 % (11.5-15.5); WBC 6.1 k/uL (3.8-10.6)
[2023-05-27] MEDS ORDERED: ONDANSETRON 4 MG/2 ML VIAL IVP STA (23:08)
[2023-05-27] MEDS ORDERED: HYDROmorphone 1 MG/ML 1 ML SYRINGE IVP STA (23:08)
[2023-05-27 23:13] LABS: INR 0.9 (<1.2); Partial Thromboplastin Time 25.8 sec (22.0-30.0); Prothrombin Time 10.1 sec (10.0-12.5)
[2023-05-27 23:16] LABS: ALT 21 U/L (4-34); AST 29 U/L (14-36); African American GFR (CKD) 22 (>60 ml/min/1.73 sqM); Albumin 4.5 g/dL (3.5-5.0); Alkaline Phosphatase 98 U/L (38-126); Anion Gap 12 mmol/L; Blood Urea Nitrogen 28 mg/dL (7-17); Calcium 10.1 mg/dL (8.4-10.2); Carbon Dioxide 24 mmol/L (22-30); Chloride 102 mmol/L (98-107); Glucose 224 mg/dL (74-99); Lipase 65 U/L (23-300); Non-African American GFR(CKD) 19 (>60 ml/min/1.73 sqM); Potassium 4.1 mmol/L (3.5-5.1); Sodium 138 mmol/L (137-145); Total Bilirubin 0.5 mg/dL (0.2-1.3); Total Protein 7.7 g/dL (6.3-8.2)
[2023-05-28 00:24] LABS: Appearance,Urine Clear (Clear); Bilirubin,Urine Negative (Negative); Blood,Urine Negative (Negative); Color,Urine Colorless; Glucose,Urine (UA) Negative (Negative); Ketones,Urine Negative (Negative); Leukocyte Esterase,Urine Negative (Negative); Nitrite,Urine Negative (Negative); PH, Urine 7.5 (5.0-8.0); Protein,Urine Negative (Negative); Specific Gravity,Urine 1.004 (1.001-1.035); Urobilinogen,Urine <2.0 mg/dL (<2.0)
[2023-05-28] MEDS ORDERED: diphenhydrAMINE 50 MG/ML 1 ML VIAL IVP STA (01:02)
[2023-05-28] MEDS ORDERED: HYDROmorphone 1 MG/ML 1 ML SYRINGE IVP STA ×2 (01:03→04:34)
--- NOTE | 2023-05-28 01:27 | ED ---
Chest Pain HPI - General Chief Complaint: Chest Pain Stated Complaint: Chest Pain Time Seen by Provider: 05/27/23 22:20 Source: patient Mode of arrival: ambulatory Limitations: no limitations - History of Present Illness Initial Comments: 73-year-old female presents emergency room reporting chest and abdominal pain. She does have a history of coronary disease with 2 stents. States that over the past 3 weeks she has had chronic abdominal pain. Describes it as a cramping sensation without associated changes in her bowel habits. Admits to nausea wi thout vomiting. No fevers. Reports increased frequency of urination. She has not sought care for her abdominal pain. Today the pain began extending into her chest and she felt suddenly short of breath. She does have a history of coronary disease and therefore presents to the emergency room for evaluation. Last heart cath was in November. - Related Data Home Medications Medication Instructions Recorded Confirmed Morphine Sulfate ER [Ms Contin] 30 mg PO Q8H 11/08/15 11/27/22 Rizatriptan Benzoate [Maxalt] 10 mg PO BID PRN 07/04/16 11/27/22 Topiramate [Topamax] 50 mg PO TID 07/04/16 11/27/22 Brimonidine Tartrate [Alphagan P 1 drops RIGHT EYE TID 09/09/17 11/27/22 0.2% Ophth Soln] Albuterol Inhaler [Ventolin Hfa 2 puff INHALATION RT-Q4H PRN 11/03/18 11/27/22 Inhaler] Propylene Glycol/Peg 400/Pf 1 drop LEFT EYE Q1H 11/03/18 11/27/22 [Systane 0.3-0.4% Ophth Dropperette] Aspirin EC [Ecotrin Low Dose] 81 mg PO DAILY 02/05/19 11/27/22 clonazePAM [KlonoPIN] 0.25 - 0.5 tab PO Q8H PRN 02/05/19 11/27/22 Netarsudil Mesylat/Latanoprost 1 drop RIGHT EYE HS 04/12/20 11/27/22 [Rocklatan 0.02%-0.005% Eye Drp] Valsartan 160 mg PO DAILY@1800 04/12/20 11/27/22 Atorvastatin [Lipitor] 40 mg PO Q48H 04/20/20 11/27/22 Cetirizine HCl 10 mg PO DAILY@1800 04/20/20 11/27/22 HYDROcodone/APAP 10-325MG [[place] 1 tab PO TID PRN 04/20/20 11/27/22 10-325] Erenumab-Aooe [Aimovig 140 mg SQ Q30D 11/04/22 11/27/22 Autoinjector] Eszopiclone [Lunesta] 2 mg PO HS 11/04/22 11/27/22 Melatonin [Melatonin ER] 10 mg PO HS 11/04/22 11/27/22 Montelukast Sodium [Singulair] 10 mg PO DAILY@1800 11/04/22 11/27/22 Pantoprazole [Protonix] 40 mg PO BID@0900,1800 11/04/22 11/27/22 Pioglitazone [Actos] 30 mg PO DAILY 11/04/22 11/27/22 amLODIPine BESYLATE 2.5 mg PO DAILY@1800 11/04/22 11/27/22 polyethylene glycoL 3350 [Miralax] 17 gm PO DAILY PRN 11/04/22 11/27/22 Diclofenac Sodium Gel [Voltaren 1% 1 applic TOPICAL QID PRN 11/27/22 11/27/22 Gel] Ondansetron Odt [Zofran ODT] 8 mg PO Q8HR PRN 11/27/22 11/27/22 Semaglutide [Ozempic] 0.25 mg SQ SA 11/27/22 11/27/22 Venlafaxine HCl ER [Effexor XR] 37.5 mg PO DAILY 11/27/22 11/27/22 Venlafaxine HCl ER [Effexor XR] 75 mg PO DAILY@1800 11/27/22 11/27/22 cycloSPORINE 0.05% OPHTH SOLN 1 applicator BOTH EYES BID 11/27/22 11/27/22 [Restasis] guaiFENesin [Mucinex] 600 mg PO BID PRN 11/27/22 11/27/22 traZODone HCL [Desyrel] 400 mg PO HS 11/27/22 11/27/22 Previous Rx's Medication Instructions Recorded Metoprolol Tartrate [Lopressor] 12.5 mg PO TID #90 tab 11/28/22 Nitroglycerin Sl Tabs [Nitrostat] 0.4 mg SUBLINGUAL Q5M PRN #20 tab 11/28/22 Allergies Allergy/AdvReac Type Severity Reaction Status Date / Time adhesive Allergy Severe Rash/Hives, Verified 05/27/23 22:22 BLISTERS levofloxacin [From Levaquin] Allergy Severe Anaphylaxis Verified 05/27/23 22:22 metoclopramide HCl Allergy Severe Anaphylaxis Verified 05/27/23 22:22 [From Reglan] Phenothiazines Allergy Severe Anaphylaxis Verified 05/27/23 22:22 thiethylperazine maleate Allergy Severe Anaphylaxis Verified 05/27/23 22:22 [From Torecan] venom-honey bee Allergy Severe Anaphylaxis Verified 05/27/23 22:22 [bee venom (honey bee)] iodine Allergy Intermediate Rash/Hives Verified 05/27/23 22:22 chlorhexidine Allergy red dye in Verified 05/27/23 22:22 [From Hibiclens] hibiclens causes Rash/Hives cigarette smoke Allergy Cough Verified 05/27/23 22:22 duloxetine [From Cymbalta] Allergy Unknown Verified 05/27/23 22:22 meloxicam [From Mobic] Allergy Unknown Verified 05/27/23 22:22 pregabalin [From Lyrica] Allergy oversedatio Verified 05/27/23 22:22 n fentanyl AdvReac OVER Verified 05/27/23 22:22 SEDATED, WEAKNESS Guuyitl-MCY-BwW Reductase AdvReac increased Verified 05/27/23 22:22 Inhibitor fibramyalgia [Xacsgkz-Abd-Bvs Reductase symptoms Inhibitor] Review of Systems ROS Statement: Those systems with pertinent positive or pertinent negative responses have been documented in the HPI. ROS Other: All systems not noted in ROS Statement are negative. Past Medical History Past Medical History: Asthma, Diabetes Mellitus, Eye Disorder, Fibromyalgia, GERD/Reflux, Hyperlipidemia, Hypertension, Myocardial Infarction ([place]), Musculoskeletal Disorder, Osteoarthritis (OA), Skin Disorder Additional Past Medical History / Comment(s): Rosacea, dry skin. Degenerative Disc Disease, hx severe back injury from work, kyphosis. Hx bilateral ankle fractures. Glaucoma, blind in right eye, increased left eye pressure and gel stent in left eye. Migraines. Insomnia. Frequent night time urination. Chronic nausea. Last Myocardial Infarction Date:: 01/2019 History of Any Multi-Drug Resistant Organisms: None Reported Past Surgical History: Back Surgery, Bariatric Surgery, Bladder Surgery, Cholecystectomy, Heart Catheterization With Stent, Hysterectomy, Orthopedic Surgery, Tonsillectomy, Tubal Ligation Additional Past Surgical History / Comment(s): Lap band 2010, lumbar laminectomy, wayne and screw to lumbar back, open reduction of right ankle fracture, bilateral carpal tunnel surgery X2 each side, left cubital tunnel surgery, cardiac stent X2 - January 2019, left eye gel stent. Past Anesthesia/Blood Transfusion Reactions: No Reported Reaction Additional Past Anesthesia/Blood Transfusion Reaction / Comment(s): No problems with prior blood transfusion at age 19 after bleed with tonsillectomy. Date of Last Stent Placement:: 01/2019 Past Psychological History: Anxiety, Panic Disorder Smoking Status: Never smoker Past Alcohol Use History: None Reported Past Drug Use History: None Reported - Past Family History Father Family Medical History: Cancer Additional Family Medical History / Comment(s): FATHER AT AGE 91YRS. Skin cancer. Mother Family Medical History: CVA/TIA Additional Family Medical History / Comment(s): MOTHER AT AGE 67 YRS OF CVA. General Exam Limitations: no limitations General appearance: alert, in no apparent distress Head exam: Present: atraumatic, normocephalic, normal inspection Eye exam: Present: normal appearance, PERRL, EOMI. Absent: scleral icterus, conjunctival injection, periorbital swelling ENT exam: Present: normal exam, mucous membranes moist Neck exam: Present: normal inspection. Absent: tenderness, meningismus, lymphadenopathy Respiratory exam: Present: normal lung sounds bilaterally. Absent: respiratory distress, wheezes, rales, rhonchi, stridor Cardiovascular Exam: Present: regular rate, normal rhythm, normal heart sounds. Absent: systolic murmur, diastolic murmur, rubs, gallop, clicks GI/Abdominal exam: Present: soft, tenderness (generalized), normal bowel sounds. Absent: distended, guarding, rebound, rigid Extremities exam: Present: normal inspection, full ROM, normal capillary refill. Absent: tenderness, pedal edema, joint swelling, calf tenderness Back exam: Present: normal inspection Neurological exam: Present: alert, oriented X3, CN II-XII intact Psychiatric exam: Present: normal affect, normal mood Skin exam: Present: warm, dry, intact, normal color. Absent: rash Course Vital Signs 1105/27/23 05/28/23 22:16 23:19 00:46 Temperature 98 F Pulse Rate 90 84 92 Respiratory 16 18 18 Rate Blood Pressure 236/134 183/103 185/97 O2 Sat by Pulse 96 97 97 Oximetry 05/28/23 05/28/23 05/28/23 01:28 03:32 04:41 Temperature 97.6 F Pulse Rate 92 98 97 Respiratory 18 18 18 Rate Blood Pressure 184/108 178/129 193/101 O2 Sat by Pulse 98 97 98 Oximetry 05/28/23 05:34 Temperature 98.2 F Pulse Rate 90 Respiratory 18 Rate Blood Pressure 195/105 O2 Sat by Pulse 95 Oximetry Chest Pain MDM - MDM Was pt. sent in by a medical professional or institution (, PA, CHRISTIAN SCIENCE NURSE, urgent care, hospital, or residential...) When possible be specific @ -No Did you speak to anyone other than the patient for history (EMS, parent, family, police, friend...)? What history was obtained from this source @ -No Did you review nursing and triage notes (agree or disagree)? Why? @ -I reviewed and agree with nursing and triage notes Were old charts reviewed (outside hosp., previous admission, EMS record, old EKG, old radiological studies, urgent care reports/EKG's, residential records)? Report findings @ -I reviewed the patient's catheterization report from November 2022 Differential Diagnosis (chest pain, altered mental status, abdominal pain women, abdominal pain men, vaginal bleeding, weakness, fever, dyspnea, syncope, headache, dizziness, GI bleed, back pain, seizure, CVA, palpatations, mental health, musculoskeletal)? @ -Differential Abdominal Pain Women: Appendicitis, Cholecystitis, diverticulosis, ischemic bowel, pancreatitis, hepatitis, UTI, gastroenteritis, AAA, incarcerated hernia, bowel obstruction, constipation, inflammatory bowel, hepatitis, peptic ulcer disease, splenic infa rction, perforated viscus, vulvitis, ovarian torsion, PID, kidney stone, placenta abruption, this is not meant to be an all-inclusive list Differential Chest Pain: Stable Angina, Unstable Angina, STEMI, NSTEMI Aortic Dissection, Pneumothorax, Musculoskeletal, Esophageal Spasm GERD, Cholecystitis, Pancreatitis, Zoster, this is not meant to be an all-inclusive list. EKG interpreted by me (3pts min.). @ -Yes and demonstrates sinus rhythm rate of 84. OK interval 165. QRS 86. QTC of 421. No acute ST segment elevations or depressions X-rays interpreted by me (1pt min.). @ -Yes and demonstrates no acute process CT interpreted by me (1pt min.). @ -Yes and demonstrates no acute process U/S interpreted by me (1pt. min.). @ -None done What testing was considered but not performed or refused? (CT, X-rays, U/S, labs)? Why? @ -None What meds were considered but not given or refused? Why? @ -None Did you discuss the management of the patient with other professionals (professionals i.e. Dr., PA, CHRISTIAN SCIENCE NURSE, lab, RT, psych nurse, social work lecturer, corporate concierge, teacher, operations officer, case management associate)? Give summary @ -Spoke with Dr. Wade who accepted admission Was smoking cessation discussed for >3mins.? @ -No Was critical care preformed (if so, how long)? @ -No Were there social determinants of health that impacted care today? How? (Homelessness, low income, unemployed, alcoholism, drug addiction, transportation, low edu. Level, literacy, decrease access to med. care, [place] [facility], rehab)? @ -No Was there de-escalation of care discussed even if they declined (Discuss DNR or withdrawal of care, Hospice)? DNR status @ -No What co-morbidities impacted this encounter? (DM, HTN, Smoking, COPD, CAD, Cancer, CVA, ARF, Chemo, Hep., AIDS, mental health diagnosis, sleep apnea, morbid obesity)? @ -Chronic pain, coronary artery disease Was patient admitted / discharged? Hospital course, mention meds given and route, prescriptions, significant lab abnormalities, going to OR and other pertinent info. @ -Upon arrival patient was placed into room 18. Thorough history and physical exam was performed. IV is established. Patient was given nausea and pain medication. Laboratory studies are conducted. Patient does go for chest x-ray and a CT of her abdomen. Laboratory studies reveal CROW. her troponin is negative. Patient will be started on fluid hydration. She will be admitted in order to trend her troponins and recheck kidney function. Patient does repetitively asked for pain medications but does remain in stable condition awaiting a bed on the floor Undiagnosed new problem with uncertain prognosis? @ -yes Drug Therapy requiring intensive monitoring for toxicity (Heparin, Nitro, Insulin, Cardizem)? @ -No Were any procedures done? @ -No Diagnosis/symptom? @ -Acute chest pain, acute abdominal pain, CROW, accelerated hypertension Acute, or Chronic, or Acute on Chronic? @ -Acute Uncomplicated (without systemic symptoms) or Complicated (systemic symptoms)? @ -Complicated Side effects of treatment? @ -No Exacerbation, Progression, or Severe Exacerbation? @ -No Poses a threat to life or bodily function? How? (Chest pain, [place], [place], pneumonia, PE, COPD, DKA, ARF, appy, cholecystitis, CVA, Diverticulitis, Homicidal, Suicidal, threat to staff... and all critical care pts) @ -No Disposition Clinical Impression: Chest pain, CROW (acute kidney injury), Abdominal pain Disposition: ADMITTED IP TO THIS [facility] Condition: Stable Is patient prescribed a controlled substance at d/c from ED?: No Time of Disposition: 02:56 Decision to Admit Reason: Admit from EC Decision Date: 05/28/23 Decision Time: 02:56
[2023-05-28] MEDS: SODIUM CHLORIDE 0.9% 1,000 ML IV SCH ×3 (01:30→23:08)
--- NOTE | 2023-05-28 01:50 | XR ---
EXAM: XR Chest, 2 Views CLINICAL HISTORY: ITS.REASON XR Reason: Chest Pain TECHNIQUE: Frontal and lateral views of the chest. COMPARISON: X-ray 04/22/2023 FINDINGS: Lungs: No consolidation. No overt edema. Pleural space: No pleural effusion. No pneumothorax. Heart: Unremarkable. No cardiomegaly. Bones/joints: Unchanged chronic compression deformity in the lower thoracic spine with exaggerated thoracic kyphosis. IMPRESSION: No acute findings in the chest.
--- NOTE | 2023-05-28 02:14 | CT ---
EXAM: CT Abdomen and Pelvis Without Intravenous Contrast CLINICAL HISTORY: ITS.REASON CT Reason: ab pain TECHNIQUE: Axial computed tomography images of the abdomen and pelvis without intravenous contrast. CTDI is 14.1 mGy and DLP is 706.6 mGy-cm. This CT exam was performed using one or more of the following dose reduction techniques: automated exposure control, adjustment of the mA and/or kV according to patient size, and/or use of iterative reconstruction technique. COMPARISON: No relevant prior studies available. FINDINGS: Mediastinum: Status post gastric banding. Tiny hiatal hernia. ABDOMEN: Liver: Unremarkable. Gallbladder and bile ducts: Status post cholecystectomy. Pancreas: Unremarkable. Spleen: Unremarkable. Adrenals: Unremarkable. Kidneys and ureters: Unremarkable. No obstructing stones. No hydronephrosis. Stomach and bowel: Unremarkable. PELVIS: Appendix: No findings to suggest acute appendicitis. Bladder: Unremarkable. Reproductive: Status post hysterectomy. ABDOMEN and PELVIS: Intraperitoneal space: Unremarkable. No free air. No significant fluid collection. Bones/joints: Chronic compression deformities within the lower thoracic spine. Exaggerated thoracic kyphosis. Posterior fusion hardware is intact. Advanced degenerative changes and osteopenia. Soft tissues: Unremarkable. Vasculature: Unremarkable. Lymph nodes: Unremarkable. IMPRESSION: 1. No acute abnormality within the abdomen or pelvis. 2. Status post gastric banding. Tiny hiatal hernia.
[2023-05-28] MEDS ORDERED: MORPHINE SULFATE ER 30 MG TABLET PO STA (02:45)
[2023-05-28] MEDS ORDERED: TRIMETHOBENZAMIDE 100 MG/ML 2 ML VIAL IM STA (02:54)
[2023-05-28] MEDS ORDERED: NALOXONE 0.4 MG/ML 1 ML VIAL IV PRN (02:56)
[2023-05-28] MEDS ORDERED: SUMAtriptan succinate 50 MG TAB PO PRN (03:00)
[2023-05-28] MEDS ORDERED: LABETALOL 5 MG/ML VIAL MDV IVP STA (03:03)
[2023-05-28] MEDS ORDERED: cloNIDine HCL 0.2 MG TAB PO STA (06:17)
[2023-05-28] MEDS ORDERED: clonazePAM 0.5 MG TAB PO PRN (06:19)
[2023-05-28] MEDS ORDERED: DEXTROSE 50% SYRINGE 50 ML IVP PRN ×2 (06:20)
--- NOTE | 2023-05-28 06:31 | P.HPIM ---
History of Present Illness H&P Date: 05/28/23 Chief Complaint: abd pain , nausea 73 year old female with DM , CAD s/p stents , hypertension she is coming in with multiple complaints, she reports worsening of her chronic nausea and abdominal pain without vomiting. she claims that she has diffuse body aches for which she takes ms contin and norco. and has been having nausea for many years. she had a booster covid shot late in march , and since then she has not felt well, today she was fed up with abd pain, nausea anxiety and sleepless nights, for which she decided to come in. she describes vague diffuse abd pain , no bleeding, no diarrhea , no vomiting, no fever, no chills, no acute cough, no chest pain , no trouble breathing, no changes in urinary or bowel habits. 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 she follows up with pain clinic who prescribes her mscontin and norco. for fibromyalgia. she denies any smoking, illicit drugs or alcohol she denies any falls, or injuries. she describes large bruise on her right thigh from an accident with her dog. she feels safe at home, but describes her as controlling. however, denies being abused. review of systems Pertinent positives as noted in HPI. All other systems were reviewed and are negative on exam Constitutional: No acute distress, conversant, pleasant Eyes: Anicteric sclerae, moist conjunctiva, Pupils equal round reactive to light ENMT: NC/AT Oropharynx clear, no erythema, or exudates Neck: Supple, no masses, or JVD No carotid bruits No thyromegaly Lungs: Clear to auscultation Clear to percussion Normal respiratory effort, no accessory muscle use Cardiovascular: Heart regular in rate and rhythm, No murmurs, gallops, or rubs No peripheral edema Abdominal: Soft Nontender, no guarding, rebound or rigidity Abdomen moving with respiration Normoactive bowel sounds No hepatomegaly, No splenomegaly No palpable mass No abdominal wall hernia noted Skin: Normal temperature, tone, texture, turgor No induration No subcutaneous nodules No rash, lesions No ulcers Extremities: No digital cyanosis No clubbing Pedal pulses intact and symmetrical Radial pulses intact and symmetrical No calf tenderness Psychiatric: Alert and oriented to person, place and time Appropriate affect fair judgement Neuro Muscles Strength 5/5 in all 4 extremities Sensation to light touch grossly present throughout Cranial nerves II-XII grossly intact Lymphatics: no palpable cervical or supraclavicular lymph nodes review of systems Pertinent positives as noted in HPI. All other systems were reviewed and are negative on exam Constitutional: No acute distress, conversant, pleasant Eyes: Anicteric sclerae, moist conjunctiva, Pupils equal round reactive to light ENMT: NC/AT Oropharynx clear, no erythema, or exudates Neck: Supple, no masses, or JVD No carotid bruits No thyromegaly Lungs: Clear to auscultation Clear to percussion Normal respiratory effort, no accessory muscle use Cardiovascular: Heart regular in rate and rhythm, No murmurs, gallops, or rubs No peripheral edema Abdominal: Soft Nontender, no guarding, rebound or rigidity Abdomen moving with respiration Normoactive bowel sounds No hepatomegaly, No splenomegaly No palpable mass No abdominal wall hernia noted Extremities: No digital cyanosis No clubbing Pedal pulses intact and symmetrical Radial pulses intact and symmetrical No calf tenderness Psychiatric: Alert and oriented to person, place and time Appropriate affect fair judgement Neuro Muscles Strength 5/5 in all 4 extremities Sensation to light touch grossly present throughout Cranial nerves II-XII grossly intact Lymphatics: no palpable cervical or supraclavicular lymph nodes Past Medical History Past Medical History: Asthma, Diabetes Mellitus, Eye Disorder, Fibromyalgia, GERD/Reflux, Hyperlipidemia, Hypertension, Myocardial Infarction (IA), Musculoskeletal Disorder, Osteoarthritis (OA), Skin Disorder Additional Past Medical History / Comment(s): Rosacea, dry skin. Degenerative Disc Disease, hx severe back injury from work, kyphosis. Hx bilateral ankle fractures. Glaucoma, blind in right eye, increased left eye pressure and gel stent in left eye. Migraines. Insomnia. Frequent night time urination. Chronic nausea. Last Myocardial Infarction Date:: 01/2019 History of Any Multi-Drug Resistant Organisms: None Reported Past Surgical History: Back Surgery, Bariatric Surgery, Bladder Surgery, Cholecystectomy, Heart Catheterization With Stent, Hysterectomy, Orthopedic Surgery, Tonsillectomy, Tubal Ligation Additional Past Surgical History / Comment(s): Lap band 2009, lumbar laminectomy, wayne and screw to lumbar back, open reduction of right ankle fracture, bilateral carpal tunnel surgery X2 each side, left cubital tunnel jernigan rgery, cardiac stent X2 - January 2019, left eye gel stent. Past Anesthesia/Blood Transfusion Reactions: No Reported Reaction Additional Past Anesthesia/Blood Transfusion Reaction / Comment(s): No problems with prior blood transfusion at age 19 after bleed with tonsillectomy. Date of Last Stent Placement:: 01/2019 Past Psychological History: Anxiety, Panic Disorder Smoking Status: Never smoker Past Alcohol Use History: None Reported Past Drug Use History: None Reported - Past Family History Father Family Medical History: Cancer Additional Family Medical History / Comment(s): FATHER AT AGE 91YRS. Skin cancer. Mother Family Medical History: CVA/TIA Additional Family Medical History / Comment(s): MOTHER AT AGE 67 YRS OF CVA. Medications and Allergies Home Medications Medication Instructions Recorded Confirmed Type Morphine Sulfate ER [Ms Contin] 30 mg PO Q8H 11/08/15 11/27/22 History Rizatriptan Benzoate [Maxalt] 10 mg PO BID PRN 07/04/16 11/27/22 History Topiramate [Topamax] 50 mg PO TID 07/04/16 11/27/22 History Brimonidine Tartrate [Alphagan P 1 drops RIGHT EYE TID 09/09/17 11/27/22 History 0.2% Ophth Soln] Albuterol Inhaler [Ventolin Hfa 2 puff INHALATION RT-Q4H PRN 11/03/18 11/27/22 History Inhaler] Propylene Glycol/Peg 400/Pf 1 drop LEFT EYE Q1H 11/03/18 11/27/22 History [Systane 0.3-0.4% Ophth Dropperette] Aspirin EC [Ecotrin Low Dose] 81 mg PO DAILY 02/05/19 11/27/22 History clonazePAM [KlonoPIN] 0.25 - 0.5 tab PO Q8H PRN 02/05/19 11/27/22 History Netarsudil Mesylat/Latanoprost 1 drop RIGHT EYE HS 04/12/20 11/27/22 History [Rocklatan 0.02%-0.005% Eye Drp] Valsartan 160 mg PO DAILY@1800 04/12/20 11/27/22 History Atorvastatin [Lipitor] 40 mg PO Q48H 04/20/20 11/27/22 History Cetirizine HCl 10 mg PO DAILY@1800 04/20/20 11/27/22 History HYDROcodone/APAP 10-325MG [[place] 1 tab PO TID PRN 04/20/20 11/27/22 History 10-325] Erenumab-Aooe [Aimovig 140 mg SQ Q30D 11/04/22 11/27/22 History Autoinjector] Eszopiclone [Lunesta] 2 mg PO HS 11/04/22 11/27/22 History Melatonin [Melatonin ER] 10 mg PO HS 11/04/22 11/27/22 History Montelukast Sodium [Singulair] 10 mg PO DAILY@1800 11/04/22 11/27/22 History Pantoprazole [Protonix] 40 mg PO BID@0900,1800 11/04/22 11/27/22 History Pioglitazone [Actos] 30 mg PO DAILY 11/04/22 11/27/22 History amLODIPine BESYLATE 2.5 mg PO DAILY@1800 11/04/22 11/27/22 History polyethylene glycoL 3350 [Miralax] 17 gm PO DAILY PRN 11/04/22 11/27/22 History Diclofenac Sodium Gel [Voltaren 1% 1 applic TOPICAL QID PRN 11/27/22 11/27/22 History Gel] Ondansetron Odt [Zofran ODT] 8 mg PO Q8HR PRN 11/27/22 11/27/22 History Semaglutide [Ozempic] 0.25 mg SQ SA 11/27/22 11/27/22 History Venlafaxine HCl ER [Effexor XR] 37.5 mg PO DAILY 11/27/22 11/27/22 History Venlafaxine HCl ER [Effexor XR] 75 mg PO DAILY@1800 11/27/22 11/27/22 History cycloSPORINE 0.05% OPHTH SOLN 1 applicator BOTH EYES BID 11/27/22 11/27/22 History [Restasis] guaiFENesin [Mucinex] 600 mg PO BID PRN 11/27/22 11/27/22 History traZODone HCL [Desyrel] 400 mg PO HS 11/27/22 11/27/22 History Metoprolol Tartrate [Lopressor] 12.5 mg PO TID #90 tab 11/28/22 Rx Nitroglycerin Sl Tabs [Nitrostat] 0.4 mg SUBLINGUAL Q5M PRN #20 tab 11/28/22 Rx Allergies Allergy/AdvReac Type Severity Reaction Status Date / Time adhesive Allergy Severe Rash/Hives, Verified 05/27/23 22:22 BLISTERS levofloxacin [From Levaquin] Allergy Severe Anaphylaxis Verified 05/27/23 22:22 metoclopramide HCl Allergy Severe Anaphylaxis Verified 05/27/23 22:22 [From Reglan] Phenothiazines Allergy Severe Anaphylaxis Verified 05/27/23 22:22 thiethylperazine maleate Allergy Severe Anaphylaxis Verified 05/27/23 22:22 [From Torecan] venom-honey bee Allergy Severe Anaphylaxis Verified 05/27/23 22:22 [bee venom (honey bee)] iodine Allergy Intermediate Rash/Hives Verified 05/27/23 22:22 chlorhexidine Allergy red dye in Verified 05/27/23 22:22 [From Hibiclens] hibiclens causes Rash/Hives cigarette smoke Allergy Cough Verified 05/27/23 22:22 duloxetine [From Cymbalta] Allergy Unknown Verified 05/27/23 22:22 meloxicam [From Mobic] Allergy Unknown Verified 05/27/23 22:22 pregabalin [From Lyrica] Allergy oversedatio Verified 05/27/23 22:22 n fentanyl AdvReac OVER Verified 05/27/23 22:22 SEDATED, WEAKNESS [id number]-[id number]-UbA Reductase AdvReac increased Verified 05/27/23 22:22 Inhibitor fibramyalgia [Lhqhtww-Ivn-Pez Reductase symptoms Inhibitor] Physical Exam Vitals: Vital Signs Temp Pulse Resp BP Pulse Ox 05/28/23 05:34 98.2 F 90 18 195/105 95 05/28/23 04:41 97 18 193/101 98 05/28/23 03:32 97.6 F 98 18 178/129 97 05/28/23 01:28 92 18 184/108 98 05/28/23 00:46 92 18 185/97 97 05/27/23 23:19 84 18 183/103 97 05/27/23 22:16 98 F 90 16 236/134 96 Intake and Output 05/27/23 05/27/23 05/28/23 14:59 22:59 06:59 Other: Weight 65.317 kg Results CBC & Chem 7: 05/27/23 22:42 05/27/23 22:42 Labs: Abnormal Lab Results - Last 24 Hours (Table) 05/27/23 05/27/23 Range/Units 22:42 22:42 D-Dimer 0.71 H (<0.60) mg/L FEU BUN 28 H (7-17) mg/dL Creatinine 2.48 H (0.52-1.04) mg/dL Glucose 224 H (74-99) mg/dL Assessment and Plan Assessment: 73 year old female with hypertension , DM , CAD coming in for abd pain and chronic nausea I discussed the case with ED doc and I accepted the admission for uncontrolled hypertension and CROW with anticipated lenght ofstay > 2 midnights malignant hypertension CROW BUN 28 Cr 2.48 Na 138 K 4.1 Mg 2.0 avoid nephrotoxic meds hold valsartan resume metoprolol and amlodipine clonidine 0.2 mg po once monitor BP closely follow up renal function , if does not show improvement , consider nephro consult IVF hydration with normal saline chronic pain resume MS contine PRN dilaudid for breakthrough pain zofran for N/V PRN 4 mg IVP q 8hrs clonazepam home medications PRN for anxiety DM insulin sliding scale UA unremarkable CT abd showed no acute pathology . CXR no acute findings EKG NSR, no acute ST changes , Trops negative GI PPX protonix 40 mg po daily full code DVT PPX heparin sc tid
[2023-05-28] MEDS: ONDANSETRON 4 MG/2 ML VIAL IVP PRN ×3 (06:43→18:37)
[2023-05-28 07:32] LABS: Glucose,Whole Blood 233 mg/dL (70-110)
[2023-05-28] MEDS: INSULIN ASPART (NovoLOG) 100 UNIT/ML VIAL SQ SCH ×4 (08:45→23:08)
[2023-05-28] MEDS: PANTOPRAZOLE 40 MG TABLET PO SCH (08:45)
[2023-05-28] MEDS ORDERED: METOPROLOL TARTRATE 12.5 MG TAB PO SCH (09:00)
[2023-05-28] MEDS: MORPHINE SULFATE ER 30 MG TABLET PO SCH ×2 (11:21→18:37)
[2023-05-28] MEDS: amLODIPine 5 MG TAB PO SCH (12:25)
[2023-05-28] MEDS: ASPIRIN 81 MG PO SCH (12:25)
--- NOTE | 2023-05-28 12:46 | P.NPCON ---
History of Present Illness - Reason for Consult acute renal failure - History of Present Illness Reason for consultation: Acute kidney injury History of present illness: Patient is a 73-year-old female seen in renal consultation for acute kidney injury. Patient's creatinine in April 2023 was 0.75 and was elevated at 2.48 this admission. Patient came to the hospital due to progressive worsening of na usea. Patient states she has chronic nausea for several years but has been progressively getting worse ever since she got the covert vaccine in March 2023. Oral intake has been poor. She denies use of nonsteroidals. Patient states she is dependent on opioids for the nausea and the abdominal discomfort. She denies chest pain or shortness of breath. She has a history of coronary artery disease with prior stenting. She does have history of diabetes. UA noted to be benign. No hydronephrosis noted on imaging. She's currently receiving IV fluids. Patient states she's been feeling weak ever since she got the covert vaccine and also fell due to weakness in the left lower extremity par ticularly. Denies hematuria or dysuria. No fever or chills. Vital signs are stable. General: No acute distress. HEENT: Head exam is unremarkable. LUNGS: No audible rhonchi or wheezes. HEART: Rate and Rhythm are regular. ABDOMEN: Mild generalized tenderness. EXTREMITITES: No edema. Past Medical History Past Medical History: Asthma, Diabetes Mellitus, Eye Disorder, Fibromyalgia, GERD/Reflux, Hyperlipidemia, Hypertension, Myocardial Infarction (ID), Mus culoskeletal Disorder, Osteoarthritis (OA), Skin Disorder Additional Past Medical History / Comment(s): Rosacea, dry skin. Degenerative Disc Disease, hx severe back injury from work, kyphosis. Hx bilateral ankle fractures. Glaucoma, blind in right eye, increased left eye pressure and gel stent in left eye. Migraines. Insomnia. Frequent night time urination. Chronic nausea. Last Myocardial Infarction Date:: 01/2019 History of Any Multi-Drug Resistant Organisms: None Reported Past Surgical History: Back Surgery, Bariatric Surgery, Bladder Surgery, Cholecystectomy, Heart Catheterization With Stent, Hysterectomy, Orthopedic Surgery, Tonsillectomy, Tubal Ligation Additional Past Surgical History / Comment(s): Lap band 2009, lumbar laminectomy, wayne and screw to lumbar back, open reduction of right ankle fracture, bilateral carpal tunnel surgery X2 each side, left cubital tunnel surgery, cardiac stent X2 - January 2019, left eye gel stent. Past Anesthesia/Blood Transfusion Reactions: No Reported Reaction Additional Past Anesthesia/Blood Transfusion Reaction / Comment(s): No problems with prior blood transfusion at age 19 after bleed with tonsillectomy. Date of Last Stent Placement:: 01/2019 Past Psychological History: Anxiety, Panic Disorder Smoking Status: Never smoker Past Alcohol Use History: None Reported Past Drug Use History: None Reported - Past Family History Father Family Medical History: Cancer Additional Family Medical History / Comment(s): FATHER AT AGE 91YRS. Skin cancer. Mother Family Medical History: CVA/TIA Additional Family Medical History / Comment(s): MOTHER AT AGE 67 YRS OF CVA. Medications and Allergies Home Medications Medication Instructions Recorded Confirmed Type Morphine Sulfate ER [Ms Contin] 30 mg PO Q8H 11/08/15 05/28/23 History Rizatriptan Benzoate [Maxalt] 10 mg PO BID PRN 07/04/16 05/28/23 History Topiramate [Topamax] 50 mg PO TID 07/04/16 05/28/23 History Brimonidine Tartrate [Alphagan P 1 drops RIGHT EYE TID 09/09/17 05/28/23 History 0.2% Ophth Soln] Albuterol Inhaler [Ventolin Hfa 2 puff INHALATION RT-Q4H PRN 11/03/18 05/28/23 History Inhaler] Propylene Glycol/Peg 400/Pf 1 drop LEFT EYE Q1H 11/03/18 05/28/23 History [Systane 0.3-0.4% Ophth Dropperette] Aspirin EC [Ecotrin Low Dose] 81 mg PO DAILY 02/05/19 05/28/23 History Netarsudil Mesylat/Latanoprost 1 drop RIGHT EYE HS 04/12/20 05/28/23 History [Rocklatan 0.02%-0.005% Eye Drp] Valsartan 160 mg PO DAILY@1800 04/12/20 05/28/23 History Cetirizine HCl 10 mg PO DAILY@1800 04/20/20 05/28/23 History Erenumab-Aooe [Aimovig 140 mg SQ Q30D 11/04/22 05/28/23 History Autoinjector] Eszopiclone [Lunesta] 2 mg PO HS 11/04/22 05/28/23 History Melatonin [Melatonin ER] 10 mg PO HS 11/04/22 05/28/23 History Pantoprazole [Protonix] 40 mg PO BID@0900,1800 11/04/22 05/28/23 History Pioglitazone [Actos] 30 mg PO DAILY 11/04/22 05/28/23 History amLODIPine BESYLATE 2.5 mg PO DAILY@1800 11/04/22 05/28/23 History polyethylene glycoL 3350 [Miralax] 17 gm PO DAILY PRN 11/04/22 05/28/23 History Diclofenac Sodium Gel [Voltaren 1% 1 applic TOPICAL QID PRN 11/27/22 05/28/23 History Gel] Ondansetron Odt [Zofran ODT] 8 mg PO Q8HR PRN 11/27/22 05/28/23 History Venlafaxine HCl ER [Effexor XR] 37.5 mg PO DAILY 11/27/22 05/28/23 History cycloSPORINE 0.05% OPHTH SOLN 1 drop BOTH EYES BID 11/27/22 05/28/23 History [Restasis] guaiFENesin [Mucinex] 600 mg PO BID PRN 11/27/22 05/28/23 History traZODone HCL [Desyrel] 400 mg PO HS 11/27/22 05/28/23 History Nitroglycerin Sl Tabs [Nitrostat] 0.4 mg SUBLINGUAL Q5M PRN #20 tab 11/28/22 05/28/23 Rx ARIPiprazole 2 mg PO DAILY 05/28/23 05/28/23 History Metoprolol Tartrate [Lopressor] 25 mg PO BID 05/28/23 05/28/23 History Olopatadine HCl [Patanol 0.1%] 1 drop RIGHT EYE BID 05/28/23 05/28/23 History Rosuvastatin Calcium 10 mg PO DIRECTED 05/28/23 05/28/23 History Tolterodine ER [Detrol LA] 4 mg PO HS 05/28/23 05/28/23 History Venlafaxine HCl ER [Effexor Xr] 150 mg PO DAILY@1800 05/28/23 05/28/23 History busPIRone HCL [Buspar] 7.5 mg PO BID 05/28/23 05/28/23 History hydrOXYzine HCL 10 mg PO QID PRN 05/28/23 05/28/23 History oxyCODONE HCL/ACETAMINOPHEN 1 tab PO TID PRN 05/28/23 05/28/23 History [oxyCODONE HCL/ACETAMINOPHEN 7.5-325] sitaGLIPtin [Januvia] 100 mg PO DAILY 05/28/23 05/28/23 History Allergies Allergy/AdvReac Type Severity Reaction Status Date / Time adhesive Allergy Severe Rash/Hives, Verified 05/28/23 09:15 BLISTERS levofloxacin [From Levaquin] Allergy Severe Anaphylaxis Verified 05/28/23 09:15 metoclopramide HCl Allergy Severe Anaphylaxis Verified 05/28/23 09:15 [From Reglan] Phenothiazines Allergy Severe Anaphylaxis Verified 05/28/23 09:15 thiethylperazine maleate Allergy Severe Anaphylaxis Verified 05/28/23 09:15 [From Torecan] venom-honey bee Allergy Severe Anaphylaxis Verified 05/28/23 09:15 [bee venom (honey bee)] iodine Allergy Intermediate Rash/Hives Verified 05/28/23 09:15 chlorhexidine Allergy red dye in Verified 05/28/23 09:15 [From Hibiclens] hibiclens causes Rash/Hives duloxetine [From Cymbalta] Allergy Unknown Verified 05/28/23 09:15 meloxicam [From Mobic] Allergy Unknown Verified 05/28/23 09:15 cigarette smoke AdvReac Cough Verified 05/28/23 09:15 fentanyl AdvReac OVER Verified 05/28/23 09:15 SEDATED, WEAKNESS pregabalin [From Lyrica] AdvReac oversedatio Verified 05/28/23 09:15 n [id number] Reductase AdvReac increased Verified 05/28/23 09:15 Inhibitor fibramyalgia [Hyfkidf-Dfr-Lql Reductase symptoms Inhibitor] Physical Exam Vitals: Vital Signs Temp Pulse Resp BP Pulse Ox 05/28/23 08:45 101 H 16 170/94 94 L 05/28/23 06:35 102 H 16 176/107 95 05/28/23 05:34 98.2 F 90 18 195/105 95 05/28/23 04:41 97 18 193/101 98 05/28/23 03:32 97.6 F 98 18 178/129 97 05/28/23 01:28 92 18 184/108 98 05/28/23 00:46 92 18 185/97 97 05/27/23 23:19 84 18 183/103 97 05/27/23 22:16 98 F 90 16 236/134 96 Intake and Output 05/27/23 05/28/23 05/28/23 22:59 06:59 14:59 Other: Weight 65.317 kg Results - Lab Results Most recent lab results Calcium 10.1 mg/dL (8.4-10.2) 05/27/23 22:42 Magnesium 2.0 mg/dL (1.6-2.3) 05/27/23 22:42 05/27/23 22:42 05/27/23 22:42 Assessment and Plan Plan: Assessment: 1.acute kidney injury secondary to ATN secondary to hypovolemia from poor intake and valsartan. Creatinine 0.75 in April 2023 and elevated at 2.4 at this admission. UA benign. No hydronephrosis noted on CAT scan. 2. Chronic nausea and abdominal pain. Patient is dependent on opioids. 3. Benign hypertension. Exacerbated by pain and nausea. 4. Diabetes mellitus. 5. Coronary disease with cardiac stenting. Plan: Maintain IV fluids - decrease rate to 75 mL an hour. Continue to hold ARB. Add scheduled and when necessary hydralazine. Pain control. Avoid nephrotoxins. Repeat labs in the morning. Thank you for the consultation. I will continue to follow the patient with you during her hospital stay.
[2023-05-28 12:59] LABS: Glucose,Whole Blood 218 mg/dL (70-110)
--- NOTE | 2023-05-28 13:00 | P.CRDCN ---
History of Present Illness Consult date: 05/28/23 History of present illness: History of present illness: This is a 73-year-old female patient of Dr. Pino with past medical history of hypertension, dyslipidemia, coronary artery disease, sick sinus syndrome with atrial tachycardia tachybradycardia syndrome. We have been asked to evaluate the patient for chest pain, history of coronary artery disease. Patient states that she has had ongoing problems with nausea diarrhea and abdominal pain over the past 3 weeks. She has not been eating or drinking very much. Patient denies having any chest pain. On presentation, patient had blood pressure reading of 236/134. Diarrhea has now resolved. EKG sinus rhythm with no acute ST changes. Chest x-ray: No acute findings CBC is within normal limits. D-dimer 0.71. Electrolytes normal. BUN 28 creatinine 2.48. Blood sugar 224. Liver function tests are normal. Troponin negative 1. Lipase 65. Urinalysis negative. Home cardiac medications: Amlodipine 2.5 mg at 1800, aspirin 81 mg daily, Lopressor 25 mg twice daily Nitrostat as needed, valsartan 160 mg daily Cardiac catheterization November 2022 revealed patent mid LAD stent, ostium 50-60% stenosis with no progression since 2019, proximal OM1 50% stenosis. Echocardiogram performed 11/28/2022 revealed EF of 55-60%, mild LVH, MAC, mild AR, mild TR, RVSP 23.9 mmHg. Holter monitor 01/06/2023 sinus rhythm with heart rate average 48, 16 runs of nonsustained atrial tachycardia, mild tachycardia bradycardia syndrome runs of nonsustained atrial tachycardia and A. tach with RVR up to 152 bpm. Review Of Systems: At the time of my evaluation: Constitutional: No fever, no chills. No weakness, fatigue or lethargy. EENT: No headache. No dizziness. Lungs: No shortness of breath, cough, no sputum production. No wheezing. Cardiovascular: No chest pain, no lower extremity edema. No palpitations. No paroxysmal nocturnal dyspnea. No orthopnea. No lightheadedness or dizziness. No syncopal episodes. Abdominal: Reports abdominal pain. Reports nausea, vomiting. Reports diarrhea. No constipation. No bloody or tarry stools. Genitourinary: No dysuria.. No urinary retention. Musculoskeletal: No myalgias. No muscle weakness, no frequent falls. No back pain. No neck pain. Integumentary: No wounds. No rash. No unusual bruising. Neurologic: No aphasia. No facial droop. No change in mentation. No head injury. No headache. Physical examination: Gen: This is a 73-year-old female. She is resting on ER stretcher and appears to be in no acute distress. VS: reviewed HEENT: Head is atraumatic, normocephalic. Pupils equal, round. Sclerae is anicteric. NECK: Supple. No JVD. . LUNGS: Clear to auscultation. No wheezes or rhonchi. No intercostal retractions. HEART: Regular rate and rhythm. No murmur. ABDOMEN: Soft No tenderness. EXTREMITIES: No pedal edema. No calf tenderness. NEUROLOGICAL: Patient is awake, alert and oriented x3. Assessment: Atypical chest pain, mostly abdominal pain with nausea and diarrhea Acute kidney injury Hypertension Dyslipidemia History of coronary artery disease Plan: Hold losartan for acute kidney injury Add amlodipine 5 mg daily Repeat BMP Patient may be admitted to [facility] floor, no telemetry Cardiology will sign off this case and follow on an as-needed basis. Please reconsult for any new concerns. Patient may follow-up in the office in one to 2 weeks. Thank you kindly for this consultation. Nurse practitioner note has been reviewed, I agree with documented findings and plan of care. Patient was seen and examined. Past Medical History Past Medical History: Asthma, Diabetes Mellitus, Eye Disorder, Fibromyalgia, GERD/Reflux, Hyperlipidemia, Hypertension, Myocardial Infarction (UT), Mus culoskeletal Disorder, Osteoarthritis (OA), Skin Disorder Additional Past Medical History / Comment(s): Rosacea, dry skin. Degenerative Disc Disease, hx severe back injury from work, kyphosis. Hx bilateral ankle fractures. Glaucoma, blind in right eye, increased left eye pressure and gel stent in left eye. Migraines. Insomnia. Frequent night time urination. Chronic nausea. Last Myocardial Infarction Date:: 01/2019 History of Any Multi-Drug Resistant Organisms: None Reported Past Surgical History: Back Surgery, Bariatric Surgery, Bladder Surgery, Cholecystectomy, Heart Catheterization With Stent, Hysterectomy, Orthopedic Surgery, Tonsillectomy, Tubal Ligation Additional Past Surgical History / Comment(s): Lap band 2010, lumbar laminectomy, wayne and screw to lumbar back, open reduction of right ankle fracture, bilateral carpal tunnel surgery X2 each side, left cubital tunnel surgery, cardiac stent X2 - January 2019, left eye gel stent. Past Anesthesia/Blood Transfusion Reactions: No Reported Reaction Additional Past Anesthesia/Blood Transfusion Reaction / Comment(s): No problems with prior blood transfusion at age 19 after bleed with tonsillectomy. Date of Last Stent Placement:: 01/2019 Past Psychological History: Anxiety, Panic Disorder Smoking Status: Never smoker Past Alcohol Use History: None Reported Past Drug Use History: None Reported - Past Family History Father Family Medical History: Cancer Additional Family Medical History / Comment(s): FATHER AT AGE 91YRS. Skin cancer. Mother Family Medical History: CVA/TIA Additional Family Medical History / Comment(s): MOTHER AT AGE 67 YRS OF CVA. Medications and Allergies Home Medications Medication Instructions Recorded Confirmed Type Morphine Sulfate ER [Ms Contin] 30 mg PO Q8H 11/08/15 05/28/23 History Rizatriptan Benzoate [Maxalt] 10 mg PO BID PRN 07/04/16 05/28/23 History Topiramate [Topamax] 50 mg PO TID 07/04/16 05/28/23 History Brimonidine Tartrate [Alphagan P 1 drops RIGHT EYE TID 09/09/17 05/28/23 History 0.2% Ophth Soln] Albuterol Inhaler [Ventolin Hfa 2 puff INHALATION RT-Q4H PRN 11/03/18 05/28/23 History Inhaler] Propylene Glycol/Peg 400/Pf 1 drop LEFT EYE Q1H 11/03/18 05/28/23 History [Systane 0.3-0.4% Ophth Dropperette] Aspirin EC [Ecotrin Low Dose] 81 mg PO DAILY 02/05/19 05/28/23 History Netarsudil Mesylat/Latanoprost 1 drop RIGHT EYE HS 04/12/20 05/28/23 History [Rocklatan 0.02%-0.005% Eye Drp] Valsartan 160 mg PO DAILY@1800 04/12/20 05/28/23 History Cetirizine HCl 10 mg PO DAILY@1800 04/20/20 05/28/23 History Erenumab-Aooe [Aimovig 140 mg SQ Q30D 11/04/22 05/28/23 History Autoinjector] Eszopiclone [Lunesta] 2 mg PO HS 11/04/22 05/28/23 History Melatonin [Melatonin ER] 10 mg PO HS 11/04/22 05/28/23 History Pantoprazole [Protonix] 40 mg PO BID@0900,1800 11/04/22 05/28/23 History Pioglitazone [Actos] 30 mg PO DAILY 11/04/22 05/28/23 History amLODIPine BESYLATE 2.5 mg PO DAILY@1800 11/04/22 05/28/23 History polyethylene glycoL 3350 [Miralax] 17 gm PO DAILY PRN 11/04/22 05/28/23 History Diclofenac Sodium Gel [Voltaren 1% 1 applic TOPICAL QID PRN 11/27/22 05/28/23 History Gel] Ondansetron Odt [Zofran ODT] 8 mg PO Q8HR PRN 11/27/22 05/28/23 History Venlafaxine HCl ER [Effexor XR] 37.5 mg PO DAILY 11/27/22 05/28/23 History cycloSPORINE 0.05% OPHTH SOLN 1 drop BOTH EYES BID 11/27/22 05/28/23 History [Restasis] guaiFENesin [Mucinex] 600 mg PO BID PRN 11/27/22 05/28/23 History traZODone HCL [Desyrel] 400 mg PO HS 11/27/22 05/28/23 History Nitroglycerin Sl Tabs [Nitrostat] 0.4 mg SUBLINGUAL Q5M PRN #20 tab 11/28/22 05/28/23 Rx ARIPiprazole 2 mg PO DAILY 05/28/23 05/28/23 History Metoprolol Tartrate [Lopressor] 25 mg PO BID 05/28/23 05/28/23 History Olopatadine HCl [Patanol 0.1%] 1 drop RIGHT EYE BID 05/28/23 05/28/23 History Rosuvastatin Calcium 10 mg PO DIRECTED 05/28/23 05/28/23 History Tolterodine ER [Detrol LA] 4 mg PO HS 05/28/23 05/28/23 History Venlafaxine HCl ER [Effexor Xr] 150 mg PO DAILY@1800 05/28/23 05/28/23 History busPIRone HCL [Buspar] 7.5 mg PO BID 05/28/23 05/28/23 History hydrOXYzine HCL 10 mg PO QID PRN 05/28/23 05/28/23 History oxyCODONE HCL/ACETAMINOPHEN 1 tab PO TID PRN 05/28/23 05/28/23 History [oxyCODONE HCL/ACETAMINOPHEN 7.5-325] sitaGLIPtin [Januvia] 100 mg PO DAILY 05/28/23 05/28/23 History Allergies Allergy/AdvReac Type Severity Reaction Status Date / Time adhesive Allergy Severe Rash/Hives, Verified 05/28/23 09:15 BLISTERS levofloxacin [From Levaquin] Allergy Severe Anaphylaxis Verified 05/28/23 09:15 metoclopramide HCl Allergy Severe Anaphylaxis Verified 05/28/23 09:15 [From Reglan] Phenothiazines Allergy Severe Anaphylaxis Verified 05/28/23 09:15 thiethylperazine maleate Allergy Severe Anaphylaxis Verified 05/28/23 09:15 [From Torecan] venom-honey bee Allergy Severe Anaphylaxis Verified 05/28/23 09:15 [bee venom (honey bee)] iodine Allergy Intermediate Rash/Hives Verified 05/28/23 09:15 chlorhexidine Allergy red dye in Verified 05/28/23 09:15 [From Hibiclens] hibiclens causes Rash/Hives duloxetine [From Cymbalta] Allergy Unknown Verified 05/28/23 09:15 meloxicam [From Mobic] Allergy Unknown Verified 05/28/23 09:15 cigarette smoke AdvReac Cough Verified 05/28/23 09:15 fentanyl AdvReac OVER Verified 05/28/23 09:15 SEDATED, WEAKNESS pregabalin [From Lyrica] AdvReac oversedatio Verified 05/28/23 09:15 n Nimfsrx-YNR-[id number] Reductase AdvReac increased Verified 05/28/23 09:15 Inhibitor fibramyalgia [Lngcgel-Jzn-Mzt Reductase symptoms Inhibitor] Physical Exam Vitals: Vital Signs Temp Pulse Resp BP Pulse Ox 05/28/23 08:45 101 H 16 170/94 94 L 05/28/23 06:35 102 H 16 176/107 95 05/28/23 05:34 98.2 F 90 18 195/105 95 05/28/23 04:41 97 18 193/101 98 05/28/23 03:32 97.6 F 98 18 178/129 97 05/28/23 01:28 92 18 184/108 98 05/28/23 00:46 92 18 185/97 97 05/27/23 23:19 84 18 183/103 97 05/27/23 22:16 98 F 90 16 236/134 96 Intake and Output 05/27/23 05/28/23 05/28/23 22:59 06:59 14:59 Other: Weight 65.317 kg Results 05/27/23 22:42 05/27/23 22:42 Cardiac Enzymes 05/27/23 05/27/23 Range/Units 22:42 22:42 AST 29 (14-36) U/L Troponin I <0.012 (0.000-0.034) ng/mL Coagulation 05/27/23 Range/Units 22:42 PT 10.1 (10.0-12.5) sec APTT 25.8 (22.0-30.0) sec CBC 05/27/23 Range/Units 22:42 WBC 6.1 (3.8-10.6) k/uL RBC 4.23 (3.80-5.40) m/uL Hgb 12.5 (11.4-16.0) gm/dL Hct 36.9 (34.0-46.0) % Plt Count 247 (150-450) k/uL Comprehensive Metabolic Panel 05/27/23 Range/Units 22:42 Sodium 138 (137-145) mmol/L Potassium 4.1 (3.5-5.1) mmol/L Chloride 102 (98-107) mmol/L Carbon Dioxide 24 (22-30) mmol/L BUN 28 H (7-17) mg/dL Creatinine 2.48 H (0.52-1.04) mg/dL Glucose 224 H (74-99) mg/dL Calcium 10.1 (8.4-10.2) mg/dL AST 29 (14-36) U/L ALT 21 (4-34) U/L Alkaline Phosphatase 98 (38-126) U/L Total Protein 7.7 (6.3-8.2) g/dL Albumin 4.5 (3.5-5.0) g/dL Current Medications Generic Name Dose Route Start Last Admin Trade Name Freq PRN Reason Stop Dose Admin Amlodipine Besylate 5 mg 05/28/23 10:15 05/28/23 12:25 Amlodipine 5 Mg Tab PO 5 mg DAILY SHAUN Administration Aspirin 81 mg 05/28/23 10:15 05/28/23 12:25 Aspirin 81 Mg PO 81 mg DAILY SHAUN Administration Atorvastatin Calcium 40 mg 05/29/23 09:00 Atorvastatin 40 Mg Tab PO Q48H SHAUN Dextrose/Water 25 ml 05/28/23 06:20 Dextrose 50% Syringe 50 Ml IVP PER PROTOCOL PRN Hypoglycemia Protocol Dextrose/Water 50 ml 05/28/23 06:20 Dextrose 50% Syringe 50 Ml IVP PER PROTOCOL PRN Hypoglycemia Protocol Hydralazine HCl 25 mg 05/28/23 16:00 Hydralazine Hcl 25 Mg Tab PO TID SHAUN Hydralazine HCl 10 mg 05/28/23 12:45 Hydralazine Hcl 20 Mg/Ml 1 Ml Vial IVP Q6HR PRN Blood Pressure - High Sodium Chloride 1,000 mls @ 75 mls/hr 05/28/23 01:15 05/28/23 01:30 Saline 0.9% IV 130 mls/hr .[id number] SHAUN Administration Insulin Aspart 0 unit 05/28/23 07:30 05/28/23 08:45 Insulin Aspart (Novolog) 100 Unit/Ml Vial SQ 6 unit ACHS SHAUN Administration Protocol Metoprolol Tartrate 25 mg 05/28/23 21:00 Metoprolol Tartrate 25 Mg Tab PO BID SHAUN Morphine Sulfate 30 mg 05/28/23 11:00 05/28/23 11:21 Morphine Sulfate Er 30 Mg Tablet PO 30 mg Q8H SHAUN Administration Protocol Naloxone HCl 0.2 mg 05/28/23 02:56 Naloxone 0.4 Mg/Ml 1 Ml Vial IV Q2M PRN Opioid Reversal Ondansetron HCl 4 mg 05/28/23 02:56 05/28/23 11:19 Ondansetron 4 Mg/2 Ml Vial IVP 4 mg Q8HR PRN Administration Nausea And Vomiting Pantoprazole Sodium 40 mg 05/28/23 07:30 05/28/23 08:45 Pantoprazole 40 Mg Tablet PO 40 mg [id number] SHAUN Administration Sumatriptan Succinate 100 mg 05/28/23 03:00 Sumatriptan Succinate 50 Mg Tab PO BID PRN Migraine Headache Trazodone HCl 400 mg 05/28/23 21:00 Trazodone Hcl 100 Mg Tab PO HS SHAUN Intake and Output 05/27/23 05/28/23 05/28/23 22:59 06:59 14:59 Other: Weight 65.317 kg 05/27/23 22:42 05/27/23 22:42
--- NOTE | 2023-05-28 13:14 | P.PN ---
Progress Note - Text Progress Note Date: 05/28/23 73-year-old female with a past medical history diabetes, coronary artery disease status post stents, hypertension, fibromyalgia who presents to the ED with chronic nausea and abdominal pain. Patient states that since she had her Covid vaccine at of March she's been having these symptoms and also diarrhea. She says that she has not been eating or drinking much. Patient states that her diarrhea is improving. She states in the past 24 hours she's had 3 loose bowel movements. Patient also stated that she is able to keep fluid intake down. I also spoke with the patient's PCP who is also concerned about her anxiety and had referred her to see a psychiatrist. Patient states that she would like to see a psychiatrist while she is in the hospital. In the ED patient's blood pressure was in the 200s systolically. Her labs were unremarkable except for creatinine 2.48. Patient's baseline creatinine is less than 1. CT abdomen and pelvis was unremarkable. Patient admitted with cardiology, nephrology and psychiatry consults. 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 Psych - Calm and cooperative Assessment and plan Acute kidney injury likely due to decreased by mouth intake and diarrhea Since patient's diarrhea is improving will hold off on further workup Continue with normal saline 75 mL an hour Trend BMP Nephrology following Hold nephrotoxic medications which include SUE inhibitor Resume metoprolol and amlodipine Hypertension urgency Patient's blood pressure has improved Continue with amlodipine 5 mg daily and metoprolol 25 mg by mouth twice a day Nephrology started the patient hydralazine 25 mg by mouth 3 times a day Blood pressure this morning is acceptable Chronic pain/fibromyalgia Resume MS Contin and Narco when necessary which are patient's home meds Discontinue IV Dilaudid Anxiety and depression Continue home meds including clonazepam when necessary We'll consult psychiatry Diabetes mellitus Sliding-scale insulin DVT prophylaxis: Subcu heparin Disposition: If patient's renal function improves tomorrow and blood pressure is controlled patient can be discharged home. If not we'll have to change patient to inpatient status.
[2023-05-28] MEDS: HYDROcodone/APAP 10-325MG 1 EACH TAB PO PRN (14:01)
[2023-05-28 14:02] LABS: BUN/Creat Ratio 10.12 Ratio (12.00-20.00); Blood Urea Nitrogen 8.1 mg/dL (9.0-27.0); Calcium 9.8 mg/dL (8.7-10.3); Carbon Dioxide 24.5 mmol/L (21.6-31.8); Chloride 102 mmol/L (96-109); Glucose 259 mg/dL (70-110); Potassium 3.6 mmol/L (3.5-5.5); Sodium 139 mmol/L (135-145)
[2023-05-28] MEDS ORDERED: HYDROmorphone 1 MG/ML 1 ML SYRINGE IVP PRN (14:09)
[2023-05-28] MEDS: hydrALAZINE HCL 25 MG TAB PO SCH ×2 (15:58→21:30)
[2023-05-28] MEDS ORDERED: amLODIPine 2.5 MG TAB PO SCH (18:00)
[2023-05-28] MEDS: hydrALAZINE HCL 20 MG/ML 1 ML VIAL IVP PRN (18:05)
[2023-05-28 18:43] LABS: Glucose,Whole Blood 276 mg/dL (70-110)
[2023-05-28] MEDS ORDERED: traZODone HCL 100 MG TAB PO SCH (21:00)
[2023-05-28] MEDS: METOPROLOL TARTRATE 25 MG TAB PO SCH (21:30)
[2023-05-28] MEDS: LORazepam 2 MG/ML INJ IV STA ×2 (21:30→21:37)
[2023-05-28 21:33] LABS: Glucose,Whole Blood 261 mg/dL (70-110)
[2023-05-28] MEDS: HEPARIN SODIUM,PORCINE 5,000 UNIT/ML 1 ML VIAL SQ SCH (21:42)
[2023-05-28] MEDS: clonazePAM 0.5 MG TAB PO PRN (23:09)
[2023-05-29] MEDS: hydrALAZINE HCL 20 MG/ML 1 ML VIAL IVP PRN (01:20)
[2023-05-29] MEDS: MORPHINE SULFATE ER 30 MG TABLET PO SCH ×2 (03:30→11:05)
[2023-05-29 06:22] LABS: Glucose,Whole Blood 199 mg/dL (70-110)
[2023-05-29] MEDS: PANTOPRAZOLE 40 MG TABLET PO SCH (06:45)
[2023-05-29] MEDS: INSULIN ASPART (NovoLOG) 100 UNIT/ML VIAL SQ SCH ×2 (06:45→13:47)
[2023-05-29] MEDS: amLODIPine 5 MG TAB PO SCH (07:59)
[2023-05-29] MEDS: METOPROLOL TARTRATE 25 MG TAB PO SCH (07:59)
[2023-05-29] MEDS: ASPIRIN 81 MG PO SCH (07:59)
[2023-05-29] MEDS: clonazePAM 0.5 MG TAB PO PRN (07:59)
[2023-05-29] MEDS: hydrALAZINE HCL 25 MG TAB PO SCH (07:59)
[2023-05-29] MEDS: HEPARIN SODIUM,PORCINE 5,000 UNIT/ML 1 ML VIAL SQ SCH (08:01)
[2023-05-29 08:26] LABS: BUN/Creat Ratio 11.88 Ratio (12.00-20.00); Blood Urea Nitrogen 9.5 mg/dL (9.0-27.0); Calcium 9.8 mg/dL (8.7-10.3); Carbon Dioxide 25.5 mmol/L (21.6-31.8); Chloride 103 mmol/L (96-109); Glucose 223 mg/dL (70-110); Magnesium 1.9 mg/dL (1.5-2.4); Potassium 3.5 mmol/L (3.5-5.5); Sodium 138 mmol/L (135-145)
[2023-05-29 08:28] LABS: Basophils # (A) 0.06 X 10*3/uL (0.00-0.10); Basophils % (A) 0.7 %; Eosinophils # (A) 0.06 X 10*3/uL (0.04-0.35); Eosinophils % (A) 0.7 %; HCT 35.5 % (37.2-46.3); HGB 11.8 g/dL (12.0-15.0); Lymphocytes # (A) 1.93 X 10*3/uL (0.90-5.00); MCH 28.9 pg (27.0-32.0); MCHC 33.2 g/dL (32.0-37.0); Mean Platelet Volume 10.5 FL (9.5-12.2); Monocytes # (A) 0.61 X 10*3/uL (0.20-1.00); Monocytes % (A) 6.7 %; NRBC Per 100 WBC 0 X 10*3/uL (0.00-0.01); Neutrophils # (A) 6.47 X 10*3/uL (1.80-7.70); Neutrophils % (A) 70.5 %; Platelet Count 250 X 10*3/uL (140-440); RBC 4.08 X 10*6/uL (4.10-5.20); RDW 13.8 % (11.5-14.5); WBC 9.17 X 10*3/uL (4.50-10.00)
[2023-05-29 08:44] VITALS: TEMP 98.3
[2023-05-29] MEDS ORDERED: VENLAFAXINE HCL 37.5 MG TAB PO STA (08:52)
[2023-05-29] MEDS ORDERED: amLODIPine 5 MG TAB PO STA (08:53)
[2023-05-29] MEDS ORDERED: ATORVASTATIN 40 MG TAB PO SCH (09:00)
[2023-05-29] MEDS: SODIUM CHLORIDE 0.9% 1,000 ML IV SCH (09:31)
[2023-05-29] MEDS: HYDROcodone/APAP 10-325MG 1 EACH TAB PO PRN (09:40)
[2023-05-29 10:54] VITALS: RESP 20
[2023-05-29] MEDS: ONDANSETRON 4 MG/2 ML VIAL IVP PRN (11:05)
[2023-05-29 12:15] LABS: Glucose,Whole Blood 274 mg/dL (70-110)
--- NOTE | 2023-05-29 12:21 | P.PN ---
Subjective Patient is seen in follow-up for acute kidney injury. Renal function back to baseline. On IV fluids. Complains of nausea but no vomiting. Vital signs are stable. General: No acute distress. HEENT: Head exam is unremarkable. LUNGS: No audible rhonchi or wheezes. HEART: Rate and Rhythm are regular. ABDOMEN: Nontender. EXTREMITITES: No edema. Objective - Vital Signs Vital signs: Vital Signs Temp 98.3 F 05/29/23 07:00 Pulse 127 H 05/29/23 07:00 Resp 20 05/29/23 08:00 BP 183/92 05/29/23 07:00 Pulse Ox 98 05/29/23 07:00 FiO2 Intake & Output 05/28/23 05/29/23 05/29/23 18:59 06:59 18:59 Intake Total 240 Balance 240 Weight 65.317 kg Intake: Oral 240 Other: Voiding Method Toilet # Voids 4 - Labs CBC & Chem 7: 05/29/23 05:52 05/29/23 05:52 Labs: Abnormal Lab Results - Last 24 Hours (Table) 05/28/23 05/28/23 05/28/23 Range/Units 08:19 12:57 18:41 RBC (4.10-5.20) X 10*6/uL Hgb (12.0-15.0) g/dL Hct (37.2-46.3) % Anion Gap 12.50 H (4.00-12.00) mmol/L BUN 8.1 L (9.0-27.0) mg/dL BUN/Creatinine Ratio 10.12 L (12.00-20.00) Ratio Glucose 259 H (70-110) mg/dL POC Glucose (mg/dL) 218 H 276 H (70-110) mg/dL Hemoglobin A1c (<=6.0) % 05/28/23 05/29/23 05/29/23 Range/Units 21:31 05:52 05:52 RBC 4.08 L (4.10-5.20) X 10*6/uL Hgb 11.8 L (12.0-15.0) g/dL Hct 35.5 L (37.2-46.3) % Anion Gap (4.00-12.00) mmol/L BUN (9.0-27.0) mg/dL BUN/Creatinine Ratio (12.00-20.00) Ratio Glucose (70-110) mg/dL POC Glucose (mg/dL) 261 H (70-110) mg/dL Hemoglobin A1c 8.9 H (<=6.0) % 05/29/23 05/29/23 05/29/23 Range/Units 05:52 06:20 12:14 RBC (4.10-5.20) X 10*6/uL Hgb (12.0-15.0) g/dL Hct (37.2-46.3) % Anion Gap (4.00-12.00) mmol/L BUN (9.0-27.0) mg/dL BUN/Creatinine Ratio 11.88 L (12.00-20.00) Ratio Glucose 223 H (70-110) mg/dL POC Glucose (mg/dL) 199 H 274 H (70-110) mg/dL Hemoglobin A1c (<=6.0) % Assessment and Plan Plan: Assessment: 1.acute kidney injury secondary to ATN secondary to hypovolemia from poor intake and valsartan. Creatinine 0.75 in April 2023 and elevated at 2.4 at this admission - 0.8 today. UA benign. No hydronephrosis noted on CAT scan. 2. Chronic nausea and abdominal pain. Patient is dependent on opioids. 3. Benign hypertension. Exacerbated by pain and nausea. 4. Diabetes mellitus. 5. Coronary disease with cardiac stenting. Plan: Maintain IV fluids - decrease rate to 50 mL an hour. Amlodipine added today. Pain control. Avoid nephrotoxins. I will sign off. Please call with any questions or concerns.
[2023-05-29 12:39] VITALS: BP 178/92; PULSE 101
--- NOTE | 2023-05-29 13:48 | P.DS ---
Providers Date of admission: 05/28/23 02:56 Expected date of discharge: 05/29/23 Attending physician: Evelyne Wade MD Consults: 05/28/23 02:56 Consult Physician Urgent Consulting Provider: [facility] Consult Reason/Comments: acute chest pain, hx ascad Do you want consulting provider notified?: Yes 05/28/23 09:06 Consult Physician Routine Consulting Provider: Ramona Miramontes Consult Reason/Comments: CROW Do you want consulting provider notified?: Yes Primary care physician: Srinivasa Caballero MD Hospital Course: Discharge Diagnosis: Hypertensive urgency Anxiety Diarrhea Acute Kidney Injury Chronic Pain/FIbromyalgia DM 2 Hospital Course: Patient is a 73-year-old female with diabetes, coronary artery disease status post stents, hypertension, and fibromyalgia who presented to the ED with worsening of her chronic nausea and abdominal pain. Patient states that since she had her Covid vaccine at of March she's been having these symptoms, diarrhea, and decreased oral intake. In the emergency department she underwent an extensive evaluation. On arrival her blood pressure was 236/134. He intiial labs were remarkable for d-dimer of 0.71 (chronically elevated at similar levels), Bun 28, and Cr of 2.48. She was admitted for CROW and HTN urgency. She was noted to have significant anxiety. She was alos having some increased abdominal pain. She was monitored overnight with no bowel movements in greater than 8 hours. Her BP improved to less than 180. Her Cr returned to baseline of 0.8. She was determined stable for discharge home.We had a prolonged discussion and it appears that her symptoms of anxiety have actually increased since she has been escalating her Effexor. We discussed going back to her prior dose that was effective at 30 7. 5 in the morning and 75 mg at night. She is in agreement with this plan. She is very concerned about her Klonopin and states is feeling worse for her anxiety. I told her that Klonopin is not a good long-term solution for anxiety and has multiple side effects, can be significantly addictive, and can lead to breakthrough anxiety and panic attacks when doses are missed. I did agree to give her a small prescription of Klonopin at 9 tablets to use for breakthrough panic attacks. She is seen and cleared by cardiology. She was determined stable for discharge. Follow-up: Warm and off was given to Dr. Caballero, Medication changes are Effexor decreased to 37.5 mg in the morning and 75 mg at night. Her hypertensive regimen was not adjusted as it was felt that her blood pressure increases likely secondary to anxiety. I did confirme with Dr. Caballero that her blood pressure in office showed a systolic of 137. I do believe that the liver elevated blood pressures are due to her Diovan being held and then her nausea and diarrhea prior to admission. She'll check her blood pressures once daily. She will follow up with Dr. Espinoza next week and Dr. Arreola in 1-2 weeks. Vital signs reviewed and stable. General: nontoxic, no distress, appears at stated age Cardiovascular: S1S2 reg, no murmur, positive posterior tibial pulse bilateral, Lungs: Decreased bs bilateral, no rhonchi, no rales , no accessory muscle use Abdominal: soft, nontender to palpation, no guarding, no appreciable organomegaly Ext: no gross muscle atrophy, no edema b/l lower extremities, no contractures Neuro: CN II-XI grossly intact, no focal neuro deficits Psych: Alert, oriented, appropriate affect A total of 47 minutes of time were spent preparing this complex discharge summary. Patient was discharged on 05/29/23. This dictation was prepared using [employer] voice recognition software. Though every attempt is made to correct errors during dictation some may still exist. Patient Condition at Discharge: Stable Plan - Discharge Summary New Discharge Prescriptions: New Venlafaxine HCl ER [Effexor Xr] 75 mg PO PC-SUPPER #30 cap clonazePAM [KlonoPIN] 0.5 mg PO TID PRN #9 tab PRN Reason: Agitation Or Acute Anxiety Continue Morphine Sulfate ER [Ms Contin] 30 mg PO Q8H Topiramate [Topamax] 50 mg PO TID Rizatriptan Benzoate [Maxalt] 10 mg PO BID PRN PRN Reason: Migraine Headache Brimonidine Tartrate [Alphagan P 0.2% Ophth Soln] 1 drops RIGHT EYE TID Propylene Glycol/Peg 400/Pf [Systane 0.3-0.4% Ophth Dropperette] 1 drop LEFT EYE Q1H Albuterol Inhaler [Ventolin Hfa Inhaler] 2 puff INHALATION RT-Q4H PRN PRN Reason: Shortness Of Breath Aspirin EC [Ecotrin Low Dose] 81 mg PO DAILY Valsartan 160 mg PO DAILY@1800 Netarsudil Mesylat/Latanoprost [Rocklatan 0.02%-0.005% Eye Drp] 1 drop RIGHT EYE HS Cetirizine HCl 10 mg PO DAILY@1800 Pantoprazole [Protonix] 40 mg PO BID@0900,1800 amLODIPine BESYLATE 2.5 mg PO DAILY@1800 Erenumab-Aooe [Aimovig Autoinjector] 140 mg SQ Q30D cycloSPORINE 0.05% OPHTH SOLN [Restasis] 1 drop BOTH EYES BID Ondansetron Odt [Zofran ODT] 8 mg PO Q8HR PRN PRN Reason: Nausea And Vomiting Venlafaxine HCl ER [Effexor XR] 37.5 mg PO DAILY Nitroglycerin Sl Tabs [Nitrostat] 0.4 mg SUBLINGUAL Q5M PRN #20 tab PRN Reason: Chest Pain Rosuvastatin Calcium 10 mg PO DIRECTED Olopatadine HCl [Patanol 0.1%] 1 drop RIGHT EYE BID busPIRone HCL [Buspar] 7.5 mg PO BID ARIPiprazole 2 mg PO DAILY polyethylene glycoL 3350 [Miralax] 17 gm PO DAILY PRN PRN Reason: Constipation Pioglitazone [Actos] 30 mg PO DAILY Eszopiclone [Lunesta] 2 mg PO HS Melatonin [Melatonin ER] 10 mg PO HS guaiFENesin [Mucinex] 600 mg PO BID PRN PRN Reason: Cold Symptoms Diclofenac Sodium Gel [Voltaren 1% Gel] 1 applic TOPICAL QID PRN PRN Reason: Pain traZODone HCL [Desyrel] 400 mg PO HS Metoprolol Tartrate [Lopressor] 25 mg PO BID Tolterodine ER [Detrol LA] 4 mg PO HS oxyCODONE HCL/ACETAMINOPHEN [oxyCODONE HCL/ACETAMINOPHEN 7.5-325] 1 tab PO TID PRN PRN Reason: Pain hydrOXYzine HCL 10 mg PO QID PRN PRN Reason: Anxiety sitaGLIPtin [Januvia] 100 mg PO DAILY Discontinued Venlafaxine HCl ER [Effexor Xr] 150 mg PO DAILY@1800 Discharge Medication List Morphine Sulfate ER [Ms Contin] 30 mg PO Q8H 11/08/15 [History] Rizatriptan Benzoate [Maxalt] 10 mg PO BID PRN 07/04/16 [History] Topiramate [Topamax] 50 mg PO TID 07/04/16 [History] Brimonidine Tartrate [Alphagan P 0.2% Ophth Soln] 1 drops RIGHT EYE TID 09/09/17 [History] Albuterol Inhaler [Ventolin Hfa Inhaler] 2 puff INHALATION RT-Q4H PRN 11/03/18 [History] Propylene Glycol/Peg 400/Pf [Systane 0.3-0.4% Ophth Dropperette] 1 drop LEFT EYE Q1H 11/03/18 [History] Aspirin EC [Ecotrin Low Dose] 81 mg PO DAILY 02/05/19 [History] Netarsudil Mesylat/Latanoprost [Rocklatan 0.02%-0.005% Eye Drp] 1 drop RIGHT EYE HS 04/12/20 [History] Valsartan 160 mg PO DAILY@1800 04/12/20 [History] Cetirizine HCl 10 mg PO DAILY@1800 04/20/20 [History] Erenumab-Aooe [Aimovig Autoinjector] 140 mg SQ Q30D 11/04/22 [History] Eszopiclone [Lunesta] 2 mg PO HS 11/04/22 [History] Melatonin [Melatonin ER] 10 mg PO HS 11/04/22 [History] Pantoprazole [Protonix] 40 mg PO BID@0900,1800 11/04/22 [History] Pioglitazone [Actos] 30 mg PO DAILY 11/04/22 [History] amLODIPine BESYLATE 2.5 mg PO DAILY@1800 11/04/22 [History] polyethylene glycoL 3350 [Miralax] 17 gm PO DAILY PRN 11/04/22 [History] Diclofenac Sodium Gel [Voltaren 1% Gel] 1 applic TOPICAL QID PRN 11/27/22 [History] Ondansetron Odt [Zofran ODT] 8 mg PO Q8HR PRN 11/27/22 [History] Venlafaxine HCl ER [Effexor XR] 37.5 mg PO DAILY 11/27/22 [History] cycloSPORINE 0.05% OPHTH SOLN [Restasis] 1 drop BOTH EYES BID 11/27/22 [History] guaiFENesin [Mucinex] 600 mg PO BID PRN 11/27/22 [History] traZODone HCL [Desyrel] 400 mg PO HS 11/27/22 [History] Nitroglycerin Sl Tabs [Nitrostat] 0.4 mg SUBLINGUAL Q5M PRN #20 tab 11/28/22 [Rx] ARIPiprazole 2 mg PO DAILY 05/28/23 [History] Metoprolol Tartrate [Lopressor] 25 mg PO BID 05/28/23 [History] Olopatadine HCl [Patanol 0.1%] 1 drop RIGHT EYE BID 05/28/23 [History] Rosuvastatin Calcium 10 mg PO DIRECTED 05/28/23 [History] Tolterodine ER [Detrol LA] 4 mg PO HS 05/28/23 [History] busPIRone HCL [Buspar] 7.5 mg PO BID 05/28/23 [History] hydrOXYzine HCL 10 mg PO QID PRN 05/28/23 [History] oxyCODONE HCL/ACETAMINOPHEN [oxyCODONE HCL/ACETAMINOPHEN 7.5-325] 1 tab PO TID PRN 05/28/23 [History] sitaGLIPtin [Januvia] 100 mg PO DAILY 05/28/23 [History] Venlafaxine HCl ER [Effexor Xr] 75 mg PO PC-SUPPER #30 cap 05/29/23 [Rx] clonazePAM [KlonoPIN] 0.5 mg PO TID PRN #9 tab 05/29/23 [Rx] Follow up Appointment(s)/Referral(s): Srinivasa Caballero MD [Primary Care Provider] - 1-2 days Clayton Pino MD [STAFF PHYSICIAN] - 1 Week Patient Instructions/Handouts: Relaxation and Meditation (DC), Anxiety (ED), Chronic Hypertension (DC) Activity/Diet/Wound Care/Special Instructions: Activity: As tolerated Diet: Heart Healthy Special Instructions: Take blood pressure once daily and make a log for Dr. Caballero You should not be on Klonopin nursing home due to side effects, ideally this should not be combined with opiate medications. You have been prescribed 9 pills for emergences only such as a panic attack. Please continue to see your psychiatry clinic and consider talk therapy, a list of therapist has been included in your discharge paperwork. Other modalities to treat your anxiety include easy chair yoga, meditation, and deep breathing exercises. Discharge/Stand Alone Forms: Who Do I Call?, Community Resources, Outpatient Counseling Discharge Disposition: HOME SELF-CARE
[2023-05-30] MEDS ORDERED: amLODIPine 10 MG TAB PO SCH (09:00)
== END 2023-05-29 15:47 | disposition home or self-care (01) ==
LOC: EC 22:03 → 5NMEDONC 05-28 02:56 → 6NMEDSUR 05-28 03:08
PROVIDERS: ADMIT Internal Medicine; ATTEND Internal Medicine
DX: I16.0 Hypertensive urgency (principal); I10 Essential (primary) hypertension; R10.9 Unspecified abdominal pain; R11.0 Nausea; N17.0 Acute kidney failure with tubular necrosis; E86.1 Hypovolemia; I25.10 Atherosclerotic heart disease of native coronary artery without angina pectoris; E11.9 Type 2 diabetes mellitus without complications; K21.9 Gastro-esophageal reflux disease without esophagitis; J45.909 Unspecified asthma, uncomplicated; E78.5 Hyperlipidemia, unspecified; F41.0 Panic disorder [episodic paroxysmal anxiety]; M79.7 Fibromyalgia; F32.A Depression, unspecified; G89.29 Other chronic pain; I25.2 Old myocardial infarction; Z95.5 Presence of coronary angioplasty implant and graft; Z79.899 Other long term (current) drug therapy; Z79.82 Long term (current) use of aspirin; Z79.84 Long term (current) use of oral hypoglycemic drugs; Z88.1 Allergy status to other antibiotic agents
CPT/HCPCS: 96376 ×3; 96372 ×3; 96374; 96375 ×2; 99285; 36415; 93005; 85379; 80053; 80048 ×2; 83690; 83735 ×2; 84484; 85025 ×2; 85610; 85730; 81003; 83036; 71046; 74176; G0378 ×2; J0360 ×2; J1200; J3250; J2405 ×3; J1170 ×2; J1920

== ENCOUNTER 2023-06-03 15:40 | Emergency (ER) | payer MEDICARE ==
[2023-06-03 16:20] LABS: Glucose,Whole Blood 211 mg/dL (70-110)
--- NOTE | 2023-06-03 16:27 | ED ---
Recheck HPI - General Source: patient, RN notes reviewed Mode of arrival: wheelchair Limitations: no limitations <Denia Enriquez - Last Filed: 06/03/23 16:23> <Zohra Santoro - Last Filed: 06/04/23 00:16> - General Chief Complaint: Recheck/Abnormal Lab/Rx Stated Complaint: High blood sugar Time Seen by Provider: 06/03/23 16:23 - History of Present Illness Initial Comments: Patient is a 73-year-old female presented ER with a chief complaint of uncontrolled blood sugars. Patient was sent here by her PCP. Patient states her blood sugars have been ranging from high 300s to 400s. Patient denies any fevers, chest pain, shortness of breath. (Denia Enriquez) Angelique is a pleasant 73yo F who presents to the ER via private vehicle for evaluation of elevated blood glucose. Patient reports that she is only on oral medications for her diabetes, she is not on a diabetic diet and has never received any education on diabetic diet. She states that since getting vaccines up in the March she's been having elevated sugars and when her sugar is high and she feels very shaky and anxious. Patient is followed with her primary care about this and they're working on getting a closer glucose monitoring system and considering medication changes. Patient reports that today her sugars were in the 3-400 range she contact her primary care office and they advised her to the ER for evaluation. (Zohra Santoro) - Related Data Home Medications Medication Instructions Recorded Confirmed Morphine Sulfate ER [Ms Contin] 30 mg PO Q8H 11/08/15 05/28/23 Rizatriptan Benzoate [Maxalt] 10 mg PO BID PRN 07/04/16 05/28/23 Topiramate [Topamax] 50 mg PO TID 07/04/16 05/28/23 Brimonidine Tartrate [Alphagan P 1 drops RIGHT EYE TID 09/09/17 05/28/23 0.2% Ophth Soln] Albuterol Inhaler [Ventolin Hfa 2 puff INHALATION RT-Q4H PRN 11/03/18 05/28/23 Inhaler] Propylene Glycol/Peg 400/Pf 1 drop LEFT EYE Q1H 11/03/18 05/28/23 [Systane 0.3-0.4% Ophth Dropperette] Aspirin EC [Ecotrin Low Dose] 81 mg PO DAILY 02/05/19 05/28/23 Netarsudil Mesylat/Latanoprost 1 drop RIGHT EYE HS 04/12/20 05/28/23 [Rocklatan 0.02%-0.005% Eye Drp] Valsartan 160 mg PO DAILY@1800 04/12/20 05/28/23 Cetirizine HCl 10 mg PO DAILY@1800 04/20/20 05/28/23 Erenumab-Aooe [Aimovig 140 mg SQ Q30D 11/04/22 05/28/23 Autoinjector] Eszopiclone [Lunesta] 2 mg PO HS 11/04/22 05/28/23 Melatonin [Melatonin ER] 10 mg PO HS 11/04/22 05/28/23 Pantoprazole [Protonix] 40 mg PO BID@0900,1800 11/04/22 05/28/23 Pioglitazone [Actos] 30 mg PO DAILY 11/04/22 05/28/23 amLODIPine BESYLATE 2.5 mg PO DAILY@1800 11/04/22 05/28/23 polyethylene glycoL 3350 [Miralax] 17 gm PO DAILY PRN 11/04/22 05/28/23 Diclofenac Sodium Gel [Voltaren 1% 1 applic TOPICAL QID PRN 11/27/22 05/28/23 Gel] Ondansetron Odt [Zofran ODT] 8 mg PO Q8HR PRN 11/27/22 05/28/23 Venlafaxine HCl ER [Effexor XR] 37.5 mg PO DAILY 11/27/22 05/28/23 cycloSPORINE 0.05% OPHTH SOLN 1 drop BOTH EYES BID 11/27/22 05/28/23 [Restasis] guaiFENesin [Mucinex] 600 mg PO BID PRN 11/27/22 05/28/23 traZODone HCL [Desyrel] 400 mg PO HS 11/27/22 05/28/23 ARIPiprazole 2 mg PO DAILY 05/28/23 05/28/23 Metoprolol Tartrate [Lopressor] 25 mg PO BID 05/28/23 05/28/23 Olopatadine HCl [Patanol 0.1%] 1 drop RIGHT EYE BID 05/28/23 05/28/23 Rosuvastatin Calcium 10 mg PO DIRECTED 05/28/23 05/28/23 Tolterodine ER [Detrol LA] 4 mg PO HS 05/28/23 05/28/23 busPIRone HCL [Buspar] 7.5 mg PO BID 05/28/23 05/28/23 hydrOXYzine HCL 10 mg PO QID PRN 05/28/23 05/28/23 oxyCODONE HCL/ACETAMINOPHEN 1 tab PO TID PRN 05/28/23 05/28/23 [oxyCODONE HCL/ACETAMINOPHEN 7.5-325] sitaGLIPtin [Januvia] 100 mg PO DAILY 05/28/23 05/28/23 Previous Rx's Medication Instructions Recorded Nitroglycerin Sl Tabs [Nitrostat] 0.4 mg SUBLINGUAL Q5M PRN #20 tab 11/28/22 Venlafaxine HCl ER [Effexor Xr] 75 mg PO PC-SUPPER #30 cap 05/29/23 clonazePAM [KlonoPIN] 0.5 mg PO TID PRN #9 tab 05/29/23 Allergies Allergy/AdvReac Type Severity Reaction Status Date / Time adhesive Allergy Severe Rash/Hives, Verified 05/28/23 09:15 BLISTERS levofloxacin [From Levaquin] Allergy Severe Anaphylaxis Verified 05/28/23 09:15 metoclopramide HCl Allergy Severe Anaphylaxis Verified 05/28/23 09:15 [From Reglan] Phenothiazines Allergy Severe Anaphylaxis Verified 05/28/23 09:15 thiethylperazine maleate Allergy Severe Anaphylaxis Verified 05/28/23 09:15 [From Torecan] venom-honey bee Allergy Severe Anaphylaxis Verified 05/28/23 09:15 [bee venom (honey bee)] iodine Allergy Intermediate Rash/Hives Verified 05/28/23 09:15 chlorhexidine Allergy red dye in Verified 05/28/23 09:15 [From Hibiclens] hibiclens causes Rash/Hives duloxetine [From Cymbalta] Allergy Unknown Verified 05/28/23 09:15 meloxicam [From Mobic] Allergy Unknown Verified 05/28/23 09:15 cigarette smoke AdvReac Cough Verified 05/28/23 09:15 fentanyl AdvReac OVER Verified 05/28/23 09:15 SEDATED, WEAKNESS pregabalin [From Lyrica] AdvReac oversedatio Verified 05/28/23 09:15 n Ffmvekh-ZRL-IbH Reductase AdvReac increased Verified 05/28/23 09:15 Inhibitor fibramyalgia [Dmxfisg-Qgf-Fsf Reductase symptoms Inhibitor] Review of Systems ROS Other: All systems not noted in ROS Statement are negative. <Denia Enriquez - Last Filed: 06/03/23 16:23> ROS Other: All systems not noted in ROS Statement are negative. <Zohra Santoro - Last Filed: 06/04/23 00:16> ROS Statement: Those systems with pertinent positive or pertinent negative responses have been documented in the HPI. Past Medical History Past Medical History: Asthma, Diabetes Mellitus, Eye Disorder, Fibromyalgia, G ERD/Reflux, Hyperlipidemia, Hypertension, Myocardial Infarction (NC), Musculoskeletal Disorder, Osteoarthritis (OA), Skin Disorder Additional Past Medical History / Comment(s): Rosacea, dry skin. Degenerative Disc Disease, hx severe back injury from work, kyphosis. Hx bilateral ankle fractures. Glaucoma, blind in right eye, increased left eye pressure and gel stent in left eye. Migraines. Insomnia. Frequent night time urination. Chronic nausea. Last Myocardial Infarction Date:: 01/2019 History of Any Multi-Drug Resistant Organisms: None Reported Past Surgical History: Back Surgery, Bariatric Surgery, Bladder Surgery, Cholecystectomy, Heart Catheterization With Stent, Hysterectomy, Orthopedic Surgery, Tonsillectomy, Tubal Ligation Additional Past Surgical History / Comment(s): Lap band 2009, lumbar laminectomy, wayne and screw to lumbar back, open reduction of right ankle fracture, bilateral carpal tunnel surgery X2 each side, left cubital tunnel surgery, cardiac stent X2 - January 2019, left eye gel stent. Past Anesthesia/Blood Transfusion Reactions: No Reported Reaction Additional Past Anesthesia/Blood Transfusion Reaction / Comment(s): No problems with prior blood transfusion at age 19 after bleed with tonsillectomy. Date of Last Stent Placement:: 01/2019 Past Psychological History: Anxiety, Panic Disorder Smoking Status: Never smoker Past Alcohol Use History: None Reported Past Drug Use History: None Reported - Past Family History Father Family Medical History: Cancer Additional Family Medical History / Comment(s): FATHER AT AGE 91YRS. Skin cancer. Mother Family Medical History: CVA/TIA Additional Family Medical History / Comment(s): MOTHER AT AGE 67 YRS OF CVA. <Denia Enriquez - Last Filed: 06/03/23 16:23> General Exam Limitations: no limitations <Denia Enriquez - Last Filed: 06/03/23 16:23> Limitations: no limitations General appearance: alert Head exam: Present: atraumatic, normocephalic Eye exam: Present: PERRL ENT exam: Present: normal exam Respiratory exam: Absent: respiratory distress Cardiovascular Exam: Present: regular rate GI/Abdominal exam: Present: soft Rectal exam: Present: deferred Extremities exam: Absent: pedal edema Neurological exam: Present: alert, oriented X3 Psychiatric exam: Present: normal affect, normal mood Skin exam: Present: warm, dry <Zohra Santoro - Last Filed: 06/04/23 00:16> - General Exam Comments Initial Comments: Visual Physical Exam Vital signs reviewed General: Well-appearing, nontoxic, no acute distress. Head: Normocephalic, atraumatic Eyes: PERRLA, EOMI ENT: Airway patent Chest: Nonlabored breathing Skin: No visual rash, normal skin tone Neuro: Alert and oriented 3 Musculoskeletal: No gross abnormalities (Denia Enriquez) Course Vital Signs 06/03/23 16:13 Temperature 98.6 F Pulse Rate 98 Respiratory 20 Rate Blood Pressure 156/89 O2 Sat by Pulse 97 Oximetry Medical Decision Making <Denia Enriquez - Last Filed: 06/03/23 16:23> - Lab Data Result diagrams: 06/03/23 17:24 06/03/23 17:24 <Zohra Santoro - Last Filed: 06/04/23 00:16> - Medical Decision Making I performed the quick note portion of the exam. Electronically signed by Denia Enriquez PA-C (Denia Enriquez) Was pt. sent in by a medical professional or institution (KAYLA Barger, AMUSEMENT EQUIPMENT OPERATOR, urgent care, hospital, or correction...) When possible be specific @ -Yes sent by Dr. Kong's office Did you speak to anyone other than the patient for history (EMS, parent, family, police, friend...)? What history was obtained from this source @ -No Did you review nursing and triage notes (agree or disagree)? Why? @ -I reviewed and agree with nursing and triage notes Were old charts reviewed (outside hosp., previous admission, EMS record, old EKG, old radiological studies, urgent care reports/EKG's, correction records)? Report findings @ -No old charts were reviewed Differential Diagnosis (chest pain, altered mental status, abdominal pain women, abdominal pain men, vaginal bleeding, weakness, fever, dyspnea, syncope, headache, dizziness, GI bleed, back pain, seizure, CVA, palpatations, mental health, musculoskeletal)? @ - differential hyperglycemia, medication noncompliance, lab error EKG interpreted by me (3pts min.). @ -As above X-rays interpreted by me (1pt min.). @ -None done CT interpreted by me (1pt min.). @ -None done U/S interpreted by me (1pt. min.). @ -None done What testing was considered but not performed or refused? (CT, X-rays, U/S, labs)? Why? @ -None What meds were considered but not given or refused? Why? @ -None Did you discuss the management of the patient with other professionals (edel villafuerte i.e. , PA, AMUSEMENT EQUIPMENT OPERATOR, lab, RT, psych nurse, social science teacher, food beverage supervisor, teacher, duty officer, gearcase assembler)? Give summary @ -No Was smoking cessation discussed for >3mins.? @ -No Was critical care preformed (if so, how long)? @ -No Were there social determinants of health that impacted care today? How? (Homelessness, low income, unemployed, alcoholism, drug addiction, transportation, low edu. Level, literacy, decrease access to med. care, usp, rehab)? @ -Decrease access to medical care Was there de-escalation of care discussed even if they declined (Discuss DNR or withdrawal of care, Hospice)? DNR status @ -No What co-morbidities impacted this encounter? (DM, HTN, Smoking, COPD, CAD, Cancer, CVA, ARF, Chemo, Hep., AIDS, mental health diagnosis, sleep apnea, morbid obesity)? @ -Diabetes, blindness Was patient admitted / discharged? Hospital course, mention meds given and route, prescriptions, significant lab abnormalities, going to OR and other pertinent info. @ -Discharge The patient was seen and evaluated labs were obtained in the triage setting, patient mildly hyperglycemic, repeat glucose was 203 patient was given a small dose of insulin patient was awake alert oriented ambulatory in the ER. Repeat glucose was 205 which is unchanged however not significantly elevated I recommended the patient be discharged home take her normal oral medications and follow with her primary care provider. Undiagnosed new problem with uncertain prognosis? @ -No Drug Therapy requiring intensive monitoring for toxicity (Heparin, Nitro, Insulin, Cardizem)? @ -No Were any procedures done? @ -No Diagnosis/symptom? @ -Hyperglycemia due to diabetes Acute, or Chronic, or Acute on Chronic? @ -default Uncomplicated (without systemic symptoms) or Complicated (systemic symptoms)? @ -default Side effects of treatment? @ -No Exacerbation, Progression, or Severe Exacerbation? @ -No Poses a threat to life or bodily function? How? (Chest pain, USA, NC, pneumonia, PE, COPD, DKA, ARF, appy, cholecystitis, CVA, Diverticulitis, Homicidal, Suicidal, threat to staff... and all critical care pts) @ -No (Zohra Santoro) - Lab Data Lab Results 06/03/23 06/03/23 06/03/23 Range/Units 16:18 17:23 17:24 WBC 11.4 H (3.8-10.6) k/uL RBC 4.14 (3.80-5.40) m/uL Hgb 12.3 (11.4-16.0) gm/dL Hct 36.3 (34.0-46.0) % MCV 87.6 (80.0-100.0) fL MCH 29.7 (25.0-35.0) pg MCHC 33.9 (31.0-37.0) g/dL RDW 14.0 (11.5-15.5) % Plt Count 281 (150-450) k/uL MPV 7.7 Sodium (137-145) mmol/L Potassium (3.5-5.1) mmol/L Chloride (98-107) mmol/L Carbon Dioxide (22-30) mmol/L Anion Gap mmol/L BUN (7-17) mg/dL Creatinine (0.52-1.04) mg/dL Est GFR (CKD-EPI)AfAm (>60 ml/min/1.73 sqM) Est GFR (CKD-EPI)NonAf (>60 ml/min/1.73 sqM) Glucose (74-99) mg/dL POC Glucose (mg/dL) 211 H (70-110) mg/dL POC Glu Chemistry Research Assistant Truong Rankin Calcium (8.4-10.2) mg/dL Total Bilirubin (0.2-1.3) mg/dL AST (14-36) U/L ALT (4-34) U/L Alkaline Phosphatase (38-126) U/L Total Protein (6.3-8.2) g/dL Albumin (3.5-5.0) g/dL Urine Color Colorless Urine Appearance Clear (Clear) Urine pH 5.5 (5.0-8.0) Ur Specific [place] 1.011 (1.001-1.035) Urine Protein Negative (Negative) Urine Glucose (UA) Negative (Negative) Urine Ketones Negative (Negative) Urine Blood Negative (Negative) Urine Nitrite Negative (Negative) Urine Bilirubin Negative (Negative) Urine Urobilinogen <2.0 (<2.0) mg/dL Ur Leukocyte Esterase Negative (Negative) 06/03/23 06/03/23 06/04/23 Range/Units 17:24 22:40 00:08 WBC (3.8-10.6) k/uL RBC (3.80-5.40) m/uL Hgb (11.4-16.0) gm/dL Hct (34.0-46.0) % MCV (80.0-100.0) fL MCH (25.0-35.0) pg MCHC (31.0-37.0) g/dL RDW (11.5-15.5) % Plt Count (150-450) k/uL MPV Sodium 135 L (137-145) mmol/L Potassium 3.3 L (3.5-5.1) mmol/L Chloride 97 L (98-107) mmol/L Carbon Dioxide 25 (22-30) mmol/L Anion Gap 13 mmol/L BUN 34 H (7-17) mg/dL Creatinine 0.85 (0.52-1.04) mg/dL Est GFR (CKD-EPI)AfAm 80 (>60 ml/min/1.73 sqM) Est GFR (CKD-EPI)NonAf 69 (>60 ml/min/1.73 sqM) Glucose 198 H (74-99) mg/dL POC Glucose (mg/dL) 203 H 205 H (70-110) mg/dL POC Glu Chemistry Research Assistant Sylvester Carbajal Francesca Calcium 10.2 (8.4-10.2) mg/dL Total Bilirubin 0.4 (0.2-1.3) mg/dL AST 30 (14-36) U/L ALT 32 (4-34) U/L Alkaline Phosphatase 75 (38-126) U/L Total Protein 7.8 (6.3-8.2) g/dL Albumin 4.7 (3.5-5.0) g/dL Urine Color Urine Appearance (Clear) Urine pH (5.0-8.0) Ur Specific [place] (1.001-1.035) Urine Protein (Negative) Urine Glucose (UA) (Negative) Urine Ketones (Negative) Urine Blood (Negative) Urine Nitrite (Negative) Urine Bilirubin (Negative) Urine Urobilinogen (<2.0) mg/dL Ur Leukocyte Esterase (Negative) Disposition <Denia Enriquez - Last Filed: 06/03/23 16:23> Is patient prescribed a controlled substance at d/c from ED?: No <Zohra Santoro - Last Filed: 06/04/23 00:16> Clinical Impression: Hyperglycemia due to type 2 diabetes mellitus Disposition: HOME SELF-CARE Condition: Stable Additional Instructions: Follow with primary care to discuss glucose management, possibly starting insulin Referrals: Srinivasa Caballero MD [Primary Care Provider] - 1-2 days
[2023-06-03 16:36] VITALS: TEMP 98.6
[2023-06-03 17:56] LABS: HCT 36.3 % (34.0-46.0); HGB 12.3 gm/dL (11.4-16.0); MCH 29.7 pg (25.0-35.0); MCHC 33.9 g/dL (31.0-37.0); MCV 87.6 fL (80.0-100.0); Mean Platelet Volume 7.7; Platelet Count 281 k/uL (150-450); RBC 4.14 m/uL (3.80-5.40); WBC 11.4 k/uL (3.8-10.6)
[2023-06-03 17:57] LABS: Appearance,Urine Clear (Clear); Bilirubin,Urine Negative (Negative); Blood,Urine Negative (Negative); Color,Urine Colorless; Glucose,Urine (UA) Negative (Negative); Ketones,Urine Negative (Negative); Leukocyte Esterase,Urine Negative (Negative); Nitrite,Urine Negative (Negative); PH, Urine 5.5 (5.0-8.0); Protein,Urine Negative (Negative); Specific Gravity,Urine 1.011 (1.001-1.035); Urobilinogen,Urine <2.0 mg/dL (<2.0)
[2023-06-03 18:06] LABS: ALT 32 U/L (4-34); AST 30 U/L (14-36); African American GFR (CKD) 80 (>60 ml/min/1.73 sqM); Albumin 4.7 g/dL (3.5-5.0); Alkaline Phosphatase 75 U/L (38-126); Anion Gap 13 mmol/L; Blood Urea Nitrogen 34 mg/dL (7-17); Calcium 10.2 mg/dL (8.4-10.2); Carbon Dioxide 25 mmol/L (22-30); Chloride 97 mmol/L (98-107); Glucose 198 mg/dL (74-99); Non-African American GFR(CKD) 69 (>60 ml/min/1.73 sqM); Potassium 3.3 mmol/L (3.5-5.1); Sodium 135 mmol/L (137-145); Total Bilirubin 0.4 mg/dL (0.2-1.3); Total Protein 7.8 g/dL (6.3-8.2)
[2023-06-03 22:42] LABS: Glucose,Whole Blood 203 mg/dL (70-110)
[2023-06-03] MEDS ORDERED: INSULIN REGULAR 100 UNIT/ML VIAL (IM/SQ) SQ ONE (22:44)
[2023-06-04 00:12] LABS: Glucose,Whole Blood 205 mg/dL (70-110)
[2023-06-04 00:54] VITALS: BP 163/85; PULSE 113; RESP 17
== END 2023-06-04 01:09 | disposition home or self-care (01) ==
LOC: EC 15:40
DX: E11.65 Type 2 diabetes mellitus with hyperglycemia (principal); E78.5 Hyperlipidemia, unspecified; F41.9 Anxiety disorder, unspecified; I10 Essential (primary) hypertension; I25.2 Old myocardial infarction; J45.909 Unspecified asthma, uncomplicated; K21.9 Gastro-esophageal reflux disease without esophagitis; M19.90 Unspecified osteoarthritis, unspecified site; Z79.84 Long term (current) use of oral hypoglycemic drugs; Z79.899 Other long term (current) drug therapy; Z88.1 Allergy status to other antibiotic agents; Z88.5 Allergy status to narcotic agent; Z88.8 Allergy status to other drugs, medicaments and biological substances; Z91.030 Bee allergy status; Z95.5 Presence of coronary angioplasty implant and graft; Z90.49 Acquired absence of other specified parts of digestive tract
CPT/HCPCS: 36415; 80053; 81003; 85027; 99283

== ENCOUNTER 2023-06-06 22:15 | Observation (INO) | payer MEDICARE ==
[2023-06-06] MEDS ORDERED: ONDANSETRON 4 MG/2 ML VIAL IVP STA (22:43)
[2023-06-06] MEDS ORDERED: HYDROmorphone 0.5 MG/0.5 ML SYRINGE IVP STA (22:43)
[2023-06-06] MEDS ORDERED: SODIUM CHLORIDE 0.9% 500 ML 500 ML IV STA (22:43)
[2023-06-06 22:44] LABS: Glucose,Whole Blood 203 mg/dL (70-110)
--- NOTE | 2023-06-06 22:51 | ED ---
General Adult HPI - General Chief complaint: Recheck/Abnormal Lab/Rx Stated complaint: Hyperglycemia Time Seen by Provider: 06/06/23 22:19 Source: patient, EMS Limitations: no limitations - History of Present Illness Initial comments: This patient is 73-year-old woman who complains that her blood sugar has been elevated going back a number days. Patient states that she has been having a lot of nausea and vomiting and has not been tolerating her oral medicines sometimes. In light of this she was seen at the clinic and they started her with insulin on a sliding scale, which she states that she is continuing to have elevated blood sugar. The patient is having urinary frequency as well. In addition, patient states she has been having the aforementioned nausea vomiting and some associated diarrhea. She has not noted bloody or dark tarry stools. No hematemesis or coffee-ground material. Patient does have chronic sciatica and states this is flaring up. She usually t akes MS Contin and oxycodone but states that she hasn't tolerated her medicines. -: days(s) Location: buttocks, left, lower extremity Radiation: distal Quality: burning Consistency: intermittent Worsens with: other (Physician) Associated Symptoms: denies other symptoms Treatments Prior to Arrival: none - Related Data Home Medications Medication Instructions Recorded Confirmed Morphine Sulfate ER [Ms Contin] 30 mg PO Q8H 11/08/15 05/28/23 Rizatriptan Benzoate [Maxalt] 10 mg PO BID PRN 07/04/16 05/28/23 Topiramate [Topamax] 50 mg PO TID 07/04/16 05/28/23 Brimonidine Tartrate [Alphagan P 1 drops RIGHT EYE TID 09/09/17 05/28/23 0.2% Ophth Soln] Albuterol Inhaler [Ventolin Hfa 2 puff INHALATION RT-Q4H PRN 11/03/18 05/28/23 Inhaler] Propylene Glycol/Peg 400/Pf 1 drop LEFT EYE Q1H 11/03/18 05/28/23 [Systane 0.3-0.4% Ophth Dropperette] Aspirin EC [Ecotrin Low Dose] 81 mg PO DAILY 02/05/19 05/28/23 Netarsudil Mesylat/Latanoprost 1 drop RIGHT EYE HS 04/12/20 05/28/23 [Rocklatan 0.02%-0.005% Eye Drp] Valsartan 160 mg PO DAILY@1800 04/12/20 05/28/23 Cetirizine HCl 10 mg PO DAILY@1800 04/20/20 05/28/23 Erenumab-Aooe [Aimovig 140 mg SQ Q30D 11/04/22 05/28/23 Autoinjector] Eszopiclone [Lunesta] 2 mg PO HS 11/04/22 05/28/23 Melatonin [Melatonin ER] 10 mg PO HS 11/04/22 05/28/23 Pantoprazole [Protonix] 40 mg PO BID@0900,1800 11/04/22 05/28/23 Pioglitazone [Actos] 30 mg PO DAILY 11/04/22 05/28/23 amLODIPine BESYLATE 2.5 mg PO DAILY@1800 11/04/22 05/28/23 polyethylene glycoL 3350 [Miralax] 17 gm PO DAILY PRN 11/04/22 05/28/23 Diclofenac Sodium Gel [Voltaren 1% 1 applic TOPICAL QID PRN 11/27/22 05/28/23 Gel] Ondansetron Odt [Zofran ODT] 8 mg PO Q8HR PRN 11/27/22 05/28/23 Venlafaxine HCl ER [Effexor XR] 37.5 mg PO DAILY 11/27/22 05/28/23 cycloSPORINE 0.05% OPHTH SOLN 1 drop BOTH EYES BID 11/27/22 05/28/23 [Restasis] guaiFENesin [Mucinex] 600 mg PO BID PRN 11/27/22 05/28/23 traZODone HCL [Desyrel] 400 mg PO HS 11/27/22 05/28/23 ARIPiprazole 2 mg PO DAILY 05/28/23 05/28/23 Metoprolol Tartrate [Lopressor] 25 mg PO BID 05/28/23 05/28/23 Olopatadine HCl [Patanol 0.1%] 1 drop RIGHT EYE BID 05/28/23 05/28/23 Rosuvastatin Calcium 10 mg PO DIRECTED 05/28/23 05/28/23 Tolterodine ER [Detrol LA] 4 mg PO HS 05/28/23 05/28/23 busPIRone HCL [Buspar] 7.5 mg PO BID 05/28/23 05/28/23 hydrOXYzine HCL 10 mg PO QID PRN 05/28/23 05/28/23 oxyCODONE HCL/ACETAMINOPHEN 1 tab PO TID PRN 05/28/23 05/28/23 [oxyCODONE HCL/ACETAMINOPHEN 7.5-325] sitaGLIPtin [Januvia] 100 mg PO DAILY 05/28/23 05/28/23 Previous Rx's Medication Instructions Recorded Nitroglycerin Sl Tabs [Nitrostat] 0.4 mg SUBLINGUAL Q5M PRN #20 tab 11/28/22 Venlafaxine HCl ER [Effexor Xr] 75 mg PO PC-SUPPER #30 cap 05/29/23 clonazePAM [KlonoPIN] 0.5 mg PO TID PRN #9 tab 05/29/23 Allergies Allergy/AdvReac Type Severity Reaction Status Date / Time adhesive Allergy Severe Rash/Hives, Verified 05/28/23 09:15 BLISTERS levofloxacin [From Levaquin] Allergy Severe Anaphylaxis Verified 05/28/23 09:15 metoclopramide HCl Allergy Severe Anaphylaxis Verified 05/28/23 09:15 [From Reglan] Phenothiazines Allergy Severe Anaphylaxis Verified 05/28/23 09:15 thiethylperazine maleate Allergy Severe Anaphylaxis Verified 05/28/23 09:15 [From Torecan] venom-honey bee Allergy Severe Anaphylaxis Verified 05/28/23 09:15 [bee venom (honey bee)] iodine Allergy Intermediate Rash/Hives Verified 05/28/23 09:15 chlorhexidine Allergy red dye in Verified 05/28/23 09:15 [From Hibiclens] hibiclens causes Rash/Hives duloxetine [From Cymbalta] Allergy Unknown Verified 05/28/23 09:15 meloxicam [From Mobic] Allergy Unknown Verified 05/28/23 09:15 cigarette smoke AdvReac Cough Verified 05/28/23 09:15 fentanyl AdvReac OVER Verified 05/28/23 09:15 SEDATED, WEAKNESS pregabalin [From Lyrica] AdvReac oversedatio Verified 05/28/23 09:15 n [id number] Reductase AdvReac increased Verified 05/28/23 09:15 Inhibitor fibramyalgia [Blcness-Ovn-Vqj Reductase symptoms Inhibitor] Review of Systems ROS Statement: Those systems with pertinent positive or pertinent negative responses have been documented in the HPI. ROS Other: All systems not noted in ROS Statement are negative. Constitutional: Denies: fever, chills, weakness Respiratory: Denies: cough, dyspnea Cardiovascular: Denies: chest pain, palpitations, edema Gastrointestinal: Reports: nausea, vomiting, diarrhea. Denies: abdominal pain, melena, hematochezia Genitourinary: Denies: dysuria, hematuria Musculoskeletal: Denies: back pain Skin: Denies: rash Neurological: Denies: headache, weakness, numbness Past Medical History Past Medical History: Asthma, Diabetes Mellitus, Eye Disorder, Fibromyalgia, GERD/Reflux, Hyperlipidemia, Hypertension, Myocardial Infarction (SC), Musculoskeletal Disorder, Osteoarthritis (OA), Skin Disorder Additional Past Medical History / Comment(s): Rosacea, dry skin. Degenerative Disc Disease, hx severe back injury from work, kyphosis. Hx bilateral ankle fractures. Glaucoma, blind in right eye, increased left eye pressure and gel stent in left eye. Migraines. Insomnia. Frequent night time urination. Chronic n ausea. Last Myocardial Infarction Date:: 01/2019 History of Any Multi-Drug Resistant Organisms: None Reported Past Surgical History: Back Surgery, Bariatric Surgery, Bladder Surgery, Cholecystectomy, Heart Catheterization With Stent, Hysterectomy, Orthopedic Surgery, Tonsillectomy, Tubal Ligation Additional Past Surgical History / Comment(s): Lap band 2009, lumbar laminectomy, wayne and screw to lumbar back, open reduction of right ankle fracture, bilateral carpal tunnel surgery X2 each side, left cubital tunnel surgery, cardiac stent X2 - January 2019, left eye gel stent. Past Anesthesia/Blood Transfusion Reactions: No Reported Reaction Additional Past Anesthesia/Blood Transfusion Reaction / Comment(s): No problems with prior blood transfusion at age 19 after bleed with tonsillectomy. Date of Last Stent Placement:: 01/2019 Past Psychological History: Anxiety, Panic Disorder Smoking Status: Never smoker Past Alcohol Use History: None Reported Past Drug Use History: None Reported - Past Family History Father Family Medical History: Cancer Additional Family Medical History / Comment(s): FATHER AT AGE 91YRS. Skin cancer. Mother Family Medical History: CVA/TIA Additional Family Medical History / Comment(s): MOTHER AT AGE 67 YRS OF CVA. General Exam General appearance: alert, in no apparent distress Head exam: Present: atraumatic, normocephalic Eye exam: Present: normal appearance. Absent: scleral icterus, conjunctival injection Neck exam: Present: normal inspection Respiratory exam: Present: normal lung sounds bilaterally. Absent: respiratory distress, wheezes, rales, rhonchi, stridor Cardiovascular Exam: Present: regular rate, normal rhythm, normal heart sounds. Absent: systolic murmur, diastolic murmur, rubs, gallop GI/Abdominal exam: Present: soft. Absent: distended, tenderness, guarding, rebound, rigid, mass Extremities exam: Present: normal inspection, normal capillary refill. Absent: pedal edema, calf tenderness Back exam: Present: normal inspection. Absent: CVA tenderness (R), CVA tenderness (L) Neurological exam: Present: alert Skin exam: Present: warm, dry, intact, normal color. Absent: rash Course Vital Signs 06/06/23 06/06/23 06/07/23 22:17 23:01 00:20 Temperature 98.4 F Pulse Rate 96 101 H 99 Respiratory 19 19 18 Rate Blood Pressure 187/104 186/105 166/94 O2 Sat by Pulse 100 97 96 Oximetry 06/07/23 06/07/23 06/07/23 04:32 07:05 07:39 Temperature Pulse Rate 104 H 101 H 104 H Respiratory 20 18 18 Rate Blood Pressure 171/94 164/88 160/96 O2 Sat by Pulse 93 L 96 96 Oximetry Medical Decision Making - Lab Data Result diagrams: 06/07/23 04:44 06/06/23 22:37 Lab Results 06/06/23 06/06/23 06/06/23 Range/Units 22:37 22:37 22:37 WBC 17.9 H (3.8-10.6) k/uL RBC 4.26 (3.80-5.40) m/uL Hgb 12.4 (11.4-16.0) gm/dL Hct 37.2 (34.0-46.0) % MCV 87.3 (80.0-100.0) fL MCH 29.2 (25.0-35.0) pg MCHC 33.4 (31.0-37.0) g/dL RDW 14.3 (11.5-15.5) % Plt Count 291 (150-450) k/uL MPV 7.8 Neutrophils % 85 % Lymphocytes % 9 % Monocytes % 4 % Eosinophils % 0 % Basophils % 0 % Neutrophils # 15.3 H (1.3-7.7) k/uL Lymphocytes # 1.6 (1.0-4.8) k/uL Monocytes # 0.8 (0-1.0) k/uL Eosinophils # 0.1 (0-0.7) k/uL Basophils # 0.0 (0-0.2) k/uL Sodium 133 L (137-145) mmol/L Potassium 3.5 (3.5-5.1) mmol/L Chloride 95 L (98-107) mmol/L Carbon Dioxide 24 (22-30) mmol/L Anion Gap 14 mmol/L BUN 28 H (7-17) mg/dL Creatinine 0.69 (0.52-1.04) mg/dL Est GFR (CKD-EPI)AfAm >90 (>60 ml/min/1.73 sqM) Est GFR (CKD-EPI)NonAf 87 (>60 ml/min/1.73 sqM) Glucose 197 H (74-99) mg/dL POC Glucose (mg/dL) (70-110) mg/dL POC Glu Ring Sewer ID Calcium 9.9 (8.4-10.2) mg/dL Magnesium 1.7 (1.6-2.3) mg/dL Total Bilirubin 0.6 (0.2-1.3) mg/dL AST 37 H (14-36) U/L ALT 30 (4-34) U/L Alkaline Phosphatase 96 (38-126) U/L Troponin I <0.012 (0.000-0.034) ng/mL Total Protein 7.6 (6.3-8.2) g/dL Albumin 4.6 (3.5-5.0) g/dL Urine Color Urine Appearance (Clear) Urine pH (5.0-8.0) Ur Specific [place] (1.001-1.035) Urine Protein (Negative) Urine Glucose (UA) (Negative) Urine Ketones (Negative) Urine Blood (Negative) Urine Nitrite (Negative) Urine Bilirubin (Negative) Urine Urobilinogen (<2.0) mg/dL Ur Leukocyte Esterase (Negative) Acetone, Qual Positive (Negative) 06/06/23 06/07/23 06/07/23 Range/Units 22:41 01:15 03:23 WBC (3.8-10.6) k/uL RBC (3.80-5.40) m/uL Hgb (11.4-16.0) gm/dL Hct (34.0-46.0) % MCV (80.0-100.0) fL MCH (25.0-35.0) pg MCHC (31.0-37.0) g/dL RDW (11.5-15.5) % Plt Count (150-450) k/uL MPV Neutrophils % % Lymphocytes % % Monocytes % % Eosinophils % % Basophils % % Neutrophils # (1.3-7.7) k/uL Lymphocytes # (1.0-4.8) k/uL Monocytes # (0-1.0) k/uL Eosinophils # (0-0.7) k/uL Basophils # (0-0.2) k/uL Sodium (137-145) mmol/L Potassium (3.5-5.1) mmol/L Chloride (98-107) mmol/L Carbon Dioxide (22-30) mmol/L Anion Gap mmol/L BUN (7-17) mg/dL Creatinine (0.52-1.04) mg/dL Est GFR (CKD-EPI)AfAm (>60 ml/min/1.73 sqM) Est GFR (CKD-EPI)NonAf (>60 ml/min/1.73 sqM) Glucose (74-99) mg/dL POC Glucose (mg/dL) 203 H 169 H (70-110) mg/dL POC Glu Ring Sewer ID Wei, Ashli Wei, Ashli Calcium (8.4-10.2) mg/dL Magnesium (1.6-2.3) mg/dL Total Bilirubin (0.2-1.3) mg/dL AST (14-36) U/L ALT (4-34) U/L Alkaline Phosphatase (38-126) U/L Troponin I (0.000-0.034) ng/mL Total Protein (6.3-8.2) g/dL Albumin (3.5-5.0) g/dL Urine Color Colorless Urine Appearance Clear (Clear) Urine pH 5.0 (5.0-8.0) Ur Specific [place] 1.005 (1.001-1.035) Urine Protein Negative (Negative) Urine Glucose (UA) Negative (Negative) Urine Ketones Negative (Negative) Urine Blood Negative (Negative) Urine Nitrite Negative (Negative) Urine Bilirubin Negative (Negative) Urine Urobilinogen <2.0 (<2.0) mg/dL Ur Leukocyte Esterase Negative (Negative) Acetone, Qual (Negative) 06/07/23 06/07/23 06/07/23 Range/Units 03:41 04:15 04:44 WBC 15.1 H (3.8-10.6) k/uL RBC 3.82 (3.80-5.40) m/uL Hgb 11.6 (11.4-16.0) gm/dL Hct 33.3 L (34.0-46.0) % MCV 87.0 (80.0-100.0) fL MCH 30.3 (25.0-35.0) pg MCHC 34.8 (31.0-37.0) g/dL RDW 14.2 (11.5-15.5) % Plt Count 255 (150-450) k/uL MPV 8.3 Neutrophils % % Lymphocytes % % Monocytes % % Eosinophils % % Basophils % % Neutrophils # (1.3-7.7) k/uL Lymphocytes # (1.0-4.8) k/uL Monocytes # (0-1.0) k/uL Eosinophils # (0-0.7) k/uL Basophils # (0-0.2) k/uL Sodium (137-145) mmol/L Potassium (3.5-5.1) mmol/L Chloride (98-107) mmol/L Carbon Dioxide (22-30) mmol/L Anion Gap mmol/L BUN (7-17) mg/dL Creatinine (0.52-1.04) mg/dL Est GFR (CKD-EPI)AfAm (>60 ml/min/1.73 sqM) Est GFR (CKD-EPI)NonAf (>60 ml/min/1.73 sqM) Glucose (74-99) mg/dL POC Glucose (mg/dL) 138 H (70-110) mg/dL POC Glu Ring Sewer ID Wei, Ashli Calcium (8.4-10.2) mg/dL Magnesium (1.6-2.3) mg/dL Total Bilirubin (0.2-1.3) mg/dL AST (14-36) U/L ALT (4-34) U/L Alkaline Phosphatase (38-126) U/L Troponin I (0.000-0.034) ng/mL Total Protein (6.3-8.2) g/dL Albumin (3.5-5.0) g/dL Urine Color Urine Appearance (Clear) Urine pH (5.0-8.0) Ur Specific [place] (1.001-1.035) Urine Protein (Negative) Urine Glucose (UA) (Negative) Urine Ketones (Negative) Urine Blood (Negative) Urine Nitrite (Negative) Urine Bilirubin (Negative) Urine Urobilinogen (<2.0) mg/dL Ur Leukocyte Esterase (Negative) Acetone, Qual Positive (Negative) Disposition
[2023-06-06 22:55] LABS: Basophils % (A) 0 %; Eosinophils # (A) 0.1 k/uL (0-0.7); Eosinophils % (A) 0 %; HCT 37.2 % (34.0-46.0); HGB 12.4 gm/dL (11.4-16.0); Lymphocytes # (A) 1.6 k/uL (1.0-4.8); Lymphocytes % (A) 9 %; MCH 29.2 pg (25.0-35.0); MCHC 33.4 g/dL (31.0-37.0); MCV 87.3 fL (80.0-100.0); Mean Platelet Volume 7.8; Monocytes # (A) 0.8 k/uL (0-1.0); Monocytes % (A) 4 %; Neutrophils # (A) 15.3 k/uL (1.3-7.7); Neutrophils % (A) 85 %; Platelet Count 291 k/uL (150-450); RBC 4.26 m/uL (3.80-5.40); RDW 14.3 % (11.5-15.5); WBC 17.9 k/uL (3.8-10.6)
[2023-06-06 23:06] LABS: ALT 30 U/L (4-34); AST 37 U/L (14-36); African American GFR (CKD) >90 (>60 ml/min/1.73 sqM); Albumin 4.6 g/dL (3.5-5.0); Alkaline Phosphatase 96 U/L (38-126); Anion Gap 14 mmol/L; Blood Urea Nitrogen 28 mg/dL (7-17); Calcium 9.9 mg/dL (8.4-10.2); Carbon Dioxide 24 mmol/L (22-30); Chloride 95 mmol/L (98-107); Glucose 197 mg/dL (74-99); Magnesium 1.7 mg/dL (1.6-2.3); Non-African American GFR(CKD) 87 (>60 ml/min/1.73 sqM); Potassium 3.5 mmol/L (3.5-5.1); Sodium 133 mmol/L (137-145); Total Bilirubin 0.6 mg/dL (0.2-1.3); Total Protein 7.6 g/dL (6.3-8.2)
[2023-06-07] MEDS ORDERED: HYDROmorphone 1 MG/ML 1 ML SYRINGE IVP STA ×2 (00:01→05:33)
[2023-06-07] MEDS ORDERED: SODIUM CHLORIDE 0.9% 1,000 ML IV ONE (00:30)
[2023-06-07] MEDS ORDERED: INSULIN REGULAR 100 UNIT/ML VIAL (IV) IV STA (00:30)
[2023-06-07 01:16] LABS: Glucose,Whole Blood 169 mg/dL (70-110)
[2023-06-07 03:27] LABS: Appearance,Urine Clear (Clear); Bilirubin,Urine Negative (Negative); Blood,Urine Negative (Negative); Color,Urine Colorless; Glucose,Urine (UA) Negative (Negative); Ketones,Urine Negative (Negative); Leukocyte Esterase,Urine Negative (Negative); Nitrite,Urine Negative (Negative); Protein,Urine Negative (Negative); Specific Gravity,Urine 1.005 (1.001-1.035); Urobilinogen,Urine <2.0 mg/dL (<2.0)
[2023-06-07 03:42] LABS: Glucose,Whole Blood 138 mg/dL (70-110)
[2023-06-07] MEDS ORDERED: oxyCODONE-APAP 7.5-325MG 1 EACH TAB PO STA (04:10)
[2023-06-07] MEDS ORDERED: MORPHINE SULFATE ER 30 MG TABLET PO STA (04:10)
[2023-06-07 04:48] LABS: HCT 33.3 % (34.0-46.0); HGB 11.6 gm/dL (11.4-16.0); MCH 30.3 pg (25.0-35.0); MCHC 34.8 g/dL (31.0-37.0); Mean Platelet Volume 8.3; Platelet Count 255 k/uL (150-450); RBC 3.82 m/uL (3.80-5.40); RDW 14.2 % (11.5-15.5); WBC 15.1 k/uL (3.8-10.6)
[2023-06-07] MEDS ORDERED: HYDROmorphone 1 MG/ML 1 ML SYRINGE IM STA (04:57)
[2023-06-07] MEDS ORDERED: ACETAMINOPHEN TAB 325 MG TAB PO PRN (07:02)
[2023-06-07] MEDS ORDERED: HYDROmorphone 0.5 MG/0.5 ML SYRINGE IVP PRN ×2 (07:02→15:06)
[2023-06-07] MEDS ORDERED: NALOXONE 0.4 MG/ML 1 ML VIAL IV PRN (07:02)
[2023-06-07] MEDS: SODIUM CHLORIDE 0.9% 1,000 ML IV SCH ×2 (07:09→22:06)
[2023-06-07 07:46] LABS: Glucose,Whole Blood 183 mg/dL (70-110)
[2023-06-07] MEDS ORDERED: PANTOPRAZOLE 40 MG/10 ML VIAL IV SCH (09:00)
[2023-06-07] MEDS: ONDANSETRON 4 MG/2 ML VIAL IVP PRN ×2 (10:02→22:41)
[2023-06-07] MEDS ORDERED: ALBUTEROL HFA INHALER INHALATION PRN (11:48)
[2023-06-07] MEDS ORDERED: guaiFENesin 600 MG TABLET.ER PO PRN (11:48)
[2023-06-07] MEDS ORDERED: clonazePAM 0.5 MG TAB PO PRN (11:48)
[2023-06-07] MEDS ORDERED: HYDROXYZINE HCL 10 MG PO PRN (11:48)
[2023-06-07] MEDS ORDERED: polyethylene glycoL 3350 17 GM POWD.PACK PO PRN (11:48)
[2023-06-07] MEDS ORDERED: ORPHENADRINE 30 MG/ML 2 ML VIAL IVP STA (11:54)
[2023-06-07] MEDS ORDERED: KETOROLAC 15 MG/ML 1 ML VIAL IVP STA (11:54)
[2023-06-07 13:13] LABS: Glucose,Whole Blood 231 mg/dL (70-110)
[2023-06-07] MEDS ORDERED: DEXTROSE 50% SYRINGE 50 ML IVP PRN ×2 (13:17)
[2023-06-07] MEDS: ARIPiprazole 2 MG TAB PO SCH ×2 (13:33→14:19)
[2023-06-07] MEDS: busPIRone HCl 5 MG TAB PO SCH ×3 (13:33→22:11)
[2023-06-07] MEDS: TOPIRAMATE 25 MG TAB PO SCH ×2 (13:34→22:45)
[2023-06-07] MEDS: ASPIRIN 81 MG PO SCH (13:34)
[2023-06-07] MEDS: METOPROLOL TARTRATE 25 MG TAB PO SCH ×2 (13:34→22:44)
[2023-06-07] MEDS: KETOTIFEN 0.025% OPHTH DROPS 5 ML BTL RIGHT EYE SCH ×3 (13:35→22:51)
[2023-06-07] MEDS: VENLAFAXINE HCL ER 37.5 MG CAP PO SCH ×2 (13:35→14:19)
[2023-06-07] MEDS: ARTIFICIAL TEARS-HYPROMELLOSE DROPS 15 ML BTL LEFT EYE SCH ×9 (13:36→22:53)
[2023-06-07] MEDS: BRIMONIDINE TARTRATE 0.2% DROPS 5 ML BTL RIGHT EYE SCH ×3 (13:36→22:51)
--- NOTE | 2023-06-07 14:07 | P.HPIM ---
History of Present Illness H&P Date: 06/07/23 History of Presenting Illness: Patient is a very pleasant 73-year-old female with past medical history of insulin-dependent diabetes, coronary artery disease status post stents, h ypertension, fibromyalgia, and chronic back pain opioid dependence and follows with painting technician, Dr. Nick. Patient presented to the ED with reports of uncontrolled back pain and worsening chronic nausea. Patient has underwent multiple previous admissions for similar complaints. Patient reports she is unable to sit or lie down secondary to pain being so severe. Patient reports she is unable to hold down her normal medications of the pain just keeps getting worse. Patient denies having any new changes including headache, lightheadedness, dizziness, chest pain, palpitations, shortness of breath, cough or congestion, fever or chills, hematemesis, melena, hematochezia, or d ifficulties with her changes in her urinary function. Patient denies having any numbness/tingling/weakness in her extremities. She does report having bilateral sciatica at times but currently denies at this moment. She underwent full evaluation in the emergency department. Labs were completed and reviewed. CBC showing leukocytosis with WBC count of 17.9. BMP showing hyponatremia with sodium 133, hypochloremia with chloride of 95, and elevated BUN of 28. Glucose 197. Troponin less than 0.012. Urinalysis negative for infection. Repeat CBC showing improvement of leukocytosis down to 15.1. Patient was admitted under our services for acute on chronic lower back pain with consult to pain management. Patient denies any recent falls or injuries. Review of systems: Pertinent positives and negatives as discussed in HPI, a complete review of systems was performed and all other systems are negative. Physical exam: Vital signs reviewed and stable. General: Nontoxic, no distress and appears stated age. Derm: Skin warm and dry, normal coloration for ethnicity. Head: Atraumatic, normocephalic and symmetric. Eyes: EOMs intact, no lid lag, and anicteric sclera Mouth: no lip lesions, mucus membranes moist Cardiovascular: regular rate and rhythm with normal S1S2, systolic murmur, positive posterior tibial pulses bilaterally, and cap refill < 2 seconds. Lungs: Respirations even, regular, and unlabored on room air. Lungs CTA bilaterally, no rhonchi, no rales, no wheezing, and no accessory muscle usage. Abdominal: soft, nontender to palpation, no guarding, no appreciable organomegaly Musculoskeletal. Movement and sensation intact. Patient with significant scoliosis and spinal deformity.. No gross muscle atrophy, no edema, no contractures Neuro: Speech clear, face symmetrical and CN II-XII grossly intact with no noted focal neuro deficits Psych: Alert and oriented to person, place, time, and situation. Appropriate and pleasant affect. Assessment and Plan of Care: Acute on chronic lower back pain Fibromyalgia Opioid dependence Anxiety -Patient on multiple medications at home including Klonopin 0.5 mg 3 times daily morphine sulfate 30 mg every 8 hours, and Percocet 7.5325 mg tablets 3 times daily as needed for pain. Patient is very specific with what she is requesting for pain medication. Patient yelling out in pain. Patient demanding 1 mg of Dilaudid. Patient informed that we will continue with her current medication regimen with medications to be added as needed for breakthrough pain. -Orders placed for continuation of current medication regimen with Klonopin 0.5 mg 3 times daily morphine sulfate 30 mg every 8 hours, and Percocet 7.5-325 mg t ablets 3 times daily as needed for pain. -Patient started on Toradol 15 mg every 6 hours, lidocaine patch 5% to be applied to back, and K pad ordered. -Order placed for consult pain management for assistance. -Order was placed for Dilaudid 0.5 mg every 8 hours as needed for severe uncontrolled breakthrough pain. Abilify 2 mg daily, BuSpar 7.5 mg twice daily, hydroxyzine 10 mg 4 times daily as needed for anxiety, Restoril 15 mg nightly, Topamax 50 mg 3 times daily, trazodone 400 mg nightly, and Effexor 37.5 mg daily and 75 mg nightly Coronary artery disease status post stents Hypertension -Continue daily medication regimen with aspirin 81 mg daily, amlodipine 5 mg daily, metoprolol 25 mg twice daily, valsartan 160 mg daily, and rosuvastatin 10 mg daily. Insulin-dependent diabetes mellitus -Hold oral hypoglycemic agents and place patient on glycemic protocol with NovoLog sliding scale. The patient is admitted with an anticipated less than 2 midnight stay for evaluation of acute on chronic uncontrolled pain CODE STATUS: Full code DVT prophylaxis: Heparin Anticipated discharge date: 24-[address]: Home Patient was seen independently by Nurse Practitioner. This document was prepared using [employer] dictation software. Please allow for errors in group leader semiconductor processing while rare they do occur. Randolph Rosenberg NP rendered care for this patient independently, reviewed the findings and plan as documented in the note above. I did not physically speak with or examine the patient on this date. Past Medical History Past Medical History: Asthma, Diabetes Mellitus, Eye Disorder, Fibromyalgia, GERD/Reflux, Hyperlipidemia, Hypertension, Myocardial Infarction (LA), Musculoskeletal Disorder, Osteoarthritis (OA), Skin Disorder Additional Past Medical History / Comment(s): Rosacea, dry skin. Degenerative Disc Disease, hx severe back injury from work, kyphosis. Hx bilateral ankle fractures. Glaucoma, blind in right eye, increased left eye pressure and gel stent in left eye. Migraines. Insomnia. Frequent night time urination. Chronic nausea. Last Myocardial Infarction Date:: 01/2019 History of Any Multi-Drug Resistant Organisms: None Reported Past Surgical History: Back Surgery, Bariatric Surgery, Bladder Surgery, Cholecystectomy, Heart Catheterization With Stent, Hysterectomy, Orthopedic Surgery, Tonsillectomy, Tubal Ligation Additional Past Surgical History / Comment(s): Lap band 2009, lumbar laminectomy, wayne and screw to lumbar back, open reduction of right ankle fracture, bilateral carpal tunnel surgery X2 each side, left cubital tunnel surgery, cardiac stent X2 - January 2019, left eye gel stent. Past Anesthesia/Blood Transfusion Reactions: No Reported Reaction Additional Past Anesthesia/Blood Transfusion Reaction / Comment(s): No problems with prior blood transfusion at age 19 after bleed with tonsillectomy. Date of Last Stent Placement:: 01/2019 Past Psychological History: Anxiety, Panic Disorder Smoking Status: Never smoker Past Alcohol Use History: None Reported Past Drug Use History: None Reported - Past Family History Father Family Medical History: Cancer Additional Family Medical History / Comment(s): FATHER AT AGE 91YRS. Skin cancer. Mother Family Medical History: CVA/TIA Additional Family Medical History / Comment(s): MOTHER AT AGE 67 YRS OF CVA. Medications and Allergies Home Medications Medication Instructions Recorded Confirmed Type Morphine Sulfate ER [Ms Contin] 30 mg PO Q8H 11/08/15 06/07/23 History Rizatriptan Benzoate [Maxalt] 10 mg PO BID PRN 07/04/16 06/07/23 History Topiramate [Topamax] 50 mg PO TID 07/04/16 06/07/23 History Brimonidine Tartrate [Alphagan P 1 drops RIGHT EYE TID 09/09/17 06/07/23 History 0.2% Ophth Soln] Albuterol Inhaler [Ventolin Hfa 2 puff INHALATION RT-Q4H PRN 11/03/18 06/07/23 History Inhaler] Aspirin EC [Ecotrin Low Dose] 81 mg PO DAILY 02/05/19 06/07/23 History Netarsudil Mesylat/Latanoprost 1 drop RIGHT EYE HS 04/12/20 06/07/23 History [Rocklatan 0.02%-0.005% Eye Drp] Valsartan 160 mg PO DAILY@1800 04/12/20 06/07/23 History Cetirizine HCl 10 mg PO DAILY@1800 04/20/20 06/07/23 History Erenumab-Aooe [Aimovig 140 mg SQ Q30D 11/04/22 06/07/23 History Autoinjector] Pantoprazole [Protonix] 40 mg PO BID@0900,1800 11/04/22 06/07/23 History polyethylene glycoL 3350 [Miralax] 17 gm PO DAILY PRN 11/04/22 06/07/23 History Diclofenac Sodium Gel [Voltaren 1% 1 applic TOPICAL QID PRN 11/27/22 06/07/23 History Gel] Ondansetron Odt [Zofran ODT] 8 mg PO Q8HR PRN 11/27/22 06/07/23 History cycloSPORINE 0.05% OPHTH SOLN 1 drop LEFT EYE BID 11/27/22 06/07/23 History [Restasis] traZODone HCL [Desyrel] 400 mg PO HS 11/27/22 06/07/23 History Metoprolol Tartrate [Lopressor] 25 mg PO BID 05/28/23 06/07/23 History Olopatadine HCl [Patanol 0.1%] 1 drop RIGHT EYE BID 05/28/23 06/07/23 History Rosuvastatin Calcium 10 mg PO MOTH@2100 05/28/23 06/07/23 History hydrOXYzine HCL 10 mg PO QID PRN 05/28/23 06/07/23 History oxyCODONE HCL/ACETAMINOPHEN 1 tab PO TID PRN 05/28/23 06/07/23 History [oxyCODONE HCL/ACETAMINOPHEN 7.5-325] sitaGLIPtin [Januvia] 100 mg PO DAILY 05/28/23 06/07/23 History Venlafaxine HCl ER [Effexor XR] 75 mg PO PC-SUPPER #30 cap 05/29/23 06/07/23 Rx Carboxymethylcellulose Sodium 1 drop LEFT EYE Q3H 06/07/23 06/07/23 History [Refresh Tears] Insulin Lispro [Admelog Solostar] See Protocol SQ AC-TID 06/07/23 06/07/23 History Pioglitazone [Actos] 45 mg PO DAILY 06/07/23 06/07/23 History Refresh Gel Drops 1 drop LEFT EYE HS 06/07/23 06/07/23 History Timolol 0.5% Ophth Soln [Timoptic 1 drop RIGHT EYE TID 06/07/23 06/07/23 History 0.5% Ophth Soln] amLODIPine [Norvasc] 5 mg PO DAILY@1800 06/07/23 06/07/23 History Allergies Allergy/AdvReac Type Severity Reaction Status Date / Time adhesive Allergy Severe Rash/Hives, Verified 06/07/23 14:23 BLISTERS levofloxacin [From Levaquin] Allergy Severe Anaphylaxis Verified 06/07/23 14:23 metoclopramide HCl Allergy Severe Anaphylaxis Verified 06/07/23 14:23 [From Reglan] Phenothiazines Allergy Severe Anaphylaxis Verified 06/07/23 14:23 thiethylperazine maleate Allergy Severe Anaphylaxis Verified 06/07/23 14:23 [From Torecan] venom-honey bee Allergy Severe Anaphylaxis Verified 06/07/23 14:23 [bee venom (honey bee)] iodine Allergy Intermediate Rash/Hives Verified 06/07/23 14:23 chlorhexidine Allergy red dye in Verified 06/07/23 14:23 [From Hibiclens] hibiclens causes Rash/Hives duloxetine [From Cymbalta] Allergy Unknown Verified 06/07/23 14:23 meloxicam [From Mobic] Allergy Unknown Verified 06/07/23 14:23 cigarette smoke AdvReac Cough Verified 06/07/23 14:23 fentanyl AdvReac OVER Verified 06/07/23 14:23 SEDATED, WEAKNESS pregabalin [From Lyrica] AdvReac oversedatio Verified 06/07/23 14:23 n [id number] Reductase AdvReac increased Verified 06/07/23 14:23 Inhibitor fibramyalgia [Uurzuhp-Upt-Epf Reductase symptoms Inhibitor] Physical Exam Vitals: Vital Signs Temp Pulse Pulse Resp BP BP Pulse Ox 06/07/23 08:42 98.4 F 101 H 18 183/77 97 06/07/23 07:39 104 H 18 160/96 96 06/07/23 07:05 101 H 18 164/88 96 06/07/23 04:32 104 H 20 171/94 93 L 06/07/23 00:20 99 18 166/94 96 06/06/23 23:01 101 H 19 186/105 97 06/06/23 22:17 98.4 F 96 19 187/104 100 Intake and Output 06/06/23 06/07/23 06/07/23 22:59 06:59 14:59 Other: Weight 63.049 kg Results CBC & Chem 7: 06/08/23 04:10 06/08/23 04:10 Labs: Abnormal Lab Results - Last 24 Hours (Table) 06/06/23 06/06/23 06/06/23 Range/Units 22:37 22:37 22:41 WBC 17.9 H (3.8-10.6) k/uL Hct (34.0-46.0) % Neutrophils # 15.3 H (1.3-7.7) k/uL Sodium 133 L (137-145) mmol/L Chloride 95 L (98-107) mmol/L BUN 28 H (7-17) mg/dL Glucose 197 H (74-99) mg/dL POC Glucose (mg/dL) 203 H (70-110) mg/dL AST 37 H (14-36) U/L 06/07/23 06/07/23 06/07/23 Range/Units 01:15 03:41 04:44 WBC 15.1 H (3.8-10.6) k/uL Hct 33.3 L (34.0-46.0) % Neutrophils # (1.3-7.7) k/uL Sodium (137-145) mmol/L Chloride (98-107) mmol/L BUN (7-17) mg/dL Glucose (74-99) mg/dL POC Glucose (mg/dL) 169 H 138 H (70-110) mg/dL AST (14-36) U/L 06/07/23 Range/Units 07:45 WBC (3.8-10.6) k/uL Hct (34.0-46.0) % Neutrophils # (1.3-7.7) k/uL Sodium (137-145) mmol/L Chloride (98-107) mmol/L BUN (7-17) mg/dL Glucose (74-99) mg/dL POC Glucose (mg/dL) 183 H (70-110) mg/dL AST (14-36) U/L
[2023-06-07] MEDS: MORPHINE SULFATE ER 30 MG TABLET PO SCH (17:07)
[2023-06-07] MEDS: LIDOCAINE 5% PATCH TOPICAL SCH (17:08)
[2023-06-07] MEDS: TIMOLOL 0.5% OPHTH DROPS 5 ML BTL RIGHT EYE SCH ×2 (17:09→22:51)
[2023-06-07 17:32] LABS: Glucose,Whole Blood 254 mg/dL (70-110)
[2023-06-07] MEDS: PANTOPRAZOLE 40 MG TABLET PO SCH (17:51)
[2023-06-07] MEDS: VALSARTAN 160 MG TAB PO SCH (17:51)
[2023-06-07] MEDS: amLODIPine 5 MG TAB PO SCH (17:51)
[2023-06-07] MEDS: LORATADINE 10 MG TAB PO SCH (17:51)
[2023-06-07] MEDS: INSULIN ASPART (NovoLOG) 100 UNIT/ML VIAL SQ SCH (17:52)
[2023-06-07] MEDS: KETOROLAC 15 MG/ML 1 ML VIAL IVP SCH (17:52)
[2023-06-07] MEDS ORDERED: ZINC OXIDE PASTE (Z-GUARD) 1 APPLIC APPLIC TOPICAL PRN (18:08)
[2023-06-07 21:08] LABS: Glucose,Whole Blood 226 mg/dL (70-110)
[2023-06-07] MEDS: Netarsudil Mesylat/Latanoprost [Rocklatan 0.02%-0.005% Eye Drp] 2.5 ML RIGHT EYE SCH (22:00)
[2023-06-07] MEDS: VENLAFAXINE HCL ER 75 MG CAP PO SCH (22:05)
[2023-06-07] MEDS: OXYBUTYNIN 10 MG TAB.ER.24 PO SCH (22:15)
[2023-06-07] MEDS: TEMAZEPAM 15 MG CAP PO SCH (22:16)
[2023-06-07] MEDS: cycloSPORINE 0.05% OPHTH 0.4 ML DROPERETTE BOTH EYES SCH (22:43)
[2023-06-07] MEDS: MELATONIN 5 MG TABLET PO SCH (22:46)
[2023-06-07] MEDS: HYDROmorphone 0.5 MG/0.5 ML SYRINGE IVP PRN (23:13)
[2023-06-07] MEDS: traZODone HCL 100 MG TAB PO SCH (23:16)
[2023-06-08] MEDS: MORPHINE SULFATE ER 30 MG TABLET PO SCH ×3 (00:43→16:04)
[2023-06-08] MEDS: KETOROLAC 15 MG/ML 1 ML VIAL IVP SCH ×4 (00:46→18:09)
[2023-06-08] MEDS: HEPARIN SODIUM,PORCINE 5,000 UNIT/ML 1 ML VIAL SQ SCH ×3 (00:47→16:03)
[2023-06-08] MEDS: ARTIFICIAL TEARS-HYPROMELLOSE DROPS 15 ML BTL LEFT EYE SCH ×7 (00:47→11:09)
[2023-06-08] MEDS: TEMAZEPAM 15 MG CAP PO SCH ×2 (00:58→22:18)
[2023-06-08 06:33] LABS: Glucose,Whole Blood 198 mg/dL (70-110)
[2023-06-08] MEDS: INSULIN ASPART (NovoLOG) 100 UNIT/ML VIAL SQ SCH ×4 (06:37→21:48)
[2023-06-08] MEDS ORDERED: ROSUVASTATIN CALCIUM 10 MG PO SCH (09:00)
[2023-06-08] MEDS: BRIMONIDINE TARTRATE 0.2% DROPS 5 ML BTL RIGHT EYE SCH ×3 (09:20→21:53)
[2023-06-08] MEDS: ASPIRIN 81 MG PO SCH (09:24)
[2023-06-08] MEDS: METOPROLOL TARTRATE 25 MG TAB PO SCH ×2 (09:25→21:48)
[2023-06-08] MEDS: ARIPiprazole 2 MG TAB PO SCH (09:25)
[2023-06-08] MEDS: PANTOPRAZOLE 40 MG TABLET PO SCH ×2 (09:26→18:08)
[2023-06-08] MEDS: cycloSPORINE 0.05% OPHTH 0.4 ML DROPERETTE BOTH EYES SCH ×2 (09:26→21:47)
[2023-06-08] MEDS: TOPIRAMATE 25 MG TAB PO SCH ×3 (09:27→21:49)
[2023-06-08] MEDS: PIOGLITAZONE 45 MG TAB PO SCH (09:31)
[2023-06-08] MEDS ORDERED: ARTIFICIAL TEARS-HYPROMELLOSE DROPS 15 ML BTL LEFT EYE PRN (09:46)
[2023-06-08] MEDS: ONDANSETRON 4 MG/2 ML VIAL IVP PRN ×2 (09:49→18:07)
[2023-06-08] MEDS: oxyCODONE-APAP 7.5-325MG 1 EACH TAB PO PRN ×2 (09:50→18:14)
[2023-06-08 10:34] LABS: HCT 28.2 % (37.2-46.3); HGB 9.4 g/dL (12.0-15.0); MCH 29.1 pg (27.0-32.0); MCHC 33.3 g/dL (32.0-37.0); MCV 87.3 FL (80.0-97.0); Mean Platelet Volume 10.9 FL (9.5-12.2); NRBC Per 100 WBC 0 X 10*3/uL (0.00-0.01); Platelet Count 260 X 10*3/uL (140-440); RBC 3.23 X 10*6/uL (4.10-5.20); RDW 14.5 % (11.5-14.5); WBC 11.22 X 10*3/uL (4.50-10.00)
[2023-06-08] MEDS: KETOTIFEN 0.025% OPHTH DROPS 5 ML BTL RIGHT EYE SCH ×2 (11:05→21:39)
[2023-06-08] MEDS: VENLAFAXINE HCL ER 37.5 MG CAP PO SCH (11:05)
[2023-06-08] MEDS: busPIRone HCl 5 MG TAB PO SCH ×2 (11:05→21:39)
[2023-06-08] MEDS: TIMOLOL 0.5% OPHTH DROPS 5 ML BTL RIGHT EYE SCH ×3 (11:05→21:40)
[2023-06-08] MEDS: SODIUM CHLORIDE 0.9% 1,000 ML IV SCH ×2 (11:05→21:58)
[2023-06-08] MEDS: LIDOCAINE 5% PATCH TOPICAL SCH (11:06)
[2023-06-08 11:17] LABS: ALT 21 U/L (8-44); AST 21 U/L (13-35); Albumin 3.4 g/dL (3.8-4.9); Albumin/Globulin Ratio 1.79 Ratio (1.60-3.17); Alkaline Phosphatase 59 U/L (41-126); BUN/Creat Ratio 19.57 Ratio (12.00-20.00); Blood Urea Nitrogen 13.7 mg/dL (9.0-27.0); Carbon Dioxide 24.7 mmol/L (21.6-31.8); Chloride 101 mmol/L (96-109); Globulin 1.9 g/dL (1.6-3.3); Glucose 227 mg/dL (70-110); Magnesium 1.8 mg/dL (1.5-2.4); Potassium 3.3 mmol/L (3.5-5.5); Sodium 136 mmol/L (135-145); Total Bilirubin 0.3 mg/dL (0.3-1.2); Total Protein 5.3 g/dL (6.2-8.2)
[2023-06-08 11:53] LABS: Glucose,Whole Blood 305 mg/dL (70-110)
[2023-06-08] MEDS: HYDROmorphone 0.5 MG/0.5 ML SYRINGE IVP PRN ×2 (13:32→21:47)
[2023-06-08] MEDS: LORATADINE 10 MG TAB PO SCH (16:10)
--- NOTE | 2023-06-08 17:21 | P.PN ---
Subjective Progress Note Date: 06/08/23 History of Presenting Illness: Patient is a very pleasant 73-year-old female with past medical history of insulin-dependent diabetes, coronary artery disease status post stents, hyperte nsion, fibromyalgia, and chronic back pain opioid dependence and follows with painter set, Dr. Nick. Patient presented to the ED with reports of uncontrolled back pain and worsening chronic nausea. Patient has underwent multiple previous admissions for similar complaints. Patient reports she is unable to sit or lie down secondary to pain being so severe. Patient reports she is unable to hold down her normal medications of the pain just keeps getting worse. Patient denies having any new changes including headache, lightheadedness, dizziness, chest pain, palpitations, shortness of breath, cough or congestion, fever or chills, hematemesis, melena, hematochezia, or difficu lties with her changes in her urinary function. Patient denies having any numbness/tingling/weakness in her extremities. She does report having bilateral sciatica at times but currently denies at this moment. She underwent full evaluation in the emergency department. Labs were completed and reviewed. CBC showing leukocytosis with WBC count of 17.9. BMP showing hyponatremia with sodium 133, hypochloremia with chloride of 95, and elevated BUN of 28. Glucose 197. Troponin less than 0.012. Urinalysis negative for infection. Repeat CBC showing improvement of leukocytosis down to 15.1. Patient was admitted under our services for acute on chronic lower back pain with consult to sergei putnam. Patient denies any recent falls or injuries. Physical exam: Vital signs reviewed and stable. General: Nontoxic, no distress and appears stated age. Derm: Skin warm and dry, normal coloration for ethnicity. Head: Atraumatic, normocephalic and symmetric. Eyes: EOMs intact, no lid lag, and anicteric sclera Mouth: no lip lesions, mucus membranes moist Cardiovascular: regular rate and rhythm with normal S1S2, systolic murmur, positive posterior tibial pulses bilaterally, and cap refill < 2 seconds. Lungs: Respirations even, regular, and unlabored on room air. Lungs CTA bilaterally, no rhonchi, no rales, no wheezing, and no accessory muscle usage. Abdominal: soft, nontender to palpation, no guarding, no appreciable organomegaly Musculoskeletal. Movement and sensation intact. Patient with significant scoliosis and spinal deformity.. No gross muscle atrophy, no edema, no co ntractures Neuro: Speech clear, face symmetrical and CN II-XII grossly intact with no noted focal neuro deficits Psych: Alert and oriented to person, place, time, and situation. Appropriate and pleasant affect. Assessment and Plan of Care: Acute on chronic lower back pain Fibromyalgia Opioid dependence Anxiety -Patient on multiple medications at home including Klonopin 0.5 mg 3 times daily morphine sulfate 30 mg every 8 hours, and Percocet 7.5325 mg tablets 3 times daily as needed for pain. Patient is very specific with what she is requesting for pain medication. Patient yelling out in pain. Patient demanding 1 mg of Dilaudid. Patient informed that we will continue with her current medication regimen with medications to be added as needed for breakthrough pain. -Orders placed for continuation of current medication regimen with Klonopin 0.5 mg 3 times daily morphine sulfate 30 mg every 8 hours, and Percocet 7.5-325 mg tablets 3 times daily as needed for pain. -Patient started on Toradol 15 mg every 6 hours, lidocaine patch 5% to be applied to back, and K pad ordered. -Order placed for consult pain management for assistance. -Order was placed for Dilaudid 0.5 mg every 8 hours as needed for severe uncontrolled breakthrough pain. Abilify 2 mg daily, BuSpar 7.5 mg twice daily, hydroxyzine 10 mg 4 times daily as needed for anxiety, Restoril 15 mg nightly, Topamax 50 mg 3 times daily, trazodone 400 mg nightly, and Effexor 37.5 mg daily and 75 mg nightly Coronary artery disease status post stents Hypertension -Continue daily medication regimen with aspirin 81 mg daily, amlodipine 5 mg daily, metoprolol 25 mg twice daily, valsartan 160 mg daily, and rosuvastatin 10 mg daily. Insulin-dependent diabetes mellitus -Hold oral hypoglycemic agents and place patient on glycemic protocol with NovoLog sliding scale. Plan for discharge home with home care tomorrow morning. Patient continues to report uncontrolled chronic pain. Patient is under pain contract with Dr. Nick, we will have her evaluated by our pain management physician for further recommendations. Plan is for discharge home tomorrow. Vital signs stable. Blood pressure 155/77, heart rate 90, respiratory rate 17, temp 98.2F, SpO2 of 95% on room air. CODE STATUS: Full code DVT prophylaxis: Heparin Anticipated discharge date: Tomorrow morning. Awaiting recommendations from pain management. Anticipated discharge place: Home Patient was seen independently by Nurse Practitioner. This document was prepared using [employer] dictation software. Please allow for errors in handle machine operator while rare they do occur. Randolph Rosenberg BUSINESS SOLUTIONS CONSULTANT rendered care for this patient independently, reviewed the findings and plan as documented in the note above. I did not physically speak with or examine the patient on this date. Objective - Vital Signs Vital signs: Vital Signs Temp 98.2 F 06/08/23 07:00 Pulse 90 06/08/23 07:00 Resp 17 06/08/23 07:00 BP 155/77 06/08/23 07:00 Pulse Ox 95 06/08/23 07:00 FiO2 Intake & Output 06/07/23 06/08/23 06/08/23 18:59 06:59 18:59 Intake Total 300 Balance 300 Weight 63.049 kg Intake: Oral 300 Other: Voiding Method Bedside Commode # Voids 2 2 # Bowel Movements 3 2 - Labs CBC & Chem 7: 06/08/23 04:10 06/08/23 04:10 Labs: Abnormal Lab Results - Last 24 Hours (Table) 06/07/23 06/07/23 06/07/23 Range/Units 13:11 17:29 21:07 POC Glucose (mg/dL) 231 H 254 H 226 H (70-110) mg/dL 06/08/23 Range/Units 06:31 POC Glucose (mg/dL) 198 H (70-110) mg/dL
[2023-06-08 17:34] LABS: Glucose,Whole Blood 237 mg/dL (70-110)
[2023-06-08] MEDS: amLODIPine 5 MG TAB PO SCH (18:08)
[2023-06-08] MEDS: VALSARTAN 160 MG TAB PO SCH (18:09)
[2023-06-08] MEDS: VENLAFAXINE HCL ER 75 MG CAP PO SCH (18:09)
[2023-06-08 20:16] LABS: Glucose,Whole Blood 236 mg/dL (70-110)
[2023-06-08] MEDS: OXYBUTYNIN 10 MG TAB.ER.24 PO SCH (21:39)
[2023-06-08] MEDS: Netarsudil Mesylat/Latanoprost [Rocklatan 0.02%-0.005% Eye Drp] 2.5 ML RIGHT EYE SCH (21:39)
[2023-06-08] MEDS: traZODone HCL 100 MG TAB PO SCH (21:51)
[2023-06-08] MEDS: MELATONIN 5 MG TABLET PO SCH (21:53)
[2023-06-08] MEDS ORDERED: TEMAZEPAM 7.5 MG CAP PO SCH (22:38)
[2023-06-09] MEDS: MORPHINE SULFATE ER 30 MG TABLET PO SCH ×3 (00:28→18:35)
[2023-06-09] MEDS: KETOROLAC 15 MG/ML 1 ML VIAL IVP SCH ×4 (00:29→18:35)
[2023-06-09] MEDS: HEPARIN SODIUM,PORCINE 5,000 UNIT/ML 1 ML VIAL SQ SCH ×3 (00:29→13:20)
[2023-06-09] MEDS: HYDROmorphone 0.5 MG/0.5 ML SYRINGE IVP PRN ×2 (05:16→14:53)
[2023-06-09] MEDS: ONDANSETRON 4 MG/2 ML VIAL IVP PRN (05:17)
[2023-06-09] MEDS: INSULIN ASPART (NovoLOG) 100 UNIT/ML VIAL SQ SCH ×3 (06:07→18:33)
[2023-06-09 06:08] LABS: Glucose,Whole Blood 232 mg/dL (70-110)
[2023-06-09] MEDS: ARIPiprazole 2 MG TAB PO SCH (09:05)
[2023-06-09] MEDS: ASPIRIN 81 MG PO SCH (09:33)
[2023-06-09] MEDS: METOPROLOL TARTRATE 25 MG TAB PO SCH (09:34)
[2023-06-09] MEDS: PIOGLITAZONE 45 MG TAB PO SCH (09:35)
[2023-06-09] MEDS: busPIRone HCl 5 MG TAB PO SCH (09:37)
[2023-06-09] MEDS: PANTOPRAZOLE 40 MG TABLET PO SCH ×2 (09:37→18:33)
[2023-06-09] MEDS: KETOTIFEN 0.025% OPHTH DROPS 5 ML BTL RIGHT EYE SCH (09:37)
[2023-06-09] MEDS: cycloSPORINE 0.05% OPHTH 0.4 ML DROPERETTE BOTH EYES SCH (09:37)
[2023-06-09] MEDS: TOPIRAMATE 25 MG TAB PO SCH ×2 (09:37→18:34)
[2023-06-09] MEDS: TIMOLOL 0.5% OPHTH DROPS 5 ML BTL RIGHT EYE SCH ×2 (09:38→16:07)
[2023-06-09] MEDS: BRIMONIDINE TARTRATE 0.2% DROPS 5 ML BTL RIGHT EYE SCH ×2 (09:38→13:20)
[2023-06-09] MEDS: VENLAFAXINE HCL ER 37.5 MG CAP PO SCH (09:38)
[2023-06-09] MEDS: oxyCODONE-APAP 7.5-325MG 1 EACH TAB PO PRN (10:21)
[2023-06-09 12:15] LABS: Glucose,Whole Blood 290 mg/dL (70-110)
[2023-06-09 15:00] VITALS: BP 149/81; PULSE 82; RESP 20; TEMP 98.5
[2023-06-09] MEDS: SODIUM CHLORIDE 0.9% 1,000 ML IV SCH (15:10)
[2023-06-09] MEDS: LIDOCAINE 5% PATCH TOPICAL SCH (15:13)
--- NOTE | 2023-06-09 17:20 | P.DS ---
Providers Date of admission: 06/07/23 07:02 Expected date of discharge: 06/09/23 Attending physician: Edinson Cook MD Consults: 06/07/23 15:05 Consult Physician Urgent Consulting Provider: Wilian Lemons Consult Reason/Comments: assistance with pain management Do you want consulting provider notified?: Yes Primary care physician: Srinivasa Caballero MD Hospital Course: Discharge Diagnosis: Acute on chronic lower back pain. Patient was admitted over 48 hour observation stay for uncontrolled chronic lower back pain. She requested to be evaluated by the pipe bowl paint trimmer, however there is not one available for evaluation at this time. It was discussed with patient that she will need to follow up outpatient with her primary pain management doctor (Dr. Nick). No medication changes were made as pt is under contract with pain maagement physician, Dr. Ahmadi. Patient was however discharged home with [facility] and a referral was placed for palliative care to provide additional assistance and management of her chronic conditions. Fibromyalgia Opioid dependence Anxiety Coronary artery disease status post stents Hypertension Insulin-dependent diabetes mellitus Hospital Course: Patient is a very pleasant 73-year-old female with past medical history of insulin-dependent diabetes, coronary artery disease status post stents, hypertension, fibromyalgia, and chronic back pain opioid dependence and follows with pipe bowl paint trimmer, Dr. Nick. Patient presented to the ED with reports of uncontrolled back pain and worsening chronic nausea. Patient has underwent multiple previous admissions for similar complaints. Patient reports she is unable to sit or lie down secondary to pain being so severe. Patient reports she is unable to hold down her normal medications of the pain just keeps getting worse. Patient denies having any new changes including headache, lightheadedness, dizziness, chest pain, palpitations, shortness of breath, cough or congestion, fever or chills, hematemesis, melena, hematochezia, or difficulties with her changes in her urinary function. Patient denies having any numbness/tingling/weakness in her extremities. She does report having bilateral sciatica at times but currently denies at this moment. She underwent full evaluation in the emergency department. Labs were completed and reviewed. CBC showing leukocytosis with WBC count of 17.9. BMP showing hyponatremia with sodium 133, hypochloremia with chloride of 95, and elevated BUN of 28. Glucose 197. Troponin less than 0.012. Urinalysis negative for infection. Repeat CBC showing improvement of leukocytosis down to 15.1. Patient was admitted under our services for acute on chronic lower back pain with consult to pain management. Patient denies any recent falls or injuries. Denies any neurological deficits. She reports occasional sciatic pain bilaterally but currently denies. Patient denies having any numbness/tingling/focal weakness in her extremities and denies having any involuntary loss of bowel or bladder. Patient was admitted over 2 night stay, pain management was Physical exam: Vital signs reviewed and stable. General: Nontoxic, no distress and appears stated age. Derm: Skin warm and dry, normal coloration for ethnicity. Head: Atraumatic, normocephalic and symmetric. Eyes: EOMs intact, no lid lag, and anicteric sclera Mouth: no lip lesions, mucus membranes moist Cardiovascular: regular rate and rhythm with normal S1S2, systolic murmur, positive posterior tibial pulses bilaterally, and cap refill < 2 seconds. Lungs: Respirations even, regular, and unlabored on room air. Lungs CTA bilaterally, no rhonchi, no rales, no wheezing, and no accessory muscle usage. Abdominal: soft, nontender to palpation, no guarding, no appreciable organomegaly Musculoskeletal. Movement and sensation intact. Patient with significant scoliosis and spinal deformity.. No gross muscle atrophy, no edema, no contractures Neuro: Speech clear, face symmetrical and CN II-XII grossly intact with no noted focal neuro deficits Psych: Alert and oriented to person, place, time, and situation. Appropriate and pleasant affect. A total of 34 minutes of time were spent preparing this complex discharge summary. Pt was discharged on 06/09/23 at 5:09 PM. Patient was seen independently by Nurse Practitioner. This document was prepared using [employer] dictation software. Please allow for errors in senior firewall engineer while rare they do occur. Randolph Rosenberg NP rendered care for this patient independently, reviewed the fi ndings and plan as documented in the note above. I did not physically speak with or examine the patient on this date. Patient Condition at Discharge: Stable Plan - Discharge Summary New Discharge Prescriptions: Continue Morphine Sulfate ER [Ms Contin] 30 mg PO Q8H Topiramate [Topamax] 50 mg PO TID Rizatriptan Benzoate [Maxalt] 10 mg PO BID PRN PRN Reason: Migraine Headache Brimonidine Tartrate [Alphagan P 0.2% Ophth Soln] 1 drops RIGHT EYE TID Albuterol Inhaler [Ventolin Hfa Inhaler] 2 puff INHALATION RT-Q4H PRN PRN Reason: Shortness Of Breath Aspirin EC [Ecotrin Low Dose] 81 mg PO DAILY Valsartan 160 mg PO DAILY@1800 Netarsudil Mesylat/Latanoprost [Rocklatan 0.02%-0.005% Eye Drp] 1 drop RIGHT EYE HS Cetirizine HCl 10 mg PO DAILY@1800 Pantoprazole [Protonix] 40 mg PO BID@0900,1800 Erenumab-Aooe [Aimovig Autoinjector] 140 mg SQ Q30D cycloSPORINE 0.05% OPHTH SOLN [Restasis] 1 drop LEFT EYE BID Ondansetron Odt [Zofran ODT] 8 mg PO Q8HR PRN PRN Reason: Nausea And Vomiting Rosuvastatin Calcium 10 mg PO MOTH@2100 Olopatadine HCl [Patanol 0.1%] 1 drop RIGHT EYE BID Venlafaxine HCl ER [Effexor XR] 75 mg PO PC-SUPPER #30 cap amLODIPine [Norvasc] 5 mg PO DAILY@1800 Pioglitazone [Actos] 45 mg PO DAILY Carboxymethylcellulose Sodium [Refresh Tears] 1 drop LEFT EYE Q3H Timolol 0.5% Ophth Soln [Timoptic 0.5% Ophth Soln] 1 drop RIGHT EYE TID polyethylene glycoL 3350 [Miralax] 17 gm PO DAILY PRN PRN Reason: Constipation Diclofenac Sodium Gel [Voltaren 1% Gel] 1 applic TOPICAL QID PRN PRN Reason: Pain traZODone HCL [Desyrel] 400 mg PO HS Metoprolol Tartrate [Lopressor] 25 mg PO BID oxyCODONE HCL/ACETAMINOPHEN [oxyCODONE HCL/ACETAMINOPHEN 7.5-325] 1 tab PO TID PRN PRN Reason: Pain hydrOXYzine HCL 10 mg PO QID PRN PRN Reason: Anxiety sitaGLIPtin [Januvia] 100 mg PO DAILY Insulin Lispro [Admelog Solostar] See Protocol SQ AC-TID Refresh Gel Drops 1 drop LEFT EYE HS Discharge Medication List Morphine Sulfate ER [Ms Contin] 30 mg PO Q8H 04/27/16 [History] Rizatriptan Benzoate [Maxalt] 10 mg PO BID PRN 07/04/16 [History] Topiramate [Topamax] 50 mg PO TID 07/04/16 [History] Brimonidine Tartrate [Alphagan P 0.2% Ophth Soln] 1 drops RIGHT EYE TID 09/09/17 [History] Albuterol Inhaler [Ventolin Hfa Inhaler] 2 puff INHALATION RT-Q4H PRN 11/03/18 [History] Aspirin EC [Ecotrin Low Dose] 81 mg PO DAILY 02/05/19 [History] Netarsudil Mesylat/Latanoprost [Rocklatan 0.02%-0.005% Eye Drp] 1 drop RIGHT EYE HS 04/12/20 [History] Valsartan 160 mg PO DAILY@1800 04/12/20 [History] Cetirizine HCl 10 mg PO DAILY@1800 04/20/20 [History] Erenumab-Aooe [Aimovig Autoinjector] 140 mg SQ Q30D 11/04/22 [History] Pantoprazole [Protonix] 40 mg PO BID@0900,1800 11/04/22 [History] polyethylene glycoL 3350 [Miralax] 17 gm PO DAILY PRN 11/04/22 [History] Diclofenac Sodium Gel [Voltaren 1% Gel] 1 applic TOPICAL QID PRN 11/27/22 [History] Ondansetron Odt [Zofran ODT] 8 mg PO Q8HR PRN 11/27/22 [History] cycloSPORINE 0.05% OPHTH SOLN [Restasis] 1 drop LEFT EYE BID 11/27/22 [History] traZODone HCL [Desyrel] 400 mg PO HS 11/27/22 [History] Metoprolol Tartrate [Lopressor] 25 mg PO BID 05/28/23 [History] Olopatadine HCl [Patanol 0.1%] 1 drop RIGHT EYE BID 05/28/23 [History] Rosuvastatin Calcium 10 mg PO MOTH@2100 05/28/23 [History] hydrOXYzine HCL 10 mg PO QID PRN 05/28/23 [History] oxyCODONE HCL/ACETAMINOPHEN [oxyCODONE HCL/ACETAMINOPHEN 7.5-325] 1 tab PO TID PRN 05/28/23 [History] sitaGLIPtin [Januvia] 100 mg PO DAILY 05/28/23 [History] Venlafaxine HCl ER [Effexor XR] 75 mg PO PC-SUPPER #30 cap 05/29/23 [Rx] Carboxymethylcellulose Sodium [Refresh Tears] 1 drop LEFT EYE Q3H 06/07/23 [History] Insulin Lispro [Admelog Solostar] See Protocol SQ AC-TID 06/07/23 [History] Pioglitazone [Actos] 45 mg PO DAILY 06/07/23 [History] Refresh Gel Drops 1 drop LEFT EYE HS 06/07/23 [History] Timolol 0.5% Ophth Soln [Timoptic 0.5% Ophth Soln] 1 drop RIGHT EYE TID 06/07/23 [History] amLODIPine [Norvasc] 5 mg PO DAILY@1800 06/07/23 [History] Follow up Appointment(s)/Referral(s): [facility] [REFERRING] - Srinivasa Caballero MD [Primary Care Provider] - 1-2 days Wilian Lemons MD [STAFF PHYSICIAN] - 1 Week (See your pipe bowl paint trimmer outpatient) Lisa Nick MD [Medical Doctor] - 1 Week [facility], [NON-STAFF] - 1 Week (Set up to visit at home.) Patient Instructions/Handouts: Chronic Back Pain (DC) Activity/Diet/Wound Care/Special Instructions: Activity: As tolerated. Take breaks as needed. Diet: Heart healthy and carb consistent diet. Avoid salts, or foods with hidden salts such as canned or boxed foods and frozen dinners. Extra salt makes your heart work harder and traps the fluid in your body for longer. Special Instructions: Take all of your medications as directed and remember to keep all of your doctor's appointments and follow-up as needed. I understand that you requested to be evaluated by the pipe bowl paint trimmer, however there is not one available for evaluation at this time. You will need to follow up outpatient with your primary pain management doctor. No medication changes can be made as you are under contract with your pain maagement physician, Dr. Ahmadi. You are however being discharged home with [facility] and a consult has been placed for palliative care to provide you additional assistance and management of your chronic conditions. Thank you for allowing us to participate in your care, it was truly a pleasure having you for our patient!!! Discharge/Stand Alone Forms: Who Do I Call?, Assisted Living Facilities, Community Resources, Help In The Home, Outpatient Counseling, Personal Seeing Eye Dog Trainer Discharge Disposition: HOME WITH HOME HEALTH SERVICES
[2023-06-09 17:28] LABS: Glucose,Whole Blood 289 mg/dL (70-110)
[2023-06-09] MEDS: amLODIPine 5 MG TAB PO SCH (18:33)
[2023-06-09] MEDS: LORATADINE 10 MG TAB PO SCH (18:35)
[2023-06-09] MEDS: VENLAFAXINE HCL ER 75 MG CAP PO SCH (18:35)
== END 2023-06-09 18:50 | disposition home health service (06) ==
LOC: EC 22:15 → 6NMEDSUR 06-07 07:02
PROVIDERS: ADMIT Internal Medicine; ATTEND Internal Medicine
DX: M54.50 Low back pain, unspecified (principal); G89.29 Other chronic pain; M79.7 Fibromyalgia; F11.20 Opioid dependence, uncomplicated; I10 Essential (primary) hypertension; I25.10 Atherosclerotic heart disease of native coronary artery without angina pectoris; E11.9 Type 2 diabetes mellitus without complications; J45.909 Unspecified asthma, uncomplicated; K21.9 Gastro-esophageal reflux disease without esophagitis; E78.5 Hyperlipidemia, unspecified; F41.0 Panic disorder [episodic paroxysmal anxiety]; I25.2 Old myocardial infarction; Z95.5 Presence of coronary angioplasty implant and graft; Z79.899 Other long term (current) drug therapy; Z79.82 Long term (current) use of aspirin; Z79.84 Long term (current) use of oral hypoglycemic drugs; Z88.1 Allergy status to other antibiotic agents
CPT/HCPCS: 96376 ×4; 96361 ×5; 96372 ×3; 96375 ×2; 96374; 99285; 36415 ×2; 80053 ×2; 82009 ×2; 83735 ×2; 84484; 85025; 85027 ×2; 81003; 87324; 83036; G0378 ×3; J2360; J2405 ×3; J1170 ×5; J1885 ×2; C9113

== ENCOUNTER 2023-06-16 08:17 | Emergency (ER) | payer MEDICARE ==
[2023-06-16 08:29] VITALS: RESP 18
--- NOTE | 2023-06-16 08:53 | ED ---
General Adult HPI - General Chief complaint: Back Pain/Injury Stated complaint: Back Pain Time Seen by Provider: 06/16/23 08:25 Source: patient, RN notes reviewed, old records reviewed Mode of arrival: EMS Limitations: no limitations - History of Present Illness Initial comments: 73-year-old female with chronic back pain. Patient denies new injury. She was seen in the hospital within the past one week, it was advised that the patient see pain management but she has not had outpatient appointment today. She denies new injury. She states she's had some constipation issues which she reports have been somewhat chronic. She reports the pain is worse with sitting or lying flat and somewhat improved with standing. She's had this symptom for some time and currently takes MS Contin and Percocet. She was transported by paramedics, given Zofran and morphine during transport. - Related Data Home Medications Medication Instructions Recorded Confirmed Morphine Sulfate ER [Ms Contin] 30 mg PO Q8H 11/08/15 06/07/23 Rizatriptan Benzoate [Maxalt] 10 mg PO BID PRN 07/04/16 06/07/23 Topiramate [Topamax] 50 mg PO TID 07/04/16 06/07/23 Brimonidine Tartrate [Alphagan P 1 drops RIGHT EYE TID 09/09/17 06/07/23 0.2% Ophth Soln] Albuterol Inhaler [Ventolin Hfa 2 puff INHALATION RT-Q4H PRN 11/03/18 06/07/23 Inhaler] Aspirin EC [Ecotrin Low Dose] 81 mg PO DAILY 02/05/19 06/07/23 Netarsudil Mesylat/Latanoprost 1 drop RIGHT EYE HS 04/12/20 06/07/23 [Rocklatan 0.02%-0.005% Eye Drp] Valsartan 160 mg PO DAILY@1800 04/12/20 06/07/23 Cetirizine HCl 10 mg PO DAILY@1800 04/20/20 06/07/23 Erenumab-Aooe [Aimovig 140 mg SQ Q30D 11/04/22 06/07/23 Autoinjector] Pantoprazole [Protonix] 40 mg PO BID@0900,1800 11/04/22 06/07/23 polyethylene glycoL 3350 [Miralax] 17 gm PO DAILY PRN 11/04/22 06/07/23 Diclofenac Sodium Gel [Voltaren 1% 1 applic TOPICAL QID PRN 11/27/22 06/07/23 Gel] Ondansetron Odt [Zofran ODT] 8 mg PO Q8HR PRN 11/27/22 06/07/23 cycloSPORINE 0.05% OPHTH SOLN 1 drop LEFT EYE BID 11/27/22 06/07/23 [Restasis] traZODone HCL [Desyrel] 400 mg PO HS 11/27/22 06/07/23 Metoprolol Tartrate [Lopressor] 25 mg PO BID 05/28/23 06/07/23 Olopatadine HCl [Patanol 0.1%] 1 drop RIGHT EYE BID 05/28/23 06/07/23 Rosuvastatin Calcium 10 mg PO MOTH@2100 05/28/23 06/07/23 hydrOXYzine HCL 10 mg PO QID PRN 05/28/23 06/07/23 oxyCODONE HCL/ACETAMINOPHEN 1 tab PO TID PRN 05/28/23 06/07/23 [oxyCODONE HCL/ACETAMINOPHEN 7.5-325] sitaGLIPtin [Januvia] 100 mg PO DAILY 05/28/23 06/07/23 Carboxymethylcellulose Sodium 1 drop LEFT EYE Q3H 06/07/23 06/07/23 [Refresh Tears] Insulin Lispro [Admelog Solostar] See Protocol SQ AC-TID 06/07/23 06/07/23 Pioglitazone [Actos] 45 mg PO DAILY 06/07/23 06/07/23 Refresh Gel Drops 1 drop LEFT EYE HS 06/07/23 06/07/23 Timolol 0.5% Ophth Soln [Timoptic 1 drop RIGHT EYE TID 06/07/23 06/07/23 0.5% Ophth Soln] amLODIPine [Norvasc] 5 mg PO DAILY@1800 06/07/23 06/07/23 Previous Rx's Medication Instructions Recorded Venlafaxine HCl ER [Effexor XR] 75 mg PO PC-SUPPER #30 cap 05/29/23 Allergies Allergy/AdvReac Type Severity Reaction Status Date / Time adhesive Allergy Severe Rash/Hives, Verified 06/07/23 14:23 BLISTERS levofloxacin [From Levaquin] Allergy Severe Anaphylaxis Verified 06/07/23 14:23 metoclopramide HCl Allergy Severe Anaphylaxis Verified 06/07/23 14:23 [From Reglan] Phenothiazines Allergy Severe Anaphylaxis Verified 06/07/23 14:23 thiethylperazine maleate Allergy Severe Anaphylaxis Verified 06/07/23 14:23 [From Torecan] venom-honey bee Allergy Severe Anaphylaxis Verified 06/07/23 14:23 [bee venom (honey bee)] iodine Allergy Intermediate Rash/Hives Verified 06/07/23 14:23 chlorhexidine Allergy red dye in Verified 06/07/23 14:23 [From Hibiclens] hibiclens causes Rash/Hives duloxetine [From Cymbalta] Allergy Unknown Verified 06/07/23 14:23 meloxicam [From Mobic] Allergy Unknown Verified 06/07/23 14:23 cigarette smoke AdvReac Cough Verified 06/07/23 14:23 fentanyl AdvReac OVER Verified 06/07/23 14:23 SEDATED, WEAKNESS pregabalin [From Lyrica] AdvReac oversedatio Verified 06/07/23 14:23 n Mdygyas-SWI-VuR Reductase AdvReac increased Verified 06/07/23 14:23 Inhibitor fibramyalgia [Fibnazl-Lef-Knp Reductase symptoms Inhibitor] hydoxizine Allergy Unknown Uncoded 06/16/23 08:24 clonadine AdvReac Unknown Uncoded 06/16/23 08:24 Review of Systems ROS Statement: Those systems with pertinent positive or pertinent negative responses have been documented in the HPI. ROS Other: All systems not noted in ROS Statement are negative. Past Medical History Past Medical History: Asthma, Diabetes Mellitus, Eye Disorder, Fibromyalgia, GERD/Reflux, Hyperlipidemia, Hypertension, Myocardial Infarction (CT), Musculoskeletal Disorder, Osteoarthritis (OA), Skin Disorder Additional Past Medical History / Comment(s): Rosacea, dry skin. Degenerative Disc Disease, hx severe back injury from work, kyphosis. Hx bilateral ankle fractures. Glaucoma, blind in right eye, increased left eye pressure and gel stent in left eye. Migraines. Insomnia. Frequent night time urination. Chronic nausea. Last Myocardial Infarction Date:: 01/2019 History of Any Multi-Drug Resistant Organisms: None Reported Past Surgical History: Back Surgery, Bariatric Surgery, Bladder Surgery, Cholecystectomy, Heart Catheterization With Stent, Hysterectomy, Orthopedic Surgery, Tonsillectomy, Tubal Ligation Additional Past Surgical History / Comment(s): Lap band 2009, lumbar laminectomy, wayne and screw to lumbar back, open reduction of right ankle fracture, bilateral carpal tunnel surgery X2 each side, left cubital tunnel surgery, cardiac stent X2 - January 2019, left eye gel stent. Past Anesthesia/Blood Transfusion Reactions: No Reported Reaction Additional Past Anesthesia/Blood Transfusion Reaction / Comment(s): No problems with prior blood transfusion at age 19 after bleed with tonsillectomy. Date of Last Stent Placement:: 01/2019 Past Psychological History: Anxiety, Panic Disorder Smoking Status: Never smoker Past Alcohol Use History: None Reported Past Drug Use History: None Reported - Past Family History Father Family Medical History: Cancer Additional Family Medical History / Comment(s): FATHER AT AGE 91YRS. Skin cancer. Mother Family Medical History: CVA/TIA Additional Family Medical History / Comment(s): MOTHER AT AGE 67 YRS OF CVA. General Exam Limitations: no limitations General appearance: alert, in no apparent distress Head exam: Present: atraumatic, normocephalic Eye exam: Present: normal appearance, PERRL ENT exam: Present: normal exam Neck exam: Present: normal inspection Respiratory exam: Present: normal lung sounds bilaterally. Absent: respiratory distress Cardiovascular Exam: Present: regular rate, normal rhythm GI/Abdominal exam: Present: soft. Absent: distended Back exam: Present: other (Kyphosis, lower thoracic bony protrusion on the right) Psychiatric exam: Present: anxious Skin exam: Present: warm, dry, intact Course Vital Signs 06/16/23 06/16/23 06/16/23 08:18 11:48 14:35 Temperature 97.7 F 98.2 F Pulse Rate 81 87 82 Respiratory 18 18 18 Rate Blood Pressure 159/94 146/81 169/70 O2 Sat by Pulse 96 97 98 Oximetry Procedures - Rectal Disimpaction Consent Obtained: verbal consent Indication: fecal impaction Procedural Sedation: No Sedation/Analgesia: none Technique: manual disimpaction with gloved finger Result: significant stool output Complications: none Patient Tolerated Procedure: well Medical Decision Making - Medical Decision Making Was pt. sent in by a medical professional or institution (, PA, DIRECTOR BUSINESS INTEGRATION, urgent care, hospital, or long term...) When possible be specific @ -No Did you speak to anyone other than the patient for history (EMS, parent, family, police, friend...)? What history was obtained from this source @ -No Did you review nursing and triage notes (agree or disagree)? Why? @ -I reviewed and agree with nursing and triage notes Were old charts reviewed (outside hosp., previous admission, EMS record, old EKG, old radiological studies, urgent care reports/EKG's, long term records)? Report findings @ -No old charts were reviewed Differential Diagnosis (chest pain, altered mental status, abdominal pain women, abdominal pain men, vaginal bleeding, weakness, fever, dyspnea, syncope, headache, dizziness, GI bleed, back pain, seizure, CVA, palpatations, mental health, musculoskeletal)? @ Differential Back Pain: Strain, zoster, cauda equina syndrome, epidural abscess, vertebral osteomyelitis, discitis, fracture, subluxation, disc herniation, DJD, spinal stenosis, dissection, AAA, pancreatitis, peptic ulcer disease, pyelonephritis, kidney stone, this is not meant to be an all-inclusive list. EKG interpreted by me (3pts min.). @ -As above X-rays interpreted by me (1pt min.). @ KUB, showing nonspecific abdomen, moderate stool burden CT interpreted by me (1pt min.). @ -None done U/S interpreted by me (1pt. min.). @ -None done What testing was considered but not performed or refused? (CT, X-rays, U/S, labs)? Why? @ -None What meds were considered but not given or refused? Why? @ -None Did you discuss the management of the patient with other professionals (vera rodriguez i.e. , PA, DIRECTOR BUSINESS INTEGRATION, lab, RT, psych nurse, social work nurse, director transportation, teacher, court officer, lead case manager)? Give summary @ -No Was smoking cessation discussed for >3mins.? @ -No Was critical care preformed (if so, how long)? @ -No Were there social determinants of health that impacted care today? How? (Homelessness, low income, unemployed, alcoholism, drug addiction, transportati on, low edu. Level, literacy, decrease access to med. care, longterm, rehab)? @ -No Was there de-escalation of care discussed even if they declined (Discuss DNR or withdrawal of care, Hospice)? DNR status @ -No What co-morbidities impacted this encounter? (DM, HTN, Smoking, COPD, CAD, Cancer, CVA, ARF, Chemo, Hep., AIDS, mental health diagnosis, sleep apnea, morbid obesity)? @ -[Chronic low back pain. Was patient admitted / discharged? Hospital course, mention meds given and route, prescriptions, significant lab abnormalities, going to OR and other pertinent info. @ 73-year-old female with chronic low back pain currently taking MS Contin and Percocet. No recent fall or trauma. Patient does complain of constipation, x- ray shows moderate stool burden. No obstruction. Patient has normal CBC, normal CMP. She is scheduled to follow with pain management as an outpatient. She should maintain this appointment. Undiagnosed new problem with uncertain prognosis? @ -No Drug Therapy requiring intensive monitoring for toxicity (Heparin, Nitro, Insulin, Cardizem)? @ -No Were any procedures done? @ -No Diagnosis/symptom? @ Chronic low back pain Acute, or Chronic, or Acute on Chronic? @ -[Chronic Uncomplicated (without systemic symptoms) or Complicated (systemic symptoms)? @ -default Side effects of treatment? @ -No Exacerbation, Progression, or Severe Exacerbation? @ -No Poses a threat to life or bodily function? How? (Chest pain, USA, CT, pneumonia, PE, COPD, DKA, ARF, appy, cholecystitis, CVA, Diverticulitis, Homicidal, Suicidal, threat to staff... and all critical care pts) @ -Low risk - Lab Data Result diagrams: 06/16/23 09:40 06/16/23 09:40 Lab Results 06/16/23 06/16/23 Range/Units 09:40 09:40 WBC 10.9 H (3.8-10.6) k/uL RBC 3.91 (3.80-5.40) m/uL Hgb 11.6 (11.4-16.0) gm/dL Hct 34.7 (34.0-46.0) % MCV 88.9 (80.0-100.0) fL MCH 29.7 (25.0-35.0) pg MCHC 33.4 (31.0-37.0) g/dL RDW 14.4 (11.5-15.5) % Plt Count 361 (150-450) k/uL MPV 8.0 Neutrophils % 80 % Lymphocytes % 13 % Monocytes % 4 % Eosinophils % 1 % Basophils % 0 % Neutrophils # 8.8 H (1.3-7.7) k/uL Lymphocytes # 1.5 (1.0-4.8) k/uL Monocytes # 0.4 (0-1.0) k/uL Eosinophils # 0.1 (0-0.7) k/uL Basophils # 0.0 (0-0.2) k/uL Sodium 135 L (137-145) mmol/L Potassium 4.3 (3.5-5.1) mmol/L Chloride 100 (98-107) mmol/L Carbon Dioxide 24 (22-30) mmol/L Anion Gap 11 mmol/L BUN 13 (7-17) mg/dL Creatinine 0.56 (0.52-1.04) mg/dL Est GFR (CKD-EPI)AfAm >90 (>60 ml/min/1.73 sqM) Est GFR (CKD-EPI)NonAf >90 (>60 ml/min/1.73 sqM) Glucose 195 H (74-99) mg/dL Calcium 9.4 (8.4-10.2) mg/dL Total Bilirubin 1.1 (0.2-1.3) mg/dL AST 42 H (14-36) U/L ALT 22 (4-34) U/L Alkaline Phosphatase 55 (38-126) U/L Total Protein 7.5 (6.3-8.2) g/dL Albumin 4.5 (3.5-5.0) g/dL Disposition Clinical Impression: Spinal stenosis, Chronic back pain, Constipation Disposition: HOME SELF-CARE Condition: Fair Instructions (If sedation given, give patient instructions): Chronic Pain (ED), Constipation (ED) Is patient prescribed a controlled substance at d/c from ED?: No Referrals: Srinivasa Caballero MD [Primary Care Provider] - 1-2 days Time of Disposition: 11:28
[2023-06-16 09:51] LABS: Basophils % (A) 0 %; Eosinophils # (A) 0.1 k/uL (0-0.7); Eosinophils % (A) 1 %; HCT 34.7 % (34.0-46.0); HGB 11.6 gm/dL (11.4-16.0); Lymphocytes # (A) 1.5 k/uL (1.0-4.8); Lymphocytes % (A) 13 %; MCH 29.7 pg (25.0-35.0); MCHC 33.4 g/dL (31.0-37.0); MCV 88.9 fL (80.0-100.0); Monocytes # (A) 0.4 k/uL (0-1.0); Monocytes % (A) 4 %; Neutrophils # (A) 8.8 k/uL (1.3-7.7); Neutrophils % (A) 80 %; Platelet Count 361 k/uL (150-450); RBC 3.91 m/uL (3.80-5.40); RDW 14.4 % (11.5-15.5); WBC 10.9 k/uL (3.8-10.6)
--- NOTE | 2023-06-16 10:01 | XR ---
EXAMINATION TYPE: XR KUB DATE OF EXAM: 06/16/2023 COMPARISON: NONE HISTORY: Pain TECHNIQUE: One view abdominal series FINDINGS: The osseous structures are intact. The bowel gas pattern is nonspecific. Lung bases are clear. Vert ebroplasty noted. Postsurgical changes seen. There is a lap band catheter. Surgical drains right uppe r quadrant. Tip of the catheter extends over the left abdomen just be correlated clinically. Bilatera l hip arthropathy. IMPRESSION: 1. Nonspecific abdomen.
[2023-06-16 10:24] LABS: ALT 22 U/L (4-34); AST 42 U/L (14-36); African American GFR (CKD) >90 (>60 ml/min/1.73 sqM); Albumin 4.5 g/dL (3.5-5.0); Alkaline Phosphatase 55 U/L (38-126); Anion Gap 11 mmol/L; Blood Urea Nitrogen 13 mg/dL (7-17); Calcium 9.4 mg/dL (8.4-10.2); Carbon Dioxide 24 mmol/L (22-30); Chloride 100 mmol/L (98-107); Glucose 195 mg/dL (74-99); Non-African American GFR(CKD) >90 (>60 ml/min/1.73 sqM); Sodium 135 mmol/L (137-145); Total Bilirubin 1.1 mg/dL (0.2-1.3)
[2023-06-16 10:26] LABS: Total Protein 7.5 g/dL (6.3-8.2)
[2023-06-16 10:49] LABS: Potassium 4.3 mmol/L (3.5-5.1)
[2023-06-16] MEDS ORDERED: HYDROmorphone 0.5 MG/0.5 ML SYRINGE IVP STA (11:00)
[2023-06-16] MEDS ORDERED: SODIUM CHLORIDE 0.9% 500 ML 500 ML IV ONE (12:00)
[2023-06-16] MEDS ORDERED: ONDANSETRON 4 MG/2 ML VIAL IVP STA (12:00)
[2023-06-16 14:47] VITALS: BP 169/70; PULSE 82; TEMP 98.2
== END 2023-06-16 14:36 | disposition home or self-care (01) ==
LOC: EC 08:17
DX: K59.00 Constipation, unspecified (principal); M40.204 Unspecified kyphosis, thoracic region; M48.04 Spinal stenosis, thoracic region; J45.909 Unspecified asthma, uncomplicated; E11.9 Type 2 diabetes mellitus without complications; K21.9 Gastro-esophageal reflux disease without esophagitis; E78.5 Hyperlipidemia, unspecified; I10 Essential (primary) hypertension; I25.2 Old myocardial infarction; M19.90 Unspecified osteoarthritis, unspecified site; Z86.59 Personal history of other mental and behavioral disorders; Z79.899 Other long term (current) drug therapy; Z79.82 Long term (current) use of aspirin; Z79.1 Long term (current) use of non-steroidal anti-inflammatories (NSAID); Z79.4 Long term (current) use of insulin; Z79.84 Long term (current) use of oral hypoglycemic drugs; Z91.09 Other allergy status, other than to drugs and biological substances; Z88.8 Allergy status to other drugs, medicaments and biological substances; Z91.030 Bee allergy status; Z91.041 Radiographic dye allergy status; Z88.1 Allergy status to other antibiotic agents; Z88.5 Allergy status to narcotic agent; Z95.5 Presence of coronary angioplasty implant and graft
CPT/HCPCS: 36415; 80053; 85025; 74018; 99284; 96374; 96375; J2405; J1170

== ENCOUNTER 2023-06-18 17:33 | Emergency (ER) | payer MEDICARE ==
[2023-06-18 17:45] VITALS: RESP 20; TEMP 99.4
[2023-06-18] MEDS ORDERED: ONDANSETRON 4 MG/2 ML VIAL IVP STA (18:30)
[2023-06-18] MEDS ORDERED: HYDROmorphone 1 MG/ML 1 ML SYRINGE IVP STA (18:30)
[2023-06-18] MEDS ORDERED: SODIUM CHLORIDE 0.9% 1,000 ML IV ONE (18:34)
[2023-06-18 19:22] LABS: Basophils % (A) 0 %; Eosinophils # (A) 0.1 k/uL (0-0.7); Eosinophils % (A) 1 %; HCT 35.5 % (34.0-46.0); HGB 11.8 gm/dL (11.4-16.0); Lymphocytes # (A) 1.2 k/uL (1.0-4.8); Lymphocytes % (A) 9 %; MCH 29.2 pg (25.0-35.0); MCHC 33.3 g/dL (31.0-37.0); MCV 87.8 fL (80.0-100.0); Mean Platelet Volume 8.4; Monocytes # (A) 0.5 k/uL (0-1.0); Monocytes % (A) 3 %; Neutrophils # (A) 12.1 k/uL (1.3-7.7); Neutrophils % (A) 87 %; Platelet Count 373 k/uL (150-450); RBC 4.04 m/uL (3.80-5.40); RDW 14.4 % (11.5-15.5)
[2023-06-18 19:49] LABS: ALT 23 U/L (4-34); AST 32 U/L (14-36); African American GFR (CKD) >90 (>60 ml/min/1.73 sqM); Albumin 4.5 g/dL (3.5-5.0); Alkaline Phosphatase 70 U/L (38-126); Anion Gap 13 mmol/L; Blood Urea Nitrogen 16 mg/dL (7-17); Calcium 10.1 mg/dL (8.4-10.2); Carbon Dioxide 27 mmol/L (22-30); Chloride 96 mmol/L (98-107); Glucose 220 mg/dL (74-99); Non-African American GFR(CKD) 89 (>60 ml/min/1.73 sqM); Sodium 136 mmol/L (137-145); Total Bilirubin 0.5 mg/dL (0.2-1.3); Total Protein 7.3 g/dL (6.3-8.2)
[2023-06-18] MEDS ORDERED: POTASSIUM CHLORIDE ER 20 MEQ TAB.ER PO STA (21:04)
--- NOTE | 2023-06-18 21:07 | ED ---
General Adult HPI - General Chief complaint: Nausea/Vomiting/Diarrhea Stated complaint: Constipation Time Seen by Provider: 06/18/23 17:40 Source: patient, EMS Mode of arrival: EMS Limitations: no limitations - History of Present Illness Initial comments: 73-year-old female with past history of chronic back pain on opiates who presents to the emergency department reporting constipation. Patient states that she was here a couple of days ago for same complaint. She received an enema however does not feel as if it worked for her. Presents today as she continues to have the patient issues with rectal spasm. Also reports to some liquid stool. Patient admits to chronic nausea and states that her symptoms are currently making things worse. She has been unable to hold down any of her medications. Patient presents requesting disimpaction. - Related Data Home Medications Medication Instructions Recorded Confirmed Morphine Sulfate ER [Ms Contin] 30 mg PO Q8H 11/08/15 06/07/23 Rizatriptan Benzoate [Maxalt] 10 mg PO BID PRN 07/04/16 06/07/23 Topiramate [Topamax] 50 mg PO TID 07/04/16 06/07/23 Brimonidine Tartrate [Alphagan P 1 drops RIGHT EYE TID 09/09/17 06/07/23 0.2% Ophth Soln] Albuterol Inhaler [Ventolin Hfa 2 puff INHALATION RT-Q4H PRN 11/03/18 06/07/23 Inhaler] Aspirin EC [Ecotrin Low Dose] 81 mg PO DAILY 02/05/19 06/07/23 Netarsudil Mesylat/Latanoprost 1 drop RIGHT EYE HS 04/12/20 06/07/23 [Rocklatan 0.02%-0.005% Eye Drp] Valsartan 160 mg PO DAILY@1800 04/12/20 06/07/23 Cetirizine HCl 10 mg PO DAILY@1800 04/20/20 06/07/23 Erenumab-Aooe [Aimovig 140 mg SQ Q30D 11/04/22 06/07/23 Autoinjector] Pantoprazole [Protonix] 40 mg PO BID@0900,1800 11/04/22 06/07/23 polyethylene glycoL 3350 [Miralax] 17 gm PO DAILY PRN 11/04/22 06/07/23 Diclofenac Sodium Gel [Voltaren 1% 1 applic TOPICAL QID PRN 11/27/22 06/07/23 Gel] Ondansetron Odt [Zofran ODT] 8 mg PO Q8HR PRN 11/27/22 06/07/23 cycloSPORINE 0.05% OPHTH SOLN 1 drop LEFT EYE BID 11/27/22 06/07/23 [Restasis] traZODone HCL [Desyrel] 400 mg PO HS 11/27/22 06/07/23 Metoprolol Tartrate [Lopressor] 25 mg PO BID 05/28/23 06/07/23 Olopatadine HCl [Patanol 0.1%] 1 drop RIGHT EYE BID 05/28/23 06/07/23 Rosuvastatin Calcium 10 mg PO MOTH@2100 05/28/23 06/07/23 hydrOXYzine HCL 10 mg PO QID PRN 05/28/23 06/07/23 oxyCODONE HCL/ACETAMINOPHEN 1 tab PO TID PRN 05/28/23 06/07/23 [oxyCODONE HCL/ACETAMINOPHEN 7.5-325] sitaGLIPtin [Januvia] 100 mg PO DAILY 05/28/23 06/07/23 Carboxymethylcellulose Sodium 1 drop LEFT EYE Q3H 06/07/23 06/07/23 [Refresh Tears] Insulin Lispro [Admelog Solostar] See Protocol SQ AC-TID 06/07/23 06/07/23 Pioglitazone [Actos] 45 mg PO DAILY 06/07/23 06/07/23 Refresh Gel Drops 1 drop LEFT EYE HS 06/07/23 06/07/23 Timolol 0.5% Ophth Soln [Timoptic 1 drop RIGHT EYE TID 06/07/23 06/07/23 0.5% Ophth Soln] amLODIPine [Norvasc] 5 mg PO DAILY@1800 06/07/23 06/07/23 Previous Rx's Medication Instructions Recorded Venlafaxine HCl ER [Effexor XR] 75 mg PO PC-SUPPER #30 cap 05/29/23 Allergies Allergy/AdvReac Type Severity Reaction Status Date / Time adhesive Allergy Severe Rash/Hives, Verified 06/18/23 17:42 BLISTERS levofloxacin [From Levaquin] Allergy Severe Anaphylaxis Verified 06/18/23 17:42 metoclopramide HCl Allergy Severe Anaphylaxis Verified 06/18/23 17:42 [From Reglan] Phenothiazines Allergy Severe Anaphylaxis Verified 06/18/23 17:42 thiethylperazine maleate Allergy Severe Anaphylaxis Verified 06/18/23 17:42 [From Torecan] venom-honey bee Allergy Severe Anaphylaxis Verified 06/18/23 17:42 [bee venom (honey bee)] iodine Allergy Intermediate Rash/Hives Verified 06/18/23 17:42 chlorhexidine Allergy red dye in Verified 06/18/23 17:42 [From Hibiclens] hibiclens causes Rash/Hives duloxetine [From Cymbalta] Allergy Unknown Verified 06/18/23 17:42 meloxicam [From Mobic] Allergy Unknown Verified 06/18/23 17:42 cigarette smoke AdvReac Cough Verified 06/18/23 17:42 fentanyl AdvReac OVER Verified 06/18/23 17:42 SEDATED, WEAKNESS pregabalin [From Lyrica] AdvReac oversedatio Verified 06/18/23 17:42 n Fgenvwh-LZQ-PuM Reductase AdvReac increased Verified 06/18/23 17:42 Inhibitor fibramyalgia [Kpotjys-Syx-Lgq Reductase symptoms Inhibitor] hydoxizine Allergy Unknown Uncoded 06/18/23 17:42 clonadine AdvReac Unknown Uncoded 06/18/23 17:42 Review of Systems ROS Statement: Those systems with pertinent positive or pertinent negative responses have been documented in the HPI. ROS Other: All systems not noted in ROS Statement are negative. Past Medical History Past Medical History: Asthma, Diabetes Mellitus, Eye Disorder, Fibromyalgia, GERD/Reflux, Hyperlipidemia, Hypertension, Myocardial Infarction ([place]), Musculoskeletal Disorder, Osteoarthritis (OA), Skin Disorder Additional Past Medical History / Comment(s): Rosacea, dry skin. Degenerative Disc Disease, hx severe back injury from work, kyphosis. Hx bilateral ankle fractures. Glaucoma, blind in right eye, increased left eye pressure and gel stent in left eye. Migraines. Insomnia. Frequent night time urination. Chronic nausea. Last Myocardial Infarction Date:: 01/2019 History of Any Multi-Drug Resistant Organisms: None Reported Past Surgical History: Back Surgery, Bariatric Surgery, Bladder Surgery, Cholecystectomy, Heart Catheterization With Stent, Hysterectomy, Orthopedic Surgery, Tonsillectomy, Tubal Ligation Additional Past Surgical History / Comment(s): Lap band 2009, lumbar laminectomy, wayne and screw to lumbar back, open reduction of right ankle fracture, bilateral carpal tunnel surgery X2 each side, left cubital tunnel surgery, cardiac stent X2 - January 2019, left eye gel stent. Past Anesthesia/Blood Transfusion Reactions: No Reported Reaction Additional Past Anesthesia/Blood Transfusion Reaction / Comment(s): No problems with prior blood transfusion at age 19 after bleed with tonsillectomy. Date of Last Stent Placement:: 01/2019 Past Psychological History: Anxiety, Panic Disorder Smoking Status: Never smoker Past Alcohol Use History: None Reported Past Drug Use History: None Reported - Past Family History Father Family Medical History: Cancer Additional Family Medical History / Comment(s): FATHER AT AGE 91YRS. Skin cancer. Mother Family Medical History: CVA/TIA Additional Family Medical History / Comment(s): MOTHER AT AGE 67 YRS OF CVA. General Exam Limitations: no limitations General appearance: alert, in no apparent distress, other (Kyphosis) Head exam: Present: atraumatic, normocephalic, normal inspection Eye exam: Present: normal appearance, PERRL, EOMI. Absent: scleral icterus, conjunctival injection, periorbital swelling ENT exam: Present: normal exam, mucous membranes moist Neck exam: Present: normal inspection. Absent: tenderness, meningismus, lymphadenopathy Respiratory exam: Present: normal lung sounds bilaterally. Absent: respiratory distress, wheezes, rales, rhonchi, stridor Cardiovascular Exam: Present: regular rate, normal rhythm, normal heart sounds. Absent: systolic murmur, diastolic murmur, rubs, gallop, clicks GI/Abdominal exam: Present: soft, normal bowel sounds. Absent: distended, tenderness, guarding, rebound, rigid Rectal exam: Present: fecal impaction, hemorrhoids Extremities exam: Present: normal inspection, full ROM, normal capillary refill. Absent: tenderness, pedal edema, joint swelling, calf tenderness Back exam: Present: normal inspection Neurological exam: Present: alert, oriented X3, CN II-XII intact Psychiatric exam: Present: normal affect, normal mood Skin exam: Present: warm, dry, intact, normal color. Absent: rash Course Vital Signs 06/18/23 06/18/23 17:35 21:49 Temperature 99.4 F Pulse Rate 128 H 85 Respiratory 20 20 Rate Blood Pressure 192/115 187/95 O2 Sat by Pulse 98 98 Oximetry Medical Decision Making - Medical Decision Making Was pt. sent in by a medical professional or institution (KAYLA Barger, LONG TERM ACUTE CARE REGISTERED NURSE, urgent care, hospital, or [facility]...) When possible be specific @ -Patient states that she was sent in by her primary care doctor Did you speak to anyone other than the patient for history (EMS, parent, family, police, friend...)? What history was obtained from this source @ -No Did you review nursing and triage notes (agree or disagree)? Why? @ -I reviewed and agree with nursing and triage notes Were old charts reviewed (outside hosp., previous admission, EMS record, old EKG, old radiological studies, urgent care reports/EKG's, [facility] records)? Report findings @ -I review charts from patient's previous ED visit this past week Differential Diagnosis (chest pain, altered mental status, abdominal pain women, abdominal pain men, vaginal bleeding, weakness, fever, dyspnea, syncope, headache, dizziness, GI bleed, back pain, seizure, CVA, palpatations, mental health, musculoskeletal)? @ -Differential Abdominal Pain Women: Appendicitis, Cholecystitis, diverticulosis, ischemic bowel, pancreatitis, h epatitis, UTI, gastroenteritis, AAA, incarcerated hernia, bowel obstruction, constipation, inflammatory bowel, hepatitis, peptic ulcer disease, splenic infarction, perforated viscus, vulvitis, ovarian torsion, PID, kidney stone, placenta abruption, this is not meant to be an all-inclusive list EKG interpreted by me (3pts min.). @ -Not done X-rays interpreted by me (1pt min.). @ -None done CT interpreted by me (1pt min.). @ -None done U/S interpreted by me (1pt. min.). @ -None done What testing was considered but not performed or refused? (CT, X-rays, U/S, labs)? Why? @ -None What meds were considered but not given or refused? Why? @ -None Did you discuss the management of the patient with other professionals (professionals i.e. KAYLA Barger, LONG TERM ACUTE CARE REGISTERED NURSE, lab, RT, psych nurse, social media campaign manager, roof bolting coal miner, teacher, safety officer, rifle case repairer)? Give summary @ -No Was smoking cessation discussed for >3mins.? @ -No Was critical care preformed (if so, how long)? @ -No Were there social determinants of health that impacted care today? How? (Homelessness, low income, unemployed, alcoholism, drug addiction, transportation, low edu. Level, literacy, decrease access to med. care, retirement, rehab)? @ -No Was there de-escalation of care discussed even if they declined (Discuss DNR or withdrawal of care, Hospice)? DNR status @ -No What co-morbidities impacted this encounter? (DM, HTN, Smoking, COPD, CAD, Cancer, CVA, ARF, Chemo, Hep., AIDS, mental health diagnosis, sleep apnea, morbid obesity)? @ -Chronic opiate dependence Was patient admitted / discharged? Hospital course, mention meds given and route, prescriptions, significant lab abnormalities, going to OR and other pertinent info. @ -Upon arrival patient was placed into room 7. Thorough history and physical exam was performed. Laboratory studies are conducted. Patient was given IV fluids. Rectal disimpaction was performed. Patient will be discharged home at this time and instructed to follow-up with her primary care doctor. Recommend daily use of stool softeners while she is on her narcotics. Return for any new or worsening symptoms per patient agreeable to the plan and was discharged in stable condition Undiagnosed new problem with uncertain prognosis? @ -No Drug Therapy requiring intensive monitoring for toxicity (Heparin, Nitro, Insulin, Cardizem)? @ -No Were any procedures done? @ -No Diagnosis/symptom? @ -Acute constipation, chronic narcotic use Acute, or Chronic, or Acute on Chronic? @ -Acute Uncomplicated (without systemic symptoms) or Complicated (systemic symptoms)? @ -Complicated Side effects of treatment? @ -No Exacerbation, Progression, or Severe Exacerbation? @ -No Poses a threat to life or bodily function? How? (Chest pain, [place], [place], pneumonia, PE, COPD, DKA, ARF, appy, cholecystitis, CVA, Diverticulitis, Homicidal, Suicidal, threat to staff... and all critical care pts) @ -No - Lab Data Result diagrams: 06/18/23 18:36 06/18/23 18:36 Lab Results 06/18/23 06/18/23 Range/Units 18:36 18:36 WBC 14.0 H (3.8-10.6) k/uL RBC 4.04 (3.80-5.40) m/uL Hgb 11.8 (11.4-16.0) gm/dL Hct 35.5 (34.0-46.0) % MCV 87.8 (80.0-100.0) fL MCH 29.2 (25.0-35.0) pg MCHC 33.3 (31.0-37.0) g/dL RDW 14.4 (11.5-15.5) % Plt Count 373 (150-450) k/uL MPV 8.4 Neutrophils % 87 % Lymphocytes % 9 % Monocytes % 3 % Eosinophils % 1 % Basophils % 0 % Neutrophils # 12.1 H (1.3-7.7) k/uL Lymphocytes # 1.2 (1.0-4.8) k/uL Monocytes # 0.5 (0-1.0) k/uL Eosinophils # 0.1 (0-0.7) k/uL Basophils # 0.0 (0-0.2) k/uL Sodium 136 L (137-145) mmol/L Potassium 3.0 L (3.5-5.1) mmol/L Chloride 96 L (98-107) mmol/L Carbon Dioxide 27 (22-30) mmol/L Anion Gap 13 mmol/L BUN 16 (7-17) mg/dL Creatinine 0.65 (0.52-1.04) mg/dL Est GFR (CKD-EPI)AfAm >90 (>60 ml/min/1.73 sqM) Est GFR (CKD-EPI)NonAf 89 (>60 ml/min/1.73 sqM) Glucose 220 H (74-99) mg/dL Calcium 10.1 (8.4-10.2) mg/dL Total Bilirubin 0.5 (0.2-1.3) mg/dL AST 32 (14-36) U/L ALT 23 (4-34) U/L Alkaline Phosphatase 70 (38-126) U/L Total Protein 7.3 (6.3-8.2) g/dL Albumin 4.5 (3.5-5.0) g/dL Disposition Clinical Impression: Constipation Disposition: HOME SELF-CARE Condition: Stable Instructions (If sedation given, give patient instructions): Constipation (ED) Additional Instructions: Please follow-up with your primary care doctor and return for any new or worsening symptoms Is patient prescribed a controlled substance at d/c from ED?: No Referrals: Srinivasa Caballero MD [Primary Care Provider] - 1-2 days Time of Disposition: 21:06
[2023-06-18 22:01] VITALS: BP 187/95; PULSE 85
== END 2023-06-18 21:50 | disposition home or self-care (01) ==
LOC: EC 17:33
DX: K59.00 Constipation, unspecified (principal); E11.9 Type 2 diabetes mellitus without complications; E78.5 Hyperlipidemia, unspecified; I10 Essential (primary) hypertension; F41.9 Anxiety disorder, unspecified; I25.2 Old myocardial infarction; J45.909 Unspecified asthma, uncomplicated; K21.9 Gastro-esophageal reflux disease without esophagitis; Z79.4 Long term (current) use of insulin; Z79.82 Long term (current) use of aspirin; Z79.899 Other long term (current) drug therapy; Z95.5 Presence of coronary angioplasty implant and graft; Z79.84 Long term (current) use of oral hypoglycemic drugs; Z88.1 Allergy status to other antibiotic agents; Z88.5 Allergy status to narcotic agent; Z88.8 Allergy status to other drugs, medicaments and biological substances; Z91.030 Bee allergy status; Z91.041 Radiographic dye allergy status; Z91.09 Other allergy status, other than to drugs and biological substances
CPT/HCPCS: 36415; 80053; 85025; 99285; 96374; 96375; 96361; J2405; J1170

== ENCOUNTER 2023-06-23 02:55 | Emergency (ER) | payer MEDICARE ==
[2023-06-23 03:47] VITALS: RESP 18
[2023-06-23 04:14] LABS: Basophils % (A) 0 %; Eosinophils # (A) 0.1 k/uL (0-0.7); Eosinophils % (A) 2 %; HCT 34.1 % (34.0-46.0); HGB 11.5 gm/dL (11.4-16.0); Lymphocytes # (A) 1.3 k/uL (1.0-4.8); Lymphocytes % (A) 18 %; MCH 29.5 pg (25.0-35.0); MCHC 33.8 g/dL (31.0-37.0); MCV 87.4 fL (80.0-100.0); Mean Platelet Volume 7.5; Monocytes # (A) 0.3 k/uL (0-1.0); Monocytes % (A) 4 %; Neutrophils # (A) 5.5 k/uL (1.3-7.7); Neutrophils % (A) 75 %; Platelet Count 331 k/uL (150-450); RDW 14.2 % (11.5-15.5); WBC 7.3 k/uL (3.8-10.6)
[2023-06-23 04:28] LABS: African American GFR (CKD) >90 (>60 ml/min/1.73 sqM); Anion Gap 13 mmol/L; Blood Urea Nitrogen 9 mg/dL (7-17); C Reactive Protein 0.8 mg/dL (<1.0); Calcium 9.1 mg/dL (8.4-10.2); Carbon Dioxide 29 mmol/L (22-30); Chloride 95 mmol/L (98-107); Glucose 164 mg/dL (74-99); Non-African American GFR(CKD) >90 (>60 ml/min/1.73 sqM); Sodium 137 mmol/L (137-145)
[2023-06-23 04:41] LABS: Potassium 2.7 mmol/L (3.5-5.1)
[2023-06-23] MEDS ORDERED: POTASSIUM CHLORIDE ER 20 MEQ TAB.ER PO STA (05:02)
[2023-06-23] MEDS ORDERED: PEG 3350 (236 GM/BTL) + LYTES 4,000 ML BOTTLE PO ONE (08:04)
--- NOTE | 2023-06-23 08:04 | ED ---
General Adult HPI - General Chief complaint: Back Pain/Injury Stated complaint: impacted bowel Time Seen by Provider: 06/23/23 03:20 Source: patient, EMS Mode of arrival: EMS Limitations: no limitations - History of Present Illness Initial comments: This patient is 73-year-old woman who presents with complaints of generalized cramping abdominal pain. She states it is identical to previous constipation. The patient states she takes chronic narcotics and has frequent constipation. It has been days since her last bowel movement. She is tolerating oral intake. -: days(s) Location: abdomen Consistency: intermittent Improves with: none Worsens with: none Associated Symptoms: denies other symptoms - Related Data Home Medications Medication Instructions Recorded Confirmed Morphine Sulfate ER [Ms Contin] 30 mg PO Q8H 11/08/15 06/07/23 Rizatriptan Benzoate [Maxalt] 10 mg PO BID PRN 07/04/16 06/07/23 Topiramate [Topamax] 50 mg PO TID 07/04/16 06/07/23 Brimonidine Tartrate [Alphagan P 1 drops RIGHT EYE TID 09/09/17 06/07/23 0.2% Ophth Soln] Albuterol Inhaler [Ventolin Hfa 2 puff INHALATION RT-Q4H PRN 11/03/18 06/07/23 Inhaler] Aspirin EC [Ecotrin Low Dose] 81 mg PO DAILY 02/05/19 06/07/23 Netarsudil Mesylat/Latanoprost 1 drop RIGHT EYE HS 04/12/20 06/07/23 [Rocklatan 0.02%-0.005% Eye Drp] Valsartan 160 mg PO DAILY@1800 04/12/20 06/07/23 Cetirizine HCl 10 mg PO DAILY@1800 04/20/20 06/07/23 Erenumab-Aooe [Aimovig 140 mg SQ Q30D 11/04/22 06/07/23 Autoinjector] Pantoprazole [Protonix] 40 mg PO BID@0900,1800 11/04/22 06/07/23 polyethylene glycoL 3350 [Miralax] 17 gm PO DAILY PRN 11/04/22 06/07/23 Diclofenac Sodium Gel [Voltaren 1% 1 applic TOPICAL QID PRN 11/27/22 06/07/23 Gel] Ondansetron Odt [Zofran ODT] 8 mg PO Q8HR PRN 11/27/22 06/07/23 cycloSPORINE 0.05% OPHTH SOLN 1 drop LEFT EYE BID 11/27/22 06/07/23 [Restasis] traZODone HCL [Desyrel] 400 mg PO HS 11/27/22 06/07/23 Metoprolol Tartrate [Lopressor] 25 mg PO BID 05/28/23 06/07/23 Olopatadine HCl [Patanol 0.1%] 1 drop RIGHT EYE BID 05/28/23 06/07/23 Rosuvastatin Calcium 10 mg PO MOTH@2100 05/28/23 06/07/23 hydrOXYzine HCL 10 mg PO QID PRN 05/28/23 06/07/23 oxyCODONE HCL/ACETAMINOPHEN 1 tab PO TID PRN 05/28/23 06/07/23 [oxyCODONE HCL/ACETAMINOPHEN 7.5-325] sitaGLIPtin [Januvia] 100 mg PO DAILY 05/28/23 06/07/23 Carboxymethylcellulose Sodium 1 drop LEFT EYE Q3H 06/07/23 06/07/23 [Refresh Tears] Insulin Lispro [Admelog Solostar] See Protocol SQ AC-TID 06/07/23 06/07/23 Pioglitazone [Actos] 45 mg PO DAILY 06/07/23 06/07/23 Refresh Gel Drops 1 drop LEFT EYE HS 06/07/23 06/07/23 Timolol 0.5% Ophth Soln [Timoptic 1 drop RIGHT EYE TID 06/07/23 06/07/23 0.5% Ophth Soln] amLODIPine [Norvasc] 5 mg PO DAILY@1800 06/07/23 06/07/23 Previous Rx's Medication Instructions Recorded Venlafaxine HCl ER [Effexor XR] 75 mg PO PC-SUPPER #30 cap 05/29/23 Allergies Allergy/AdvReac Type Severity Reaction Status Date / Time adhesive Allergy Severe Rash/Hives, Verified 06/18/23 17:42 BLISTERS levofloxacin [From Levaquin] Allergy Severe Anaphylaxis Verified 06/18/23 17:42 metoclopramide HCl Allergy Severe Anaphylaxis Verified 06/18/23 17:42 [From Reglan] Phenothiazines Allergy Severe Anaphylaxis Verified 06/18/23 17:42 thiethylperazine maleate Allergy Severe Anaphylaxis Verified 06/18/23 17:42 [From Torecan] venom-honey bee Allergy Severe Anaphylaxis Verified 06/18/23 17:42 [bee venom (honey bee)] iodine Allergy Intermediate Rash/Hives Verified 06/18/23 17:42 chlorhexidine Allergy red dye in Verified 06/18/23 17:42 [From Hibiclens] hibiclens causes Rash/Hives duloxetine [From Cymbalta] Allergy Unknown Verified 06/18/23 17:42 meloxicam [From Mobic] Allergy Unknown Verified 06/18/23 17:42 cigarette smoke AdvReac Cough Verified 06/18/23 17:42 fentanyl AdvReac OVER Verified 06/18/23 17:42 SEDATED, WEAKNESS pregabalin [From Lyrica] AdvReac oversedatio Verified 06/18/23 17:42 n Wokwbez-IGF-IpH Reductase AdvReac increased Verified 06/18/23 17:42 Inhibitor fibramyalgia [Xjvdbkv-Vvy-Jya Reductase symptoms Inhibitor] hydoxizine Allergy Unknown Uncoded 06/18/23 17:42 clonadine AdvReac Unknown Uncoded 06/18/23 17:42 Review of Systems ROS Statement: Those systems with pertinent positive or pertinent negative responses have been documented in the HPI. ROS Other: All systems not noted in ROS Statement are negative. Constitutional: Denies: fever, chills, weakness Respiratory: Denies: cough, dyspnea Cardiovascular: Denies: chest pain, palpitations, edema Gastrointestinal: Reports: as per HPI, abdominal pain, constipation. Denies: nausea, vomiting, diarrhea, melena, hematochezia Genitourinary: Denies: dysuria, hematuria Musculoskeletal: Denies: back pain Skin: Denies: rash Neurological: Denies: headache, weakness Past Medical History Past Medical History: Asthma, Diabetes Mellitus, Eye Disorder, Fibromyalgia, GERD/Reflux, Hyperlipidemia, Hypertension, Myocardial Infarction ([place]), Musculoskeletal Disorder, Osteoarthritis (OA), Skin Disorder Additional Past Medical History / Comment(s): Rosacea, dry skin. Degenerative Disc Disease, hx severe back injury from work, kyphosis. Hx bilateral ankle fractures. Glaucoma, blind in right eye, increased left eye pressure and gel stent in left eye. Migraines. Insomnia. Frequent night time urination. Chronic nausea. Last Myocardial Infarction Date:: 01/2019 History of Any Multi-Drug Resistant Organisms: None Reported Past Surgical History: Back Surgery, Bariatric Surgery, Bladder Surgery, Cholecystectomy, Heart Catheterization With Stent, Hysterectomy, Orthopedic Surgery, Tonsillectomy, Tubal Ligation Additional Past Surgical History / Comment(s): Lap band 2009, lumbar laminectomy, wayne and screw to lumbar back, open reduction of right ankle fracture, bilateral carpal tunnel surgery X2 each side, left cubital tunnel surg satinder, cardiac stent X2 - January 2019, left eye gel stent. Past Anesthesia/Blood Transfusion Reactions: No Reported Reaction Additional Past Anesthesia/Blood Transfusion Reaction / Comment(s): No problems with prior blood transfusion at age 19 after bleed with tonsillectomy. Date of Last Stent Placement:: 01/2019 Past Psychological History: Anxiety, Panic Disorder Smoking Status: Never smoker Past Alcohol Use History: None Reported Past Drug Use History: None Reported - Past Family History Father Family Medical History: Cancer Additional Family Medical History / Comment(s): FATHER AT AGE 91YRS. Skin cancer. Mother Family Medical History: CVA/TIA Additional Family Medical History / Comment(s): MOTHER AT AGE 67 YRS OF CVA. General Exam Limitations: no limitations General appearance: alert, in no apparent distress Head exam: Present: atraumatic, normocephalic Eye exam: Present: normal appearance. Absent: scleral icterus, conjunctival injection Neck exam: Present: normal inspection Respiratory exam: Present: normal lung sounds bilaterally. Absent: respiratory distress, wheezes, rales, rhonchi, stridor Cardiovascular Exam: Present: regular rate, normal rhythm, normal heart sounds. Absent: systolic murmur, diastolic murmur, rubs, gallop GI/Abdominal exam: Present: soft. Absent: distended, tenderness, guarding, rebound, rigid, mass, pulsatile mass Extremities exam: Present: normal inspection, normal capillary refill. Absent: pedal edema, calf tenderness Back exam: Present: normal inspection. Absent: CVA tenderness (R), CVA tenderness (L) Neurological exam: Present: alert Skin exam: Present: warm, dry, intact, normal color. Absent: rash Course Vital Signs 06/23/23 06/23/23 06/23/23 03:22 04:28 07:32 Temperature 98.2 F Pulse Rate 96 80 Respiratory 18 18 Rate Blood Pressure 172/83 149/70 178/101 O2 Sat by Pulse 98 97 Oximetry 06/23/23 08:29 Temperature 98.1 F Pulse Rate 107 H Respiratory 18 Rate Blood Pressure 176/100 O2 Sat by Pulse 99 Oximetry Medical Decision Making - Medical Decision Making This patient is 73-year-old woman chronic narcotic therapy who presents with complaint of constipation. The patient is found to have mild hypokalemia. She is given oral potassium replacement. The patient will have GoLYTELY to use at home. We discussed appropriate further care and follow-up as well as return parameters. Was pt. sent in by a medical professional or institution (, PA, SCARFER OPERATOR, urgent care, hospital, or [facility]...) When possible be specific @ -[No] Did you speak to anyone other than the patient for history (EMS, parent, family, police, friend...)? What history was obtained from this source @ -[No] Did you review nursing and triage notes (agree or disagree)? Why? @ -[I reviewed and agree with nursing and triage notes] Were old charts reviewed (outside hosp., previous admission, EMS record, old EKG, old radiological studies, urgent care reports/EKG's, [facility] records)? Report findings @ -[No old charts were reviewed] Differential Diagnosis (chest pain, altered mental status, abdominal pain women, abdominal pain men, vaginal bleeding, weakness, fever, dyspnea, syncope, heada rafa, dizziness, GI bleed, back pain, seizure, CVA, palpatations, mental health, musculoskeletal)? @ -[Differential Abdominal Pain Women: Appendicitis, Cholecystitis, diverticulosis, ischemic bowel, pancreatitis, hepatitis, UTI, gastroenteritis, AAA, incarcerated hernia, bowel obstruction, constipation, inflammatory bowel, hepatitis, peptic ulcer disease, splenic infarction, perforated viscus, vulvitis, ovarian torsion, PID, kidney stone, placenta abruption, this is not meant to be an all-inclusive list EKG interpreted by me (3pts min.). @ -[As above] X-rays interpreted by me (1pt min.). @ -[None done] CT interpreted by me (1pt min.). @ -[None done] U/S interpreted by me (1pt. min.). @ -[None done] What testing was considered but not performed or refused? (CT, X-rays, U/S, labs)? Why? @ -[None] What meds were considered but not given or refused? Why? @ -[None] Did you discuss the management of the patient with other professionals (professionals i.e. , PA, SCARFER OPERATOR, lab, RT, psych nurse, social studies teacher, senior budget analyst, teacher, motorcycle police officer, disability case manager)? Give summary @ -[No] Was smoking cessation discussed for >3mins.? @ -[No] Was critical care preformed (if so, how long)? @ -[No] Were there social determinants of health that impacted care today? How? (Homelessness, low income, unemployed, alcoholism, drug addiction, transportation, low edu. Level, literacy, decrease access to med. care, penitentiary, rehab)? @ -[No] Was there de-escalation of care discussed even if they declined (Discuss DNR or withdrawal of care, Hospice)? DNR status @ -[No] What co-morbidities impacted this encounter? (DM, HTN, Smoking, COPD, CAD, Cancer, CVA, ARF, Chemo, Hep., AIDS, mental health diagnosis, sleep apnea, morbid obesity)? @ -[None] Was patient admitted / discharged? Hospital course, mention meds given and r oute, prescriptions, significant lab abnormalities, going to OR and other pertinent info. @ -[As above Undiagnosed new problem with uncertain prognosis? @ -[No] Drug Therapy requiring intensive monitoring for toxicity (Heparin, Nitro, Insulin, Cardizem)? @ -[No] Were any procedures done? @ -[No] Diagnosis/symptom? @ -[Abdominal pain Constipation Hypokalemia Acute, or Chronic, or Acute on Chronic? @ -[Acute on chronic Uncomplicated (without systemic symptoms) or Complicated (systemic symptoms)? @ -[Uncomplicated Side effects of treatment? @ -[No] Exacerbation, Progression, or Severe Exacerbation? @ -[No] Poses a threat to life or bodily function? How? (Chest pain, [place], [place], pneumonia, PE, COPD, DKA, ARF, appy, cholecystitis, CVA, Diverticulitis, Homicidal, Suicidal, threat to staff... and all critical care pts) @ -[No] - Lab Data Result diagrams: 06/23/23 04:00 06/23/23 04:00 Lab Results 06/23/23 06/23/23 Range/Units 04:00 04:00 WBC 7.3 (3.8-10.6) k/uL RBC 3.90 (3.80-5.40) m/uL Hgb 11.5 (11.4-16.0) gm/dL Hct 34.1 (34.0-46.0) % MCV 87.4 (80.0-100.0) fL MCH 29.5 (25.0-35.0) pg MCHC 33.8 (31.0-37.0) g/dL RDW 14.2 (11.5-15.5) % Plt Count 331 (150-450) k/uL MPV 7.5 Neutrophils % 75 % Lymphocytes % 18 % Monocytes % 4 % Eosinophils % 2 % Basophils % 0 % Neutrophils # 5.5 (1.3-7.7) k/uL Lymphocytes # 1.3 (1.0-4.8) k/uL Monocytes # 0.3 (0-1.0) k/uL Eosinophils # 0.1 (0-0.7) k/uL Basophils # 0.0 (0-0.2) k/uL Sodium 137 (137-145) mmol/L Potassium 2.7 L* (3.5-5.1) mmol/L Chloride 95 L (98-107) mmol/L Carbon Dioxide 29 (22-30) mmol/L Anion Gap 13 mmol/L BUN 9 (7-17) mg/dL Creatinine 0.51 L (0.52-1.04) mg/dL Est GFR (CKD-EPI)AfAm >90 (>60 ml/min/1.73 sqM) Est GFR (CKD-EPI)NonAf >90 (>60 ml/min/1.73 sqM) Glucose 164 H (74-99) mg/dL Calcium 9.1 (8.4-10.2) mg/dL C-Reactive Protein 0.8 (<1.0) mg/dL Disposition Clinical Impression: Constipation Disposition: HOME SELF-CARE Condition: Good Instructions (If sedation given, give patient instructions): Constipation (ED) Is patient prescribed a controlled substance at d/c from ED?: No Referrals: Srinivasa Caballero MD [Primary Care Provider] - 1-2 days
[2023-06-23 08:35] VITALS: BP 176/100; PULSE 107; TEMP 98.1
== END 2023-06-23 09:03 | disposition home or self-care (01) ==
LOC: EC 02:55
DX: K59.00 Constipation, unspecified (principal); E87.6 Hypokalemia; E11.9 Type 2 diabetes mellitus without complications; E78.5 Hyperlipidemia, unspecified; J45.909 Unspecified asthma, uncomplicated; I25.2 Old myocardial infarction; I10 Essential (primary) hypertension; K21.9 Gastro-esophageal reflux disease without esophagitis; M19.90 Unspecified osteoarthritis, unspecified site; F41.9 Anxiety disorder, unspecified; Z91.030 Bee allergy status; Z91.041 Radiographic dye allergy status; Z88.1 Allergy status to other antibiotic agents; Z88.5 Allergy status to narcotic agent; Z88.8 Allergy status to other drugs, medicaments and biological substances; Z79.4 Long term (current) use of insulin; Z79.84 Long term (current) use of oral hypoglycemic drugs; Z79.82 Long term (current) use of aspirin; Z79.899 Other long term (current) drug therapy; Z90.49 Acquired absence of other specified parts of digestive tract
CPT/HCPCS: 36415; 80048; 85025; 86140; 99284

== ENCOUNTER 2023-06-30 09:19 | Emergency (ER) | payer MEDICARE ==
[2023-06-30 09:46] VITALS: RESP 18
[2023-06-30] MEDS ORDERED: SODIUM CHLORIDE 0.9% 1,000 ML IV ONE (10:23)
[2023-06-30] MEDS ORDERED: METOPROLOL TARTRATE 25 MG TAB PO STA (10:24)
[2023-06-30] MEDS ORDERED: ONDANSETRON 4 MG/2 ML VIAL IVP STA (10:24)
[2023-06-30 10:46] LABS: Basophils % (A) 0 %; Eosinophils # (A) 0.1 k/uL (0-0.7); Eosinophils % (A) 1 %; HCT 37.6 % (34.0-46.0); HGB 12.5 gm/dL (11.4-16.0); Lymphocytes # (A) 0.9 k/uL (1.0-4.8); Lymphocytes % (A) 11 %; MCH 29.5 pg (25.0-35.0); MCHC 33.3 g/dL (31.0-37.0); MCV 88.7 fL (80.0-100.0); Mean Platelet Volume 7.5; Monocytes # (A) 0.3 k/uL (0-1.0); Monocytes % (A) 4 %; Neutrophils # (A) 6.5 k/uL (1.3-7.7); Neutrophils % (A) 82 %; Platelet Count 354 k/uL (150-450); RBC 4.23 m/uL (3.80-5.40); RDW 14.1 % (11.5-15.5); WBC 7.9 k/uL (3.8-10.6)
[2023-06-30 11:02] LABS: ALT 25 U/L (4-34); AST 55 U/L (14-36); African American GFR (CKD) >90 (>60 ml/min/1.73 sqM); Albumin 4.5 g/dL (3.5-5.0); Alkaline Phosphatase 61 U/L (38-126); Anion Gap 10 mmol/L; Blood Urea Nitrogen 11 mg/dL (7-17); Calcium 9.6 mg/dL (8.4-10.2); Carbon Dioxide 29 mmol/L (22-30); Chloride 96 mmol/L (98-107); Glucose 191 mg/dL (74-99); Non-African American GFR(CKD) >90 (>60 ml/min/1.73 sqM); Sodium 135 mmol/L (137-145); Total Bilirubin 1.3 mg/dL (0.2-1.3); Total Protein 7.7 g/dL (6.3-8.2)
[2023-06-30 11:10] LABS: Potassium 5.1 mmol/L (3.5-5.1)
[2023-06-30 12:07] LABS: Appearance,Urine Clear (Clear); Bilirubin,Urine Negative (Negative); Blood,Urine Negative (Negative); Color,Urine Colorless; Glucose,Urine (UA) Negative (Negative); Ketones,Urine 1+ (Negative); Leukocyte Esterase,Urine Small (Negative); Mucus,Urine Rare /hpf; Nitrite,Urine Negative (Negative); PH, Urine 5.5 (5.0-8.0); Protein,Urine Negative (Negative); Specific Gravity,Urine 1.008 (1.001-1.035); Squamous Epithelial Cell,Urine 3 /hpf (0-4); Urobilinogen,Urine <2.0 mg/dL (<2.0); WBC,Urine 1 /hpf (0-5)
--- NOTE | 2023-06-30 12:09 | ED ---
General Adult HPI - General Chief complaint: Anxiety Stated complaint: ANXIETY Time Seen by Provider: 06/30/23 09:35 Source: patient, EMS, RN notes reviewed, old records reviewed Mode of arrival: EMS - History of Present Illness Initial comments: This is a 74-year-old female who comes into the emergency department stating she's having anxiety issues and doesn't know why. Patient states her left the store and she completely got anxious and upset and was scared but she doesn't know what she is scared of. Patient does admit that she is taking her medicines and changing the dosages on her own without talking to her doctor. Patient states she's reduced amount of trazodone and she is not taking the MS Contin the way she supposed to and she also is not in the same amount of Effexor she used to be. Patient denies any new pain. Patient denies any fevers chills patient denies any difficulty breathing shortest breath per patient denies abdominal pain. - Related Data Home Medications Medication Instructions Recorded Confirmed Morphine Sulfate ER [Ms Contin] 30 mg PO Q8H 11/08/15 06/07/23 Rizatriptan Benzoate [Maxalt] 10 mg PO BID PRN 07/04/16 06/07/23 Topiramate [Topamax] 50 mg PO TID 07/04/16 06/07/23 Brimonidine Tartrate [Alphagan P 1 drops RIGHT EYE TID 09/09/17 06/07/23 0.2% Ophth Soln] Albuterol Inhaler [Ventolin Hfa 2 puff INHALATION RT-Q4H PRN 11/03/18 06/07/23 Inhaler] Aspirin EC [Ecotrin Low Dose] 81 mg PO DAILY 02/05/19 06/07/23 Netarsudil Mesylat/Latanoprost 1 drop RIGHT EYE HS 04/12/20 06/07/23 [Rocklatan 0.02%-0.005% Eye Drp] Valsartan 160 mg PO DAILY@1800 04/12/20 06/07/23 Cetirizine HCl 10 mg PO DAILY@1800 04/20/20 06/07/23 Erenumab-Aooe [Aimovig 140 mg SQ Q30D 11/04/22 06/07/23 Autoinjector] Pantoprazole [Protonix] 40 mg PO BID@0900,1800 11/04/22 06/07/23 polyethylene glycoL 3350 [Miralax] 17 gm PO DAILY PRN 11/04/22 06/07/23 Diclofenac Sodium Gel [Voltaren 1% 1 applic TOPICAL QID PRN 11/27/22 06/07/23 Gel] Ondansetron Odt [Zofran ODT] 8 mg PO Q8HR PRN 11/27/22 06/07/23 cycloSPORINE 0.05% OPHTH SOLN 1 drop LEFT EYE BID 11/27/22 06/07/23 [Restasis] traZODone HCL [Desyrel] 400 mg PO HS 11/27/22 06/07/23 Metoprolol Tartrate [Lopressor] 25 mg PO BID 05/28/23 06/07/23 Olopatadine HCl [Patanol 0.1%] 1 drop RIGHT EYE BID 05/28/23 06/07/23 Rosuvastatin Calcium 10 mg PO MOTH@2100 05/28/23 06/07/23 hydrOXYzine HCL 10 mg PO QID PRN 05/28/23 06/07/23 oxyCODONE HCL/ACETAMINOPHEN 1 tab PO TID PRN 05/28/23 06/07/23 [oxyCODONE HCL/ACETAMINOPHEN 7.5-325] sitaGLIPtin [Januvia] 100 mg PO DAILY 05/28/23 06/07/23 Carboxymethylcellulose Sodium 1 drop LEFT EYE Q3H 06/07/23 06/07/23 [Refresh Tears] Insulin Lispro [Admelog Solostar] See Protocol SQ AC-TID 06/07/23 06/07/23 Pioglitazone [Actos] 45 mg PO DAILY 06/07/23 06/07/23 Refresh Gel Drops 1 drop LEFT EYE HS 06/07/23 06/07/23 Timolol 0.5% Ophth Soln [Timoptic 1 drop RIGHT EYE TID 06/07/23 06/07/23 0.5% Ophth Soln] amLODIPine [Norvasc] 5 mg PO DAILY@1800 06/07/23 06/07/23 Previous Rx's Medication Instructions Recorded Venlafaxine HCl ER [Effexor XR] 75 mg PO PC-SUPPER #30 cap 05/29/23 Allergies Allergy/AdvReac Type Severity Reaction Status Date / Time adhesive Allergy Severe Rash/Hives, Verified 06/18/23 17:42 BLISTERS levofloxacin [From Levaquin] Allergy Severe Anaphylaxis Verified 06/18/23 17:42 metoclopramide HCl Allergy Severe Anaphylaxis Verified 06/18/23 17:42 [From Reglan] Phenothiazines Allergy Severe Anaphylaxis Verified 06/18/23 17:42 thiethylperazine maleate Allergy Severe Anaphylaxis Verified 06/18/23 17:42 [From Torecan] venom-honey bee Allergy Severe Anaphylaxis Verified 06/18/23 17:42 [bee venom (honey bee)] iodine Allergy Intermediate Rash/Hives Verified 06/18/23 17:42 chlorhexidine Allergy red dye in Verified 06/18/23 17:42 [From Hibiclens] hibiclens causes Rash/Hives duloxetine [From Cymbalta] Allergy Unknown Verified 06/18/23 17:42 meloxicam [From Mobic] Allergy Unknown Verified 06/18/23 17:42 cigarette smoke AdvReac Cough Verified 06/18/23 17:42 fentanyl AdvReac OVER Verified 06/18/23 17:42 SEDATED, WEAKNESS pregabalin [From Lyrica] AdvReac oversedatio Verified 06/18/23 17:42 n [id number]-[id number] Reductase AdvReac increased Verified 06/18/23 17:42 Inhibitor fibramyalgia [Cccthki-Zam-Bqf Reductase symptoms Inhibitor] hydoxizine Allergy Unknown Uncoded 06/18/23 17:42 clonadine AdvReac Unknown Uncoded 06/18/23 17:42 Review of Systems ROS Statement: Those systems with pertinent positive or pertinent negative responses have been documented in the HPI. ROS Other: All systems not noted in ROS Statement are negative. Past Medical History Past Medical History: Asthma, Diabetes Mellitus, Eye Disorder, Fibromyalgia, GE RD/Reflux, Hyperlipidemia, Hypertension, Myocardial Infarction (HI), Musculoskeletal Disorder, Osteoarthritis (OA), Skin Disorder Additional Past Medical History / Comment(s): Rosacea, dry skin. Degenerative Disc Disease, hx severe back injury from work, kyphosis. Hx bilateral ankle fractures. Glaucoma, blind in right eye, increased left eye pressure and gel stent in left eye. Migraines. Insomnia. Frequent night time urination. Chronic nausea. Last Myocardial Infarction Date:: 01/2019 History of Any Multi-Drug Resistant Organisms: None Reported Past Surgical History: Back Surgery, Bariatric Surgery, Bladder Surgery, Cholecystectomy, Heart Catheterization With Stent, Hysterectomy, Orthopedic S urgery, Tonsillectomy, Tubal Ligation Additional Past Surgical History / Comment(s): Lap band 2009, lumbar laminectomy, wayne and screw to lumbar back, open reduction of right ankle fracture, bilateral carpal tunnel surgery X2 each side, left cubital tunnel surgery, cardiac stent X2 - January 2019, left eye gel stent. Past Anesthesia/Blood Transfusion Reactions: No Reported Reaction Additional Past Anesthesia/Blood Transfusion Reaction / Comment(s): No problems with prior blood transfusion at age 19 after bleed with tonsillectomy. Date of Last Stent Placement:: 01/2019 Past Psychological History: Anxiety, Panic Disorder Smoking Status: Never smoker Past Alcohol Use History: None Reported Past Drug Use History: None Reported - Past Family History Father Family Medical History: Cancer Additional Family Medical History / Comment(s): FATHER AT AGE 91YRS. Skin cancer. Mother Family Medical History: CVA/TIA Additional Family Medical History / Comment(s): MOTHER AT AGE 67 YRS OF CVA. General Exam - General Exam Comments Initial Comments: GENERAL: Patient is well-developed and well-nourished. Patient is nontoxic and well- hydrated and is in mild distress. ENT: Neck is soft and supple. No significant lymphadenopathy is noted. Oropharynx is clear. Moist mucous membranes. Neck has full range of motion without eliciting any pain. EYES: The sclera were anicteric and conjunctiva were pink and moist. Extraocular movements were intact and pupils were equal round and reactive to light. Eyelids were unremarkable. PULMONARY: Unlabored respirations. Good breath sounds bilaterally. No audible rales rhonchi or wheezing was noted. CARDIOVASCULAR: There is a regular rate and rhythm without any murmurs gallops or rubs. ABDOMEN: Soft and nontender with normal bowel sounds. SKIN: Skin is clear with no lesions or rashes and otherwise unremarkable. NEUROLOGIC: Patient is alert and oriented x3. Cranial nerves II through XII are grossly intact. Motor and sensory are also intact. Normal speech, volume and content. Symmetrical smile. MUSCULOSKELETAL: Normal extremities with adequate strength and full range of motion. LYMPHATICS: No significant lymphadenopathy is noted PSYCHIATRIC: Patient seems extremely anxious Course Vital Signs 06/30/23 09:25 Temperature 98.3 F Pulse Rate 91 Respiratory 18 Rate Blood Pressure 189/101 O2 Sat by Pulse 98 Oximetry Medical Decision Making - Medical Decision Making Was pt. sent in by a medical professional or institution (KAYLA Barger, CREDIT COLLECTIONS MANAGER, urgent care, hospital, or [place] health care facility...) When possible be specific @ -No Did you speak to anyone other than the patient for history (EMS, parent, family, police, friend...)? What history was obtained from this source @ -No Did you review nursing and triage notes (agree or disagree)? Why? @ -I reviewed and agree with nursing and triage notes Were old charts reviewed (outside hosp., previous admission, EMS record, old EKG, old radiological studies, urgent care reports/EKG's, [place] [facility] facility records)? Report findings @ -Interviewed prior charts from prior lab work. Differential Diagnosis (chest pain, altered mental status, abdominal pain women, abdominal pain men, vaginal bleeding, weakness, fever, dyspnea, syncope, headache, dizziness, GI bleed, back pain, seizure, CVA, palpatations, mental health, musculoskeletal)? @ -Differential Mental Health Depression, anxiety, bipolar, psychosis, schizophrenia, borderline personality, situational depression, adjustment disorder, behavioral disorder, brain tumor, malingering, substance abuse, encephalopathy, medication reaction, dementia, hypothyroidism, degenerative neurologic disorder, lupus.... This is not meant to be all-inclusive list EKG interpreted by me (3pts min.). @ -As above X-rays interpreted by me (1pt min.). @ -None done CT interpreted by me (1pt min.). @ -None done U/S interpreted by me (1pt. min.). @ -None done What testing was considered but not performed or refused? (CT, X-rays, U/S, labs)? Why? @ -None What meds were considered but not given or refused? Why? @ -None Did you discuss the management of the patient with other professionals (pro fessionals i.e. KAYLA Barger, CREDIT COLLECTIONS MANAGER, lab, RT, psych nurse, social media content manager, strategy lead, teacher, youth corrections officer, casework manager)? Give summary @ -No Was smoking cessation discussed for >3mins.? @ -No Was critical care preformed (if so, how long)? @ -No Were there social determinants of health that impacted care today? How? (Homelessness, low income, unemployed, alcoholism, drug addiction, transporta tion, low edu. Level, literacy, decrease access to med. care, prison, rehab)? @ -No Was there de-escalation of care discussed even if they declined (Discuss DNR or withdrawal of care, Hospice)? DNR status @ -No What co-morbidities impacted this encounter? (DM, HTN, Smoking, COPD, CAD, Cancer, CVA, ARF, Chemo, Hep., AIDS, mental health diagnosis, sleep apnea, morbid obesity)? @ -None Was patient admitted / discharged? Hospital course, mention meds given and route, prescriptions, significant lab abnormalities, going to OR and other pertinent info. @ -Patient told me she was here because she was so anxious and she didn't know why I told her get a mental health evaluation she agreed to that however after I left the room she consistently asks for narcotic medication from the nurse and eventually told me was about to discharge her that she was never here for anx iety. Patient was told to go home and take her pain medications at home that she stated earlier that she did not take and then to follow-up with her primary medical care doctor Undiagnosed new problem with uncertain prognosis? @ -No Drug Therapy requiring intensive monitoring for toxicity (Heparin, Nitro, Insulin, Cardizem)? @ -No Were any procedures done? @ -No Diagnosis/symptom? @ -Anxiety Acute, or Chronic, or Acute on Chronic? @ -Acute Uncomplicated (without systemic symptoms) or Complicated (systemic symptoms)? @ -Complicated Side effects of treatment? @ -No Exacerbation, Progression, or Severe Exacerbation? @ -No Poses a threat to life or bodily function? How? (Chest pain, USA, HI, pneumonia, PE, COPD, DKA, ARF, appy, cholecystitis, CVA, Diverticulitis, Homicidal, Suicidal, threat to staff... and all critical care pts) @ -No - Lab Data Result diagrams: 06/30/23 10:39 06/30/23 10:39 Lab Results 06/30/23 06/30/23 06/30/23 Range/Units 10:39 10:39 10:39 WBC 7.9 (3.8-10.6) k/uL RBC 4.23 (3.80-5.40) m/uL Hgb 12.5 (11.4-16.0) gm/dL Hct 37.6 (34.0-46.0) % MCV 88.7 (80.0-100.0) fL MCH 29.5 (25.0-35.0) pg MCHC 33.3 (31.0-37.0) g/dL RDW 14.1 (11.5-15.5) % Plt Count 354 (150-450) k/uL MPV 7.5 Neutrophils % 82 % Lymphocytes % 11 % Monocytes % 4 % Eosinophils % 1 % Basophils % 0 % Neutrophils # 6.5 (1.3-7.7) k/uL Lymphocytes # 0.9 L (1.0-4.8) k/uL Monocytes # 0.3 (0-1.0) k/uL Eosinophils # 0.1 (0-0.7) k/uL Basophils # 0.0 (0-0.2) k/uL Sodium 135 L (137-145) mmol/L Potassium 5.1 (3.5-5.1) mmol/L Chloride 96 L (98-107) mmol/L Carbon Dioxide 29 (22-30) mmol/L Anion Gap 10 mmol/L BUN 11 (7-17) mg/dL Creatinine 0.59 (0.52-1.04) mg/dL Est GFR (CKD-EPI)AfAm >90 (>60 ml/min/1.73 sqM) Est GFR (CKD-EPI)NonAf >90 (>60 ml/min/1.73 sqM) Glucose 191 H (74-99) mg/dL POC Glucose (mg/dL) (70-110) mg/dL POC Glu Station Examiner ID Calcium 9.6 (8.4-10.2) mg/dL Total Bilirubin 1.3 (0.2-1.3) mg/dL AST 55 H (14-36) U/L ALT 25 (4-34) U/L Alkaline Phosphatase 61 (38-126) U/L Total Protein 7.7 (6.3-8.2) g/dL Albumin 4.5 (3.5-5.0) g/dL Urine Color Colorless Urine Appearance Clear (Clear) Urine pH 5.5 (5.0-8.0) Ur Specific [place] 1.008 (1.001-1.035) Urine Protein Negative (Negative) Urine Glucose (UA) Negative (Negative) Urine Ketones 1+ H (Negative) Urine Blood Negative (Negative) Urine Nitrite Negative (Negative) Urine Bilirubin Negative (Negative) Urine Urobilinogen <2.0 (<2.0) mg/dL Ur Leukocyte Esterase Small H (Negative) Urine WBC 1 (0-5) /hpf Ur Squamous Epith Cells 3 (0-4) /hpf Urine Mucus Rare H (None) /hpf Urine Opiates Screen (NotDetected) Ur Oxycodone Screen (NotDetected) Urine Methadone Screen (NotDetected) Ur Propoxyphene Screen (NotDetected) Ur Barbiturates Screen (NotDetected) U Tricyclic Antidepress (NotDetected) Ur Phencyclidine Scrn (NotDetected) Ur Amphetamines Screen (NotDetected) U Methamphetamines Scrn (NotDetected) U Benzodiazepines Scrn (NotDetected) Urine Cocaine Screen (NotDetected) U Marijuana (THC) Screen (NotDetected) 06/30/23 06/30/23 Range/Units 10:39 12:43 WBC (3.8-10.6) k/uL RBC (3.80-5.40) m/uL Hgb (11.4-16.0) gm/dL Hct (34.0-46.0) % MCV (80.0-100.0) fL MCH (25.0-35.0) pg MCHC (31.0-37.0) g/dL RDW (11.5-15.5) % Plt Count (150-450) k/uL MPV Neutrophils % % Lymphocytes % % Monocytes % % Eosinophils % % Basophils % % Neutrophils # (1.3-7.7) k/uL Lymphocytes # (1.0-4.8) k/uL Monocytes # (0-1.0) k/uL Eosinophils # (0-0.7) k/uL Basophils # (0-0.2) k/uL Sodium (137-145) mmol/L Potassium (3.5-5.1) mmol/L Chloride (98-107) mmol/L Carbon Dioxide (22-30) mmol/L Anion Gap mmol/L BUN (7-17) mg/dL Creatinine (0.52-1.04) mg/dL Est GFR (CKD-EPI)AfAm (>60 ml/min/1.73 sqM) Est GFR (CKD-EPI)NonAf (>60 ml/min/1.73 sqM) Glucose (74-99) mg/dL POC Glucose (mg/dL) 172 H (70-110) mg/dL POC Glu Station Examiner Irma Barriga Calcium (8.4-10.2) mg/dL Total Bilirubin (0.2-1.3) mg/dL AST (14-36) U/L ALT (4-34) U/L Alkaline Phosphatase (38-126) U/L Total Protein (6.3-8.2) g/dL Albumin (3.5-5.0) g/dL Urine Color Urine Appearance (Clear) Urine pH (5.0-8.0) Ur Specific [place] (1.001-1.035) Urine Protein (Negative) Urine Glucose (UA) (Negative) Urine Ketones (Negative) Urine Blood (Negative) Urine Nitrite (Negative) Urine Bilirubin (Negative) Urine Urobilinogen (<2.0) mg/dL Ur Leukocyte Esterase (Negative) Urine WBC (0-5) /hpf Ur Squamous Epith Cells (0-4) /hpf Urine Mucus (None) /hpf Urine Opiates Screen Detected H (NotDetected) Ur Oxycodone Screen Not Detected (NotDetected) Urine Methadone Screen Not Detected (NotDetected) Ur Propoxyphene Screen Not Detected (NotDetected) Ur Barbiturates Screen Not Detected (NotDetected) U Tricyclic Antidepress Not Detected (NotDetected) Ur Phencyclidine Scrn Not Detected (NotDetected) Ur Amphetamines Screen Not Detected (NotDetected) U Methamphetamines Scrn Not Detected (NotDetected) U Benzodiazepines Scrn Not Detected (NotDetected) Urine Cocaine Screen Not Detected (NotDetected) U Marijuana (THC) Screen Not Detected (NotDetected) Disposition Clinical Impression: Acute anxiety Disposition: HOME SELF-CARE Instructions (If sedation given, give patient instructions): Generalized Anxiety Disorder (ED) Is patient prescribed a controlled substance at d/c from ED?: No Referrals: Srinivasa Caballero MD [Primary Care Provider] - 1-2 days Time of Disposition: 14:02
[2023-06-30 12:21] LABS: Cocaine Screen,Urine Not Detected (NotDetected); Phencyclidine Screen,Urine Not Detected (NotDetected); Urn Cannabinoid Scrn Not Detected (NotDetected)
[2023-06-30 12:22] LABS: Amphetamine Screen,Urine Not Detected (NotDetected); Barbiturate Screen,Urine Not Detected (NotDetected); Benzodiazepines Screen,Urine Not Detected (NotDetected); Methadone Screen, Urine Not Detected (NotDetected); Opiate Screen,Urine Detected (NotDetected); Oxycodone Screen, Urine Not Detected (NotDetected); Tricyclic Antidepressant,Urine Not Detected (NotDetected)
[2023-06-30 12:44] LABS: Glucose,Whole Blood 172 mg/dL (70-110)
[2023-06-30 14:50] VITALS: BP 158/80; PULSE 81; TEMP 98.1
== END 2023-06-30 14:29 | disposition home or self-care (01) ==
LOC: EC 09:19
DX: F41.9 Anxiety disorder, unspecified (principal); E11.9 Type 2 diabetes mellitus without complications; E78.5 Hyperlipidemia, unspecified; I10 Essential (primary) hypertension; I25.2 Old myocardial infarction; J45.909 Unspecified asthma, uncomplicated; K21.9 Gastro-esophageal reflux disease without esophagitis; M19.90 Unspecified osteoarthritis, unspecified site; Z79.4 Long term (current) use of insulin; Z79.84 Long term (current) use of oral hypoglycemic drugs; Z79.82 Long term (current) use of aspirin; Z79.899 Other long term (current) drug therapy; Z88.1 Allergy status to other antibiotic agents; Z88.5 Allergy status to narcotic agent; Z88.8 Allergy status to other drugs, medicaments and biological substances; Z91.030 Bee allergy status; Z91.041 Radiographic dye allergy status; Z95.5 Presence of coronary angioplasty implant and graft; Z90.49 Acquired absence of other specified parts of digestive tract
CPT/HCPCS: 82075; 36415; 80053; 85025; 81001; 80306; 99284; 96374; 96361 ×2; J2405

== ENCOUNTER 2023-07-22 16:21 | Emergency (ER) | payer MEDICARE ==
[2023-07-22 16:40] VITALS: TEMP 98
[2023-07-22] MEDS ORDERED: SODIUM CHLORIDE 0.9% 1,000 ML IV STA (16:44)
[2023-07-22] MEDS ORDERED: droPERidol 5 MG/2 ML VIAL IVP ONE (16:44)
[2023-07-22] MEDS ORDERED: SODIUM CHLORIDE 0.9% 500 ML 500 ML IV STA (16:44)
--- NOTE | 2023-07-22 16:52 | ED ---
General Adult HPI - General Chief complaint: Abdominal Pain Stated complaint: Urinary issues Time Seen by Provider: 07/22/23 16:25 Source: patient, RN notes reviewed, old records reviewed Mode of arrival: EMS Limitations: no limitations - History of Present Illness Initial comments: This is a 73-year-old female presents emergency Department stating that for about a month she's had some intermittent lower abdominal pain that comes and goes. Patient states she hasn't had a bowel movement quite a while and she states she is not urinating as much as normal. Patient states she is not eating or drinking enough food over the last few months and she has seen her primary medical care doctor about this. Patient states she has Zofran at home but it does not seem to work for her to keep her nausea at bay. Patient states she has had no fever or chills patient denies chest pain or difficulty breathing. Patient denies any back pain. - Related Data Home Medications Medication Instructions Recorded Confirmed Morphine Sulfate ER [Ms Contin] 30 mg PO Q8H 11/08/15 06/07/23 Rizatriptan Benzoate [Maxalt] 10 mg PO BID PRN 07/04/16 06/07/23 Topiramate [Topamax] 50 mg PO TID 07/04/16 06/07/23 Brimonidine Tartrate [Alphagan P 1 drops RIGHT EYE TID 09/09/17 06/07/23 0.2% Ophth Soln] Albuterol Inhaler [Ventolin Hfa 2 puff INHALATION RT-Q4H PRN 11/03/18 06/07/23 Inhaler] Aspirin EC [Ecotrin Low Dose] 81 mg PO DAILY 02/05/19 06/07/23 Netarsudil Mesylat/Latanoprost 1 drop RIGHT EYE HS 04/12/20 06/07/23 [Rocklatan 0.02%-0.005% Eye Drp] Valsartan 160 mg PO DAILY@1800 04/12/20 06/07/23 Cetirizine HCl 10 mg PO DAILY@1800 04/20/20 06/07/23 Erenumab-Aooe [Aimovig 140 mg SQ Q30D 11/04/22 06/07/23 Autoinjector] Pantoprazole [Protonix] 40 mg PO BID@0900,1800 11/04/22 06/07/23 polyethylene glycoL 3350 [Miralax] 17 gm PO DAILY PRN 11/04/22 06/07/23 Diclofenac Sodium Gel [Voltaren 1% 1 applic TOPICAL QID PRN 11/27/22 06/07/23 Gel] Ondansetron Odt [Zofran ODT] 8 mg PO Q8HR PRN 11/27/22 06/07/23 cycloSPORINE 0.05% OPHTH SOLN 1 drop LEFT EYE BID 11/27/22 06/07/23 [Restasis] traZODone HCL [Desyrel] 400 mg PO HS 11/27/22 06/07/23 Metoprolol Tartrate [Lopressor] 25 mg PO BID 05/28/23 06/07/23 Olopatadine HCl [Patanol 0.1%] 1 drop RIGHT EYE BID 05/28/23 06/07/23 Rosuvastatin Calcium 10 mg PO MOTH@2100 05/28/23 06/07/23 hydrOXYzine HCL 10 mg PO QID PRN 05/28/23 06/07/23 oxyCODONE HCL/ACETAMINOPHEN 1 tab PO TID PRN 05/28/23 06/07/23 [oxyCODONE HCL/ACETAMINOPHEN 7.5-325] sitaGLIPtin [Januvia] 100 mg PO DAILY 05/28/23 06/07/23 Carboxymethylcellulose Sodium 1 drop LEFT EYE Q3H 06/07/23 06/07/23 [Refresh Tears] Insulin Lispro [Admelog Solostar] See Protocol SQ AC-TID 06/07/23 06/07/23 Pioglitazone [Actos] 45 mg PO DAILY 06/07/23 06/07/23 Refresh Gel Drops 1 drop LEFT EYE HS 06/07/23 06/07/23 Timolol 0.5% Ophth Soln [Timoptic 1 drop RIGHT EYE TID 06/07/23 06/07/23 0.5% Ophth Soln] amLODIPine [Norvasc] 5 mg PO DAILY@1800 06/07/23 06/07/23 Previous Rx's Medication Instructions Recorded Venlafaxine HCl ER [Effexor XR] 75 mg PO PC-SUPPER #30 cap 05/29/23 Allergies Allergy/AdvReac Type Severity Reaction Status Date / Time adhesive Allergy Severe Rash/Hives, Verified 06/18/23 17:42 BLISTERS levofloxacin [From Levaquin] Allergy Severe Anaphylaxis Verified 06/18/23 17:42 metoclopramide HCl Allergy Severe Anaphylaxis Verified 06/18/23 17:42 [From Reglan] Phenothiazines Allergy Severe Anaphylaxis Verified 06/18/23 17:42 thiethylperazine maleate Allergy Severe Anaphylaxis Verified 06/18/23 17:42 [From Torecan] venom-honey bee Allergy Severe Anaphylaxis Verified 06/18/23 17:42 [bee venom (honey bee)] iodine Allergy Intermediate Rash/Hives Verified 06/18/23 17:42 chlorhexidine Allergy red dye in Verified 06/18/23 17:42 [From Hibiclens] hibiclens causes Rash/Hives duloxetine [From Cymbalta] Allergy Unknown Verified 06/18/23 17:42 meloxicam [From Mobic] Allergy Unknown Verified 06/18/23 17:42 cigarette smoke AdvReac Cough Verified 06/18/23 17:42 fentanyl AdvReac OVER Verified 06/18/23 17:42 SEDATED, WEAKNESS pregabalin [From Lyrica] AdvReac oversedatio Verified 06/18/23 17:42 n Ryyyhtb-RXD-LuO Reductase AdvReac increased Verified 06/18/23 17:42 Inhibitor fibramyalgia [Hsuwjjf-Uru-Ecu Reductase symptoms Inhibitor] hydoxizine Allergy Unknown Uncoded 06/18/23 17:42 clonadine AdvReac Unknown Uncoded 06/18/23 17:42 Review of Systems ROS Statement: Those systems with pertinent positive or pertinent negative responses have been documented in the HPI. ROS Other: All systems not noted in ROS Statement are negative. Past Medical History Past Medical History: Asthma, Diabetes Mellitus, Eye Disorder, Fibromyalgia, GERD/Reflux, Hyperlipidemia, Hypertension, Myocardial Infarction (AK), Musculoskeletal Disorder, Osteoarthritis (OA), Skin Disorder Additional Past Medical History / Comment(s): Rosacea, dry skin. Degenerative Disc Disease, hx severe back injury from work, kyphosis. Hx bilateral ankle fractures. Glaucoma, blind in right eye, increased left eye pressure and gel stent in left eye. Migraines. Insomnia. Frequent night time urination. Chronic nausea. Last Myocardial Infarction Date:: 01/2019 History of Any Multi-Drug Resistant Organisms: None Reported Past Surgical History: Back Surgery, Bariatric Surgery, Bladder Surgery, Cholecystectomy, Heart Catheterization With Stent, Hysterectomy, Orthopedic Surgery, Tonsillectomy, Tubal Ligation Additional Past Surgical History / Comment(s): Lap band 2009, lumbar laminectomy, wayne and screw to lumbar back, open reduction of right ankle f racture, bilateral carpal tunnel surgery X2 each side, left cubital tunnel surgery, cardiac stent X2 - January 2019, left eye gel stent. Past Anesthesia/Blood Transfusion Reactions: No Reported Reaction Additional Past Anesthesia/Blood Transfusion Reaction / Comment(s): No problems with prior blood transfusion at age 19 after bleed with tonsillectomy. Date of Last Stent Placement:: 01/2019 Past Psychological History: Anxiety, Panic Disorder Smoking Status: Never smoker Past Alcohol Use History: None Reported Past Drug Use History: None Reported - Past Family History Father Family Medical History: Cancer Additional Family Medical History / Comment(s): FATHER AT AGE 91YRS. Skin cancer. Mother Family Medical History: CVA/TIA Additional Family Medical History / Comment(s): MOTHER AT AGE 67 YRS OF CVA. General Exam - General Exam Comments Initial Comments: GENERAL: Patient is well-developed and well-nourished. Patient is nontoxic and well- hydrated and is in no acute distress. ENT: Neck is soft and supple. No significant lymphadenopathy is noted. Oropharynx is clear. Moist mucous membranes. Neck has full range of motion without eliciting any pain. EYES: The sclera were anicteric and conjunctiva were pink and moist. Extraocular movements were intact and pupils were equal round and reactive to light. Eyelids were unremarkable. PULMONARY: Unlabored respirations. Good breath sounds bilaterally. No audible rales rhonchi or wheezing was noted. CARDIOVASCULAR: There is a regular rate and rhythm without any murmurs gallops or rubs. ABDOMEN: Soft and nontender with normal bowel sounds. SKIN: Skin is clear with no lesions or rashes and otherwise unremarkable. NEUROLOGIC: Patient is alert and oriented x3. Cranial nerves II through XII are grossly intact. Motor and sensory are also intact. Normal speech, volume and content. Symmetrical smile. MUSCULOSKELETAL: Normal extremities with adequate strength and full range of motion. LYMPHATICS: No significant lymphadenopathy is noted PSYCHIATRIC: Normal psychiatric evaluation. Limitations: no limitations Course Vital Signs 07/22/23 07/22/23 16:24 19:21 Temperature 98 F Pulse Rate 120 H 104 H Respiratory 16 18 Rate Blood Pressure 127/68 135/84 O2 Sat by Pulse 99 98 Oximetry Medical Decision Making - Medical Decision Making Was pt. sent in by a medical professional or institution (KAYLA Barger, ACTIVITIES DIRECTOR SCOUTING, urgent care, hospital, or snf...) When possible be specific @ -No Did you speak to anyone other than the patient for history (EMS, parent, family, police, friend...)? What history was obtained from this source @ -No Did you review nursing and triage notes (agree or disagree)? Why? @ -I reviewed and agree with nursing and triage notes Were old charts reviewed (outside hosp., previous admission, EMS record, old EKG, old radiological studies, urgent care reports/EKG's, snf records)? Report findings @ -Reviewed prior charts of prior lab work Differential Diagnosis (chest pain, altered mental status, abdominal pain women, abdominal pain men, vaginal bleeding, weakness, fever, dyspnea, syncope, headache, dizziness, GI bleed, back pain, seizure, CVA, palpatations, mental health, musculoskeletal)? @ -Differential Abdominal Pain Women: Appendicitis, Cholecystitis, diverticulosis, ischemic bowel, pancreatitis, hepatitis, UTI, gastroenteritis, AAA, incarcerated hernia, bowel obstruction, constipation, inflammatory bowel, hepatitis, peptic ulcer disease, splenic infarction, perforated viscus, vulvitis, ovarian torsion, PID, kidney stone, placenta abruption, this is not meant to be an all-inclusive list EKG interpreted by me (3pts min.). @ -As above X-rays interpreted by me (1pt min.). @ -The shows no acute abnormality it does however show constipation CT interpreted by me (1pt min.). @ -None done U/S interpreted by me (1pt. min.). @ -None done What testing was considered but not performed or refused? (CT, X-rays, U/S, labs)? Why? @ -None What meds were considered but not given or refused? Why? @ -None Did you discuss the management of the patient with other professionals (professionals i.e. KAYLA Barger, [employer]IV[employer] DIRECT[employer], lab, RT, psych nurse, social media analyst, petal shaper hand, teacher, chief fundraising officer, case filler)? Give summary @ -No Was smoking cessation discussed for >3mins.? @ -No Was critical care preformed (if so, how long)? @ -No Were there social determinants of health that impacted care today? How? (Homelessness, low income, unemployed, alcoholism, drug addiction, transportation, low edu. Level, literacy, decrease access to med. care, custodial, rehab)? @ -No Was there de-escalation of care discussed even if they declined (Discuss DNR or withdrawal of care, Hospice)? DNR status @ -No What co-morbidities impacted this encounter? (DM, HTN, Smoking, COPD, CAD, Cancer, CVA, ARF, Chemo, Hep., AIDS, mental health diagnosis, sleep apnea, morbid obesity)? @ -None Was patient admitted / discharged? Hospital course, mention meds given and route, prescriptions, significant lab abnormalities, going to OR and other pertinent info. @ -Patient needed Zofran for nausea I did offer her droperidol but she refused to say she got Zofran she also got fluids in the emergency department. Patient's KUB didn't show constipation and that there was no acute abnormality noted. Patient was sleeping most the time while she was in the emergency department and never in any distress Undiagnosed new problem with uncertain prognosis? @ -No Drug Therapy requiring intensive monitoring for toxicity (Heparin, Nitro, Insulin, Cardizem)? @ -No Were any procedures done? @ -No Diagnosis/symptom? @ -Constipation Acute, or Chronic, or Acute on Chronic? @ -Acute Uncomplicated (without systemic symptoms) or Complicated (systemic symptoms)? @ -Uncomplicated Side effects of treatment? @ -No Exacerbation, Progression, or Severe Exacerbation? @ -No Poses a threat to life or bodily function? How? (Chest pain, USA, AK, pneumonia, PE, COPD, DKA, ARF, appy, cholecystitis, CVA, Diverticulitis, Homicidal, Suicidal, threat to staff... and all critical care pts) @ -No - Lab Data Result diagrams: 07/22/23 17:16 07/22/23 17:16 Lab Results 07/22/23 07/22/23 07/22/23 Range/Units 17:16 17:16 18:59 WBC 13.1 H (3.8-10.6) k/uL RBC 5.02 (3.80-5.40) m/uL Hgb 14.5 (11.4-16.0) gm/dL Hct 42.2 (34.0-46.0) % MCV 84.1 (80.0-100.0) fL MCH 28.9 (25.0-35.0) pg MCHC 34.3 (31.0-37.0) g/dL RDW 13.7 (11.5-15.5) % Plt Count 371 (150-450) k/uL MPV 8.0 Neutrophils % 81 % Lymphocytes % 14 % Monocytes % 4 % Eosinophils % 0 % Basophils % 0 % Neutrophils # 10.5 H (1.3-7.7) k/uL Lymphocytes # 1.8 (1.0-4.8) k/uL Monocytes # 0.5 (0-1.0) k/uL Eosinophils # 0.0 (0-0.7) k/uL Basophils # 0.0 (0-0.2) k/uL Sodium 140 (137-145) mmol/L Potassium 3.5 (3.5-5.1) mmol/L Chloride 105 (98-107) mmol/L Carbon Dioxide 21 L (22-30) mmol/L Anion Gap 14 mmol/L BUN 22 H (7-17) mg/dL Creatinine 0.70 (0.52-1.04) mg/dL Est GFR (CKD-EPI)AfAm >90 (>60 ml/min/1.73 sqM) Est GFR (CKD-EPI)NonAf 87 (>60 ml/min/1.73 sqM) Glucose 198 H (74-99) mg/dL Calcium 10.2 (8.4-10.2) mg/dL Total Bilirubin 1.3 (0.2-1.3) mg/dL AST 20 (14-36) U/L ALT 16 (4-34) U/L Alkaline Phosphatase 72 (38-126) U/L Total Protein 7.5 (6.3-8.2) g/dL Albumin 4.4 (3.5-5.0) g/dL Amylase 104 (30-110) U/L Lipase 313 H (23-300) U/L Urine Color Yellow Urine Appearance Cloudy H (Clear) Urine pH 5.0 (5.0-8.0) Ur Specific [place] 1.031 (1.001-1.035) Urine Protein Trace H (Negative) Urine Glucose (UA) Negative (Negative) Urine Ketones 1+ H (Negative) Urine Blood Negative (Negative) Urine Nitrite Negative (Negative) Urine Bilirubin Negative (Negative) Urine Urobilinogen <2.0 (<2.0) mg/dL Ur Leukocyte Esterase Negative (Negative) Urine RBC 2 (0-5) /hpf Urine WBC 3 (0-5) /hpf Ur Squamous Epith Cells <1 (0-4) /hpf Urine Bacteria Rare H (None) /hpf Hyaline Casts 4 H (0-2) /lpf Urine Mucus Few H (None) /hpf Disposition Clinical Impression: Constipation Disposition: HOME SELF-CARE Condition: Good Instructions (If sedation given, give patient instructions): Constipation (ED), High Fiber Diet (ED) Is patient prescribed a controlled substance at d/c from ED?: No Referrals: Srinivasa Caballero DO [Primary Care Provider] - 1-2 days Time of Disposition: 19:51
[2023-07-22] MEDS ORDERED: ONDANSETRON 4 MG/2 ML VIAL IVP STA (17:24)
[2023-07-22 17:29] LABS: Basophils % (A) 0 %; Eosinophils % (A) 0 %; HCT 42.2 % (34.0-46.0); HGB 14.5 gm/dL (11.4-16.0); Lymphocytes # (A) 1.8 k/uL (1.0-4.8); Lymphocytes % (A) 14 %; MCH 28.9 pg (25.0-35.0); MCHC 34.3 g/dL (31.0-37.0); MCV 84.1 fL (80.0-100.0); Monocytes # (A) 0.5 k/uL (0-1.0); Monocytes % (A) 4 %; Neutrophils # (A) 10.5 k/uL (1.3-7.7); Neutrophils % (A) 81 %; Platelet Count 371 k/uL (150-450); RBC 5.02 m/uL (3.80-5.40); RDW 13.7 % (11.5-15.5); WBC 13.1 k/uL (3.8-10.6)
[2023-07-22 17:38] LABS: ALT 16 U/L (4-34); AST 20 U/L (14-36); African American GFR (CKD) >90 (>60 ml/min/1.73 sqM); Albumin 4.4 g/dL (3.5-5.0); Alkaline Phosphatase 72 U/L (38-126); Amylase 104 U/L (30-110); Anion Gap 14 mmol/L; Blood Urea Nitrogen 22 mg/dL (7-17); Calcium 10.2 mg/dL (8.4-10.2); Carbon Dioxide 21 mmol/L (22-30); Chloride 105 mmol/L (98-107); Glucose 198 mg/dL (74-99); Lipase 313 U/L (23-300); Non-African American GFR(CKD) 87 (>60 ml/min/1.73 sqM); Potassium 3.5 mmol/L (3.5-5.1); Sodium 140 mmol/L (137-145); Total Bilirubin 1.3 mg/dL (0.2-1.3); Total Protein 7.5 g/dL (6.3-8.2)
--- NOTE | 2023-07-22 17:52 | XR ---
EXAMINATION TYPE: XR KUB DATE OF EXAM: 07/22/2023 5:43 PM CLINICAL INDICATION:Female, 73 years old with history of Abdominal pain; COMPARISON: 06/16/2023 TECHNIQUE: One radiographic view of the abdomen was obtained. FINDINGS: No evidence for acute osseous pathology. Mild degeneration changes throughout the spine jose dware appears intact. Gastric lap band is present and appears in appropriate stable position. High de nsity material near the gastroesophageal junction is not significantly changed. Large amount stool se en within the rectum. IMPRESSION: 1. Large amount stool in the rectum. 2. Stable exam without evidence for acute process.
[2023-07-22 19:10] LABS: Appearance,Urine Cloudy (Clear); Bacteria,Urine Rare /hpf; Bilirubin,Urine Negative (Negative); Blood,Urine Negative (Negative); Color,Urine Yellow; Glucose,Urine (UA) Negative (Negative); Hyaline Casts,Urine 4 /lpf (0-2); Ketones,Urine 1+ (Negative); Leukocyte Esterase,Urine Negative (Negative); Mucus,Urine Few /hpf; Nitrite,Urine Negative (Negative); Protein,Urine Trace (Negative); RBC,Urine 2 /hpf (0-5); Specific Gravity,Urine 1.031 (1.001-1.035); Squamous Epithelial Cell,Urine <1 /hpf (0-4); Urobilinogen,Urine <2.0 mg/dL (<2.0); WBC,Urine 3 /hpf (0-5)
[2023-07-22] MEDS ORDERED: SODIUM CHLORIDE 0.9% 500 ML 500 ML IV ONE (19:12)
[2023-07-22 19:38] VITALS: BP 135/84; PULSE 104; RESP 18
[2023-07-22] MEDS ORDERED: MAGNESIUM CITRATE 296 ML BOTTLE PO ONE (19:53)
== END 2023-07-22 20:55 | disposition home or self-care (01) ==
LOC: EC 16:21
DX: K59.00 Constipation, unspecified (principal); E11.9 Type 2 diabetes mellitus without complications; I10 Essential (primary) hypertension; I25.2 Old myocardial infarction; J45.909 Unspecified asthma, uncomplicated; K21.9 Gastro-esophageal reflux disease without esophagitis; E78.5 Hyperlipidemia, unspecified; H40.9 Unspecified glaucoma; F41.9 Anxiety disorder, unspecified; M19.90 Unspecified osteoarthritis, unspecified site; M79.7 Fibromyalgia; Z79.4 Long term (current) use of insulin; Z79.84 Long term (current) use of oral hypoglycemic drugs; Z79.82 Long term (current) use of aspirin; Z79.899 Other long term (current) drug therapy; Z88.1 Allergy status to other antibiotic agents; Z88.8 Allergy status to other drugs, medicaments and biological substances; Z91.030 Bee allergy status; Z88.5 Allergy status to narcotic agent; Z91.09 Other allergy status, other than to drugs and biological substances; Z91.041 Radiographic dye allergy status; Z90.49 Acquired absence of other specified parts of digestive tract; Z95.5 Presence of coronary angioplasty implant and graft; Z98.84 Bariatric surgery status
CPT/HCPCS: 51798; 36415; 80053; 82150; 83690; 85025; 81001; 74018; 99285; 51701; 96374; 96361 ×2; J2405

== ENCOUNTER 2023-08-14 08:42 | Observation (INO) | payer MEDICARE ==
--- NOTE | 2023-08-14 10:15 | CT ---
EXAMINATION TYPE: CT brain wo con DATE OF EXAM: 08/14/2023 COMPARISON: 04/02/2023 INDICATION: AMS DLP: 1095.4 mGycm, Automated exposure control for dose reduction was used. CONTRAST: None CT of the brain is performed utilizing 3 mm thick sections through the posterior fossa and 3 mm thick sections through the remaining calvarium. Study is performed within 24 hours of arrival to the hosp [place]. No abnormal hyperdensity is present to suggest an acute intracranial hemorrhage. No mass lesion is evident. No acute infarcts are evident. Ventricles and sulci are mildly prominent for the patient age. Paranasal sinuses and mastoid air cells within the [id number] are clear. IMPRESSION: 1. No acute intracranial process. Follow-up MRI can be performed as clinically indicated. 2. Mild age-related atrophy.
--- NOTE | 2023-08-14 10:26 | XR ---
EXAMINATION TYPE: XR abdomen acute w cxr DATE OF EXAM: 08/14/2023 10:13 AM CLINICAL INDICATION:Female, 73 years old with history of abdominal pain; [facility] COMPARISON: 05/27/2023 TECHNIQUE: Two radiographic views of the abdomen (upright and supine) and a frontal chest radiograph were obtained. FINDINGS CHEST: Lungs/Pleura: The lungs are clear. There is no evidence of pleural effusion, focal consolidation or p neumothorax. Mediastinum: Unremarkable. Vasculature: Normal. Heart: Normal in size. Musculoskeletal: The osseous structures are intact. Severe degeneration changes of the right shoulder joint and joint articulation and osteophyte formation. Other findings: No significant. FINDINGS ABDOMEN: Bowel gas pattern: Normal without dilated loops of small or large bowel. Fecal material and gas are d emonstrated throughout the colon and rectum. Abnormal calcifications: None. Musculoskeletal: Fixation hardware in the spine appears intact. Vertebral plasty cement within the T1 2 vertebral body. Other: Gastric lap band appears in appropriate position. IMPRESSION: 1. No radiographic evidence for acute abdominal process. 2. No acute cardiopulmonary process 3. Fixation hardware in the spine appears intact.
[2023-08-14 10:54] LABS: Basophils % (A) 0 %; Eosinophils # (A) 0.1 k/uL (0-0.7); Eosinophils % (A) 1 %; HCT 41.6 % (34.0-46.0); HGB 14.3 gm/dL (11.4-16.0); Lymphocytes # (A) 1.8 k/uL (1.0-4.8); Lymphocytes % (A) 24 %; MCH 29.6 pg (25.0-35.0); MCHC 34.4 g/dL (31.0-37.0); MCV 85.9 fL (80.0-100.0); Monocytes # (A) 0.4 k/uL (0-1.0); Monocytes % (A) 5 %; Neutrophils # (A) 5.2 k/uL (1.3-7.7); Neutrophils % (A) 67 %; Platelet Count 257 k/uL (150-450); RBC 4.85 m/uL (3.80-5.40); RDW 14.6 % (11.5-15.5); WBC 7.8 k/uL (3.8-10.6)
[2023-08-14 11:01] LABS: ALT 27 U/L (4-34); AST 22 U/L (14-36); African American GFR (CKD) >90 (>60 ml/min/1.73 sqM); Albumin 4.1 g/dL (3.5-5.0); Alkaline Phosphatase 92 U/L (38-126); Anion Gap 7 mmol/L; Blood Urea Nitrogen 11 mg/dL (7-17); Calcium 10.1 mg/dL (8.4-10.2); Carbon Dioxide 33 mmol/L (22-30); Chloride 97 mmol/L (98-107); Glucose 292 mg/dL (74-99); Lipase 347 U/L (23-300); Non-African American GFR(CKD) >90 (>60 ml/min/1.73 sqM); Potassium 4.5 mmol/L (3.5-5.1); Sodium 137 mmol/L (137-145); Total Bilirubin 0.6 mg/dL (0.2-1.3); Total Protein 6.8 g/dL (6.3-8.2)
--- NOTE | 2023-08-14 11:03 | ED ---
General Adult HPI - General Chief complaint: Altered Mental Status Stated complaint: AMS Time Seen by Provider: 08/14/23 09:00 Source: patient Mode of arrival: EMS Limitations: no limitations - History of Present Illness Initial comments: Dictation was produced using [employer] dictation software. please excuse any grammatical, word or spelling errors. Chief Complaint: 73-year-old female presents to the emergency department for altered mental status and abdominal pain History of Present Illness: Patient 73-year-old female she is a poor historian. She is uncooperative. Patient states that she is here for altered mental status. According to triage nurse patient here for altered mental status confusion. It is unclear what patient's baseline mental status is. When questioned where her is she states he is not here he is either shopping or at the market Unable to obtain ROS secondary to mental status - Related Data Home Medications Medication Instructions Recorded Confirmed Morphine Sulfate ER [Ms Contin] 30 mg PO Q8H 11/08/15 06/07/23 Rizatriptan Benzoate [Maxalt] 10 mg PO BID PRN 07/04/16 06/07/23 Topiramate [Topamax] 50 mg PO TID 07/04/16 06/07/23 Brimonidine Tartrate [Alphagan P 1 drops RIGHT EYE TID 09/09/17 06/07/23 0.2% Ophth Soln] Albuterol Inhaler [Ventolin Hfa 2 puff INHALATION RT-Q4H PRN 11/03/18 06/07/23 Inhaler] Aspirin EC [Ecotrin Low Dose] 81 mg PO DAILY 02/05/19 06/07/23 Netarsudil Mesylat/Latanoprost 1 drop RIGHT EYE HS 04/12/20 06/07/23 [Rocklatan 0.02%-0.005% Eye Drp] Valsartan 160 mg PO DAILY@1800 04/12/20 06/07/23 Cetirizine HCl 10 mg PO DAILY@1800 04/20/20 06/07/23 Erenumab-Aooe [Aimovig 140 mg SQ Q30D 11/04/22 06/07/23 Autoinjector] Pantoprazole [Protonix] 40 mg PO BID@0900,1800 11/04/22 06/07/23 polyethylene glycoL 3350 [Miralax] 17 gm PO DAILY PRN 11/04/22 06/07/23 Diclofenac Sodium Gel [Voltaren 1% 1 applic TOPICAL QID PRN 11/27/22 06/07/23 Gel] Ondansetron Odt [Zofran ODT] 8 mg PO Q8HR PRN 11/27/22 06/07/23 cycloSPORINE 0.05% OPHTH SOLN 1 drop LEFT EYE BID 11/27/22 06/07/23 [Restasis] traZODone HCL [Desyrel] 400 mg PO HS 11/27/22 06/07/23 Metoprolol Tartrate [Lopressor] 25 mg PO BID 05/28/23 06/07/23 Olopatadine HCl [Patanol 0.1%] 1 drop RIGHT EYE BID 05/28/23 06/07/23 Rosuvastatin Calcium 10 mg PO MOTH@2100 05/28/23 06/07/23 hydrOXYzine HCL 10 mg PO QID PRN 05/28/23 06/07/23 oxyCODONE HCL/ACETAMINOPHEN 1 tab PO TID PRN 05/28/23 06/07/23 [oxyCODONE HCL/ACETAMINOPHEN 7.5-325] sitaGLIPtin [Januvia] 100 mg PO DAILY 05/28/23 06/07/23 Carboxymethylcellulose Sodium 1 drop LEFT EYE Q3H 06/07/23 06/07/23 [Refresh Tears] Insulin Lispro [Admelog Solostar] See Protocol SQ AC-TID 06/07/23 06/07/23 Pioglitazone [Actos] 45 mg PO DAILY 06/07/23 06/07/23 Refresh Gel Drops 1 drop LEFT EYE HS 06/07/23 06/07/23 Timolol 0.5% Ophth Soln [Timoptic 1 drop RIGHT EYE TID 06/07/23 06/07/23 0.5% Ophth Soln] amLODIPine [Norvasc] 5 mg PO DAILY@1800 06/07/23 06/07/23 Previous Rx's Medication Instructions Recorded Venlafaxine HCl ER [Effexor XR] 75 mg PO PC-SUPPER #30 cap 05/29/23 Allergies Allergy/AdvReac Type Severity Reaction Status Date / Time adhesive Allergy Severe Rash/Hives, Verified 08/14/23 13:10 BLISTERS levofloxacin [From Levaquin] Allergy Severe Anaphylaxis Verified 08/14/23 13:10 metoclopramide HCl Allergy Severe Anaphylaxis Verified 08/14/23 13:10 [From Reglan] Phenothiazines Allergy Severe Anaphylaxis Verified 08/14/23 13:10 thiethylperazine maleate Allergy Severe Anaphylaxis Verified 08/14/23 13:10 [From Torecan] venom-honey bee Allergy Severe Anaphylaxis Verified 08/14/23 13:10 [bee venom (honey bee)] iodine Allergy Intermediate Rash/Hives Verified 08/14/23 13:10 chlorhexidine Allergy red dye in Verified 08/14/23 13:10 [From Hibiclens] hibiclens causes Rash/Hives duloxetine [From Cymbalta] Allergy Unknown Verified 08/14/23 13:10 meloxicam [From Mobic] Allergy Unknown Verified 08/14/23 13:10 cigarette smoke AdvReac Cough Verified 08/14/23 13:10 fentanyl AdvReac OVER Verified 08/14/23 13:10 SEDATED, WEAKNESS pregabalin [From Lyrica] AdvReac oversedatio Verified 08/14/23 13:10 n Fhhedwj-ZCK-CeS Reductase AdvReac increased Verified 08/14/23 13:10 Inhibitor fibramyalgia [Wstajyp-Fao-Xsp Reductase symptoms Inhibitor] hydoxizine Allergy Unknown Uncoded 06/18/23 17:42 clonadine AdvReac Unknown Uncoded 06/18/23 17:42 Review of Systems ROS Statement: Those systems with pertinent positive or pertinent negative responses have been documented in the HPI. ROS Other: All systems not noted in ROS Statement are negative. Past Medical History Past Medical History: Asthma, Diabetes Mellitus, Eye Disorder, Fibromyalgia, GERD/Reflux, Hyperlipidemia, Hypertension, Myocardial Infarction ([place]), Musculoskeletal Disorder, Osteoarthritis (OA), Skin Disorder Additional Past Medical History / Comment(s): Rosacea, dry skin. Degenerative Disc Disease, hx severe back injury from work, kyphosis. Hx bilateral ankle fractures. Glaucoma, blind in right eye, increased left eye pressure and gel stent in left eye. Migraines. Insomnia. Frequent night time urination. Chronic nausea. Last Myocardial Infarction Date:: 01/2019 History of Any Multi-Drug Resistant Organisms: None Reported Past Surgical History: Back Surgery, Bariatric Surgery, Bladder Surgery, Cholecystectomy, Heart Catheterization With Stent, Hysterectomy, Orthopedic Surgery, Tonsillectomy, Tubal Ligation Additional Past Surgical History / Comment(s): Lap band 2010, lumbar laminectomy, wayne and screw to lumbar back, open reduction of right ankle fracture, bilateral carpal tunnel surgery X2 each side, left cubital tunnel surgery, cardiac stent X2 - January 2019, left eye gel stent. Past Anesthesia/Blood Transfusion Reactions: No Reported Reaction Additional Past Anesthesia/Blood Transfusion Reaction / Comment(s): No problems with prior blood transfusion at age 19 after bleed with tonsillectomy. Date of Last Stent Placement:: 01/2019 Past Psychological History: Anxiety, Panic Disorder Smoking Status: Never smoker Past Alcohol Use History: None Reported Past Drug Use History: None Reported - Past Family History Father Family Medical History: Cancer Additional Family Medical History / Comment(s): FATHER AT AGE 91YRS. Skin cancer. Mother Family Medical History: CVA/TIA Additional Family Medical History / Comment(s): MOTHER AT AGE 67 YRS OF CVA. General Exam - General Exam Comments Initial Comments: PHYSICAL EXAM: General Impression: Alert, uncooperative, not in acute distress HEENT: Normocephalic atraumatic, extra-ocular movements intact, pupils equal and reactive to light bilaterally, mucous membranes moist. Cardiovascular: Heart regular rate and rhythm Chest: Able to complete full sentences, no retractions, no tachypnea Abdomen: abdomen soft, no diffuse tenderness r, non-distended, no organomegaly Musculoskeletal: Pulses present and equal in all extremities, no peripheral edema Motor: no focal deficits noted Neurological: CN II-XII grossly intact, no focal motor or sensory deficits noted Skin: Intact with no visualized rashes Psych: Normal affect and mood Limitations: no limitations Course Vital Signs 08/14/23 08/14/23 08/14/23 08:43 10:41 11:15 Temperature 97 F L 97.9 F Pulse Rate 91 87 84 Respiratory 20 14 14 Rate Blood Pressure 151/84 145/103 151/85 O2 Sat by Pulse 99 99 98 Oximetry Medical Decision Making - Medical Decision Making Was pt. sent in by a medical professional or institution (, PA, ADMINISTRATOR PESTICIDE, urgent care, hospital, or longterm...) When possible be specific @ -No Did you speak to anyone other than the patient for history (EMS, parent, family, police, friend...)? What history was obtained from this source @ -History present illness entirely obtained from EMS given that patient is uncooperative Did you review nursing and triage notes (agree or disagree)? Why? @ -I reviewed and agree with nursing and triage notes Were old charts reviewed (outside hosp., previous admission, EMS record, old EKG, old radiological studies, urgent care reports/EKG's, longterm records)? Report findings @ -No old charts were reviewed Differential Diagnosis (chest pain, altered mental status, abdominal pain women, abdominal pain men, vaginal bleeding, musculoskeletal, weakness, fever, dyspnea, syncope, headache, dizziness, GI bleed, back pain, seizure, CVA, palpatations, mental health)? @ -Differential Altered Mental Status: Hypoglycemia, DKA, hypercapnia, ETOH, overdose, CO poisoning, trauma, myxedema coma, HTN encephalopathy, infection, encephalitis, psychosis, intercranial hemorrhage, hepatic encephalopathy, meningitis, CVA, this is not meant to be an all-inclusive list EKG interpreted by me (3pts min.). @ -My EKG interpretation: Ventricular rate 85, sinus rhythm,. 130, cures 84, QTc 412. No TN prolongation, no QTC prolongation, no ST or T-wave changes noted. Overall, this EKG is unremarkable X-rays interpreted by me (1pt min.). @ -Abdominal x-ray is unremarkable CT interpreted by me (1pt min.). @ -CT brain is unremarkable U/S interpreted by me (1pt. min.). @ -None done What testing was considered but not performed or refused? (CT, X-rays, U/S, labs)? Why? @ -None What meds were considered but not given or refused? Why? @ -None Did you discuss the management of the patient with other professionals (professionals i.e. , PA, ADMINISTRATOR PESTICIDE, lab, RT, psych nurse, healthcare social worker, audio video mechanic, teacher, physics technical officer, rifle case repairer)? Give summary @ -Case discussed with hospitalist who is agreeable with observation admission for altered mental status Was smoking cessation discussed for >3mins.? @ -No Was critical care preformed (if so, how long)? @ -No Were there social determinants of health that impacted care today? How? (Homelessness, low income, unemployed, alcoholism, drug addiction, transportation, low edu. Level, literacy, decrease access to med. care, long term, rehab)? @ -No Was there de-escalation of care discussed even if they declined (Discuss DNR or withdrawal of care, Hospice)? DNR status @ -No What co-morbidities impacted this encounter? (DM, HTN, Smoking, COPD, CAD, Cancer, CVA, ARF, Chemo, Hep., AIDS, mental health diagnosis, sleep apnea, morbid obesity)? @ -None Was patient admitted / discharged? Hospital course, mention meds given and route, prescriptions, significant lab abnormalities, going to OR and other pertinent info. @ -73-year-old female presents emergency department for altered mental status. Vital signs stable. Laboratory evaluation is unremarkable. CT scan of the brain and abdominal x-ray is negative. Patient reevaluated the bedside still sleepy. She is arousable. Multiple c attempts were made to contact patient's family. There was no answer. Patient still sleepy at the bedside. It is unclear what is causing patient's symptoms her vital signs remained stable. Medications were reviewed perhaps her symptoms are secondary to polypharmacy. Patient will be admitted observation under sound physician group. Pending urine drug screen Undiagnosed new problem with uncertain prognosis? @ -No Drug Therapy requiring intensive monitoring for toxicity (Heparin, Nitro, Insulin, Cardizem)? @ -No Were any procedures done? @ -No Diagnosis/symptom? Acute, or Chronic, or Acute on Chronic? Uncomplicated (without systemic symptoms) or Complicated (systemic symptoms)? @ -Altered mental status, no obvious source Side effects of treatment? @ -No Exacerbation, Progression, or Severe Exacerbation? @ -No Poses a threat to life or bodily function? How? (Chest pain, [place], [place], pneumonia, PE, COPD, DKA, ARF, appy, cholecystitis, CVA, Diverticulitis, Homicidal, Suicidal, threat to staff... and all critical care pts) @ -No - Lab Data Result diagrams: 08/14/23 10:14 08/14/23 10:14 Lab Results 08/14/23 08/14/23 08/14/23 Range/Units 10:14 10:14 10:14 WBC 7.8 (3.8-10.6) k/uL RBC 4.85 (3.80-5.40) m/uL Hgb 14.3 (11.4-16.0) gm/dL Hct 41.6 (34.0-46.0) % MCV 85.9 (80.0-100.0) fL MCH 29.6 (25.0-35.0) pg MCHC 34.4 (31.0-37.0) g/dL RDW 14.6 (11.5-15.5) % Plt Count 257 (150-450) k/uL MPV 9.0 Neutrophils % 67 % Lymphocytes % 24 % Monocytes % 5 % Eosinophils % 1 % Basophils % 0 % Neutrophils # 5.2 (1.3-7.7) k/uL Lymphocytes # 1.8 (1.0-4.8) k/uL Monocytes # 0.4 (0-1.0) k/uL Eosinophils # 0.1 (0-0.7) k/uL Basophils # 0.0 (0-0.2) k/uL Sodium 137 (137-145) mmol/L Potassium 4.5 (3.5-5.1) mmol/L Chloride 97 L (98-107) mmol/L Carbon Dioxide 33 H (22-30) mmol/L Anion Gap 7 mmol/L BUN 11 (7-17) mg/dL Creatinine 0.48 L (0.52-1.04) mg/dL Est GFR (CKD-EPI)AfAm >90 (>60 ml/min/1.73 sqM) Est GFR (CKD-EPI)NonAf >90 (>60 ml/min/1.73 sqM) Glucose 292 H (74-99) mg/dL Plasma Lactic Acid [place] (0.7-2.0) mmol/L Calcium 10.1 (8.4-10.2) mg/dL Total Bilirubin 0.6 (0.2-1.3) mg/dL AST 22 (14-36) U/L ALT 27 (4-34) U/L Alkaline Phosphatase 92 (38-126) U/L Ammonia (<30) umol/L Total Protein 6.8 (6.3-8.2) g/dL Albumin 4.1 (3.5-5.0) g/dL Lipase 347 H (23-300) U/L Urine Color Light Yellow Urine Appearance Clear (Clear) Urine pH 8.5 H (5.0-8.0) Ur Specific Margie 1.017 (1.001-1.035) Urine Protein 1+ H (Negative) Urine Glucose (UA) 4+ H (Negative) Urine Ketones Negative (Negative) Urine Blood Negative (Negative) Urine Nitrite Negative (Negative) Urine Bilirubin Negative (Negative) Urine Urobilinogen <2.0 (<2.0) mg/dL Ur Leukocyte Esterase Negative (Negative) Urine RBC 1 (0-5) /hpf Urine WBC 1 (0-5) /hpf Ur Squamous Epith Cells <1 (0-4) /hpf Urine Mucus Rare H (None) /hpf 08/14/23 Range/Units 10:14 WBC (3.8-10.6) k/uL RBC (3.80-5.40) m/uL Hgb (11.4-16.0) gm/dL Hct (34.0-46.0) % MCV (80.0-100.0) fL MCH (25.0-35.0) pg MCHC (31.0-37.0) g/dL RDW (11.5-15.5) % Plt Count (150-450) k/uL MPV Neutrophils % % Lymphocytes % % Monocytes % % Eosinophils % % Basophils % % Neutrophils # (1.3-7.7) k/uL Lymphocytes # (1.0-4.8) k/uL Monocytes # (0-1.0) k/uL Eosinophils # (0-0.7) k/uL Basophils # (0-0.2) k/uL Sodium (137-145) mmol/L Potassium (3.5-5.1) mmol/L Chloride (98-107) mmol/L Carbon Dioxide (22-30) mmol/L Anion Gap mmol/L BUN (7-17) mg/dL Creatinine (0.52-1.04) mg/dL Est GFR (CKD-EPI)AfAm (>60 ml/min/1.73 sqM) Est GFR (CKD-EPI)NonAf (>60 ml/min/1.73 sqM) Glucose (74-99) mg/dL Plasma Lactic Acid Everton 3.1 H* (0.7-2.0) mmol/L Calcium (8.4-10.2) mg/dL Total Bilirubin (0.2-1.3) mg/dL AST (14-36) U/L ALT (4-34) U/L Alkaline Phosphatase (38-126) U/L Ammonia <9 (<30) umol/L Total Protein (6.3-8.2) g/dL Albumin (3.5-5.0) g/dL Lipase (23-300) U/L Urine Color Urine Appearance (Clear) Urine pH (5.0-8.0) Ur Specific Margie (1.001-1.035) Urine Protein (Negative) Urine Glucose (UA) (Negative) Urine Ketones (Negative) Urine Blood (Negative) Urine Nitrite (Negative) Urine Bilirubin (Negative) Urine Urobilinogen (<2.0) mg/dL Ur Leukocyte Esterase (Negative) Urine RBC (0-5) /hpf Urine WBC (0-5) /hpf Ur Squamous Epith Cells (0-4) /hpf Urine Mucus (None) /hpf Disposition Clinical Impression: AMS (altered mental status) Disposition: ADMITTED IP TO THIS [facility] Condition: Fair Referrals: Srinivasa Caballero DO [Primary Care Provider] - 1-2 days Decision Time: 13:15
[2023-08-14 11:08] LABS: Appearance,Urine Clear (Clear); Bilirubin,Urine Negative (Negative); Blood,Urine Negative (Negative); Color,Urine Light Yellow; Glucose,Urine (UA) 4+ (Negative); Ketones,Urine Negative (Negative); Leukocyte Esterase,Urine Negative (Negative); Mucus,Urine Rare /hpf; Nitrite,Urine Negative (Negative); PH, Urine 8.5 (5.0-8.0); Protein,Urine 1+ (Negative); RBC,Urine 1 /hpf (0-5); Specific Gravity,Urine 1.017 (1.001-1.035); Squamous Epithelial Cell,Urine <1 /hpf (0-4); Urobilinogen,Urine <2.0 mg/dL (<2.0); WBC,Urine 1 /hpf (0-5)
[2023-08-14 11:19] LABS: Lactic Acid, Venous 3.1 mmol/L (0.7-2.0)
[2023-08-14] MEDS ORDERED: NALOXONE 0.4 MG/ML 1 ML VIAL IV PRN (13:09)
[2023-08-14] MEDS: SODIUM CHLORIDE 0.9% 1,000 ML IV SCH (13:47)
[2023-08-14 14:24] LABS: Amphetamine Screen,Urine Not Detected (NotDetected); Barbiturate Screen,Urine Not Detected (NotDetected); Benzodiazepines Screen,Urine Not Detected (NotDetected); Cocaine Screen,Urine Not Detected (NotDetected); Methadone Screen, Urine Not Detected (NotDetected); Opiate Screen,Urine Not Detected (NotDetected); Oxycodone Screen, Urine Not Detected (NotDetected); Phencyclidine Screen,Urine Not Detected (NotDetected); Tricyclic Antidepressant,Urine Not Detected (NotDetected); Urn Cannabinoid Scrn Not Detected (NotDetected)
[2023-08-14] MEDS: BRIMONIDINE TARTRATE 0.2% DROPS 5 ML BTL RIGHT EYE SCH ×2 (16:00→20:34)
[2023-08-14] MEDS ORDERED: bisacodyL 10 MG SUPP RECTAL PRN (16:05)
[2023-08-14] MEDS ORDERED: LACTULOSE 20 GM/30 ML CUP PO PRN (16:05)
[2023-08-14] MEDS ORDERED: DEXTROSE 50% SYRINGE 50 ML IVP PRN ×2 (16:07)
--- NOTE | 2023-08-14 16:10 | P.HPIM ---
History of Present Illness H&P Date: 08/14/23 History is limited as patient is altered and lethargic, though easily arousable. 73-year-old female with past medical history of insulin-dependent diabetes, coronary artery disease status post stents, hypertension, fibromyalgia, and chronic back pain opioid dependence and follows with paintings restorer, Dr. Nick. Patient presents to the ED for altered mental status. She reports she has not been able to take any of her medication for a few weeks now due to dry heaving. She reports constipation. She reports chest pressure, unable to describe any further. Multiple attempts were made in the ED to contact family but without success. In the ED, patient underwent extensive evaluation: Tachycardic HR in the low 100s. Elevated BP of 149/95. CBC unremarkable. CMP Cl 97, bicarb 33, Cr 0.48, glu 292. Lactic acid 3.1. Lipase 347. UA 4+ glucose, negative LE or nitrite. UDS negative. Ammonia < 9. Brain CT no acute process. 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 EKG sinus rhythm. Patient is admitted for further workup. Based on my assessment of this patient, this patient meets a high complexity level of care. Patient has an acute diagnosis of altered mentation that poses a threat to life or bodily function. Acute metabolic encephalopathy: Unclear etiology. Opiate withdrawal versus polypharmacy? Patient is on many sedative medication including Trazodone, Topamax, MS contin, [place] and Amitriptyline. Patient reports not taking medications for weeks and this is supported by her negative UDS. Ammonia negative as well. Obtain B12, TSH, Folate. PT and OT consult. Chest pressure: Trend troponin and EKG to rule out ACS. Echo. Telemetry monitoring. Constipation: Aggressive bowel regimen. SenokotS 1 tab QD. Miralax 17g PO QD. Dulcolax suppository PRN, Lactulose 20g PO TID PRN. Lactic acidosis: NS at 75 cc/hr. Trend until negative. Elevated lipase: No complaints of abdominal pain. Monitor. Diabetes mellitus with hyperglycemia: ISS. Accuchecks ACHS. Hypoglycemic precautions. Chronic conditions: coronary artery disease status post stents, hypertension, fibromyalgia, and chronic back pain with opioid dependence CODE STATUS: FULL CODE. DVT Prophylaxis: Lovenox. GI Prophylaxis: Protonix. Designated medical POA if patient is not able to make medical decisions for themselves: I have reviewed the following business transformation consultant notes: I have reviewed the results of the following tests: As above. I have ordered the following tests: As above. I have discussed the care of this patient with the following independent historian: Discussed with RN. I have independently interpreted the following test below: EKG. I have discussed the management of this patient with the following physician: Past Medical History Past Medical History: Asthma, Diabetes Mellitus, Eye Disorder, Fibromyalgia, GERD/Reflux, Hyperlipidemia, Hypertension, Myocardial Infarction ([place]), Musculoskeletal Disorder, Osteoarthritis (OA), Skin Disorder Additional Past Medical History / Comment(s): Rosacea, dry skin. Degenerative Disc Disease, hx severe back injury from work, kyphosis. Hx bilateral ankle fractures. Glaucoma, blind in right eye, increased left eye pressure and gel stent in left eye. Migraines. Insomnia. Frequent night time urination. Chronic nausea. Last Myocardial Infarction Date:: 01/2019 History of Any Multi-Drug Resistant Organisms: None Reported Past Surgical History: Back Surgery, Bariatric Surgery, Bladder Surgery, Cholecystectomy, Heart Catheterization With Stent, Hysterectomy, Orthopedic Surgery, Tonsillectomy, Tubal Ligation Additional Past Surgical History / Comment(s): Lap band 2009, lumbar laminectomy, wayne and screw to lumbar back, open reduction of right ankle fracture, bilateral carpal tunnel surgery X2 each side, left cubital tunnel surgery, cardiac stent X2 - January 2019, left eye gel stent. Past Anesthesia/Blood Transfusion Reactions: No Reported Reaction Additional Past Anesthesia/Blood Transfusion Reaction / Comment(s): No problems with prior blood transfusion at age 19 after bleed with tonsillectomy. Date of Last Stent Placement:: 01/2019 Past Psychological History: Anxiety, Panic Disorder Smoking Status: Never smoker Past Alcohol Use History: None Reported Past Drug Use History: None Reported - Past Family History Father Family Medical History: Cancer Additional Family Medical History / Comment(s): FATHER AT AGE 91YRS. Skin cancer. Mother Family Medical History: CVA/TIA Additional Family Medical History / Comment(s): MOTHER AT AGE 67 YRS OF CVA. Medications and Allergies Home Medications Medication Instructions Recorded Confirmed Type Rizatriptan Benzoate [Maxalt] 10 mg PO BID PRN 07/04/08/14/23 History Topiramate [Topamax] 50 mg PO TID 07/04/16 08/14/23 History Brimonidine Tartrate [Alphagan P 1 drops RIGHT EYE TID 09/09/17 08/14/23 History 0.2% Ophth Soln] Albuterol Inhaler [Ventolin Hfa 2 puff INHALATION RT-Q4H PRN 11/03/18 08/14/23 History Inhaler] Valsartan 160 mg PO DAILY@1800 04/12/20 08/14/23 History Erenumab-Aooe [Aimovig 140 mg SQ Q30D 11/04/22 08/14/23 History Autoinjector] Pantoprazole [Protonix] 40 mg PO BID@0900,1800 11/04/22 08/14/23 History Ondansetron Odt [Zofran ODT] 8 mg PO Q8HR PRN 11/27/22 08/14/23 History traZODone HCL [Desyrel] 400 mg PO HS 11/27/22 08/14/23 History Metoprolol Tartrate [Lopressor] 25 mg PO BID 05/28/23 08/14/23 History Olopatadine HCl [Patanol 0.1%] 1 drop RIGHT EYE BID 05/28/23 08/14/23 History Rosuvastatin Calcium 10 mg PO MOTH@2100 05/28/23 08/14/23 History sitaGLIPtin [Januvia] 100 mg PO DAILY 05/28/23 08/14/23 History Timolol 0.5% Ophth Soln [Timoptic 1 drop RIGHT EYE TID 06/07/23 08/14/23 History 0.5% Ophth Soln] amLODIPine [Norvasc] 5 mg PO DAILY@1800 06/07/23 08/14/23 History Amitriptyline HCl [Elavil] 10 mg PO HS 08/14/23 08/14/23 History HYDROcodone/APAP 10-325MG [[place] 1 tab PO TID PRN 08/14/23 08/14/23 History 10-325] Insulin Aspart [NovoLOG Flexpen] See Protocol SQ TID 08/14/23 08/14/23 History Linaclotide [Linzess] 72 mcg PO QID PRN 08/14/23 08/14/23 History Morphine Sulfate ER [Ms Contin] 15 mg PO Q8H PRN 08/14/23 08/14/23 History Pioglitazone [Actos] 30 mg PO DAILY 08/14/23 08/14/23 History Venlafaxine HCl ER [Effexor Xr] 37.5 mg PO DAILY 08/14/23 08/14/23 History Allergies Allergy/AdvReac Type Severity Reaction Status Date / Time adhesive Allergy Severe Rash/Hives, Verified 08/14/23 14:02 BLISTERS levofloxacin [From Levaquin] Allergy Severe Anaphylaxis Verified 08/14/23 14:02 metoclopramide HCl Allergy Severe Anaphylaxis Verified 08/14/23 14:02 [From Reglan] Phenothiazines Allergy Severe Anaphylaxis Verified 08/14/23 14:02 thiethylperazine maleate Allergy Severe Anaphylaxis Verified 08/14/23 14:02 [From Torecan] venom-honey bee Allergy Severe Anaphylaxis Verified 08/14/23 14:02 [bee venom (honey bee)] iodine Allergy Intermediate Rash/Hives Verified 08/14/23 14:02 chlorhexidine Allergy red dye in Verified 08/14/23 14:02 [From Hibiclens] hibiclens causes Rash/Hives duloxetine [From Cymbalta] Allergy Unknown Verified 08/14/23 14:02 meloxicam [From Mobic] Allergy Unknown Verified 08/14/23 14:02 cigarette smoke AdvReac Cough Verified 08/14/23 14:02 fentanyl AdvReac OVER Verified 08/14/23 14:02 SEDATED, WEAKNESS pregabalin [From Lyrica] AdvReac oversedatio Verified 08/14/23 14:02 n Vbfdhyi-DIZ-RtI Reductase AdvReac increased Verified 08/14/23 14:02 Inhibitor fibramyalgia [Htzfpah-Dbf-Oov Reductase symptoms Inhibitor] hydoxizine Allergy Unknown Uncoded 08/14/23 14:02 clonadine AdvReac Unknown Uncoded 08/14/23 14:02 Physical Exam Vitals: Vital Signs Temp Pulse Pulse Resp BP BP Pulse Ox 08/14/23 15:00 98.3 F 89 131/78 98 08/14/23 14:30 90 16 143/92 98 08/14/23 14:00 89 16 149/89 99 08/14/23 13:30 92 16 143/98 98 08/14/23 13:00 103 H 16 149/95 97 08/14/23 12:30 98 16 138/80 98 08/14/23 12:00 85 16 149/96 98 08/14/23 11:15 84 14 151/85 98 08/14/23 10:41 97.9 F 87 14 145/103 99 08/14/23 08:43 97 F L 91 20 151/84 99 Intake and Output 08/14/23 08/14/23 08/14/23 06:59 14:59 22:59 Output Total 220 Balance -220 Output: Urine 220 Straight 220 Other: Weight 54.431 kg Results CBC & Chem 7: 08/14/23 10:14 08/14/23 10:14 Labs: Abnormal Lab Results - Last 24 Hours (Table) 08/14/23 08/14/23 08/14/23 Range/Units 10:14 10:14 10:14 Chloride 97 L (98-107) mmol/L Carbon Dioxide 33 H (22-30) mmol/L Creatinine 0.48 L (0.52-1.04) mg/dL Glucose 292 H (74-99) mg/dL Plasma Lactic Acid [place] 3.1 H* (0.7-2.0) mmol/L Lipase 347 H (23-300) U/L Urine pH 8.5 H (5.0-8.0) Urine Protein 1+ H (Negative) Urine Glucose (UA) 4+ H (Negative) Urine Mucus Rare H (None) /hpf
[2023-08-14 17:14] LABS: Glucose,Whole Blood 203 mg/dL (70-110)
[2023-08-14] MEDS: ONDANSETRON 4 MG/2 ML VIAL IVP PRN (17:40)
[2023-08-14] MEDS: PANTOPRAZOLE 40 MG TABLET PO SCH ×2 (17:43→17:58)
[2023-08-14] MEDS: amLODIPine 5 MG TAB PO SCH ×2 (17:43→17:58)
[2023-08-14] MEDS: VALSARTAN 160 MG TAB PO SCH ×2 (17:43→17:58)
[2023-08-14] MEDS: INSULIN ASPART (NovoLOG) 100 UNIT/ML VIAL SQ SCH ×2 (17:43→22:57)
[2023-08-14] MEDS: TIMOLOL 0.5% OPHTH DROPS 5 ML BTL RIGHT EYE SCH ×2 (17:57→20:34)
[2023-08-14] MEDS: KETOTIFEN 0.025% OPHTH DROPS 5 ML BTL RIGHT EYE SCH (20:34)
[2023-08-14] MEDS: METOPROLOL TARTRATE 25 MG TAB PO SCH (20:34)
[2023-08-14] MEDS ORDERED: ATORVASTATIN 20 MG TAB PO SCH (21:00)
[2023-08-14 21:10] LABS: Glucose,Whole Blood 249 mg/dL (70-110)
[2023-08-15] MEDS: SODIUM CHLORIDE 0.9% 1,000 ML IV SCH ×2 (02:44→17:03)
[2023-08-15 06:27] LABS: Glucose,Whole Blood 233 mg/dL (70-110)
[2023-08-15] MEDS: INSULIN ASPART (NovoLOG) 100 UNIT/ML VIAL SQ SCH ×5 (06:30→18:56)
[2023-08-15] MEDS: PANTOPRAZOLE 40 MG TABLET PO SCH ×2 (08:41→18:01)
[2023-08-15] MEDS: BRIMONIDINE TARTRATE 0.2% DROPS 5 ML BTL RIGHT EYE SCH ×3 (08:41→19:46)
[2023-08-15] MEDS: SENNOSIDES-DOCUSATE SODIUM 1 EACH TAB PO SCH (08:42)
[2023-08-15] MEDS: VENLAFAXINE HCL ER 37.5 MG CAP PO SCH ×2 (08:42→08:52)
[2023-08-15] MEDS: METOPROLOL TARTRATE 25 MG TAB PO SCH ×2 (08:42→19:47)
[2023-08-15] MEDS: ENOXAPARIN 40 MG/0.4 ML SYRINGE SQ SCH (08:51)
[2023-08-15] MEDS: KETOTIFEN 0.025% OPHTH DROPS 5 ML BTL RIGHT EYE SCH ×3 (08:52→19:45)
[2023-08-15] MEDS: TIMOLOL 0.5% OPHTH DROPS 5 ML BTL RIGHT EYE SCH ×3 (08:56→19:46)
[2023-08-15] MEDS: polyethylene glycoL 3350 17 GM POWD.PACK PO SCH (09:00)
[2023-08-15 09:57] LABS: BUN/Creat Ratio 10.12 Ratio (12.00-20.00); Blood Urea Nitrogen 8.1 mg/dL (9.0-27.0); Calcium 9.8 mg/dL (8.7-10.3); Carbon Dioxide 28.4 mmol/L (21.6-31.8); Chloride 100 mmol/L (96-109); Glucose 255 mg/dL (70-110); Sodium 139 mmol/L (135-145)
--- NOTE | 2023-08-15 12:09 | P.PN ---
Subjective Progress Note Date: 08/15/23 73-year-old female with past medical history of insulin-dependent diabetes, coronary artery disease status post stents, hypertension, fibromyalgia, and chronic back pain opioid dependence and follows with bumper and painter, Dr. Nick. Patient presents to the ED for altered mental status. She reports she has not been able to take any of her medication for a few weeks now due to dry heaving. She reports constipation. She reports chest pressure, unable to describe any further. Multiple attempts were made in the ED to contact family but without success. In the ED, patient underwent extensive evaluation: Tachycardic HR in the low 100s. Elevated BP of 149/95. CBC unremarkable. CMP Cl 97, bicarb 33, Cr 0.48, glu 292. Lactic acid 3.1. Lipase 347. UA 4+ glucose, negative LE or nitrite. UDS negative. Ammonia < 9. Brain CT no acute process. 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 EKG sinus rhythm. Patient is admitted for further workup. 08/15 Patient was seen and examined. Much more awake and alert. She reports discontinuing her narcotic medications in June as she did not need them anymore. She reports 2 weeks of liquid stool, last good bowel movement was 2-3 weeks ago. She was able to have a large solid bowel movement today. Yelling at the nurses to take out one of her IV lines and alarm security or surveillance monitor. BMP BUN 8.1, BUN/Cr 10.12, glu 255. B12 480. Folate 18.6. TSH 1.51. Troponin < 0.012 x 2. General: Non toxic, no distress, appears at stated age Derm: Warm, dry Head: Atraumatic, normocephalic, symmetric Eyes: EOMI, no lid lag, anicteric sclera Mouth: No lip lesion, mucus membranes moist Cardiovascular: S1S2 reg, no murmur Lungs: CTA bilateral, no rhonchi, no rales, no accessory muscle use Abdominal: Soft, nontender to palpation, no guarding, no appreciable organomegaly Ext: No gross muscle atrophy, no edema, no contractures Neuro: no focal neuro deficits Psych: Alert and oriented x 2. Based on my assessment of this patient, this patient meets a high complexity level of care. Patient has an acute diagnosis of altered mentation that poses a threat to life or bodily function. Acute metabolic encephalopathy: Unclear etiology. Suspect at baseline. Opiate withdrawal versus polypharmacy? Patient is on many sedative medication including Trazodone, Topamax, MS contin, [place] and Amitriptyline. Patient reports not t aking medications for weeks and this is supported by her negative UDS. Ammonia negative as well. B12, TSH, Folate within normal limits. PT and OT consult. Chest pressure: ACS ruled out. Constipation: Aggressive bowel regimen. SenokotS 1 tab QD. Miralax 17g PO QD. Dulcolax suppository PRN, Lactulose 20g PO TID PRN. Elevated lipase: No complaints of abdominal pain. Monitor. Diabetes mellitus with hyperglycemia: ISS. Accuchecks ACHS. Hypoglycemic precautions. Resolved: Lactic acidosis Chronic conditions: coronary artery disease status post stents, hypertension, fibromyalgia, and chronic back pain with opioid dependence We will have PT and OT evaluate the patient. She is medically stable. Possible discharge home today if able to reach family. CODE STATUS: FULL CODE. DVT Prophylaxis: Lovenox. GI Prophylaxis: Protonix. Designated medical POA if patient is not able to make medical decisions for themselves: I have reviewed the following legal consultant notes: I have reviewed the results of the following tests: BMP, B12, Folate, TSH, Troponin x 2. I have ordered the following tests: I have discussed the care of this patient with the following independent historian: Discussed with RN. I have independently interpreted the following test below: I have discussed the management of this patient with the following physician: Objective - Vital Signs Vital signs: Vital Signs Temp 97.5 F L 08/15/23 07:00 Pulse 85 08/15/23 07:00 Resp 14 08/15/23 08:41 BP 132/74 08/15/23 07:00 Pulse Ox 97 08/15/23 07:00 FiO2 Intake & Output 08/14/23 08/15/23 08/15/23 18:59 06:59 18:59 Output Total 220 Balance -220 Weight 54.431 kg Output: Urine 220 Straight 220 Other: Voiding Method Toilet Toilet Toilet Diaper Diaper Diaper # Voids 3 - Labs CBC & Chem 7: 08/14/23 10:14 08/15/23 05:57 Labs: Abnormal Lab Results - Last 24 Hours (Table) 08/14/23 08/14/23 08/14/23 Range/Units 15:20 17:13 21:08 BUN (9.0-27.0) mg/dL BUN/Creatinine Ratio (12.00-20.00) Ratio Glucose (70-110) mg/dL POC Glucose (mg/dL) 203 H 249 H (70-110) mg/dL Plasma Lactic Acid [place] 2.1 H* (0.7-2.0) mmol/L 08/15/23 08/15/23 Range/Units 05:57 06:25 BUN 8.1 L (9.0-27.0) mg/dL BUN/Creatinine Ratio 10.12 L (12.00-20.00) Ratio Glucose 255 H (70-110) mg/dL POC Glucose (mg/dL) 233 H (70-110) mg/dL Plasma Lactic Acid [place] (0.7-2.0) mmol/L
[2023-08-15 12:14] LABS: Glucose,Whole Blood 204 mg/dL (70-110)
--- NOTE | 2023-08-15 13:00 | P.GSCN ---
History of Present Illness Consult date: 08/15/23 History of present illness: CHIEF COMPLAINT: Altered mental status Reason for consult fecal impaction HISTORY OF PRESENT ILLNESS: This is a 73-year-old female who presented with altered mental status. Surgical service is consulted for fecal impaction and constipation. Patient reports that she has been dealing with constipation for the last 2 weeks. She usually takes pain medication at home but has not taken them for almost 2 weeks. Medicine service did start laxatives. Patient did have a thick large brown bowel movement this morning. She does report occasio nal nausea. She has required disimpaction's in the past. PAST MEDICAL HISTORY: See below PAST SURGICAL HISTORY: See below MEDICATIONS: See below ALLERGIES: See below SOCIAL HISTORY: No illicit drug use. REVIEW OF SYSTEMS: CONSTITUTIONAL: Denies fever or chills. HEENT: Denies blurred vision, vision changes, or eye pain. Denies hemoptysis CARDIOVASCULAR: Denies chest pain or pressure. RESPIRATORY: No shortness of breath. GASTROINTESTINAL: See HPI for pertinent findings HEMATOLOGIC: Denies bleeding disorders. GENITOURINARY: Denies any blood in urine or increased urinary frequency. SKIN: Denies pruitis. Denies rash. PHYSICAL EXAM: VITAL SIGNS: Reviewed GENERAL: Well-developed in no acute distress. ABDOMEN: Soft. Nondistended. Nontender Rectal: no palpable stool noted. Glove with soft stool. Hemorrhoids present. NEUROLOGIC: Awake and alert. LABORATORY DATA: WBC 7.8 HGB 14.3 plt 257 Na 139 K 5.0 Cr 0.8 UA negative for infection Urine drug screen not positive IMAGING: Acute abdominal series no radiographic evidence for acute abdominal process. No acute cardiopulmonary process. Fixation hardware in spine appears intact ASSESSMENT: 1. Constipation PLAN: -No surgical intervention planned -Agree with laxatives, suppository and enema -Resume consistent carbohydrate diet -Continue good bowel regimen at home Physician Analyst Sales note has been reviewed by physician. Signing provider agrees with the documented findings, assessment, and plan of care. I have personally seen and examined the patient, reviewed the TRANSMITTER ENGINEER /PAs history, exam and MDM and agree with the assessment and plan as written. Based on total visit time, I have performed more than 50% of the visit. As above: Patient with complaints of constipation. She had stools with enemas. No stool however on digital rectal examination. Abdominal x-ray reviewed. No obvious obstructive pattern. Patient has Lap-Band in place. She has been having nausea and diminished appetite with progressive weight loss. We initially discussed emptying her band however after reviewing her recent films it appears that the tubing is broken and likely has been for quite some time. This would imply the fluid is out of the band. Previous dictations actually stated that there was no fluid left in her Lap-Band. Patient may benefit from eventual Lap-Band removal. Resume regular diet. Continue stool softeners. Past Medical History Past Medical History: Asthma, Diabetes Mellitus, Eye Disorder, Fibromyalgia, GERD/Reflux, Hyperlipidemia, Hypertension, Myocardial Infarction ([place]), Musculoskeletal Disorder, Osteoarthritis (OA), Skin Disorder Additional Past Medical History / Comment(s): Rosacea, dry skin. Degenerative Disc Disease, hx severe back injury from work, kyphosis. Hx bilateral ankle fractures. Glaucoma, blind in right eye, increased left eye pressure and gel stent in left eye. Migraines. Insomnia. Frequent night time urination. Chronic nausea. Last Myocardial Infarction Date:: 01/2019 History of Any Multi-Drug Resistant Organisms: None Reported Past Surgical History: Back Surgery, Bariatric Surgery, Bladder Surgery, Cholecystectomy, Heart Catheterization With Stent, Hysterectomy, Orthopedic Surgery, Tonsillectomy, Tubal Ligation Additional Past Surgical History / Comment(s): Lap band 2009, lumbar laminectomy, wayne and screw to lumbar back, open reduction of right ankle fracture, bilateral carpal tunnel surgery X2 each side, left cubital tunnel surgery, cardiac stent X2 - January 2019, left eye gel stent. Past Anesthesia/Blood Transfusion Reactions: No Reported Reaction Additional Past Anesthesia/Blood Transfusion Reaction / Comm: No problems with prior blood transfusion at age 19 after bleed with tonsillectomy. Date of Last Stent Placement:: 01/2019 Past Psychological History: Anxiety, Panic Disorder Smoking Status: Never smoker Past Alcohol Use History: None Reported Past Drug Use History: None Reported - Past Family History Father Family Medical History: Cancer Additional Family Medical History / Comment(s): FATHER AT AGE 91YRS. Skin cancer. Mother Family Medical History: CVA/TIA Additional Family Medical History / Comment(s): MOTHER AT AGE 67 YRS OF CVA. Medications and Allergies Home Medications Medication Instructions Recorded Confirmed Type Rizatriptan Benzoate [Maxalt] 10 mg PO BID PRN 07/04/08/14/23 History Topiramate [Topamax] 50 mg PO TID 07/04/16 08/14/23 History Brimonidine Tartrate [Alphagan P 1 drops RIGHT EYE TID 09/09/17 08/14/23 History 0.2% Ophth Soln] Albuterol Inhaler [Ventolin Hfa 2 puff INHALATION RT-Q4H PRN 11/03/18 08/14/23 History Inhaler] Valsartan 160 mg PO DAILY@1800 04/12/20 08/14/23 History Erenumab-Aooe [Aimovig 140 mg SQ Q30D 11/04/22 08/14/23 History Autoinjector] Pantoprazole [Protonix] 40 mg PO BID@0900,1800 11/04/22 08/14/23 History Ondansetron Odt [Zofran ODT] 8 mg PO Q8HR PRN 11/27/22 08/14/23 History traZODone HCL [Desyrel] 400 mg PO HS 11/27/22 08/14/23 History Metoprolol Tartrate [Lopressor] 25 mg PO BID 05/28/23 08/14/23 History Olopatadine HCl [Patanol 0.1%] 1 drop RIGHT EYE BID 05/28/23 08/14/23 History Rosuvastatin Calcium 10 mg PO MOTH@2100 05/28/23 08/14/23 History sitaGLIPtin [Januvia] 100 mg PO DAILY 05/28/23 08/14/23 History Timolol 0.5% Ophth Soln [Timoptic 1 drop RIGHT EYE TID 06/07/23 08/14/23 History 0.5% Ophth Soln] amLODIPine [Norvasc] 5 mg PO DAILY@1800 06/07/23 08/14/23 History Amitriptyline HCl [Elavil] 10 mg PO HS 08/14/23 08/14/23 History HYDROcodone/APAP 10-325MG [[place] 1 tab PO TID PRN 08/14/23 08/14/23 History 10-325] Insulin Aspart [NovoLOG Flexpen] See Protocol SQ TID 08/14/23 08/14/23 History Linaclotide [Linzess] 72 mcg PO QID PRN 08/14/23 08/14/23 History Morphine Sulfate ER [Ms Contin] 15 mg PO Q8H PRN 08/14/23 08/14/23 History Pioglitazone [Actos] 30 mg PO DAILY 08/14/23 08/14/23 History Venlafaxine HCl ER [Effexor Xr] 37.5 mg PO DAILY 08/14/23 08/14/23 History Allergies Allergy/AdvReac Type Severity Reaction Status Date / Time adhesive Allergy Severe Rash/Hives, Verified 08/14/23 14:02 BLISTERS levofloxacin [From Levaquin] Allergy Severe Anaphylaxis Verified 08/14/23 14:02 metoclopramide HCl Allergy Severe Anaphylaxis Verified 08/14/23 14:02 [From Reglan] Phenothiazines Allergy Severe Anaphylaxis Verified 08/14/23 14:02 thiethylperazine maleate Allergy Severe Anaphylaxis Verified 08/14/23 14:02 [From Torecan] venom-honey bee Allergy Severe Anaphylaxis Verified 08/14/23 14:02 [bee venom (honey bee)] iodine Allergy Intermediate Rash/Hives Verified 08/14/23 14:02 chlorhexidine Allergy red dye in Verified 08/14/23 14:02 [From Hibiclens] hibiclens causes Rash/Hives duloxetine [From Cymbalta] Allergy Unknown Verified 08/14/23 14:02 meloxicam [From Mobic] Allergy Unknown Verified 08/14/23 14:02 cigarette smoke AdvReac Cough Verified 08/14/23 14:02 fentanyl AdvReac OVER Verified 08/14/23 14:02 SEDATED, WEAKNESS pregabalin [From Lyrica] AdvReac oversedatio Verified 08/14/23 14:02 n [id number] Reductase AdvReac increased Verified 08/14/23 14:02 Inhibitor fibramyalgia [Bikpmqm-Gyp-Ruo Reductase symptoms Inhibitor] hydoxizine Allergy Unknown Uncoded 08/14/23 14:02 clonadine AdvReac Unknown Uncoded 08/14/23 14:02 Surgical - Exam Vital Signs Temp Pulse Resp BP Pulse Ox 97 F L 91 20 151/84 99 08/14/23 08:43 08/14/23 08:43 08/14/23 08:43 08/14/23 08:43 08/14/23 08:43 Results - Labs 08/14/23 10:14 02/02/24 05:57 Abnormal Lab Results - Last 24 Hours (Table) 08/14/23 08/14/23 08/14/23 Range/Units 15:20 17:13 21:08 BUN (9.0-27.0) mg/dL BUN/Creatinine Ratio (12.00-20.00) Ratio Glucose (70-110) mg/dL POC Glucose (mg/dL) 203 H 249 H (70-110) mg/dL Plasma Lactic Acid [place] 2.1 H* (0.7-2.0) mmol/L 08/15/23 08/15/23 08/15/23 Range/Units 05:57 06:25 12:08 BUN 8.1 L (9.0-27.0) mg/dL BUN/Creatinine Ratio 10.12 L (12.00-20.00) Ratio Glucose 255 H (70-110) mg/dL POC Glucose (mg/dL) 233 H 204 H (70-110) mg/dL Plasma Lactic Acid [place] (0.7-2.0) mmol/L Diabetes panel 08/15/23 Range/Units 05:57 Sodium 139 (135-145) mmol/L Potassium 5.0 (3.5-5.5) mmol/L Chloride 100 (96-109) mmol/L Carbon Dioxide 28.4 (21.6-31.8) mmol/L BUN 8.1 L (9.0-27.0) mg/dL Creatinine 0.8 (0.6-1.5) mg/dL Glucose 255 H (70-110) mg/dL Calcium 9.8 (8.7-10.3) mg/dL Thyroid panel 08/15/23 Range/Units 05:57 TSH 1.510 (0.350-5.500) UIU/ML Calcium panel 08/15/23 Range/Units 05:57 Calcium 9.8 (8.7-10.3) mg/dL Pituitary panel 08/15/23 Range/Units 05:57 Sodium 139 (135-145) mmol/L Potassium 5.0 (3.5-5.5) mmol/L Chloride 100 (96-109) mmol/L Carbon Dioxide 28.4 (21.6-31.8) mmol/L BUN 8.1 L (9.0-27.0) mg/dL Creatinine 0.8 (0.6-1.5) mg/dL Glucose 255 H (70-110) mg/dL Calcium 9.8 (8.7-10.3) mg/dL TSH 1.510 (0.350-5.500) UIU/ML Adrenal panel 08/15/23 Range/Units 05:57 Sodium 139 (135-145) mmol/L Potassium 5.0 (3.5-5.5) mmol/L Chloride 100 (96-109) mmol/L Carbon Dioxide 28.4 (21.6-31.8) mmol/L BUN 8.1 L (9.0-27.0) mg/dL Creatinine 0.8 (0.6-1.5) mg/dL Glucose 255 H (70-110) mg/dL Calcium 9.8 (8.7-10.3) mg/dL
[2023-08-15 15:08] VITALS: BMI 24.2
[2023-08-15] MEDS: ONDANSETRON 4 MG/2 ML VIAL IVP PRN (15:46)
[2023-08-15 17:41] LABS: Glucose,Whole Blood 403 mg/dL (70-110)
[2023-08-15] MEDS: amLODIPine 5 MG TAB PO SCH (18:01)
[2023-08-15] MEDS: VALSARTAN 160 MG TAB PO SCH (18:01)
--- NOTE | 2023-08-15 19:24 | CA ---
Transthoracic Echo Report Name: Angelique Alston Age: 73 Gender: F : 1950 Exam Date: 08/15/2023 14:59 Exam Location: [facility] Ht (in): 59 Wt (lb): 120 Ordering Physician: Hellen Can MD Attending/Referring Phys: Talent Analyst Bee Gardiner RDCS Procedure CPT: Indications: CP Cardiac Hx: Technical Quality: Technically difficult study Contrast 1: Total Dose (mL): Contrast 2: Total Dose (mL): MEASUREMENTS (Male / Female) Normal Values 2D ECHO LV Diastolic Diameter PLAX 3.6 cm 4.2 - 5.9 / 3.9 - 5.3 cm LV Systolic Diameter PLAX 2.4 cm IVS Diastolic Thickness 1.2 cm 0.6 - 1.0 / 0.6 - 0.9 cm LVPW Diastolic Thickness 1.1 cm 0.6 - 1.0 / 0.6 - 0.9 cm LV Relative Wall Thickness 0.6 Aortic Root Diameter 3.7 cm DOPPLER AV Peak Velocity 146.1 cm/s AV Peak Gradient 8.5 mmHg AV Mean Velocity 90.7 cm/s AV Mean Gradient 3.8 mmHg AV Velocity Time Integral 26.4 cm Mitral E Point Velocity 59.8 cm/s Mitral A Point Velocity 114.6 cm/s Mitral E to A Ratio 0.5 MV Deceleration Time 333.4 ms MV E' Velocity 9.9 cm/s Mitral E to MV E' Ratio 6.0 FINDINGS Left Ventricle Normal LV size and systolic function Left ventricular ejection fraction is estimated at 50-55% by visual assessment. Mild concentric left ventricular hypertrophy. Grade 1 diastolic dysfunction. Right Ventricle Right ventricle not well visualized. Right Atrium Right atrium not well visualized. Left Atrium Left atrium not well visualized. Mitral Valve Mild mitral regurgitation. Aortic Valve Aortic valve not well visualized. Tricuspid Valve Mild tricuspid regurgitation. Pulmonic Valve Pulmonic valve not well visualized. Pericardium Normal pericardium. Aorta Aortic root measures 3.7cm. Proximal ascending aorta not well visualized. CONCLUSIONS Technically difficult study with limited views Left ventricular ejection fraction is estimated at 50-55%. Mild concentric left ventricular hypertrophy. Grade 1 diastolic dysfunction Previewed by: Dr Zach Hays (Electronically Signed) Final Date: 15 August 2023 19:23
[2023-08-15 20:37] LABS: Glucose,Whole Blood 142 mg/dL (70-110)
[2023-08-16 06:01] LABS: Glucose,Whole Blood 214 mg/dL (70-110)
[2023-08-16] MEDS: INSULIN ASPART (NovoLOG) 100 UNIT/ML VIAL SQ SCH ×4 (06:10→20:57)
[2023-08-16] MEDS: SODIUM CHLORIDE 0.9% 1,000 ML IV SCH ×2 (06:11→21:02)
[2023-08-16] MEDS: KETOTIFEN 0.025% OPHTH DROPS 5 ML BTL RIGHT EYE SCH ×2 (09:36→20:57)
[2023-08-16] MEDS: BRIMONIDINE TARTRATE 0.2% DROPS 5 ML BTL RIGHT EYE SCH ×3 (09:36→20:57)
[2023-08-16] MEDS: SENNOSIDES-DOCUSATE SODIUM 1 EACH TAB PO SCH (09:38)
[2023-08-16] MEDS: ONDANSETRON 4 MG/2 ML VIAL IVP PRN (09:38)
[2023-08-16] MEDS: polyethylene glycoL 3350 17 GM POWD.PACK PO SCH (09:38)
[2023-08-16] MEDS: TIMOLOL 0.5% OPHTH DROPS 5 ML BTL RIGHT EYE SCH ×3 (09:38→20:57)
[2023-08-16] MEDS: ENOXAPARIN 40 MG/0.4 ML SYRINGE SQ SCH (09:39)
[2023-08-16] MEDS: METOPROLOL TARTRATE 25 MG TAB PO SCH ×3 (09:42→20:57)
[2023-08-16] MEDS: PANTOPRAZOLE 40 MG TABLET PO SCH ×3 (09:42→17:41)
[2023-08-16] MEDS: VENLAFAXINE HCL ER 37.5 MG CAP PO SCH (09:42)
[2023-08-16 11:46] LABS: Glucose,Whole Blood 196 mg/dL (70-110)
--- NOTE | 2023-08-16 12:37 | P.DS ---
Providers Date of admission: 08/14/23 13:12 Expected date of discharge: 08/16/23 Attending physician: Elliott Decker MD Consults: 08/15/23 10:12 Consult Physician Routine Consulting Provider: Darin Hernandez Consult Reason/Comments: fecal impaction Do you want consulting provider notified?: Yes Primary care physician: [facility] Course: 73-year-old female with past medical history of insulin-dependent diabetes, coronary artery disease status post stents, hypertension, fibromyalgia, and chronic back pain opioid dependence and follows with painter supervisor, Dr. Nick. Patient presents to the ED for altered mental status. She reports she has not been able to take any of her medication for a few weeks now due to dry heaving. She reports constipation. She reports chest pressure, unable to describe any further. Multiple attempts were made in the ED to contact family but without success. In the ED, patient underwent extensive evaluation: Tachycardic HR in the low 100s. Elevated BP of 149/95. CBC unremarkable. CMP Cl 97, bicarb 33, Cr 0.48, glu 292. Lactic acid 3.1. Lipase 347. UA 4+ glucose, negative LE or nitrite. UDS negative. Ammonia < 9. Brain CT no acute process. 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 EKG sinus rhythm. Patient is admitted for further workup. 08/15 Patient was seen and examined. Much more awake and alert. She reports discontinuing her narcotic medications in June as she did not need them anymore. She reports 2 weeks of liquid stool, last good bowel movement was 2-3 weeks ago. She was able to have a large solid bowel movement today. Yelling at the nurses to take out one of her IV lines and cascara bark cutter. BMP BUN 8.1, BUN/Cr 10.12, glu 255. B12 480. Folate 18.6. TSH 1.51. Troponin < 0.012 x 2. 2 Patient was seen and examined. Apparently spit water on the RN. PT and OT evaluated the patient, poor motivation to participate with therapy. ST evaluated the patient, resistant to most trial of foods, recommended pureed diet. She has had multiple bowel movements and examination by surgery shows no stool on digital rectal exam, outpatient follow up for Lap-Band removal. She has also been refusing alot of her medications. I suspect she is at baseline. Plans for discharge home today. General: Non toxic, no distress, appears at stated age Derm: Warm, dry Head: Atraumatic, normocephalic, symmetric Eyes: EOMI, no lid lag, anicteric sclera Mouth: No lip lesion, mucus membranes moist Cardiovascular: S1S2 reg, no murmur Lungs: CTA bilateral, no rhonchi, no rales, no accessory muscle use Abdominal: Soft, nontender to palpation, no guarding, no appreciable organomegaly Ext: No gross muscle atrophy, no edema, no contractures Neuro: no focal neuro deficits Psych: Alert and oriented x 2. Discharge Diagnosis: Acute metabolic encephalopathy Chest pressure Constipation Elevated lipase Diabetes mellitus with hyperglycemia Resolved: Lactic acidosis Chronic conditions: coronary artery disease status post stents, hypertension, fibromyalgia, and chronic back pain with opioid dependence This complex discharge took 35 minutes to complete. Patient Condition at Discharge: Stable Plan - Discharge Summary New Discharge Prescriptions: New polyethylene glycoL 3350 [Miralax] 17 gm PO DAILY #30 packet Continue Rizatriptan Benzoate [Maxalt] 10 mg PO BID PRN PRN Reason: Migraine Headache Brimonidine Tartrate [Alphagan P 0.2% Ophth Soln] 1 drops RIGHT EYE TID Albuterol Inhaler [Ventolin Hfa Inhaler] 2 puff INHALATION RT-Q4H PRN PRN Reason: Shortness Of Breath Valsartan 160 mg PO DAILY@1800 Pantoprazole [Protonix] 40 mg PO BID@0900,1800 Erenumab-Aooe [Aimovig Autoinjector] 140 mg SQ Q30D Ondansetron Odt [Zofran ODT] 8 mg PO Q8HR PRN PRN Reason: Nausea And Vomiting Rosuvastatin Calcium 10 mg PO MOTH@2100 Olopatadine HCl [Patanol 0.1%] 1 drop RIGHT EYE BID amLODIPine [Norvasc] 5 mg PO DAILY@1800 Timolol 0.5% Ophth Soln [Timoptic 0.5% Ophth Soln] 1 drop RIGHT EYE TID Metoprolol Tartrate [Lopressor] 25 mg PO BID sitaGLIPtin [Januvia] 100 mg PO DAILY Insulin Aspart [NovoLOG Flexpen] See Protocol SQ TID Pioglitazone [Actos] 30 mg PO DAILY Linaclotide [Linzess] 72 mcg PO QID PRN PRN Reason: Constipation Venlafaxine HCl ER [Effexor XR] 37.5 mg PO DAILY Discontinued Topiramate [Topamax] 50 mg PO TID Morphine Sulfate ER [Ms Contin] 15 mg PO Q8H PRN PRN Reason: Pain HYDROcodone/APAP 10-325MG [[place] 10-325] 1 tab PO TID PRN PRN Reason: Pain traZODone HCL [Desyrel] 400 mg PO HS Amitriptyline HCl [Elavil] 10 mg PO HS Discharge Medication List Rizatriptan Benzoate [Maxalt] 10 mg PO BID PRN 07/04/16 [History] Brimonidine Tartrate [Alphagan P 0.2% Ophth Soln] 1 drops RIGHT EYE TID 09/09/17 [History] Albuterol Inhaler [Ventolin Hfa Inhaler] 2 puff INHALATION RT-Q4H PRN 11/03/18 [History] Valsartan 160 mg PO DAILY@1800 04/12/20 [History] Erenumab-Aooe [Aimovig Autoinjector] 140 mg SQ Q30D 11/04/22 [History] Pantoprazole [Protonix] 40 mg PO BID@0900,1800 11/04/22 [History] Ondansetron Odt [Zofran ODT] 8 mg PO Q8HR PRN 11/27/22 [History] Metoprolol Tartrate [Lopressor] 25 mg PO BID 05/28/23 [History] Olopatadine HCl [Patanol 0.1%] 1 drop RIGHT EYE BID 05/28/23 [History] Rosuvastatin Calcium 10 mg PO MOTH@2100 05/28/23 [History] sitaGLIPtin [Januvia] 100 mg PO DAILY 05/28/23 [History] Timolol 0.5% Ophth Soln [Timoptic 0.5% Ophth Soln] 1 drop RIGHT EYE TID 06/07/23 [History] amLODIPine [Norvasc] 5 mg PO DAILY@1800 06/07/23 [History] Insulin Aspart [NovoLOG Flexpen] See Protocol SQ TID 08/14/23 [History] Linaclotide [Linzess] 72 mcg PO QID PRN 08/14/23 [History] Pioglitazone [Actos] 30 mg PO DAILY 08/14/23 [History] Venlafaxine HCl ER [Effexor XR] 37.5 mg PO DAILY 08/14/23 [History] polyethylene glycoL 3350 [Miralax] 17 gm PO DAILY #30 packet 08/16/23 [Rx] Follow up Appointment(s)/Referral(s): Srinivasa Caballero DO [Primary Care Provider] - 1-2 days Discharge Disposition: HOME SELF-CARE
[2023-08-16 12:49] LABS: Glucose,Whole Blood 182 mg/dL (70-110)
[2023-08-16] MEDS ORDERED: OLANZapine 10 MG VIAL IM PRN (13:33)
[2023-08-16 17:26] LABS: Glucose,Whole Blood 187 mg/dL (70-110)
[2023-08-16] MEDS: amLODIPine 5 MG TAB PO SCH (17:40)
[2023-08-16] MEDS: VALSARTAN 160 MG TAB PO SCH (17:41)
[2023-08-16 20:06] LABS: Glucose,Whole Blood 136 mg/dL (70-110)
[2023-08-17 06:21] LABS: Glucose,Whole Blood 164 mg/dL (70-110)
[2023-08-17] MEDS: SODIUM CHLORIDE 0.9% 1,000 ML IV SCH (06:41)
[2023-08-17] MEDS: INSULIN ASPART (NovoLOG) 100 UNIT/ML VIAL SQ SCH ×4 (06:56→22:15)
[2023-08-17] MEDS ORDERED: oxyCODONE-APAP 5-325MG 1 EACH TAB PO STA (09:23)
[2023-08-17] MEDS ORDERED: oxyCODONE-APAP 5-325MG 1 EACH TAB PO PRN (09:23)
--- NOTE | 2023-08-17 09:23 | P.DS ---
Providers Date of admission: 08/14/23 13:12 Expected date of discharge: 08/17/23 Attending physician: Elliott Decker MD Consults: 08/15/23 10:12 Consult Physician Routine Consulting Provider: Darin Hernandez Consult Reason/Comments: fecal impaction Do you want consulting provider notified?: Yes 08/16/23 13:32 Consult Physician Routine Consulting Provider: Maximo Ferguson Consult Reason/Comments: Impulsive bizarre behavior Do you want consulting provider notified?: Yes Primary care physician: [facility] Course: 73-year-old female with past medical history of insulin-dependent diabetes, coronary artery disease status post stents, hypertension, fibromyalgia, and chronic back pain opioid dependence and follows with automotive painter helper, Dr. Nick. Patient presents to the ED for altered mental status. She reports she has not been able to take any of her medication for a few weeks now due to dry heaving. She reports constipation. She reports chest pressure, unable to describe any further. Multiple attempts were made in the ED to contact family but without success. In the ED, patient underwent extensive evaluation: Tachycardic HR in the low 100s. Elevated BP of 149/95. CBC unremarkable. CMP Cl 97, bicarb 33, Cr 0.48, glu 292. Lactic acid 3.1. Lipase 347. UA 4+ glucose, negative LE or nitrite. UDS negative. Ammonia < 9. Brain CT no acute process. 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 EKG sinus rhythm. Patient is admitted for further workup. 08/15 Patient was seen and examined. Much more awake and alert. She reports discontinuing her narcotic medications in June as she did not need them anymore. She reports 2 weeks of liquid stool, last good bowel movement was 2-3 weeks ago. She was able to have a large solid bowel movement today. Yelling at the nurses to take out one of her IV lines and clinical research monitor. BMP BUN 8.1, BUN/Cr 10.12, glu 255. B12 480. Folate 18.6. TSH 1.51. Troponin < 0.012 x 2. Echo EF 50-55% with G1DD. 08/16 Patient was seen and examined. Apparently spit water on the RN. PT and OT evaluated the patient, poor motivation to participate with therapy. ST evaluated the patient, resistant to most trial of foods, recommended pureed diet. She has had multiple bowel movements and examination by surgery shows no stool on digital rectal exam, outpatient follow up for Lap-Band removal. She has also been refusing alot of her medications. I suspect she is at baseline. Plans for discharge home today. 08/17 Patient was seen and examined. Discharge was held after patient had an apparent fall yesterday. Apparently she flailed her arms, pushed practical nursing teacher away while ambulating and gracefully slid herself to the floor. No head trauma or LOC noted. She has had multiple bowel movements since being here. Discussed extensively with DAVONTE Mahoney, she has been observed in her room ambulating comfortably and changing of clothing without issues. I do not believe she qualifies for rehab but she may benefit from a caregiver. Plans for discharge home with today. General: Non toxic, no distress, appears at stated age Derm: Warm, dry Head: Atraumatic, normocephalic, symmetric Eyes: EOMI, no lid lag, anicteric sclera Mouth: No lip lesion, mucus membranes moist Cardiovascular: S1S2 reg, no murmur Lungs: CTA bilateral, no rhonchi, no rales, no accessory muscle use Abdominal: Soft, nontender to palpation, no guarding, no appreciable organomegaly Ext: No gross muscle atrophy, no edema, no contractures Neuro: no focal neuro deficits Psych: Alert and oriented x 2. Discharge Diagnosis: Acute metabolic encephalopathy, impulsive behavior, suspect at baseline Chest pressure ACS ruled out Constipation, resolved Elevated lipase Diabetes mellitus with hyperglycemia Resolved: Lactic acidosis Chronic conditions: coronary artery disease status post stents, hypertension, fibromyalgia, and chronic back pain with opioid dependence This complex discharge took 35 minutes to complete. Patient Condition at Discharge: Stable Plan - Discharge Summary New Discharge Prescriptions: New polyethylene glycoL 3350 [Miralax] 17 gm PO DAILY #30 packet Continue Rizatriptan Benzoate [Maxalt] 10 mg PO BID PRN PRN Reason: Migraine Headache Brimonidine Tartrate [Alphagan P 0.2% Ophth Soln] 1 drops RIGHT EYE TID Albuterol Inhaler [Ventolin Hfa Inhaler] 2 puff INHALATION RT-Q4H PRN PRN Reason: Shortness Of Breath Valsartan 160 mg PO DAILY@1800 Pantoprazole [Protonix] 40 mg PO BID@0900,1800 Erenumab-Aooe [Aimovig Autoinjector] 140 mg SQ Q30D Ondansetron Odt [Zofran ODT] 8 mg PO Q8HR PRN PRN Reason: Nausea And Vomiting Rosuvastatin Calcium 10 mg PO MOTH@2100 Olopatadine HCl [Patanol 0.1%] 1 drop RIGHT EYE BID amLODIPine [Norvasc] 5 mg PO DAILY@1800 Timolol 0.5% Ophth Soln [Timoptic 0.5% Ophth Soln] 1 drop RIGHT EYE TID Metoprolol Tartrate [Lopressor] 25 mg PO BID sitaGLIPtin [Januvia] 100 mg PO DAILY Insulin Aspart [NovoLOG Flexpen] See Protocol SQ TID Pioglitazone [Actos] 30 mg PO DAILY Linaclotide [Linzess] 72 mcg PO QID PRN PRN Reason: Constipation Venlafaxine HCl ER [Effexor XR] 37.5 mg PO DAILY Discontinued Topiramate [Topamax] 50 mg PO TID Morphine Sulfate ER [Ms Contin] 15 mg PO Q8H PRN PRN Reason: Pain HYDROcodone/APAP 10-325MG [[place] 10-325] 1 tab PO TID PRN PRN Reason: Pain traZODone HCL [Desyrel] 400 mg PO HS Amitriptyline HCl [Elavil] 10 mg PO HS Discharge Medication List Rizatriptan Benzoate [Maxalt] 10 mg PO BID PRN 07/04/16 [History] Brimonidine Tartrate [Alphagan P 0.2% Ophth Soln] 1 drops RIGHT EYE TID 09/09/17 [History] Albuterol Inhaler [Ventolin Hfa Inhaler] 2 puff INHALATION RT-Q4H PRN 11/03/18 [History] Valsartan 160 mg PO DAILY@1800 04/12/20 [History] Erenumab-Aooe [Aimovig Autoinjector] 140 mg SQ Q30D 11/04/22 [History] Pantoprazole [Protonix] 40 mg PO BID@0900,1800 11/04/22 [History] Ondansetron Odt [Zofran ODT] 8 mg PO Q8HR PRN 11/27/22 [History] Metoprolol Tartrate [Lopressor] 25 mg PO BID 05/28/23 [History] Olopatadine HCl [Patanol 0.1%] 1 drop RIGHT EYE BID 05/28/23 [History] Rosuvastatin Calcium 10 mg PO MOTH@2100 05/28/23 [History] sitaGLIPtin [Januvia] 100 mg PO DAILY 05/28/23 [History] Timolol 0.5% Ophth Soln [Timoptic 0.5% Ophth Soln] 1 drop RIGHT EYE TID 06/07/23 [History] amLODIPine [Norvasc] 5 mg PO DAILY@1800 06/07/23 [History] Insulin Aspart [NovoLOG Flexpen] See Protocol SQ TID 08/14/23 [History] Linaclotide [Linzess] 72 mcg PO QID PRN 08/14/23 [History] Pioglitazone [Actos] 30 mg PO DAILY 08/14/23 [History] Venlafaxine HCl ER [Effexor XR] 37.5 mg PO DAILY 08/14/23 [History] polyethylene glycoL 3350 [Miralax] 17 gm PO DAILY #30 packet 08/16/23 [Rx] Follow up Appointment(s)/Referral(s): Juan Ventura MD [Medical Doctor] - 1 Week Srinivasa Caballero DO [Primary Care Provider] - 1-2 days Activity/Diet/Wound Care/Special Instructions: Diet: pureed Discharge Disposition: HOME SELF-CARE
[2023-08-17] MEDS: METOPROLOL TARTRATE 25 MG TAB PO SCH ×2 (09:40→20:43)
[2023-08-17] MEDS: PANTOPRAZOLE 40 MG TABLET PO SCH ×2 (09:40→17:28)
[2023-08-17] MEDS: VENLAFAXINE HCL ER 37.5 MG CAP PO SCH ×2 (09:41→09:46)
[2023-08-17] MEDS: ENOXAPARIN 40 MG/0.4 ML SYRINGE SQ SCH ×2 (09:42→09:47)
[2023-08-17] MEDS: KETOTIFEN 0.025% OPHTH DROPS 5 ML BTL RIGHT EYE SCH ×2 (09:43→20:44)
[2023-08-17] MEDS: BRIMONIDINE TARTRATE 0.2% DROPS 5 ML BTL RIGHT EYE SCH ×3 (09:43→20:44)
[2023-08-17] MEDS: TIMOLOL 0.5% OPHTH DROPS 5 ML BTL RIGHT EYE SCH ×3 (09:43→20:44)
[2023-08-17] MEDS: ONDANSETRON 4 MG TAB PO PRN ×2 (09:54→20:43)
[2023-08-17] MEDS: SENNOSIDES-DOCUSATE SODIUM 1 EACH TAB PO SCH (10:01)
[2023-08-17] MEDS: polyethylene glycoL 3350 17 GM POWD.PACK PO SCH (10:01)
--- NOTE | 2023-08-17 10:24 | P.PN ---
Subjective Progress Note Date: 08/17/23 Principal diagnosis: Abdominal pain Patient nauseated this morning. Per the nursing staff she did not eat much yesterday. Today however she ate her entire breakfast along with 3 ensures. She feels full at this time and mildly nauseous. Patient admits it is likely from eating so much. She is still having intermittent loose stools at times. Objective - Vital Signs Vital signs: Vital Signs Temp 97.9 F 08/17/23 07:00 Pulse 75 08/17/23 07:00 Resp 15 08/17/23 07:00 BP 173/92 08/17/23 07:00 Pulse Ox 98 08/17/23 07:00 FiO2 Intake & Output 08/16/23 08/17/23 08/17/23 18:59 06:59 18:59 Other: Voiding Method Toilet Diaper # Voids 2 1 # Bowel Movements 3 - Exam Abdomen: Soft, nontender, nondistended - Labs CBC & Chem 7: 08/14/23 10:14 08/15/23 05:57 Labs: Abnormal Lab Results - Last 24 Hours (Table) 08/16/23 08/16/23 08/16/23 Range/Units 11:44 12:43 17:24 POC Glucose (mg/dL) 196 H 182 H 187 H (70-110) mg/dL 08/16/23 08/17/23 Range/Units 20:05 06:19 POC Glucose (mg/dL) 136 H 164 H (70-110) mg/dL Assessment and Plan (1) Abdominal pain Narrative/Plan: Patient still having some abdominal pain. Will repeat abdominal x-rays. Patient may benefit from eventual laparoscopic Lap-Band removal. Continue stool softeners. Current Visit: No Status: Acute Code(s): R10.9 - UNSPECIFIED ABDOMINAL PAIN SNOMED Code(s): 31737070
[2023-08-17 12:15] LABS: Glucose,Whole Blood 332 mg/dL (70-110)
--- NOTE | 2023-08-17 12:20 | XR ---
EXAMINATION TYPE: XR abdomen 2V DATE OF EXAM: 08/17/2023 COMPARISON: 07/22/2023 HISTORY: Pain TECHNIQUE: Single supine KUB image of the abdomen is obtained FINDINGS: Small bowel demonstrates no evidence for dilatation or air fluid levels. Gas and fecal material is seen in non-distended colon. No significant constipation noted. No convincing evidence for pneumoperitoneum. No unusual calcifications. The lung bases are clear. The osseous structures are intact. Postoperative changes of fusion lumbar spine. Gastric banding adi ce in place. IMPRESSION: 1. Overall nonobstructive bowel gas pattern.
[2023-08-17] MEDS ORDERED: QUEtiapine 25 MG TAB PO PRN (12:48)
[2023-08-17] MEDS: SERTRALINE 25 MG TAB PO SCH (13:51)
--- NOTE | 2023-08-17 15:13 | P.CN ---
Psychiatric Consult - . Consult date: 08/17/23 Consult:: 08/17/23 11:59 IDENTIFYING DATA: This patient is a 73-year-old female, currently lives with her in a house, she has no kids. She is retired. REASON FOR REFERRAL: Psychiatry was consulted for "impulsive bizarre behavior " HISTORY OF PRESENT ILLNESS: The patient presented to the hospital initially on 08/14 for altered mental status, abdominal pain. Patient apparently was confused and was a poor historian. Patient urine analysis was negative. Patient was admitted for delirium and also ACS rule out and constipation. Patient nurse states that patient is fairly unpredictable and labile. Patient was seen today laying in her bed and agreeable to speak to commercial lines underwriter. Patient knew her name date of age and knew the correct date today. She knew her location as well. She claims that she has been dealing with various medical issues including losing most of her site in her right eye. Claims that she has been not eating or drinking the same and has been "losing pounds". She states that she also had a back injury, she was fairly hesitant and awkward/evasive when speaking about the difficulties at home with her . She also did not directly answer whether her mood is depressed or not. She did relay having anxiety. She states that she feels "terrified" at times. She was evasive with most questions towards the end of the interview and had a bizarre interaction. Claims that her sleep and appetite is poor. At this time patient denies any suicidal or homical ideations, intent or plan. Patient denies any auditory, visual hallucinations and denies any paranoia or delusions. Patients admits to using no recreational drugs or cigarettes. PAST PSYCHIATRIC HISTORY: Patient has a a history of depression/anxiety. Patient is currently on Effexor low-dose 37.5 mg daily however not taking it consistently at home. Patient denies any previous psychiatric hospitalizations. Patient denies any psychiatric outpatient follow-up. Patient denies any history of suicide attempts in the past. Past Medical History: Asthma, Diabetes Mellitus, Eye Disorder, Fibromyalgia, GERD/Reflux, Hyperlipidemia, Hypertension, Myocardial Infarction (VA), Musculoskeletal Disorder, Osteoarthritis (OA), Skin Disorder Additional Past Medical History / Comment(s): Rosacea, dry skin. Degenerative Disc Disease, hx severe back injury from work, kyphosis. Hx bilateral ankle fractures. Glaucoma, blind in right eye, increased left eye pressure and gel stent in left eye. Migraines. Insomnia. Frequent night time urination. Chronic nausea. Last Myocardial Infarction Date:: 01/2019 History of Any Multi-Drug Resistant Organisms: None Reported Past Surgical History: Back Surgery, Bariatric Surgery, Bladder Surgery, Cholecystectomy, Heart Catheterization With Stent, Hysterectomy, Orthopedic Surgery, Tonsillectomy, Tubal Ligation Additional Past Surgical History / Comment(s): Lap band 2009, lumbar laminectomy, wayne and screw to lumbar back, open reduction of right ankle fracture, bilateral carpal tunnel surgery X2 each side, left cubital tunnel surgery, cardiac stent X2 - January 2019, left eye gel stent. Past Anesthesia/Blood Transfusion Reactions: No Reported Reaction Additional Past Anesthesia/Blood Transfusion Reaction / Comment(s): No problems with prior blood transfusion at age 19 after bleed with tonsillectomy. Date of Last Stent Placement:: 01/2019 Past Psychological History: Anxiety, Panic Disorder Smoking Status: Never smoker Past Alcohol Use History: None Reported Past Drug Use History: None Reported ALLERGIES: as per EMR. CHEMICAL DEPENDENCY HISTORY: as per HPI. FAMILY PSYCHIATRIC/SUBSTANCE USE HISTORY: Denies SOCIAL HISTORY: Patient was born and raised in [place], mainly in [place]. States that she moved to the with her in 1997 for his job. 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 Denies any legal history. Does not have any kids, she currently lives with her in a house.. MENTAL STATUS EXAM: General Appearance: Patient appears to be stated age is thin, has short hair, alert, awkward at times, difficult to redirect and evasive. Patient appears to have fair hygiene and grooming wearing hospital gown with fair eye contact. Behavior: Patient is lying in bed however is fidgeting at times. Bizarre interaction Speech: Patient's speech is fluent and nonpressured. Hesitant, vague. Mood/Affect: Patient reports their mood is "not sure but anxious", affect is congruent Suicidality/Homicidality: Patient denies having any suicidal or homicidal ideation intent or plan. Perceptions: Patient denies any visual hallucinations and denies any auditory hallucinations Though content/process: Patient rambles at times, illogical at times. Vague. Guarded. Memory and concentration: AOX3, grossly intact for the purposes of this session. Can spell "WORLD" backwards Judgment and insight: limited IMPRESSIONS: Mood disorder unspecified Generalized anxiety disorder PLAN: -At this time patient DOES NOT meet criteria for inpatient psychiatric admission. -Delirium precautions recommended with patient including - avoiding use of narcotics and OUTPATIENT PHLEBOTOMIST sedatives, limit anticholinergic medications when possible, frequent re-orientation, minimize use of restraints, open window shades during the day and close them at night -Would recommend the following medication changes/additions: Discontinue Effexor and replace with Zoloft 25 mg daily for mood/anxiety. Seroquel 25 mg twice daily as needed for agitation/anxiety. Added Remeron nightly for mood/insomnia/appetite. -layout worker to provide patient with outpatient mental health/psychiatry resources for appropriate follow up upon discharge -Communicated plan to patient's nurse -Will continue to follow along -Please contact with any questions. 08/17/23 15:05 08/17/23 15:12
[2023-08-17 17:03] LABS: Glucose,Whole Blood 276 mg/dL (70-110)
[2023-08-17] MEDS: VALSARTAN 160 MG TAB PO SCH (17:28)
[2023-08-17] MEDS: amLODIPine 5 MG TAB PO SCH (17:28)
[2023-08-17] MEDS ORDERED: MIRTAZAPINE 15 MG TAB PO SCH (21:00)
[2023-08-17 21:27] LABS: Glucose,Whole Blood 157 mg/dL (70-110)
[2023-08-18 04:05] VITALS: RESP 16
[2023-08-18] MEDS: ONDANSETRON 4 MG TAB PO PRN (04:34)
[2023-08-18 05:48] LABS: Glucose,Whole Blood 325 mg/dL (70-110)
[2023-08-18] MEDS: INSULIN ASPART (NovoLOG) 100 UNIT/ML VIAL SQ SCH (05:54)
[2023-08-18 09:19] VITALS: BP 161/80; PULSE 71; TEMP 98.5
[2023-08-18] MEDS: KETOTIFEN 0.025% OPHTH DROPS 5 ML BTL RIGHT EYE SCH (09:39)
[2023-08-18] MEDS: polyethylene glycoL 3350 17 GM POWD.PACK PO SCH (09:39)
[2023-08-18] MEDS: BRIMONIDINE TARTRATE 0.2% DROPS 5 ML BTL RIGHT EYE SCH (09:39)
[2023-08-18] MEDS: TIMOLOL 0.5% OPHTH DROPS 5 ML BTL RIGHT EYE SCH (09:40)
[2023-08-18] MEDS: SENNOSIDES-DOCUSATE SODIUM 1 EACH TAB PO SCH (09:40)
[2023-08-18] MEDS: SERTRALINE 25 MG TAB PO SCH (09:54)
[2023-08-18] MEDS: PANTOPRAZOLE 40 MG TABLET PO SCH (09:54)
[2023-08-18] MEDS: ENOXAPARIN 40 MG/0.4 ML SYRINGE SQ SCH (09:54)
[2023-08-18] MEDS: METOPROLOL TARTRATE 25 MG TAB PO SCH (09:54)
--- NOTE | 2023-08-18 11:02 | P.DS ---
Providers Date of admission: 08/14/23 13:12 Expected date of discharge: 08/18/23 Attending physician: Elliott Decker MD Consults: 08/15/23 10:12 Consult Physician Routine Consulting Provider: Darin Hernandez Consult Reason/Comments: fecal impaction Do you want consulting provider notified?: Yes 08/16/23 13:32 Consult Physician Routine Consulting Provider: Maximo Ferguson Consult Reason/Comments: Impulsive bizarre behavior Do you want consulting provider notified?: Yes Primary care physician: Srinivasa Caballero Assessment: 73-year-old female with past medical history of insulin-dependent diabetes, coronary artery disease status post stents, hypertension, fibromyalgia, and chronic back pain opioid dependence and follows with bottom painter, Dr. Nick. Patient presents to the ED for altered mental status. She reports she has not been able to take any of her medication for a few weeks now due to dry heaving. She reports constipation. She reports chest pressure, unable to describe any further. Multiple attempts were made in the ED to contact family but without success. In the ED, patient underwent extensive evaluation: Tachycardic HR in the low 100s. Elevated BP of 149/95. CBC unremarkable. CMP Cl 97, bicarb 33, Cr 0.48, glu 292. Lactic acid 3.1. Lipase 347. UA 4+ glucose, negative LE or nitrite. UDS negative. Ammonia < 9. Brain CT no acute process. 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 EKG sinus rhythm. Patient is admitted for further workup. 08/15 Patient was seen and examined. Much more awake and alert. She reports discontinuing her narcotic medications in June as she did not need them anymore. She reports 2 weeks of liquid stool, last good bowel movement was 2-3 weeks ago. She was able to have a large solid bowel movement today. Yelling at the nurses to take out one of her IV lines and fire systems inspector. BMP BUN 8.1, BUN/Cr 10.12, glu 255. B12 480. Folate 18.6. TSH 1.51. Troponin < 0.012 x 2. Echo EF 50-55% with G1DD. 08/16 Patient was seen and examined. Apparently spit water on the RN. PT and OT evaluated the patient, poor motivation to participate with therapy. ST evaluated the patient, resistant to most trial of foods, recommended pureed diet. She has had multiple bowel movements and examination by surgery shows no stool on digital rectal exam, outpatient follow up for Lap-Band removal. She has also been refusing alot of her medications. I suspect she is at baseline. Plans for discharge home today. 08/17 Patient was seen and examined. Discharge was held after patient had an apparent fall yesterday. Apparently she flailed her arms, pushed nursing home manager away while ambulating and gracefully slid herself to the floor. No head trauma or LOC noted. She has had multiple bowel movements since being here. Discussed extensively with DAVONTE Mahoney, she has been observed in her room ambulating comfortably and changing of clothing without issues. I do not believe she qual ifies for rehab but she may benefit from a caregiver. Plans for discharge home with today. 08/18 Patient was seen and examined. Sleeping comfortably. Psyc saw the patient, started on Zoloft, Remeron and Seroquel PRN, Effexor was discontinued. She has refused to take most of her medications including insulin. She is medically stable. Discussed with case management Randolph. Patient reluctant to go to SNF. prefers to take the patient home. Discharge today. General: Non toxic, no distress, appears at stated age Derm: Warm, dry Head: Atraumatic, normocephalic, symmetric Eyes: EOMI, no lid lag, anicteric sclera Mouth: No lip lesion, mucus membranes moist Cardiovascular: good distal perfusion in all 4 extremities Lungs: breathing comfortably, no accessory muscle use Ext: No gross muscle atrophy, no edema, no contractures Neuro: no focal neuro deficits Psych: Alert and oriented x 2. Discharge Diagnosis: Acute metabolic encephalopathy, impulsive behavior, suspect at baseline Chest pressure ACS ruled out Constipation, resolved Elevated lipase Diabetes mellitus with hyperglycemia Resolved: Lactic acidosis Chronic conditions: coronary artery disease status post stents, hypertension, fibromyalgia, and chronic back pain with opioid dependence This complex discharge took 35 minutes to complete. Patient Condition at Discharge: Stable Plan - Discharge Summary New Discharge Prescriptions: New polyethylene glycoL 3350 [Miralax] 17 gm PO DAILY #30 packet Sertraline [Zoloft] 25 mg PO DAILY #30 tab Mirtazapine [Remeron] 15 mg PO HS #30 tab Continue Rizatriptan Benzoate [Maxalt] 10 mg PO BID PRN PRN Reason: Migraine Headache Brimonidine Tartrate [Alphagan P 0.2% Ophth Soln] 1 drops RIGHT EYE TID Albuterol Inhaler [Ventolin Hfa Inhaler] 2 puff INHALATION RT-Q4H PRN PRN Reason: Shortness Of Breath Valsartan 160 mg PO DAILY@1800 Pantoprazole [Protonix] 40 mg PO BID@0900,1800 Erenumab-Aooe [Aimovig Autoinjector] 140 mg SQ Q30D Ondansetron Odt [Zofran ODT] 8 mg PO Q8HR PRN PRN Reason: Nausea And Vomiting Rosuvastatin Calcium 10 mg PO MOTH@2100 Olopatadine HCl [Patanol 0.1%] 1 drop RIGHT EYE BID amLODIPine [Norvasc] 5 mg PO DAILY@1800 Timolol 0.5% Ophth Soln [Timoptic 0.5% Ophth Soln] 1 drop RIGHT EYE TID Metoprolol Tartrate [Lopressor] 25 mg PO BID sitaGLIPtin [Januvia] 100 mg PO DAILY Insulin Aspart [NovoLOG Flexpen] See Protocol SQ TID Pioglitazone [Actos] 30 mg PO DAILY Linaclotide [Linzess] 72 mcg PO QID PRN PRN Reason: Constipation Discontinued Topiramate [Topamax] 50 mg PO TID Morphine Sulfate ER [Ms Contin] 15 mg PO Q8H PRN PRN Reason: Pain HYDROcodone/APAP 10-325MG [[place] 10-325] 1 tab PO TID PRN PRN Reason: Pain traZODone HCL [Desyrel] 400 mg PO HS Venlafaxine HCl ER [Effexor XR] 37.5 mg PO DAILY Amitriptyline HCl [Elavil] 10 mg PO HS Discharge Medication List Rizatriptan Benzoate [Maxalt] 10 mg PO BID PRN 07/04/16 [History] Brimonidine Tartrate [Alphagan P 0.2% Ophth Soln] 1 drops RIGHT EYE TID 09/09/17 [History] Albuterol Inhaler [Ventolin Hfa Inhaler] 2 puff INHALATION RT-Q4H PRN 11/03/18 [History] Valsartan 160 mg PO DAILY@1800 04/12/20 [History] Erenumab-Aooe [Aimovig Autoinjector] 140 mg SQ Q30D 11/04/22 [History] Pantoprazole [Protonix] 40 mg PO BID@0900,1800 11/04/22 [History] Ondansetron Odt [Zofran ODT] 8 mg PO Q8HR PRN 11/27/22 [History] Metoprolol Tartrate [Lopressor] 25 mg PO BID 05/28/23 [History] Olopatadine HCl [Patanol 0.1%] 1 drop RIGHT EYE BID 05/28/23 [History] Rosuvastatin Calcium 10 mg PO MOTH@2100 05/28/23 [History] sitaGLIPtin [Januvia] 100 mg PO DAILY 05/28/23 [History] Timolol 0.5% Ophth Soln [Timoptic 0.5% Ophth Soln] 1 drop RIGHT EYE TID 06/07/23 [History] amLODIPine [Norvasc] 5 mg PO DAILY@1800 06/07/23 [History] Insulin Aspart [NovoLOG Flexpen] See Protocol SQ TID 08/14/23 [History] Linaclotide [Linzess] 72 mcg PO QID PRN 08/14/23 [History] Pioglitazone [Actos] 30 mg PO DAILY 08/14/23 [History] polyethylene glycoL 3350 [Miralax] 17 gm PO DAILY #30 packet 08/16/23 [Rx] Mirtazapine [Remeron] 15 mg PO HS #30 tab 08/18/23 [Rx] Sertraline [Zoloft] 25 mg PO DAILY #30 tab 08/18/23 [Rx] Follow up Appointment(s)/Referral(s): Juan Ventura MD [Medical Doctor] - 1 Week Srinivasa Caballero DO [Primary Care Provider] - 1-2 days [facility] Visiting Nurse, [NON-STAFF] - 1 Week Activity/Diet/Wound Care/Special Instructions: Diet: pureed Discharge Disposition: HOME SELF-CARE
--- NOTE | 2023-08-18 14:58 | P.PN ---
Subjective Progress Note Date: 08/18/23 CHIEF COMPLAINT: Constipation HISTORY OF PRESENT ILLNESS: Patient had a little nausea this morning. She did have a small bowel movement this morning as well. No vomiting. She is tolerating diet. Abdominal x-ray for yesterday reported overall nonobstructive bowel gas pattern. Patient scheduled for discharge today. PHYSICAL EXAM: VITAL SIGNS: Reviewed. GENERAL: no acute distress. ABDOMEN: Soft. Nondistended. Nontender. ASSESSMENT: 1. Constipation resolved PLAN: -Okay for discharge from surgical standpoint -Continue good bowel regimen Physician Shake Out Worker note has been reviewed by physician. Signing provider agrees with the documented findings, assessment, and plan of care. Objective - Vital Signs Vital signs: Vital Signs Temp 98.5 F 08/18/23 07:00 Pulse 71 08/18/23 07:00 Resp 16 08/18/23 07:00 BP 161/80 08/18/23 07:00 Pulse Ox 99 08/18/23 07:00 FiO2 Intake & Output 08/17/23 08/18/23 08/18/23 18:59 06:59 18:59 Other: Voiding Method Toilet Diaper # Voids 4 4 # Bowel Movements 3 - Labs CBC & Chem 7: 08/14/23 10:14 08/15/23 05:57 Labs: Abnormal Lab Results - Last 24 Hours (Table) 08/17/23 08/17/23 08/18/23 Range/Units 17:02 21:26 05:47 POC Glucose (mg/dL) 276 H 157 H 325 H (70-110) mg/dL
== END 2023-08-18 10:53 | disposition home or self-care (01) ==
LOC: EC 08:42 → 6NMEDSUR 13:12
PROVIDERS: ADMIT Student in an Organized Health Care Education/Training Program; ATTEND Student in an Organized Health Care Education/Training Program
DX: G93.41 Metabolic encephalopathy (principal); R07.89 Other chest pain; K59.00 Constipation, unspecified; R10.9 Unspecified abdominal pain; R74.8 Abnormal levels of other serum enzymes; E11.65 Type 2 diabetes mellitus with hyperglycemia; E87.20 Acidosis, unspecified; F39 Unspecified mood [affective] disorder; F41.1 Generalized anxiety disorder; J45.909 Unspecified asthma, uncomplicated; K21.9 Gastro-esophageal reflux disease without esophagitis; E78.5 Hyperlipidemia, unspecified; I10 Essential (primary) hypertension; I25.10 Atherosclerotic heart disease of native coronary artery without angina pectoris; G89.29 Other chronic pain; M54.9 Dorsalgia, unspecified; M79.7 Fibromyalgia; F11.20 Opioid dependence, uncomplicated; R45.87 Impulsiveness; I25.2 Old myocardial infarction; Z95.5 Presence of coronary angioplasty implant and graft; Z79.899 Other long term (current) drug therapy; Z79.82 Long term (current) use of aspirin; Z79.84 Long term (current) use of oral hypoglycemic drugs; Z79.4 Long term (current) use of insulin; Z88.1 Allergy status to other antibiotic agents
CPT/HCPCS: 96376 ×2; 96361 ×4; 96372 ×4; 96374; 99285; 36415; 93005; 93306; 97530; 97162; 97165; 92610; 80053; 80048; 84443; 82607; 82140; 82746; 83605; 83690; 84484; 85025; 81001; 80306; 74022; 74019; 70450; G0378 ×5; J2405 ×3; J1650